=== PATIENT | male | born 1940 | race African-American/Black ===

== ENCOUNTER 2018-02-24 15:13 | Inpatient (IN) | payer OTHER ==
[2018-02-25 16:51] LABS: Urine Appearance CLEAR; Urine Blood NEGATIVE (NEG); Urine Color DK YELLOW; Urine Glucose NEGATIVE (NEG); Urine Protein TRACE (NEG); Urine Specific Gravity >=1.030 (1.005-1.030)
[2018-02-25 17:02] LABS: Urine Bilirubin NEGATIVE (NEG)
[2018-02-25 17:20] LABS: Urine Bacteria <20 /HPF (NONE SEEN); Urine Culture Reflex Order NOT NEEDED; Urine Mucus HEAVY /HPF (NONE SEEN); Urine RBC <5 /HPF (NONE SEEN)
[2018-02-25] MEDS: CARVEDILOL 25 MG TAB PO SCH (17:26)
[2018-02-25] MEDS ORDERED: CARVEDILOL 12.5 MG TAB PO SCH (18:00)
[2018-02-25] MEDS: APIXABAN 2.5 MG TABLET PO SCH (20:26)
[2018-02-25] MEDS: ATORVASTATIN 80 MG TAB PO SCH (20:26)
[2018-02-25] MEDS: HYDRALAZINE HCL 25 MG TABLET PO SCH (20:27)
[2018-02-25] MEDS ORDERED: DOCUSATE NA/SENNA CONC 1 TAB PO SCH (21:00)
[2018-02-26] MEDS: CARVEDILOL 25 MG TAB PO SCH ×2 (05:09→17:44)
[2018-02-26 06:30] LABS: Absolute Lymphocytes (CBC) 1.1 K/uL (0.7-4.9); Absolute Monocytes 0.5 K/uL (0.1-1.3); Absolute Neutrophil 2.4 K/uL (1.8-8.0); Basophils % 0.8 % (0-1.3); Eosinophils % 4.5 % (0-4.4); Hematocrit 41.9 % (39.6-49.0); Lymphocytes % 26.5 % (15.3-44.8); MCH 29.9 pg (27.0-35.0); MCV 87.9 fL (80-100); MPV 8.2 fL (7.6-11.3); Monocytes % 11.4 % (3.3-12.3); RBC Red Blood Cell Count 4.77 M/uL (4.33-5.43)
[2018-02-26 06:43] LABS: Magnesium 2.2 mg/dL (1.8-2.4); Prealbumin 21.9 mg/dL (20-40)
[2018-02-26] MEDS: ASPIRIN 81 MG CHEWABLE TABLET PO SCH (09:25)
[2018-02-26] MEDS: LISINOPRIL 20 MG TAB PO SCH (09:25)
[2018-02-26] MEDS: HYDRALAZINE HCL 25 MG TABLET PO SCH ×3 (09:25→20:07)
[2018-02-26] MEDS: APIXABAN 2.5 MG TABLET PO SCH ×2 (09:26→20:07)
--- NOTE | 2018-02-26 10:57 | R.HP ---
FACILITY: [facility] ENCOUNTER DATE AND TIME: 02/26/2018 10:51 (CDT) MR#: [id number] NAME CARLINE MURRAY ADDRESS: [address] [place] [address] CITY: [place] STATE: [place] ZIP [id number] PHONE: DATE OF : 1940 AGE: 77 SSN# [id number] GENDER: Male DEXTERITY Right-handed MARITAL STATUS Single (Never ) RACE Black PRE-HOSPITAL LIVING SETTING 01 - Home (private home/apt. board/care, assisted living, fci, transitional living) PRE-HOSPITAL LIVING WITH Alone ENCOUNTER PHYSICIAN: Dr. Larry Vincent M.D. REFERRING DOCTOR: lexus Byrne DATE OF ADMISSION: 02/25/2018 14:49 (CDT) REFERRING FACILITY [facility] HOME TYPE AND DETAILS: Type of home: single family house # of levels in the residence: 1 # of steps within the residence: 0 # of steps to enter the residence: 0 ADMISSION DIAGNOSIS: Left Temporal lobe and Left Occipital Lobe, Right basal ganglia, right upper aries and deep left parie jonatan lobe white matter. ONSET DATE: 02/22/2018 PRIMARY DIAGNOSIS-RELATED SURGERIES: N/A SECONDARY/COMORBID DIAGNOSES (TIERED): - N/A CVA Hypertension HISTORY OF PRESENT ILLNESS (HPI): Pt. is a 77 yo Right-handed black male. On 02/22/2018 Pt. presented to [facility] with sudden onset of bilateral weakness. On 02/22/2018 he was admitted to [facility] with diagnosis Left Temporal lobe and Left Occipital Lobe, Righ t basal ganglia, right upper aries and deep left parietal lobe white matter.. His impairment category is Stroke 01 - Bilateral (01.3). Pre-morbidly, Pt. was independent/mod-I in Sphincter Control, Transfers Control, Communication, Socia l Cognition, Self-Care, and Locomotion; and he had good Sphincter Control. Currently, he has deficits of Safety Awareness, Transfers Control, Balance, Self-Care, Locomotion, an d Endurance. Pt. is now referred to [facility] for acute in-patient rehabilitation in order to maximize patient's functional independence in activities of daily living, strength, ROM, and mobi lity. Patient has realistic goal of being discharged at assistance level 6-Yadi to reside at Home with Fam rosa/Relatives. MEDICATION ALLERGIES: No Known Drug Allergies (NKDA) ENVIRONMENTAL ALLERGIES: None Known - Substance Allergies None Known - Other Allergies None Known PAST MEDICAL HISTORY: CVA Hypertension FAMILY HISTORY: Family history is not contributory. SOCIAL HISTORY: - Home Living Alone REVIEW OF SYSTEMS: - Gen No Chills Fatigue No Fever - Eyes No Double Vision No itchiness - ENMT No Difficulty Swallowing - CVS No Chest Discomfort No Chest Pain No Fatigue No Weight Gain - Resp No Cough No Shortness of Breath - GI Continent No Abdominal Pain No Constipation No Diarrhea - Continent No Kidney Pain No Painful Urination No Urinary Urgency - MSK No Joint Pain No Muscle Cramps Stiffness - Skin No Itching No Rash No Suspicious Lesions - Neuro Coordination Difficulty Difficulty with Concentration No Memory Loss No Seizures Weakness - Psych No Anxiety No Depression No HIV Exposure No Persistent Infections No Seasonal Allergies - Endo No Cold/Heat Intolerance No Excessive Hunger No Excessive Thirst No Excessive Urination PHYSICAL EXAM - Gen Alert and awake Lying in bed No apparent distress Oriented to: person, time, and place - Skin No skin breakdown. Normacephalic - Eyes No abnormalities - ENMT No abnormalities - Neck No abnormalities - CVS RRR - Chest Clear - Abd Soft - GI Non distended Deferred - No abnormalities - Ext No significant edema - MSK 4+/5 weakness in left upper and lower extremity - Neuro 4/5 strength left upper and lower extremities. - Psych No abnormalities VITAL SIGNS Temperature: 96.4 F SBP/DBP: 132/77 Pulse: 67 Resp: 18 PRECAUTIONS: - Weight Bearing Precaution WBAT both LE FUNCTIONAL STATUS: - Self-Care A. Eating Ind sup B. Grooming Ind sup C. Bathing Ind sup D. Dressing - Upper Ind sup E. Dressing - Lower Ind sup F. Toileting Ind sup - Sphincter Control G: Bladder control Ind Ind H: Bowel control Ind Ind - Transfers Control I. Bed/Chair/Wheelchair Ind Moisés J. Toilet Ind Moisés K. Tub/Shower Ind ADNO - Locomotion L. Walk/Wheelchair (C) Ind Moisés L. Walk/Wheelchair (W) Ind Moisés M. Stairs Ind ADNO - Communication N. Comprehension (B) Ind Ind O. Expression (B) Ind Ind - Social Cognition P. Social Interaction Ind Ind Q. Problem Solving Ind Ind R. Memory Ind Ind - Endurance Fair - Balance Fair - Safety Awareness Fair CURRENT [facility]. DEFICITS: Safety Awareness, Transfers Control, Balance, Self-Care, Locomotion, and Endurance ASSESSMENT: Pt. is a 77 yo Right-handed black male.On 02/22/2018 Pt. presented to [facility] with sudden onset of bilat eral weakness.On 02/22/2018 he was admitted to [facility] with diagnosis Left Temporal lobe and Left Occipi jonatan Lobe, Right basal ganglia, right upper aries and deep left parietal lobe white matter..His [facility] category is Stroke 01 - Bilateral (01.3).Pre-morbidly, Pt. was independent/mod-I in Sphincter Co ntrol, Transfers Control, Communication, Social Cognition, Self-Care, and Locomotion; and he had good Sphincter Control.Currently, he has deficits of Safety Awareness, Transfers Control, Balance, Self-C are, Locomotion, and Endurance.Pt. is now referred to [facility] for acute in- patient rehabilitation in order to maximize patient's functional independence in activities of daily living, strength, ROM, and mobility.- Rehab Goal Patient has realistic goal of being discharged at assistance level 6-Yadi to reside at Home with Fam rosa/Relatives. REHAB PLAN: - Physical Therapy Edema - to improve, our physical therapists will perform initial evaluation of pt's status upon admi ssion and devise an individualized program for Elevation Training, and Lymphedema Therapy DISCHARGE PLAN: - Estimated Length of Stay (days) 17. - Consensus on plan Discharge plan has been discussed with primary caregiver. Patient/Family is in agreement with the preston n. Primary caregiver is in agreement with the plan. - Patient/Family Goals Return home with assistance. - Planned Living Setting Upon Discharge Home, to live with Family/Relatives. SIGNATURE PANEL: (CDT)
--- NOTE | 2018-02-26 10:59 | PAPE ---
PATIENT: [facility] MR# [id number] REFERRING DOCTOR lexus Byrne EVALUATION DATE AND TIME 02/26/2018 10:56 (CDT) NAME CARLINE MURRAY DATE OF 1940 AGE 77 PHONE N# [id number] GENDER male EVALUATING PHYSICIAN Dr. Larry Vincent M.D. ADMISSION DIAGNOSIS: Left Temporal lobe and Left Occipital Lobe, Right basal ganglia, right upper aries and deep left parie jonatan lobe white matter. ONSET DATE 02/22/2018 SECONDARY/COMORBID DIAGNOSES TIERED: - N/A CVA Hypertension POST-ADMISSION FUNCTIONAL/MEDICAL STATUS: - Bladder Same accident frequency: Ind - No accidents in the past 7 days - Bowel Same accident frequency: Ind - No accidents in the past 7 days - Walking Same score based on distance walked: 1(<=50ft) - Wheelchair Same score based on distance traveled: 0(N/A) STATUS CHANGE EVALUATION: No change in Functional or Medical Status is identified compared with Pre-Admission screening. PATIENT NEEDS CLOSE MEDICAL SUPERVISION BY A REHABILITATION PHYSICIAN FOR: Bowel and Bladder Management Coordination of Treatment Team Medical and Co-Morbidity Management DVT Management Pain Management PATIENT REQUIRES 24X7 REHAB NURSING FOR MEDICAL AND FUNCTIONAL MGT. OF THE FOLLOWING DEFICITS: ADL's Ambulation Bowel and Bladder Management Communication Disease Management Medication Management Patient/Family Education Providing Safe Environment Transfers Pain Management PATIENT REQUIRES INTENSIVE, COORDINATED INTERDISCIPLINARY APPROACH TO REHAB: Arranging Home Equipment/Services Discharge Planning Family Intervention/Training Groover Runner/Case Management LIST OF IDENTIFIED AND POTENTIAL PROBLEMS: Alteration in leisure activities Bladder, Incontinence Blood Pressure, Hypertension/hypotension Issues Bowel, Incontinence Infection, Actual or Potential Mobility Impaired Pain, Alteration in Comfort Self Care Deficit Skin Integrity, Actual or Potential Urinary Tract Infection (UTI), Actual or Potential RISK FOR COMPLICATIONS - Hypertension CVA. Hypotension. LA. TIA. INTERVENTIONS - Hypertension PATIENT COULD BE AT RISK FOR COMPLICATIONS FROM ADVERSE MEDICAL CONDITIONS DUE TO HIS/HER COMORBIDITI ES AND THE RIGORS OF THE INTENSIVE REHABILLITATION PROGRAM. METHODS OR INTERVENTIONS TO AVOID COMPLIC ATIONS INCLUDE: - Deep Vein Thrombosis (DVT) Prophylaxis therapy for prevention . Sequential Compression Device (SCD). TE D Hose. - Bleeding Stroke patients assessed for lethargy or change in status. - Infection Clinical staff to assess and manage the signs and symptoms of infection including fever, redness, war mth, etc. - Urinary Tract Infection - Aspiration Clinical staff will assess and manage coughing, drooling, congestion. - Falls Patient will be evaluated for Fall Precautions and will be placed on Fall Precautions as indicated pe r protocol. - Skin Breakdown Nursing will assess skin daily using assessment tool and will place on Skin Breakdown Precautions as indicated per protocol. - Pain Clinical staff may employ non-medication methods such as massage, distraction, decrease stimulus, etc . as needed. Clinical staff will assess patient's pain level every shift per protocol to assess and e nsure pain management effectiveness. Medications will be given and the pain level re-assessed. PRELIMINARY PLAN OF CARE: - Physical Therapy Patient needs Physical Therapy for a daily minimum of 1.5 hours at least 5 out of 7 days, to improve: Mobility, Strengthening, Transfers, Stretching, ROM, Endurance, Ability to manage stairs, Gait, and Balance. - Speech Therapy Patient needs Speech Therapy for a daily minimum of 0.5 hours at least 5 out of 7 days, to improve: S wallowing, Cognition, Language Skills, and Compensatory Strategies. - Rehabilitation Nursing Patient requires 24x7 Rehabilitation Nursing for: Pain Issues, Identifying and preventing risk factor s, Monitoring and reporting current medical conditions, Assisting with ambulation and transfer, Samm ting with all ADL-s, Teaching patients about disease process and medications, Family teaching, Provid ing safe environment, Bowel and Bladder Issues, Skin Integrity, and Medication Management. Patient needs Groover Runner and/or Case Management for: Discharge Planning, Arranging Home Equipmen t or Services, and Family Interventions. - Dietary and Nutrition Services Patient needs Dietary and Nutrition Services for: Adequate Nutrition, Nutritional Supplements, and Nu tritional Education. - Occupational Therapy Patient needs Occupational Therapy for a daily minimum of 1.5 hours at least 5 out of 7 days, to impr ove Activities of Daily Living, including: Eating, Grooming, Bathing, Dressing, Toileting, Toilet Tra nsfers, Community Reintegration, Higher functional activities, Adaptive Equipment, Splinting, Househo ld Tasks, and Other activities as determined. POTENTIAL FUNCTIONAL GOALS FOR PATIENT TO ACHIEVE BY DISCHARGE: - Safety Precaution Patient will remain free from falls or injury at time of discharge. - Bed Mobility Patient will perform bed mobility at 4-Moisés level of assistance. - Transfers Patient will complete transfers from bed to chair at 4-Moisés level of assistance. - Mobility Patient will ambulate 150 ft with 4-Moisés level of assistance with RW. PATIENT REHAB POTENTIAL Expected level of measurable improvement will be of a practical value to patient's functional capacit y or adaptations to impairments Has a viable Discharge Plan Medically appropriate; condition is sufficiently stable to participate in intensive rehab program Patient is able and expected to receive 3 hours of individualized therapy daily on at least 5 of ever y 7 days Patient's prognosis for significant practical improvement within a reasonable period of time appears Good DISCHARGE PLAN: - Estimated Length of Stay (days) 17. - Consensus on plan Discharge plan has been discussed with primary caregiver. Patient/Family is in agreement with the preston n. Primary caregiver is in agreement with the plan. - Patient/Family Goals Return home with assistance. - Planned Living Setting Upon Discharge Home, to live with Family/Relatives. CONCLUSION ON REHABILITATION NECESSITY: I have evaluated patient's pre-admission functional status and, comparing it to the patient's post-ad mission functional status now, I conclude that the pre-admission assessment was accurate. Patient's c ondition on admission supports the medical necessity of admission to [facility]. It is safe to proceed with patient's therapy program. SIGNATURE PANEL: (CDT)
[2018-02-26] MEDS: AMLODIPINE 5 MG TAB PO SCH (12:12)
[2018-02-26] MEDS: ATORVASTATIN 80 MG TAB PO SCH (20:07)
--- NOTE | 2018-02-27 01:24 | FAST ---
SHIFT START DATE/TIME: 02/26/2018 19:00 (CDT) SHIFT END DATE/TIME: 02/27/2018 07:00 (CDT) NAME CARLINE MURRAY DATE OF : 1940 DATE OF ADMISSION: 02/25/2018 14:49 (CDT) PHONE: AGE: 77 N# [id number] GENDER: Male ENCOUNTER PHYSICIAN: Dr. Larry Vincent M.D. 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 EATING: Activity did not occur on this shift EATING - SCORE: 0-UNK GROOMING: Activity did not occur on this shift GROOMING - SCORE: 0-UNK BATHING: Activity did not occur on this shift BATHING - SCORE: 0-UNK DRESSING - UPPER BODY: Patient is not dressing in public clothing ARTICLES SCORE Total number of steps: 0 DRESSING - UPPER BODY - SCORE: 0-UNK DRESSING - LOWER BODY: Patient is not dressing in public clothing ARTICLES SCORE Total number of steps: 0 DRESSING - LOWER BODY - SCORE: 0-UNK TOILETING: TOILETING - STEP 1: Does the patient require assistance with toileting? Yes. TOILETING - STEP 2: Does the patient require the assistance of a helper? Yes. TOILETING - STEP 3: How much assistance does the patient require from the helper? Only supervision TOILETING - SCORE: 5-SUP BLADDER MANAGEMENT: BLADDER MANAGEMENT - STEP 1: Does the patient control the bladder completely and intentionally without equipment or devices or med ications, and is always continent? No. BLADDER MANAGEMENT - STEP 2: Does the patient require the assistance of a helper? Yes. BLADDER MANAGEMENT - STEP 3: How much assistance does the patient require from the helper? Only set-up of equipment - such as plac ing it within reach of the patient or emptying a device - to maintain either satisfactory voiding pat tern or managing an external device, such as an absorbent pad, ileal device, or catheter BLADDER MANAGEMENT - SCORE: 5-SUP BOWEL MANAGEMENT: Activity did not occur on this shift BOWEL MANAGEMENT - SCORE: 7-IND TRANSFERS: BED, CHAIR, WHEELCHAIR: Activity did not occur on this shift TRANSFERS: BED, CHAIR, WHEELCHAIR - SCORE: 0-UNK TRANSFERS: TOILET: Activity did not occur on this shift TRANSFERS: TOILET - SCORE: 0-UNK TRANSFERS: SHOWER: Activity did not occur on this shift TRANSFERS: SHOWER - SCORE: 0-UNK TRANSFERS: TUB: Activity did not occur on this shift TRANSFERS: TUB - SCORE: 0-UNK LOCOMOTION: WALK: Activity did not occur on this shift LOCOMOTION: WALK - SCORE: 0-UNK LOCOMOTION: WHEELCHAIR: Activity did not occur on this shift LOCOMOTION: WHEELCHAIR - SCORE: 0-UNK COMPREHENSION: COMPREHENSION: TYPE: Both COMPREHENSION - STEP 1: Does the patient require help to understand complex and abstract ideas (such as current events, finan mylene, discharge planning, medical issues, relationships, etc)? Yes. COMPREHENSION - STEP 2: Does the patient require help to understand questions or statements about basic needs or ideas (such as hunger, thirst, sleep, safety, daily schedule, room location, or discomfort) half or more of the t summer? No. COMPREHENSION - STEP 3: How often does the patient need help to understand directions and conversation about basic needs? 25% - 49% of the time COMPREHENSION - SCORE: 3-MOD EXPRESSION EXPRESSION: TYPE: Both EXPRESSION - STEP 1: Does the patient require help expressing complex and abstract ideas (such as current events, finances , discharge planning, medical issues, relationships, etc)? Yes. EXPRESSION - STEP 2: Does the patient require help to express basic necessities or ideas (such as hunger, thirst, sleep, s afety, daily schedule, room location, or discomfort) half or more of the time? No. EXPRESSION - STEP 3: How often does the patient need help to express directions and conversation about basic needs? 25-49% of the time EXPRESSION - SCORE: 3-MOD SOCIAL INTERACTION: SOCIAL INTERACTION - STEP 1: Does the patient require a helper to interact with others in social and therapeutic situations? Yes. SOCIAL INTERACTION - STEP 2: Does the patient interact appropriately half or more of the time? Yes. SOCIAL INTERACTION - STEP 3: How often does the patient need help to interact appropriately? 25-49% of the time SOCIAL INTERACTION - SCORE: 3-MOD PROBLEM SOLVING: PROBLEM SOLVING - STEP 1: Does the patient need help to solve complex problems such as managing a checking account or confronti ng interpersonal problems? Yes. PROBLEM SOLVING - STEP 2: Does the patient solve basic routine problems half or more of the time? Yes. PROBLEM SOLVING - STEP 3: How often does the patient need help to solve basic routine problems? 25%-49% of the time PROBLEM SOLVING - SCORE: 3-MOD MEMORY: MEMORY - STEP 1: Does the patient need help to remember frequently encountered people, daily routines, and executing r equests? Yes. MEMORY - STEP 2: How often does the patient need help to remember frequently encountered people, daily routines, and e xecuting requests? 25% - 49% of the time MEMORY - SCORE: 3-MOD SIGNATURE PANEL: The following modified sections: Eating - Score, Grooming - Score, Dressing - Upper Body - Score, Carlo ssing - Lower Body - Score, Toileting - Score, Bladder Management - Score, Bowel Management - Score, Transfers: Bed, Chair, Wheelchair - Score, Transfers: Toilet - Score, Transfers: Shower - Score, Grewal sfers: Tub - Score, Locomotion: Walk - Score, Locomotion: Wheelchair - Score, Comprehension - Score, Expression - Score, Social Interaction - Score, Problem Solving - Score, Memory - Score were [electro nically] signed by Beulah Black CNA on WedFeb 27 2018 01:23:57 GMT-0500 (Central Daylight Time)
[2018-02-27] MEDS: CARVEDILOL 25 MG TAB PO SCH ×2 (05:13→17:16)
[2018-02-27] MEDS: LISINOPRIL 20 MG TAB PO SCH (07:20)
[2018-02-27] MEDS: ASPIRIN 81 MG CHEWABLE TABLET PO SCH (07:20)
[2018-02-27] MEDS: AMLODIPINE 5 MG TAB PO SCH (07:21)
[2018-02-27] MEDS: APIXABAN 2.5 MG TABLET PO SCH ×2 (07:21→20:26)
[2018-02-27] MEDS: HYDRALAZINE HCL 25 MG TABLET PO SCH ×3 (10:15→20:26)
[2018-02-27] MEDS: ATORVASTATIN 80 MG TAB PO SCH (20:26)
--- NOTE | 2018-02-28 02:22 | FAST ---
SHIFT START DATE/TIME: 02/27/2018 19:00 (CDT) SHIFT END DATE/TIME: 02/28/2018 07:00 (CDT) NAME CARLINE MURRAY DATE OF : 1940 DATE OF ADMISSION: 02/25/2018 14:49 (CDT) PHONE: AGE: 77 N# [id number] GENDER: Male ENCOUNTER PHYSICIAN: Dr. Larry Vincent M.D. 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 EATING: Activity did not occur on this shift EATING - SCORE: 0-UNK GROOMING: Activity did not occur on this shift GROOMING - SCORE: 0-UNK BATHING: Activity did not occur on this shift BATHING - SCORE: 0-UNK DRESSING - UPPER BODY: Patient is not dressing in public clothing ARTICLES SCORE Total number of steps: 0 DRESSING - UPPER BODY - SCORE: 0-UNK DRESSING - LOWER BODY: Patient is not dressing in public clothing ARTICLES SCORE Total number of steps: 0 DRESSING - LOWER BODY - SCORE: 0-UNK TOILETING: TOILETING - STEP 1: Does the patient require assistance with toileting? Yes. TOILETING - STEP 2: Does the patient require the assistance of a helper? Yes. TOILETING - STEP 3: How much assistance does the patient require from the helper? Only supervision TOILETING - SCORE: 5-SUP BLADDER MANAGEMENT: BLADDER MANAGEMENT - STEP 1: Does the patient control the bladder completely and intentionally without equipment or devices or med ications, and is always continent? No. BLADDER MANAGEMENT - STEP 2: Does the patient require the assistance of a helper? Yes. BLADDER MANAGEMENT - STEP 3: How much assistance does the patient require from the helper? Only set-up of equipment - such as plac ing it within reach of the patient or emptying a device - to maintain either satisfactory voiding pat tern or managing an external device, such as an absorbent pad, ileal device, or catheter BLADDER MANAGEMENT - SCORE: 5-SUP BOWEL MANAGEMENT: Activity did not occur on this shift BOWEL MANAGEMENT - SCORE: 7-IND TRANSFERS: BED, CHAIR, WHEELCHAIR: Activity did not occur on this shift TRANSFERS: BED, CHAIR, WHEELCHAIR - SCORE: 0-UNK TRANSFERS: TOILET: Activity did not occur on this shift TRANSFERS: TOILET - SCORE: 0-UNK TRANSFERS: SHOWER: Activity did not occur on this shift TRANSFERS: SHOWER - SCORE: 0-UNK TRANSFERS: TUB: Activity did not occur on this shift TRANSFERS: TUB - SCORE: 0-UNK LOCOMOTION: WALK: Activity did not occur on this shift LOCOMOTION: WALK - SCORE: 0-UNK LOCOMOTION: WHEELCHAIR: Activity did not occur on this shift LOCOMOTION: WHEELCHAIR - SCORE: 0-UNK COMPREHENSION: COMPREHENSION: TYPE: Both COMPREHENSION - STEP 1: Does the patient require help to understand complex and abstract ideas (such as current events, finan mylene, discharge planning, medical issues, relationships, etc)? Yes. COMPREHENSION - STEP 2: Does the patient require help to understand questions or statements about basic needs or ideas (such as hunger, thirst, sleep, safety, daily schedule, room location, or discomfort) half or more of the t summer? No. COMPREHENSION - STEP 3: How often does the patient need help to understand directions and conversation about basic needs? 10% - 24% of the time COMPREHENSION - SCORE: 4-MIN EXPRESSION EXPRESSION: TYPE: Both EXPRESSION - STEP 1: Does the patient require help expressing complex and abstract ideas (such as current events, finances , discharge planning, medical issues, relationships, etc)? Yes. EXPRESSION - STEP 2: Does the patient require help to express basic necessities or ideas (such as hunger, thirst, sleep, s afety, daily schedule, room location, or discomfort) half or more of the time? No. EXPRESSION - STEP 3: How often does the patient need help to express directions and conversation about basic needs? 25-49% of the time EXPRESSION - SCORE: 3-MOD SOCIAL INTERACTION: SOCIAL INTERACTION - STEP 1: Does the patient require a helper to interact with others in social and therapeutic situations? Yes. SOCIAL INTERACTION - STEP 2: Does the patient interact appropriately half or more of the time? Yes. SOCIAL INTERACTION - STEP 3: How often does the patient need help to interact appropriately? 25-49% of the time SOCIAL INTERACTION - SCORE: 3-MOD PROBLEM SOLVING: PROBLEM SOLVING - STEP 1: Does the patient need help to solve complex problems such as managing a checking account or confronti ng interpersonal problems? Yes. PROBLEM SOLVING - STEP 2: Does the patient solve basic routine problems half or more of the time? Yes. PROBLEM SOLVING - STEP 3: How often does the patient need help to solve basic routine problems? 25%-49% of the time PROBLEM SOLVING - SCORE: 3-MOD MEMORY: MEMORY - STEP 1: Does the patient need help to remember frequently encountered people, daily routines, and executing r equests? No. MEMORY - STEP 2: Does the patient have slight difficulty recognizing frequently encountered people, daily routines, or executing requests without the need for repetition or using self-initiated or environmental cues to remember? Yes. MEMORY - SCORE: 6-CARINA SIGNATURE PANEL: The following modified sections: Eating - Score, Grooming - Score, Dressing - Upper Body - Score, Carlo ssing - Lower Body - Score, Toileting - Score, Bladder Management - Score, Bowel Management - Score, Transfers: Bed, Chair, Wheelchair - Score, Transfers: Toilet - Score, Transfers: Shower - Score, Grewal sfers: Tub - Score, Locomotion: Walk - Score, Locomotion: Wheelchair - Score, Comprehension - Score, Expression - Score, Social Interaction - Score, Problem Solving - Score, Memory - Score were [electro nically] signed by Beulah Black CNA on WedFeb 28 2018 02:21:09 GMT-0500 (Central Daylight Time)
[2018-02-28] MEDS: CARVEDILOL 25 MG TAB PO SCH ×2 (05:05→17:15)
[2018-02-28] MEDS: APIXABAN 2.5 MG TABLET PO SCH ×2 (08:32→19:43)
[2018-02-28] MEDS: ASPIRIN 81 MG CHEWABLE TABLET PO SCH (08:32)
[2018-02-28] MEDS: AMLODIPINE 5 MG TAB PO SCH (08:32)
[2018-02-28] MEDS: LISINOPRIL 20 MG TAB PO SCH (08:32)
[2018-02-28] MEDS: HYDRALAZINE HCL 25 MG TABLET PO SCH ×3 (08:32→20:19)
--- NOTE | 2018-02-28 08:40 | P.CNS ---
Date of Consult: 02/28/18 Reason for Consult: onychomycosis Requesting Physician: Larry Vincent Chief Complaint: Painful toenails Allergies No Known Allergies Allergy (Verified 02/25/18 15:13) Home Medications: Amlodipine [Norvasc*] 1 tab PO DAILY 02/25/18 Aspirin Chewable [Aspirin Chewable*] 1 tab PO DAILY 02/25/18 Atorvastatin Calcium [Lipitor] 1 tab PO BEDTIME 02/25/18 Carvedilol [Coreg] 37.5 mg PO BID 02/25/18 Hydralazine [Apresoline*] 1 tab PO Q8H 02/25/18 Lisinopril [Zestril] 1 tab PO DAILY 02/25/18 - Past Medical/Surgical History Diabetic: No -: htn -: cva - Social History Alcohol use: No CD- Drugs: No Caffeine use: No Place of Residence: Home Review of Systems 10-point ROS is otherwise unremarkable Physical Examination Temp Pulse Resp BP Pulse Ox 97.8 F 60 16 151/81 H 99 02/27/18 20:00 02/28/18 08:32 02/27/18 20:00 02/28/18 08:32 02/27/18 20:00 General: Alert, In no apparent distress, Oriented x3 Cardiovascular: No edema, Abnormal pulses (0/4 dp pulses bilateral, 1/4 posterior tibial tendon bilateral) Capillary refill: <2 Seconds Musculoskeletal: No clubbing, No swelling, No contractures, No erythema, No tenderness, No warmth Integumentary: Other (thickened hypertrophic nails with subungual debris x 10. Skin noted to be xerotic) Neurological: Abnormal sensation - Problems (1) Generalized atherosclerosis Current Visit: Yes Status: Acute (2) Tinea unguium Current Visit: Yes Status: Acute Conclusions/Impression: Debridement of nails x ten at bedside Physician Review: Patient Assessed, Agree with Above Assessment and Plan Critical Care: No
--- NOTE | 2018-02-28 11:05 | FAST ---
SHIFT START DATE/TIME: 02/28/2018 07:00 (CDT) SHIFT END DATE/TIME: 02/28/2018 19:00 (CDT) NAME CARLINE MURRAY DATE OF : 1940 DATE OF ADMISSION: 02/25/2018 14:49 (CDT) PHONE: AGE: 77 N# [id number] GENDER: Male ENCOUNTER PHYSICIAN: Dr. Larry Vincent M.D. 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 EATING: EATING - STEP 1: Does the patient require assistance when eating? Yes. EATING - STEP 2: Does the patient require the assistance of a helper? Yes. EATING - STEP 3: Does the patient perform half or more of the eating tasks? Yes. EATING - STEP 4: Does the patient need only supervision, cuing, coaxing OR help to apply an orthosis OR help to cut fo od, open containers, pour liquids, or butter bread? Yes. EATING - SCORE: 5-SUP GROOMING: Comb/brush hair Oral care Wash, rinse, and dry face Wash, rinse, and dry hands GROOMING - STEP 1: Does the patient require assistance when grooming? Yes. GROOMING - STEP 2: Does the patient require the assistance of a helper? Yes. GROOMING - STEP 3: How much assistance does the patient require from the helper? Cuing, coaxing, instructions, or encour agement for completion of grooming GROOMING - SCORE: 5-SUP BATHING: Activity did not occur on this shift BATHING - SCORE: 0-UNK DRESSING - UPPER BODY: Activity did not occur on this shift ARTICLES SCORE Total number of steps: 0 DRESSING - UPPER BODY - SCORE: 0-UNK DRESSING - LOWER BODY: Activity did not occur on this shift ARTICLES SCORE Total number of steps: 0 DRESSING - LOWER BODY - SCORE: 0-UNK TOILETING: TOILETING - STEP 1: Does the patient require assistance with toileting? Yes. TOILETING - STEP 2: Does the patient require the assistance of a helper? Yes. TOILETING - STEP 3: How much assistance does the patient require from the helper? Hands-on assistance from the helper TOILETING - STEP 4: Of the 3 tasks: 1) Adjusting clothing prior to use, 2) Cleansing of perineal area, 3) Adjusting clot richie after use; How many tasks does the patient perform WITHOUT assistance of the helper? Two tasks TOILETING - SCORE: 3-MOD BLADDER MANAGEMENT: BLADDER MANAGEMENT - STEP 1: Does the patient control the bladder completely and intentionally without equipment or devices or med ications, and is always continent? No. BLADDER MANAGEMENT - STEP 2: Does the patient require the assistance of a helper? No, patient requires and independently uses an a ssistive device, such as a urinal, bedpan, bedside commode, catheter, absorbent pad, or collecting de vice BLADDER MANAGEMENT - SCORE: 6-CARINA BOWEL MANAGEMENT: BOWEL MANAGEMENT - STEP 1: Does the patient control bowels completely and intentionally without equipment devices or medications AND is always continent? No. BOWEL MANAGEMENT - STEP 2: Does the patient require the assistance of a helper? No, patient requires and manages independently a n assistive device such as a bedpan, bedside commode, absorbent pad, incontinent device, or collectin g device BOWEL MANAGEMENT - SCORE: 6-CARINA TRANSFERS: BED, CHAIR, WHEELCHAIR: TRANSFERS: BED, CHAIR, WHEELCHAIR - STEP 1: Does the patient require assistance with bed, chair, or wheelchair transfers? Yes. TRANSFERS: BED, CHAIR, WHEELCHAIR - STEP 2: Does the patient require the assistance of a helper? Yes. TRANSFERS: BED, CHAIR, WHEELCHAIR - STEP 3: How much assistance does the patient require from the helper? Lifting of the patient TRANSFERS: BED, CHAIR, WHEELCHAIR - STEP 4: Does the helper lift the patient ONLY up? ONLY down? Up AND Down? ONLY up. TRANSFERS: BED, CHAIR, WHEELCHAIR - SCORE: 3-MOD TRANSFERS: TOILET: TRANSFERS: TOILET - STEP 1: Does the patient require assistance with toilet transfers? Yes. TRANSFERS: TOILET - STEP 2: Does the patient require the assistance of a helper? Yes. TRANSFERS: TOILET - STEP 3: How much assistance does the patient require from the helper? Patient performs half or more of the tr ansferring tasks TRANSFERS: TOILET - STEP 4: Does the patient need only incidental help such as contact guard or steadying during toilet transfer? Yes. TRANSFERS: TOILET - SCORE: 4-MIN TRANSFERS: SHOWER: Activity did not occur on this shift TRANSFERS: SHOWER - SCORE: 0-UNK TRANSFERS: TUB: Activity did not occur on this shift TRANSFERS: TUB - SCORE: 0-UNK LOCOMOTION: WALK: Activity did not occur on this shift LOCOMOTION: WALK - SCORE: 0-UNK LOCOMOTION: WHEELCHAIR: Activity did not occur on this shift LOCOMOTION: WHEELCHAIR - SCORE: 0-UNK COMPREHENSION: COMPREHENSION: TYPE: Both COMPREHENSION - STEP 1: Does the patient require help to understand complex and abstract ideas (such as current events, finan mylene, discharge planning, medical issues, relationships, etc)? Yes. COMPREHENSION - STEP 2: Does the patient require help to understand questions or statements about basic needs or ideas (such as hunger, thirst, sleep, safety, daily schedule, room location, or discomfort) half or more of the t summer? No. COMPREHENSION - STEP 3: How often does the patient need help to understand directions and conversation about basic needs? 10% - 24% of the time COMPREHENSION - SCORE: 4-MIN EXPRESSION EXPRESSION: TYPE: Both EXPRESSION - STEP 1: Does the patient require help expressing complex and abstract ideas (such as current events, finances , discharge planning, medical issues, relationships, etc)? Yes. EXPRESSION - STEP 2: Does the patient require help to express basic necessities or ideas (such as hunger, thirst, sleep, s afety, daily schedule, room location, or discomfort) half or more of the time? No. EXPRESSION - STEP 3: How often does the patient need help to express directions and conversation about basic needs? 10-24% of the time EXPRESSION - SCORE: 4-MIN SOCIAL INTERACTION: SOCIAL INTERACTION - STEP 1: Does the patient require a helper to interact with others in social and therapeutic situations? Yes. SOCIAL INTERACTION - STEP 2: Does the patient interact appropriately half or more of the time? Yes. SOCIAL INTERACTION - STEP 3: How often does the patient need help to interact appropriately? Less than 10% of the time SOCIAL INTERACTION - SCORE: 5-SUP PROBLEM SOLVING: PROBLEM SOLVING - STEP 1: Does the patient need help to solve complex problems such as managing a checking account or confronti ng interpersonal problems? Yes. PROBLEM SOLVING - STEP 2: Does the patient solve basic routine problems half or more of the time? Yes. PROBLEM SOLVING - STEP 3: How often does the patient need help to solve basic routine problems? 10%-24% of the time PROBLEM SOLVING - SCORE: 4-MIN MEMORY: MEMORY - STEP 1: Does the patient need help to remember frequently encountered people, daily routines, and executing r equests? Yes. MEMORY - STEP 2: How often does the patient need help to remember frequently encountered people, daily routines, and e xecuting requests? 10% - 24% of the time MEMORY - SCORE: 4-MIN SIGNATURE PANEL: The following modified sections: Eating - Score, Grooming - Score, Bathing - Score, Dressing - Upper Body - Score, Dressing - Lower Body - Score, Toileting - Score, Bladder Management - Score, Bowel Man agement - Score, Transfers: Bed, Chair, Wheelchair - Score, Transfers: Toilet - Score, Transfers: Esperanza wer - Score, Transfers: Tub - Score, Locomotion: Walk - Score, Locomotion: Wheelchair - Score, Compre hension - Score, Expression - Score, Social Interaction - Score, Problem Solving - Score, Memory - Sc ore were [electronically] signed by Kiet Sims on WedFeb 28 2018 11:04:36 T-0500 (Central Daylight Time)
[2018-02-28 15:52] LABS: Absolute Lymphocytes (CBC) 1.4 K/uL (0.7-4.9); Absolute Monocytes 0.6 K/uL (0.1-1.3); Absolute Neutrophil 3.2 K/uL (1.8-8.0); Basophils % 0.8 % (0-1.3); Eosinophils % 2.7 % (0-4.4); Hematocrit 42.7 % (39.6-49.0); Lymphocytes % 26.3 % (15.3-44.8); MCH 29.9 pg (27.0-35.0); MCV 87.7 fL (80-100); MPV 8.5 fL (7.6-11.3); Monocytes % 11.4 % (3.3-12.3); RBC Red Blood Cell Count 4.86 M/uL (4.33-5.43)
[2018-02-28 16:18] LABS: Potassium 4.4 mmol/L (3.5-5.1)
--- NOTE | 2018-02-28 18:53 | R.PN ---
ENCOUNTER DATE AND TIME: 02/28/2018 18:29 (CDT) NAME CARLINE MURRAY DATE OF : 1940 DATE OF ADMISSION: 02/25/2018 14:49 (CDT) Left Temporal lobe and Left Occipital Lobe, Right basal ganglia, right upper aries and deep left parie jonatan lobe white matter.SUBJECTIVE: Pt denied any depression. Pt denied any Shortness of Breath. Mr. Murray left the hospital without permission and evidently drank alcohol as after returnig his blo od alcohol level was elevated to 5 mg/dl (Normal < 3). Self propelled wheelchair 250' with standby assistance. Ambulated 190' with contact guard assistance using a rolling walker. VITAL SIGNS Temperature: 97.2 F SBP/DBP: 151/81 Pulse: 76 Resp: 16 MEDICATION ALLERGIES: No Known Drug Allergies (NKDA) ENVIRONMENTAL ALLERGIES: None Known - Substance Allergies None Known - Other Allergies None Known NURSING: - Shower allowing shower - Bladder care per protocol - Skin care per protocol PRECAUTIONS: - Weight Bearing Precaution WBAT both LE ACTIVITIES OOB only with supervision THERAPIES: - Occupational Therapy Evaluate and Treat. Visual Perceptual Training. Cognitive Retraining. - Speech Therapy Cognitive Training. Memory Strategies. Expressive Language Skills. Speech Intelligibility Training. R eceptive Language Skills. - Physical Therapy Evaluate and Treat. PHYSICAL EXAM - Gen Alert and awake Lying in bed No apparent distress Oriented to: person, time, and place - Skin No skin breakdown. Normacephalic - Eyes No abnormalities - ENMT No abnormalities - Neck No abnormalities - CVS RRR - Chest Clear - Abd Soft - GI Non distended Deferred - No abnormalities - Ext No significant edema - MSK 4+/5 weakness in left upper and lower extremity - Neuro 4/5 strength left upper and lower extremities. - Psych No abnormalities ASSESSMENT: Pt. is a 77 yo Right-handed black male.On 02/22/2018 Pt. presented to [facility] with sudden onset of bilat eral weakness.On 02/22/2018 he was admitted to [facility] with diagnosis Left Temporal lobe and Left Occipi jonatan Lobe, Right basal ganglia, right upper aries and deep left parietal lobe white matter..His [facility] ent category is Stroke 01 - Bilateral (01.3).Pre-morbidly, Pt. was independent/mod-I in Sphincter Co ntrol, Transfers Control, Communication, Social Cognition, Self-Care, and Locomotion; and he had good Sphincter Control.Currently, he has deficits of Safety Awareness, Transfers Control, Balance, Self-C are, Locomotion, and Endurance.Pt. is now referred to [facility] for acute in- patient rehabilitation in order to maximize patient's functional independence in activities of daily living, strength, ROM, and mobility.- Rehab Goal Patient has realistic goal of being discharged at assistance level 6-Yadi to reside at Home with Fam rosa/Relatives. MDM/PLAN: - Physical Therapy Edema - to improve, our physical therapists will perform initial evaluation of pt's status upon admis santhosh and devise an individualized program for Elevation Training, and Lymphedema Therapy FUNCTIONAL STATUS: UPDATED AT WEEKLY TEAM CONFERENCE - Bladder Same accident frequency: 7-Ind - No accidents in the past 7 days - Bowel Same accident frequency: 7-Ind - No accidents in the past 7 days - Walking Same score based on distance walked: 1(<=50ft) - Wheelchair Same score based on distance traveled: 0(N/A) FUNCTIONAL STATUS: - Self-Care A. Eating sup B. Grooming sup C. Bathing sup D. Dressing - Upper sup E. Dressing - Lower sup F. Toileting sup - Sphincter Control G: Bladder control Ind H: Bowel control Ind - Transfers Control I. Bed/Chair/Wheelchair Moisés J. Toilet Moisés K. Tub/Shower ADNO - Locomotion L. Walk/Wheelchair (C) Moisés L. Walk/Wheelchair (W) Moisés M. Stairs ADNO - Communication N. Comprehension (B) Ind O. Expression (B) Ind - Social Cognition P. Social Interaction Ind Q. Problem Solving Ind R. Memory Ind - Endurance Fair - Balance Fair - Safety Awareness Fair CURRENT FUNC. DEFICITS: Safety Awareness, Transfers Control, Balance, Self-Care, Locomotion, and Endurance SIGNATURE PANEL: (CDT)
[2018-02-28 18:59] LABS: Barbiturates NEGATIVE (NEGATIVE); Benzodiazepines NEGATIVE (NEGATIVE); Cocaine NEGATIVE (NEGATIVE); METHAMPHETAM NEGATIVE (NEGATIVE); Methadone NEGATIVE (NEGATIVE); Opiates NEGATIVE (NEGATIVE); Phencyclidine NEGATIVE (NEGATIVE); THC Cannibis NEGATIVE (NEGATIVE)
[2018-02-28] MEDS: ATORVASTATIN 80 MG TAB PO SCH (20:19)
--- NOTE | 2018-03-01 02:13 | FAST ---
SHIFT START DATE/TIME: 02/28/2018 19:00 (CDT) SHIFT END DATE/TIME: 03/01/2018 07:00 (CDT) NAME CARLINE MURRAY DATE OF : 1940 DATE OF ADMISSION: 02/25/2018 14:49 (CDT) PHONE: AGE: 77 N# [id number] GENDER: Male ENCOUNTER PHYSICIAN: Dr. Larry Vincent M.D. 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 EATING: Activity did not occur on this shift EATING - SCORE: 0-UNK GROOMING: Activity did not occur on this shift GROOMING - SCORE: 0-UNK BATHING: Activity did not occur on this shift BATHING - SCORE: 0-UNK DRESSING - UPPER BODY: Patient is not dressing in public clothing ARTICLES SCORE Total number of steps: 0 DRESSING - UPPER BODY - SCORE: 0-UNK DRESSING - LOWER BODY: Patient is not dressing in public clothing ARTICLES SCORE Total number of steps: 0 DRESSING - LOWER BODY - SCORE: 0-UNK TOILETING: TOILETING - STEP 1: Does the patient require assistance with toileting? Yes. TOILETING - STEP 2: Does the patient require the assistance of a helper? Yes. TOILETING - STEP 3: How much assistance does the patient require from the helper? Only supervision TOILETING - SCORE: 5-SUP BLADDER MANAGEMENT: BLADDER MANAGEMENT - STEP 1: Does the patient control the bladder completely and intentionally without equipment or devices or med ications, and is always continent? No. BLADDER MANAGEMENT - STEP 2: Does the patient require the assistance of a helper? Yes. BLADDER MANAGEMENT - STEP 3: How much assistance does the patient require from the helper? Only set-up of equipment - such as plac ing it within reach of the patient or emptying a device - to maintain either satisfactory voiding pat tern or managing an external device, such as an absorbent pad, ileal device, or catheter BLADDER MANAGEMENT - SCORE: 5-SUP BOWEL MANAGEMENT: Activity did not occur on this shift BOWEL MANAGEMENT - SCORE: 7-IND TRANSFERS: BED, CHAIR, WHEELCHAIR: Activity did not occur on this shift TRANSFERS: BED, CHAIR, WHEELCHAIR - SCORE: 0-UNK TRANSFERS: TOILET: Activity did not occur on this shift TRANSFERS: TOILET - SCORE: 0-UNK TRANSFERS: SHOWER: Activity did not occur on this shift TRANSFERS: SHOWER - SCORE: 0-UNK TRANSFERS: TUB: Activity did not occur on this shift TRANSFERS: TUB - SCORE: 0-UNK LOCOMOTION: WALK: Activity did not occur on this shift LOCOMOTION: WALK - SCORE: 0-UNK LOCOMOTION: WHEELCHAIR: Activity did not occur on this shift LOCOMOTION: WHEELCHAIR - SCORE: 0-UNK COMPREHENSION: COMPREHENSION: TYPE: Both COMPREHENSION - STEP 1: Does the patient require help to understand complex and abstract ideas (such as current events, finan mylene, discharge planning, medical issues, relationships, etc)? Yes. COMPREHENSION - STEP 2: Does the patient require help to understand questions or statements about basic needs or ideas (such as hunger, thirst, sleep, safety, daily schedule, room location, or discomfort) half or more of the t summer? No. COMPREHENSION - STEP 3: How often does the patient need help to understand directions and conversation about basic needs? 10% - 24% of the time COMPREHENSION - SCORE: 4-MIN EXPRESSION EXPRESSION: TYPE: Both EXPRESSION - STEP 1: Does the patient require help expressing complex and abstract ideas (such as current events, finances , discharge planning, medical issues, relationships, etc)? Yes. EXPRESSION - STEP 2: Does the patient require help to express basic necessities or ideas (such as hunger, thirst, sleep, s afety, daily schedule, room location, or discomfort) half or more of the time? No. EXPRESSION - STEP 3: How often does the patient need help to express directions and conversation about basic needs? 25-49% of the time EXPRESSION - SCORE: 3-MOD SOCIAL INTERACTION: SOCIAL INTERACTION - STEP 1: Does the patient require a helper to interact with others in social and therapeutic situations? Yes. SOCIAL INTERACTION - STEP 2: Does the patient interact appropriately half or more of the time? Yes. SOCIAL INTERACTION - STEP 3: How often does the patient need help to interact appropriately? 10-24% of the time SOCIAL INTERACTION - SCORE: 4-MIN PROBLEM SOLVING: PROBLEM SOLVING - STEP 1: Does the patient need help to solve complex problems such as managing a checking account or confronti ng interpersonal problems? Yes. PROBLEM SOLVING - STEP 2: Does the patient solve basic routine problems half or more of the time? Yes. PROBLEM SOLVING - STEP 3: How often does the patient need help to solve basic routine problems? 10%-24% of the time PROBLEM SOLVING - SCORE: 4-MIN MEMORY: MEMORY - STEP 1: Does the patient need help to remember frequently encountered people, daily routines, and executing r equests? Yes. MEMORY - STEP 2: How often does the patient need help to remember frequently encountered people, daily routines, and e xecuting requests? Less than 10% of the time MEMORY - SCORE: 5-SUP
[2018-03-01] MEDS: CARVEDILOL 25 MG TAB PO SCH ×2 (05:27→17:23)
[2018-03-01] MEDS: LISINOPRIL 20 MG TAB PO SCH (08:37)
[2018-03-01] MEDS: AMLODIPINE 5 MG TAB PO SCH (08:37)
[2018-03-01] MEDS: ASPIRIN 81 MG CHEWABLE TABLET PO SCH (08:37)
[2018-03-01] MEDS: APIXABAN 2.5 MG TABLET PO SCH ×2 (08:38→20:11)
[2018-03-01] MEDS: HYDRALAZINE HCL 25 MG TABLET PO SCH ×3 (08:38→20:11)
--- NOTE | 2018-03-01 09:52 | RAD REPORT ---
EXAM DESCRIPTION: RAD - Barium Swallow Modified - 03/01/2018 9:43 am CLINICAL HISTORY: Difficulty swallowing COMPARISON: No comparisons TECHNIQUE: The patient was given liquid, semi-solid and solid forms of barium. Lateral view fluorosc opic imaging was performed in conjunction with speech pathology service. FINDINGS: LARYNGEAL PENETRATION: NOT CLEARED THIN VIA TSP AND CUP SIP, PENETRATION WAS DEEP TO THE LEVEL OF THE VOCAL CORDS WITH THIN VIA CUP SIP PHARYNGEAL RESIDUE: PYRIFORM WITH THIN ORAL PREPARATION AND ORAL TRANSIT TIME WERE INCREASED DELAY IN SWALLOW ONSET NOTED PUREED BOLUS PASSED INTO THE LOWER ESOPHAGUS WITHOUT INCIDENT Total fluoroscopy time: 4 minutes and 11 seconds.
--- NOTE | 2018-03-01 10:29 | FAST ---
SHIFT START DATE/TIME: 03/01/2018 07:00 (CDT) SHIFT END DATE/TIME: 03/01/2018 19:00 (CDT) NAME CARLINE MURRAY DATE OF : 1940 DATE OF ADMISSION: 02/25/2018 14:49 (CDT) PHONE: AGE: 77 N# [id number] GENDER: Male ENCOUNTER PHYSICIAN: Dr. Larry Vincent M.D. 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 EATING: EATING - STEP 1: Does the patient require assistance when eating? Yes. EATING - STEP 2: Does the patient require the assistance of a helper? Yes. EATING - STEP 3: Does the patient perform half or more of the eating tasks? Yes. EATING - STEP 4: Does the patient need only supervision, cuing, coaxing OR help to apply an orthosis OR help to cut fo od, open containers, pour liquids, or butter bread? Yes. EATING - SCORE: 5-SUP GROOMING: Activity did not occur on this shift GROOMING - SCORE: 0-UNK BATHING: Activity did not occur on this shift BATHING - SCORE: 0-UNK DRESSING - UPPER BODY: Activity did not occur on this shift ARTICLES SCORE Total number of steps: 0 DRESSING - UPPER BODY - SCORE: 0-UNK DRESSING - LOWER BODY: Activity did not occur on this shift ARTICLES SCORE Total number of steps: 0 DRESSING - LOWER BODY - SCORE: 0-UNK TOILETING: TOILETING - STEP 1: Does the patient require assistance with toileting? Yes. TOILETING - STEP 2: Does the patient require the assistance of a helper? Yes. TOILETING - STEP 3: How much assistance does the patient require from the helper? Hands-on assistance from the helper TOILETING - STEP 4: Of the 3 tasks: 1) Adjusting clothing prior to use, 2) Cleansing of perineal area, 3) Adjusting clot richie after use; How many tasks does the patient perform WITHOUT assistance of the helper? Two tasks TOILETING - SCORE: 3-MOD BLADDER MANAGEMENT: BLADDER MANAGEMENT - STEP 1: Does the patient control the bladder completely and intentionally without equipment or devices or med ications, and is always continent? No. BLADDER MANAGEMENT - STEP 2: Does the patient require the assistance of a helper? No, patient requires and independently uses an a ssistive device, such as a urinal, bedpan, bedside commode, catheter, absorbent pad, or collecting de vice BLADDER MANAGEMENT - SCORE: 6-CARINA BOWEL MANAGEMENT: BOWEL MANAGEMENT - STEP 1: Does the patient control bowels completely and intentionally without equipment devices or medications AND is always continent? No. BOWEL MANAGEMENT - STEP 2: Does the patient require the assistance of a helper? No, patient requires and manages independently a n assistive device such as a bedpan, bedside commode, absorbent pad, incontinent device, or collectin g device BOWEL MANAGEMENT - SCORE: 6-CARINA TRANSFERS: BED, CHAIR, WHEELCHAIR: TRANSFERS: BED, CHAIR, WHEELCHAIR - STEP 1: Does the patient require assistance with bed, chair, or wheelchair transfers? Yes. TRANSFERS: BED, CHAIR, WHEELCHAIR - STEP 2: Does the patient require the assistance of a helper? Yes. TRANSFERS: BED, CHAIR, WHEELCHAIR - STEP 3: How much assistance does the patient require from the helper? Lifting of the patient TRANSFERS: BED, CHAIR, WHEELCHAIR - STEP 4: Does the helper lift the patient ONLY up? ONLY down? Up AND Down? ONLY up. TRANSFERS: BED, CHAIR, WHEELCHAIR - SCORE: 3-MOD TRANSFERS: TOILET: Activity did not occur on this shift TRANSFERS: TOILET - SCORE: 0-UNK TRANSFERS: SHOWER: Activity did not occur on this shift TRANSFERS: SHOWER - SCORE: 0-UNK TRANSFERS: TUB: Activity did not occur on this shift TRANSFERS: TUB - SCORE: 0-UNK LOCOMOTION: WALK: Activity did not occur on this shift LOCOMOTION: WALK - SCORE: 0-UNK LOCOMOTION: WHEELCHAIR: Activity did not occur on this shift LOCOMOTION: WHEELCHAIR - SCORE: 0-UNK COMPREHENSION: COMPREHENSION: TYPE: Both COMPREHENSION - STEP 1: Does the patient require help to understand complex and abstract ideas (such as current events, finan mylene, discharge planning, medical issues, relationships, etc)? Yes. COMPREHENSION - STEP 2: Does the patient require help to understand questions or statements about basic needs or ideas (such as hunger, thirst, sleep, safety, daily schedule, room location, or discomfort) half or more of the t summer? No. COMPREHENSION - STEP 3: How often does the patient need help to understand directions and conversation about basic needs? 10% - 24% of the time COMPREHENSION - SCORE: 4-MIN EXPRESSION EXPRESSION: TYPE: Both EXPRESSION - STEP 1: Does the patient require help expressing complex and abstract ideas (such as current events, finances , discharge planning, medical issues, relationships, etc)? Yes. EXPRESSION - STEP 2: Does the patient require help to express basic necessities or ideas (such as hunger, thirst, sleep, s afety, daily schedule, room location, or discomfort) half or more of the time? No. EXPRESSION - STEP 3: How often does the patient need help to express directions and conversation about basic needs? 25-49% of the time EXPRESSION - SCORE: 3-MOD SOCIAL INTERACTION: SOCIAL INTERACTION - STEP 1: Does the patient require a helper to interact with others in social and therapeutic situations? Yes. SOCIAL INTERACTION - STEP 2: Does the patient interact appropriately half or more of the time? Yes. SOCIAL INTERACTION - STEP 3: How often does the patient need help to interact appropriately? 10-24% of the time SOCIAL INTERACTION - SCORE: 4-MIN PROBLEM SOLVING: PROBLEM SOLVING - STEP 1: Does the patient need help to solve complex problems such as managing a checking account or confronti ng interpersonal problems? Yes. PROBLEM SOLVING - STEP 2: Does the patient solve basic routine problems half or more of the time? Yes. PROBLEM SOLVING - STEP 3: How often does the patient need help to solve basic routine problems? Less than 10% of the time PROBLEM SOLVING - SCORE: 5-SUP MEMORY: MEMORY - STEP 1: Does the patient need help to remember frequently encountered people, daily routines, and executing r equests? Yes. MEMORY - STEP 2: How often does the patient need help to remember frequently encountered people, daily routines, and e xecuting requests? 10% - 24% of the time MEMORY - SCORE: 4-MIN SIGNATURE PANEL: The following modified sections: Eating - Score, Grooming - Score, Bathing - Score, Dressing - Upper Body - Score, Dressing - Lower Body - Score, Toileting - Score, Bladder Management - Score, Bowel Man agement - Score, Transfers: Bed, Chair, Wheelchair - Score, Transfers: Toilet - Score, Transfers: Esperanza wer - Score, Transfers: Tub - Score, Locomotion: Walk - Score, Locomotion: Wheelchair - Score, Compre hension - Score, Expression - Score, Social Interaction - Score, Problem Solving - Score, Memory - Sc ore were [electronically] signed by Kiet Sims on WedMar 01 2018 10:27:37 T-0500 (Central Daylight Time)
--- NOTE | 2018-03-01 13:54 | FAST ---
ENCOUNTER DATE AND TIME: 03/01/2018 08:00 (CDT) NAME CARLINE MURRAY DATE OF : 1940 DATE OF ADMISSION: 02/25/2018 14:49 (CDT) PHONE: AGE: 77 SSN# [id number] GENDER: Male ENCOUNTER PHYSICIAN: Dr. Larry Vincent M.D. 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 EATING: Activity did not occur on this shift EATING - SCORE: 0-UNK GROOMING: Activity did not occur on this shift GROOMING - SCORE: 0-UNK BATHING: Activity did not occur on this shift BATHING - SCORE: 0-UNK DRESSING - UPPER BODY: Activity did not occur on this shift Patient is not dressing in public clothing ARTICLES SCORE Total number of steps: 0 DRESSING - UPPER BODY - SCORE: 0-UNK DRESSING - LOWER BODY: Activity did not occur on this shift Patient is not dressing in public clothing ARTICLES SCORE Total number of steps: 0 DRESSING - LOWER BODY - SCORE: 0-UNK TOILETING: Activity did not occur on this shift TOILETING - SCORE: 0-UNK BLADDER MANAGEMENT: Activity did not occur on this shift BLADDER MANAGEMENT - SCORE: 7-IND BOWEL MANAGEMENT: Activity did not occur on this shift BOWEL MANAGEMENT - SCORE: 7-IND TRANSFERS: BED, CHAIR, WHEELCHAIR: TRANSFERS: BED, CHAIR, WHEELCHAIR - STEP 1: Does the patient require assistance with bed, chair, or wheelchair transfers? Yes. TRANSFERS: BED, CHAIR, WHEELCHAIR - STEP 2: Does the patient require the assistance of a helper? Yes. TRANSFERS: BED, CHAIR, WHEELCHAIR - STEP 3: How much assistance does the patient require from the helper? Lifting of the patient TRANSFERS: BED, CHAIR, WHEELCHAIR - STEP 4: Does the helper lift the patient ONLY up? ONLY down? Up AND Down? ONLY up. TRANSFERS: BED, CHAIR, WHEELCHAIR - SCORE: 3-MOD TRANSFERS: TOILET: Activity did not occur on this shift TRANSFERS: TOILET - SCORE: 0-UNK TRANSFERS: SHOWER: Activity did not occur on this shift TRANSFERS: SHOWER - SCORE: 0-UNK TRANSFERS: TUB: Activity did not occur on this shift TRANSFERS: TUB - SCORE: 0-UNK LOCOMOTION: WALK: LOCOMOTION: WALK - STEP 1: Does the patient need help to walk 150 feet? Yes. LOCOMOTION: WALK - STEP 2: How much assistance does the patient require to walk a minimum of 150 feet? Patient walks less than 1 50 feet - but more than 50 feet - with the assistance of only one helper LOCOMOTION: WALK - SCORE: 2-MAX LOCOMOTION: WHEELCHAIR: Activity did not occur on this shift LOCOMOTION: WHEELCHAIR - SCORE: 0-UNK LOCOMOTION: STAIRS: Activity did not occur on this shift LOCOMOTION: STAIRS - SCORE: 0-UNK COMPREHENSION: COMPREHENSION - SCORE: 0-UNK EXPRESSION EXPRESSION - SCORE: 0-UNK SOCIAL INTERACTION: SOCIAL INTERACTION - SCORE: 0-UNK PROBLEM SOLVING: PROBLEM SOLVING - SCORE: 0-UNK MEMORY: MEMORY - SCORE: 0-UNK SIGNATURE PANEL: The following modified sections: Transfers: Bed, Chair, Wheelchair - Score, Transfers: Toilet - Score , Locomotion: Walk - Score, Locomotion: Wheelchair - Score, Locomotion: Stairs - Score were [electron ically] signed by Lance Coello PT on WedMar 01 2018 13:53:51 T-0500 (Central Daylight Time)
--- NOTE | 2018-03-01 17:36 | R.PN ---
ENCOUNTER DATE AND TIME: 03/01/2018 17:33 (CDT) NAME CARLINE MURRAY DATE OF : 1940 DATE OF ADMISSION: 02/25/2018 14:49 (CDT) Left Temporal lobe and Left Occipital Lobe, Right basal ganglia, right upper aries and deep left parie jonatan lobe white matter.CHIEF COMPLAINT: Bilateral hemispheric stroke SUBJECTIVE: Pt denied any depression. Pt denied any Shortness of Breath. Self propelled wheelchair 250' with standby assistance. Ambulated 200' with minimum assistance using a rolling walker. VITAL SIGNS Temperature: 97.2 F SBP/DBP: 169/104 Pulse: 87 Resp: 16 MEDICATION ALLERGIES: No Known Drug Allergies (NKDA) ENVIRONMENTAL ALLERGIES: None Known - Substance Allergies None Known - Other Allergies None Known NURSING: - Shower allowing shower - Bladder care per protocol - Skin care per protocol PRECAUTIONS: - Weight Bearing Precaution WBAT both LE ACTIVITIES OOB only with supervision THERAPIES: - Occupational Therapy Evaluate and Treat. Visual Perceptual Training. Cognitive Retraining. - Speech Therapy Cognitive Training. Memory Strategies. Expressive Language Skills. Speech Intelligibility Training. R eceptive Language Skills. - Physical Therapy Evaluate and Treat. PHYSICAL EXAM - Gen Alert and awake Lying in bed No apparent distress Oriented to: person, time, and place - Skin No skin breakdown. Normacephalic - Eyes No abnormalities - ENMT No abnormalities - Neck No abnormalities - CVS RRR - Chest Clear - Abd Soft - GI Non distended Deferred - No abnormalities - Ext No significant edema - MSK 4+/5 weakness in left upper and lower extremity - Neuro 4/5 strength left upper and lower extremities. - Psych No abnormalities ASSESSMENT: Pt. is a 77 yo Right-handed black male.On 02/22/2018 Pt. presented to [facility] with sudden onset of bilat eral weakness.On 02/22/2018 he was admitted to [facility] with diagnosis Left Temporal lobe and Left Occipi jonatan Lobe, Right basal ganglia, right upper aries and deep left parietal lobe white matter..His [facility] ent category is Stroke 01 - Bilateral (01.3).Pre-morbidly, Pt. was independent/mod-I in Sphincter Co ntrol, Transfers Control, Communication, Social Cognition, Self-Care, and Locomotion; and he had good Sphincter Control.Currently, he has deficits of Safety Awareness, Transfers Control, Balance, Self-C are, Locomotion, and Endurance.Pt. is now referred to [facility] for acute in- patient rehabilitation in order to maximize patient's functional independence in activities of daily living, strength, ROM, and mobility.- Rehab Goal Patient has realistic goal of being discharged at assistance level 6-Yadi to reside at Home with Fam rosa/Relatives. MDM/PLAN: - Physical Therapy Edema - to improve, our physical therapists will perform initial evaluation of pt's status upon admi ssion and devise an individualized program for Elevation Training, and Lymphedema Therapy FUNCTIONAL STATUS: UPDATED AT WEEKLY TEAM CONFERENCE - Bladder Same accident frequency: 7-Ind - No accidents in the past 7 days - Bowel Same accident frequency: 7-Ind - No accidents in the past 7 days - Walking Same score based on distance walked: 1(<=50ft) - Wheelchair Same score based on distance traveled: 0(N/A) FUNCTIONAL STATUS: - Self-Care A. Eating sup B. Grooming sup C. Bathing sup D. Dressing - Upper sup E. Dressing - Lower sup F. Toileting sup - Sphincter Control G: Bladder control Ind H: Bowel control Ind - Transfers Control I. Bed/Chair/Wheelchair Moisés J. Toilet Moisés K. Tub/Shower ADNO - Locomotion L. Walk/Wheelchair (C) Moisés L. Walk/Wheelchair (W) Moisés M. Stairs ADNO - Communication N. Comprehension (B) Ind O. Expression (B) Ind - Social Cognition P. Social Interaction Ind Q. Problem Solving Ind R. Memory Ind - Endurance Fair - Balance Fair - Safety Awareness Fair CURRENT FUNC. DEFICITS: Safety Awareness, Transfers Control, Balance, Self-Care, Locomotion, and Endurance SIGNATURE PANEL: (CDT)
[2018-03-01] MEDS: ATORVASTATIN 80 MG TAB PO SCH (20:11)
[2018-03-02] MEDS: CARVEDILOL 25 MG TAB PO SCH ×2 (05:28→17:11)
[2018-03-02] MEDS: LISINOPRIL 20 MG TAB PO SCH (07:56)
[2018-03-02] MEDS: AMLODIPINE 5 MG TAB PO SCH (07:57)
[2018-03-02] MEDS: APIXABAN 2.5 MG TABLET PO SCH ×2 (07:57→20:03)
[2018-03-02] MEDS: ASPIRIN 81 MG CHEWABLE TABLET PO SCH (07:57)
[2018-03-02] MEDS: HYDRALAZINE HCL 25 MG TABLET PO SCH ×3 (07:59→20:03)
--- NOTE | 2018-03-02 13:46 | FAST ---
ENCOUNTER DATE AND TIME: 03/02/2018 08:00 (CDT) NAME CARLINE MURRAY DATE OF : 1940 DATE OF ADMISSION: 02/25/2018 14:49 (CDT) PHONE: AGE: 77 SSN# [id number] GENDER: Male ENCOUNTER PHYSICIAN: Dr. Larry Vincent M.D. 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 EATING: Activity did not occur on this shift EATING - SCORE: 0-UNK GROOMING: Activity did not occur on this shift GROOMING - SCORE: 0-UNK BATHING: Activity did not occur on this shift BATHING - SCORE: 0-UNK DRESSING - UPPER BODY: Activity did not occur on this shift Patient is not dressing in public clothing ARTICLES SCORE Total number of steps: 0 DRESSING - UPPER BODY - SCORE: 0-UNK DRESSING - LOWER BODY: Activity did not occur on this shift Patient is not dressing in public clothing ARTICLES SCORE Total number of steps: 0 DRESSING - LOWER BODY - SCORE: 0-UNK TOILETING: Activity did not occur on this shift TOILETING - SCORE: 0-UNK BLADDER MANAGEMENT: Activity did not occur on this shift BLADDER MANAGEMENT - SCORE: 7-IND BOWEL MANAGEMENT: Activity did not occur on this shift BOWEL MANAGEMENT - SCORE: 7-IND TRANSFERS: BED, CHAIR, WHEELCHAIR: TRANSFERS: BED, CHAIR, WHEELCHAIR - STEP 1: Does the patient require assistance with bed, chair, or wheelchair transfers? Yes. TRANSFERS: BED, CHAIR, WHEELCHAIR - STEP 2: Does the patient require the assistance of a helper? Yes. TRANSFERS: BED, CHAIR, WHEELCHAIR - STEP 3: How much assistance does the patient require from the helper? Lifting of the patient TRANSFERS: BED, CHAIR, WHEELCHAIR - STEP 4: Does the helper lift the patient ONLY up? ONLY down? Up AND Down? ONLY up. TRANSFERS: BED, CHAIR, WHEELCHAIR - SCORE: 3-MOD TRANSFERS: TOILET: Activity did not occur on this shift TRANSFERS: TOILET - SCORE: 0-UNK TRANSFERS: SHOWER: Activity did not occur on this shift TRANSFERS: SHOWER - SCORE: 0-UNK TRANSFERS: TUB: Activity did not occur on this shift TRANSFERS: TUB - SCORE: 0-UNK LOCOMOTION: WALK: LOCOMOTION: WALK - STEP 1: Does the patient need help to walk 150 feet? Yes. LOCOMOTION: WALK - STEP 2: How much assistance does the patient require to walk a minimum of 150 feet? Patient walks less than 1 50 feet - but more than 50 feet - with the assistance of only one helper LOCOMOTION: WALK - SCORE: 2-MAX LOCOMOTION: WHEELCHAIR: Activity did not occur on this shift LOCOMOTION: WHEELCHAIR - SCORE: 0-UNK LOCOMOTION: STAIRS: Activity did not occur on this shift LOCOMOTION: STAIRS - SCORE: 0-UNK COMPREHENSION: COMPREHENSION - SCORE: 0-UNK EXPRESSION EXPRESSION - SCORE: 0-UNK SOCIAL INTERACTION: SOCIAL INTERACTION - SCORE: 0-UNK PROBLEM SOLVING: PROBLEM SOLVING - SCORE: 0-UNK MEMORY: MEMORY - SCORE: 0-UNK SIGNATURE PANEL: The following modified sections: Transfers: Bed, Chair, Wheelchair - Score, Transfers: Toilet - Score , Locomotion: Walk - Score, Locomotion: Wheelchair - Score, Locomotion: Stairs - Score were [electron ically] signed by Lance Coello, PT on WedMar 02 2018 13:44:52 T-0500 (Central Daylight Time)
--- NOTE | 2018-03-02 14:42 | FAST ---
SHIFT START DATE/TIME: 03/02/2018 07:00 (CDT) SHIFT END DATE/TIME: 03/02/2018 19:00 (CDT) NAME CARLINE MURRAY DATE OF : 1940 DATE OF ADMISSION: 02/25/2018 14:49 (CDT) PHONE: AGE: 77 N# [id number] GENDER: Male ENCOUNTER PHYSICIAN: Dr. Larry Vincent M.D. 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 EATING: EATING - STEP 1: Does the patient require assistance when eating? Yes. EATING - STEP 2: Does the patient require the assistance of a helper? Yes. EATING - STEP 3: Does the patient perform half or more of the eating tasks? Yes. EATING - STEP 4: Does the patient need only supervision, cuing, coaxing OR help to apply an orthosis OR help to cut fo od, open containers, pour liquids, or butter bread? Yes. EATING - SCORE: 5-SUP GROOMING: Wash, rinse, and dry face Wash, rinse, and dry hands GROOMING - STEP 1: Does the patient require assistance when grooming? Yes. GROOMING - STEP 2: Does the patient require the assistance of a helper? No. The patient only requires an assistive devic e, OR takes more than reasonable time to groom, OR there is a concern for safety as the patient groom s GROOMING - SCORE: 6-CARINA BATHING: Activity did not occur on this shift BATHING - SCORE: 0-UNK DRESSING - UPPER BODY: Activity did not occur on this shift ARTICLES SCORE Total number of steps: 0 DRESSING - UPPER BODY - SCORE: 0-UNK DRESSING - LOWER BODY: Elastic waist pants (three steps) ARTICLES SCORE Total number of steps: 3 DRESSING - LOWER BODY - STEP 1: Does the patient require help when dressing below the waist? Yes. DRESSING - LOWER BODY - STEP 2: Does the patient require the assistance of a helper? Yes. DRESSING - LOWER BODY - STEP 3: Does the helper touch the patient while dressing? Yes. DRESSING - LOWER BODY - STEP 4: How many of the total steps does the patient complete on his/her own? 2 DRESSING - LOWER BODY - SCORE: 3-MOD TOILETING: TOILETING - STEP 1: Does the patient require assistance with toileting? Yes. TOILETING - STEP 2: Does the patient require the assistance of a helper? Yes. TOILETING - STEP 3: How much assistance does the patient require from the helper? Hands-on assistance from the helper TOILETING - STEP 4: Of the 3 tasks: 1) Adjusting clothing prior to use, 2) Cleansing of perineal area, 3) Adjusting clot richie after use; How many tasks does the patient perform WITHOUT assistance of the helper? Two tasks TOILETING - SCORE: 3-MOD BLADDER MANAGEMENT: BLADDER MANAGEMENT - STEP 1: Does the patient control the bladder completely and intentionally without equipment or devices or med ications, and is always continent? No. BLADDER MANAGEMENT - STEP 2: Does the patient require the assistance of a helper? No, patient requires and independently uses an a ssistive device, such as a urinal, bedpan, bedside commode, catheter, absorbent pad, or collecting de vice BLADDER MANAGEMENT - SCORE: 6-CARINA BLADDER MANAGEMENT - FREQUENCY OF ACCIDENTS: BLADDER MANAGEMENT(FA) - STEP 1: How many accidents has the patient had during the current shift? 0 BOWEL MANAGEMENT: BOWEL MANAGEMENT - STEP 1: Does the patient control bowels completely and intentionally without equipment devices or medications AND is always continent? No. BOWEL MANAGEMENT - STEP 2: Does the patient require the assistance of a helper? No, patient requires medication for control such as stool softeners, suppositories, laxatives, enemas, or OTC medications BOWEL MANAGEMENT - SCORE: 6-CARINA BOWEL MANAGEMENT - FREQUENCY OF ACCIDENTS: BOWEL MANAGEMENT(FA) - STEP 1: How many accidents has the patient had during the current shift? 0 TRANSFERS: BED, CHAIR, WHEELCHAIR: TRANSFERS: BED, CHAIR, WHEELCHAIR - STEP 1: Does the patient require assistance with bed, chair, or wheelchair transfers? Yes. TRANSFERS: BED, CHAIR, WHEELCHAIR - STEP 2: Does the patient require the assistance of a helper? Yes. TRANSFERS: BED, CHAIR, WHEELCHAIR - STEP 3: How much assistance does the patient require from the helper? Lifting of the patient TRANSFERS: BED, CHAIR, WHEELCHAIR - STEP 4: Does the helper lift the patient ONLY up? ONLY down? Up AND Down? ONLY up. TRANSFERS: BED, CHAIR, WHEELCHAIR - SCORE: 3-MOD TRANSFERS: TOILET: TRANSFERS: TOILET - STEP 1: Does the patient require assistance with toilet transfers? Yes. TRANSFERS: TOILET - STEP 2: Does the patient require the assistance of a helper? Yes. TRANSFERS: TOILET - STEP 3: How much assistance does the patient require from the helper? Patient performs half or more of the tr ansferring tasks TRANSFERS: TOILET - STEP 4: Does the patient need only incidental help such as contact guard or steadying during toilet transfer? No. Patient needs more than incidental help TRANSFERS: TOILET - SCORE: 3-MOD TRANSFERS: SHOWER: Activity did not occur on this shift TRANSFERS: SHOWER - SCORE: 0-UNK TRANSFERS: TUB: Activity did not occur on this shift TRANSFERS: TUB - SCORE: 0-UNK LOCOMOTION: WALK: Activity did not occur on this shift LOCOMOTION: WALK - SCORE: 0-UNK LOCOMOTION: WHEELCHAIR: Activity did not occur on this shift LOCOMOTION: WHEELCHAIR - SCORE: 0-UNK COMPREHENSION: COMPREHENSION: TYPE: Both COMPREHENSION - STEP 1: Does the patient require help to understand complex and abstract ideas (such as current events, finan mylene, discharge planning, medical issues, relationships, etc)? Yes. COMPREHENSION - STEP 2: Does the patient require help to understand questions or statements about basic needs or ideas (such as hunger, thirst, sleep, safety, daily schedule, room location, or discomfort) half or more of the t summer? No. COMPREHENSION - STEP 3: How often does the patient need help to understand directions and conversation about basic needs? 10% - 24% of the time COMPREHENSION - SCORE: 4-MIN EXPRESSION EXPRESSION: TYPE: Both EXPRESSION - STEP 1: Does the patient require help expressing complex and abstract ideas (such as current events, finances , discharge planning, medical issues, relationships, etc)? Yes. EXPRESSION - STEP 2: Does the patient require help to express basic necessities or ideas (such as hunger, thirst, sleep, s afety, daily schedule, room location, or discomfort) half or more of the time? No. EXPRESSION - STEP 3: How often does the patient need help to express directions and conversation about basic needs? 25-49% of the time EXPRESSION - SCORE: 3-MOD SOCIAL INTERACTION: SOCIAL INTERACTION - STEP 1: Does the patient require a helper to interact with others in social and therapeutic situations? Yes. SOCIAL INTERACTION - STEP 2: Does the patient interact appropriately half or more of the time? Yes. SOCIAL INTERACTION - STEP 3: How often does the patient need help to interact appropriately? 10-24% of the time SOCIAL INTERACTION - SCORE: 4-MIN PROBLEM SOLVING: PROBLEM SOLVING - STEP 1: Does the patient need help to solve complex problems such as managing a checking account or confronti ng interpersonal problems? Yes. PROBLEM SOLVING - STEP 2: Does the patient solve basic routine problems half or more of the time? Yes. PROBLEM SOLVING - STEP 3: How often does the patient need help to solve basic routine problems? Less than 10% of the time PROBLEM SOLVING - SCORE: 5-SUP MEMORY: MEMORY - STEP 1: Does the patient need help to remember frequently encountered people, daily routines, and executing r equests? Yes. MEMORY - STEP 2: How often does the patient need help to remember frequently encountered people, daily routines, and e xecuting requests? 10% - 24% of the time MEMORY - SCORE: 4-MIN SIGNATURE PANEL: The following modified sections: Eating - Score, Grooming - Score, Bathing - Score, Dressing - Upper Body - Score, Dressing - Lower Body - Score, Toileting - Score, Bladder Management - Score, Bowel Man agement - Score, Transfers: Bed, Chair, Wheelchair - Score, Transfers: Toilet - Score, Transfers: Esperanza wer - Score, Transfers: Tub - Score, Locomotion: Walk - Score, Locomotion: Wheelchair - Score, Compre hension - Score, Expression - Score, Social Interaction - Score, Problem Solving - Score, Memory - Sc ore were [electronically] signed by Zakia LuceroNJudit on WedMar 02 2018 14:42:00 GMT-0500 ([facility])
--- NOTE | 2018-03-02 14:55 | FAST ---
ENCOUNTER DATE AND TIME: 02/28/2018 08:00 (CDT) NAME CARLINE MURRAY DATE OF : 1940 DATE OF ADMISSION: 02/25/2018 14:49 (CDT) PHONE: AGE: 77 SSN# [id number] GENDER: Male ENCOUNTER PHYSICIAN: Dr. Larry Vincent M.D. 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 EATING: Activity did not occur on this shift EATING - SCORE: 0-UNK GROOMING: Activity did not occur on this shift GROOMING - SCORE: 0-UNK BATHING: Abdomen Buttocks Chest Left arm Left lower leg and foot Left upper leg Perineal area Right arm Right lower leg and foot Right upper leg BATHING - STEP 1: Does the patient require assistance when bathing? Yes. BATHING - STEP 2: Does the patient require the assistance of a helper? Yes. BATHING - STEP 3: How much assistance does the patient require from the helper? Only incidental help such as placement of a wash cloth in his/her hand a few times as s/he bathes OR help to bathe just one or two areas of the body BATHING - SCORE: 4-MIN DRESSING - UPPER BODY: T-shirt/pullover shirt (four steps) ARTICLES SCORE Total number of steps: 4 DRESSING - UPPER BODY - STEP 1: Does the patient require help when dressing above the waist? Yes. DRESSING - UPPER BODY - STEP 2: Does the patient require the assistance of a helper? Yes. DRESSING - UPPER BODY - STEP 3: Does the helper touch the patient while dressing? No. DRESSING - UPPER BODY - SCORE: 5-SUP DRESSING - LOWER BODY: Slip-on shoe - Left foot (one step) Slip-on shoe - Right foot (one step) Sock - Left foot (one step) Sock - Right foot (one step) Underwear (three steps) ARTICLES SCORE Total number of steps: 7 DRESSING - LOWER BODY - STEP 1: Does the patient require help when dressing below the waist? Yes. DRESSING - LOWER BODY - STEP 2: Does the patient require the assistance of a helper? Yes. DRESSING - LOWER BODY - STEP 3: Does the helper touch the patient while dressing? Yes. DRESSING - LOWER BODY - STEP 4: How many of the total steps does the patient complete on his/her own? 7 DRESSING - LOWER BODY - SCORE: 4-MIN TOILETING: Activity did not occur on this shift TOILETING - SCORE: 0-UNK BLADDER MANAGEMENT: Activity did not occur on this shift BLADDER MANAGEMENT - SCORE: 7-IND BOWEL MANAGEMENT: Activity did not occur on this shift BOWEL MANAGEMENT - SCORE: 7-IND TRANSFERS: BED, CHAIR, WHEELCHAIR: Activity did not occur on this shift TRANSFERS: BED, CHAIR, WHEELCHAIR - SCORE: 0-UNK TRANSFERS: TOILET: Activity did not occur on this shift TRANSFERS: TOILET - SCORE: 0-UNK TRANSFERS: SHOWER: TRANSFERS: SHOWER - STEP 1: Does the patient require assistance with shower transfers? Yes. TRANSFERS: SHOWER - STEP 2: Does the patient require the assistance of a helper? Yes. TRANSFERS: SHOWER - STEP 3: How much assistance does the patient require from the helper? More than incidental help TRANSFERS: SHOWER - STEP 4: How much more help does the patient require from the helper? Lifting the patient either up OR down fr om the wheelchair onto the shower chair TRANSFERS: SHOWER - SCORE: 3-MOD TRANSFERS: TUB: Activity did not occur on this shift TRANSFERS: TUB - SCORE: 0-UNK LOCOMOTION: WALK: Activity did not occur on this shift LOCOMOTION: WALK - SCORE: 0-UNK LOCOMOTION: WHEELCHAIR: Activity did not occur on this shift LOCOMOTION: WHEELCHAIR - SCORE: 0-UNK LOCOMOTION: STAIRS: Activity did not occur on this shift LOCOMOTION: STAIRS - SCORE: 0-UNK COMPREHENSION: COMPREHENSION: TYPE: Both COMPREHENSION - STEP 1: Does the patient require help to understand complex and abstract ideas (such as current events, finan mylene, discharge planning, medical issues, relationships, etc)? Yes. COMPREHENSION - STEP 2: Does the patient require help to understand questions or statements about basic needs or ideas (such as hunger, thirst, sleep, safety, daily schedule, room location, or discomfort) half or more of the t summer? No. COMPREHENSION - STEP 3: How often does the patient need help to understand directions and conversation about basic needs? 10% - 24% of the time COMPREHENSION - SCORE: 4-MIN EXPRESSION EXPRESSION: TYPE: Both EXPRESSION - STEP 1: Does the patient require help expressing complex and abstract ideas (such as current events, finances , discharge planning, medical issues, relationships, etc)? Yes. EXPRESSION - STEP 2: Does the patient require help to express basic necessities or ideas (such as hunger, thirst, sleep, s afety, daily schedule, room location, or discomfort) half or more of the time? No. EXPRESSION - STEP 3: How often does the patient need help to express directions and conversation about basic needs? 25-49% of the time EXPRESSION - SCORE: 3-MOD SOCIAL INTERACTION: SOCIAL INTERACTION - STEP 1: Does the patient require a helper to interact with others in social and therapeutic situations? Yes. SOCIAL INTERACTION - STEP 2: Does the patient interact appropriately half or more of the time? Yes. SOCIAL INTERACTION - STEP 3: How often does the patient need help to interact appropriately? Less than 10% of the time SOCIAL INTERACTION - SCORE: 5-SUP PROBLEM SOLVING: PROBLEM SOLVING - STEP 1: Does the patient need help to solve complex problems such as managing a checking account or confronti ng interpersonal problems? Yes. PROBLEM SOLVING - STEP 2: Does the patient solve basic routine problems half or more of the time? Yes. PROBLEM SOLVING - STEP 3: How often does the patient need help to solve basic routine problems? Less than 10% of the time PROBLEM SOLVING - SCORE: 5-SUP MEMORY: MEMORY - STEP 1: Does the patient need help to remember frequently encountered people, daily routines, and executing r equests? Yes. MEMORY - STEP 2: How often does the patient need help to remember frequently encountered people, daily routines, and e xecuting requests? Less than 10% of the time MEMORY - SCORE: 5-SUP SIGNATURE PANEL: The following modified sections: Eating - Score, Grooming - Score, Social Interaction - Score, Proble m Solving - Score, Memory - Score, Expression - Score, Comprehension - Score, Transfers: Bed, Chair, Wheelchair - Score, Transfers: Toilet - Score, Transfers: Tub - Score, Transfers: Shower - Score, Bat richie - Score, Dressing - Upper Body - Score, Dressing - Lower Body - Score, Toileting - Score were [e lectronically] signed by Jami Brambila OT on WedMar 02 2018 14:55:19 T-0500 ([place] Daylight T summer)
--- NOTE | 2018-03-02 15:12 | FAST ---
ENCOUNTER DATE AND TIME: 03/02/2018 08:00 (CDT) NAME CARLINE MURRAY DATE OF : 1940 DATE OF ADMISSION: 02/25/2018 14:49 (CDT) PHONE: AGE: 77 SSN# [id number] GENDER: Male ENCOUNTER PHYSICIAN: Dr. Larry Vincent M.D. 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 EATING: Activity did not occur on this shift EATING - SCORE: 0-UNK GROOMING: Wash, rinse, and dry face Wash, rinse, and dry hands GROOMING - STEP 1: Does the patient require assistance when grooming? No. GROOMING - SCORE: 7-IND BATHING: Abdomen Buttocks Chest Left arm Left lower leg and foot Left upper leg Perineal area Right arm Right lower leg and foot Right upper leg BATHING - STEP 1: Does the patient require assistance when bathing? Yes. BATHING - STEP 2: Does the patient require the assistance of a helper? Yes. BATHING - STEP 3: How much assistance does the patient require from the helper? Only incidental help such as placement of a wash cloth in his/her hand a few times as s/he bathes OR help to bathe just one or two areas of the body BATHING - SCORE: 4-MIN DRESSING - UPPER BODY: T-shirt/pullover shirt (four steps) ARTICLES SCORE Total number of steps: 4 DRESSING - UPPER BODY - STEP 1: Does the patient require help when dressing above the waist? Yes. DRESSING - UPPER BODY - STEP 2: Does the patient require the assistance of a helper? Yes. DRESSING - UPPER BODY - STEP 3: Does the helper touch the patient while dressing? No. DRESSING - UPPER BODY - SCORE: 5-SUP DRESSING - LOWER BODY: Elastic waist pants (three steps) Slip-on shoe - Left foot (one step) Slip-on shoe - Right foot (one step) Underwear (three steps) ARTICLES SCORE Total number of steps: 8 DRESSING - LOWER BODY - STEP 1: Does the patient require help when dressing below the waist? Yes. DRESSING - LOWER BODY - STEP 2: Does the patient require the assistance of a helper? Yes. DRESSING - LOWER BODY - STEP 3: Does the helper touch the patient while dressing? Yes. DRESSING - LOWER BODY - STEP 4: How many of the total steps does the patient complete on his/her own? 8 DRESSING - LOWER BODY - SCORE: 4-MIN TOILETING: Activity did not occur on this shift TOILETING - SCORE: 0-UNK BLADDER MANAGEMENT: Activity did not occur on this shift BLADDER MANAGEMENT - SCORE: 7-IND BOWEL MANAGEMENT: Activity did not occur on this shift BOWEL MANAGEMENT - SCORE: 7-IND TRANSFERS: BED, CHAIR, WHEELCHAIR: Activity did not occur on this shift TRANSFERS: BED, CHAIR, WHEELCHAIR - SCORE: 0-UNK TRANSFERS: TOILET: Activity did not occur on this shift TRANSFERS: TOILET - SCORE: 0-UNK TRANSFERS: SHOWER: TRANSFERS: SHOWER - STEP 1: Does the patient require assistance with shower transfers? Yes. TRANSFERS: SHOWER - STEP 2: Does the patient require the assistance of a helper? Yes. TRANSFERS: SHOWER - STEP 3: How much assistance does the patient require from the helper? Only incidental help such as contact gu arding or steadying during shower transfers, or help to lift one leg into the shower TRANSFERS: SHOWER - SCORE: 4-MIN TRANSFERS: TUB: Activity did not occur on this shift TRANSFERS: TUB - SCORE: 0-UNK LOCOMOTION: WALK: Activity did not occur on this shift LOCOMOTION: WALK - SCORE: 0-UNK LOCOMOTION: WHEELCHAIR: Activity did not occur on this shift LOCOMOTION: WHEELCHAIR - SCORE: 0-UNK LOCOMOTION: STAIRS: Activity did not occur on this shift LOCOMOTION: STAIRS - SCORE: 0-UNK COMPREHENSION: COMPREHENSION: TYPE: Both COMPREHENSION - STEP 1: Does the patient require help to understand complex and abstract ideas (such as current events, finan mylene, discharge planning, medical issues, relationships, etc)? No. COMPREHENSION - STEP 2: Does the patient need extra time, require an assistive device (such as glasses for visual comprehensi on or a hearing aid for auditory comprehension) or does s/he have mild difficulty understanding compl ex and abstract information? Yes. COMPREHENSION - SCORE: 6-CARINA EXPRESSION EXPRESSION: TYPE: Both EXPRESSION - STEP 1: Does the patient require help expressing complex and abstract ideas (such as current events, finances , discharge planning, medical issues, relationships, etc)? No. EXPRESSION - STEP 2: Does the patient need extra time, require an assistive device (such as augmentive communication syste m or a communication board), OR does s/he have mild difficulty expressing complex and abstract ideas (including mild dysarthria or mild word-find problems)? Yes. EXPRESSION - SCORE: 6-CARINA SOCIAL INTERACTION: SOCIAL INTERACTION - STEP 1: Does the patient require a helper to interact with others in social and therapeutic situations? No. SOCIAL INTERACTION - STEP 2: Does the patient need extra time in social situations, OR does s/he interact with staff, other patien ts, and family members ONLY in structured environments, OR does s/he require medication for social in teraction? Yes, patient needs extra time SOCIAL INTERACTION - SCORE: 6-CARINA PROBLEM SOLVING: PROBLEM SOLVING - STEP 1: Does the patient need help to solve complex problems such as managing a checking account or confronti ng interpersonal problems? Yes. PROBLEM SOLVING - STEP 2: Does the patient solve basic routine problems half or more of the time? Yes. PROBLEM SOLVING - STEP 3: How often does the patient need help to solve basic routine problems? Less than 10% of the time PROBLEM SOLVING - SCORE: 5-SUP MEMORY: MEMORY - STEP 1: Does the patient need help to remember frequently encountered people, daily routines, and executing r equests? Yes. MEMORY - STEP 2: How often does the patient need help to remember frequently encountered people, daily routines, and e xecuting requests? Less than 10% of the time MEMORY - SCORE: 5-SUP SIGNATURE PANEL: The following modified sections: Eating - Score, Grooming - Score, Bathing - Score, Dressing - Upper Body - Score, Dressing - Lower Body - Score, Toileting - Score, Transfers: Bed, Chair, Wheelchair - S core, Transfers: Toilet - Score, Transfers: Tub - Score, Transfers: Shower - Score, Comprehension - S core, Expression - Score, Social Interaction - Score, Problem Solving - Score, Memory - Score were [e lectronically] signed by Jami Brambila OT on WedMar 02 2018 15:11:21 T-0500 ([place] Daylight T summer)
--- NOTE | 2018-03-02 18:11 | R.PN ---
ENCOUNTER DATE AND TIME: 03/02/2018 18:08 (CDT) NAME CARLINE MURRAY DATE OF : 1940 DATE OF ADMISSION: 02/25/2018 14:49 (CDT) Left Temporal lobe and Left Occipital Lobe, Right basal ganglia, right upper aries and deep left parie jonatan lobe white matter.CHIEF COMPLAINT: Bilateral hemispheric stroke SUBJECTIVE: Pt denied any depression. Pt denied any Shortness of Breath. Self propelled wheelchair 250' with minimum assistance. Ambulated 270' with minimum assistance using a rolling walker. VITAL SIGNS Temperature: 97.2 F SBP/DBP: 144/72 Pulse: 82 Resp: 16 MEDICATION ALLERGIES: No Known Drug Allergies (NKDA) ENVIRONMENTAL ALLERGIES: None Known - Substance Allergies None Known - Other Allergies None Known NURSING: - Shower allowing shower - Bladder care per protocol - Skin care per protocol PRECAUTIONS: - Weight Bearing Precaution WBAT both LE ACTIVITIES OOB only with supervision THERAPIES: - Occupational Therapy Evaluate and Treat. Visual Perceptual Training. Cognitive Retraining. - Speech Therapy Cognitive Training. Memory Strategies. Expressive Language Skills. Speech Intelligibility Training. R eceptive Language Skills. - Physical Therapy Evaluate and Treat. PHYSICAL EXAM - Gen Alert and awake Lying in bed No apparent distress Oriented to: person, time, and place - Skin No skin breakdown. Normacephalic - Eyes No abnormalities - ENMT No abnormalities - Neck No abnormalities - CVS RRR - Chest Clear - Abd Soft - GI Non distended Deferred - No abnormalities - Ext No significant edema - MSK 4+/5 weakness in left upper and lower extremity - Neuro 4/5 strength left upper and lower extremities. - Psych No abnormalities ASSESSMENT: Pt. is a 77 yo Right-handed black male.On 02/22/[address] Pt[address] [facility] with sudden onset of bilat eral weakness.On 02/22/2018 he was admitted to [facility] with diagnosis Left Temporal lobe and Left Occipi jonatan Lobe, Right basal ganglia, right upper aries and deep left parietal lobe white matter..His [facility] ent category is Stroke 01 - Bilateral (01.3).Pre-morbidly, Pt. was independent/mod-I in Sphincter Co ntrol, Transfers Control, Communication, Social Cognition, Self-Care, and Locomotion; and he had good Sphincter Control.Currently, he has deficits of Safety Awareness, Transfers Control, Balance, Self-C are, Locomotion, and Endurance.Pt. is now referred to [facility] for acute in- patient rehabilitation in order to maximize patient's functional independence in activities of daily living, strength, ROM, and mobility.- Rehab Goal Patient has realistic goal of being discharged at assistance level 6-Yadi to reside at Home with Fam rosa/Relatives. MDM/PLAN: - Physical Therapy Edema - to improve, our physical therapists will perform initial evaluation of pt's status upon admi ssion and devise an individualized program for Elevation Training, and Lymphedema Therapy FUNCTIONAL STATUS: UPDATED AT WEEKLY TEAM CONFERENCE - Bladder Same accident frequency: 7-Ind - No accidents in the past 7 days - Bowel Same accident frequency: 7-Ind - No accidents in the past 7 days - Walking Same score based on distance walked: 1(<=50ft) - Wheelchair Same score based on distance traveled: 0(N/A) FUNCTIONAL STATUS: - Self-Care A. Eating sup B. Grooming sup C. Bathing sup D. Dressing - Upper sup E. Dressing - Lower sup F. Toileting sup - Sphincter Control G: Bladder control Ind H: Bowel control Ind - Transfers Control I. Bed/Chair/Wheelchair Moisés J. Toilet Moisés K. Tub/Shower ADNO - Locomotion L. Walk/Wheelchair (C) Moisés L. Walk/Wheelchair (W) Moisés M. Stairs ADNO - Communication N. Comprehension (B) Ind O. Expression (B) Ind - Social Cognition P. Social Interaction Ind Q. Problem Solving Ind R. Memory Ind - Endurance Fair - Balance Fair - Safety Awareness Fair CURRENT FUNC. DEFICITS: Safety Awareness, Transfers Control, Balance, Self-Care, Locomotion, and Endurance SIGNATURE PANEL: (CDT)
[2018-03-02] MEDS: ATORVASTATIN 80 MG TAB PO SCH (20:03)
--- NOTE | 2018-03-03 02:08 | FAST ---
SHIFT START DATE/TIME: 03/02/2018 19:00 (CDT) SHIFT END DATE/TIME: 03/03/2018 07:00 (CDT) NAME CARLINE MURRAY DATE OF : 1940 DATE OF ADMISSION: 02/25/2018 14:49 (CDT) PHONE: AGE: 77 N# [id number] GENDER: Male ENCOUNTER PHYSICIAN: Dr. Larry Vincent M.D. 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 EATING: Activity did not occur on this shift EATING - SCORE: 0-UNK GROOMING: Wash, rinse, and dry hands GROOMING - STEP 1: Does the patient require assistance when grooming? Yes. GROOMING - STEP 2: Does the patient require the assistance of a helper? Yes. GROOMING - STEP 3: How much assistance does the patient require from the helper? Cuing, coaxing, instructions, or encour agement for completion of grooming GROOMING - SCORE: 5-SUP BATHING: Activity did not occur on this shift BATHING - SCORE: 0-UNK DRESSING - UPPER BODY: Patient is not dressing in public clothing ARTICLES SCORE Total number of steps: 0 DRESSING - UPPER BODY - SCORE: 0-UNK DRESSING - LOWER BODY: Patient is not dressing in public clothing ARTICLES SCORE Total number of steps: 0 DRESSING - LOWER BODY - SCORE: 0-UNK TOILETING: TOILETING - STEP 1: Does the patient require assistance with toileting? Yes. TOILETING - STEP 2: Does the patient require the assistance of a helper? Yes. TOILETING - STEP 3: How much assistance does the patient require from the helper? Only supervision TOILETING - SCORE: 5-SUP BLADDER MANAGEMENT: BLADDER MANAGEMENT - STEP 1: Does the patient control the bladder completely and intentionally without equipment or devices or med ications, and is always continent? No. BLADDER MANAGEMENT - STEP 2: Does the patient require the assistance of a helper? Yes. BLADDER MANAGEMENT - STEP 3: How much assistance does the patient require from the helper? Only set-up of equipment - such as plac ing it within reach of the patient or emptying a device - to maintain either satisfactory voiding pat tern or managing an external device, such as an absorbent pad, ileal device, or catheter BLADDER MANAGEMENT - SCORE: 5-SUP BOWEL MANAGEMENT: BOWEL MANAGEMENT - STEP 1: Does the patient control bowels completely and intentionally without equipment devices or medications AND is always continent? No. BOWEL MANAGEMENT - STEP 2: Does the patient require the assistance of a helper? No, patient requires medication for control such as stool softeners, suppositories, laxatives, enemas, or OTC medications BOWEL MANAGEMENT - SCORE: 6-CARINA TRANSFERS: BED, CHAIR, WHEELCHAIR: TRANSFERS: BED, CHAIR, WHEELCHAIR - STEP 1: Does the patient require assistance with bed, chair, or wheelchair transfers? Yes. TRANSFERS: BED, CHAIR, WHEELCHAIR - STEP 2: Does the patient require the assistance of a helper? Yes. TRANSFERS: BED, CHAIR, WHEELCHAIR - STEP 3: How much assistance does the patient require from the helper? Steadying/guiding assistance TRANSFERS: BED, CHAIR, WHEELCHAIR - SCORE: 4-MIN TRANSFERS: TOILET: TRANSFERS: TOILET - STEP 1: Does the patient require assistance with toilet transfers? Yes. TRANSFERS: TOILET - STEP 2: Does the patient require the assistance of a helper? Yes. TRANSFERS: TOILET - STEP 3: How much assistance does the patient require from the helper? Patient performs half or more of the tr ansferring tasks TRANSFERS: TOILET - STEP 4: Does the patient need only incidental help such as contact guard or steadying during toilet transfer? Yes. TRANSFERS: TOILET - SCORE: 4-MIN TRANSFERS: SHOWER: Activity did not occur on this shift TRANSFERS: SHOWER - SCORE: 0-UNK TRANSFERS: TUB: Activity did not occur on this shift TRANSFERS: TUB - SCORE: 0-UNK LOCOMOTION: WALK: Activity did not occur on this shift LOCOMOTION: WALK - SCORE: 0-UNK LOCOMOTION: WHEELCHAIR: Activity did not occur on this shift LOCOMOTION: WHEELCHAIR - SCORE: 0-UNK COMPREHENSION: COMPREHENSION: TYPE: Both COMPREHENSION - STEP 1: Does the patient require help to understand complex and abstract ideas (such as current events, finan mylene, discharge planning, medical issues, relationships, etc)? Yes. COMPREHENSION - STEP 2: Does the patient require help to understand questions or statements about basic needs or ideas (such as hunger, thirst, sleep, safety, daily schedule, room location, or discomfort) half or more of the t summer? No. COMPREHENSION - STEP 3: How often does the patient need help to understand directions and conversation about basic needs? 10% - 24% of the time COMPREHENSION - SCORE: 4-MIN EXPRESSION EXPRESSION: TYPE: Both EXPRESSION - STEP 1: Does the patient require help expressing complex and abstract ideas (such as current events, finances , discharge planning, medical issues, relationships, etc)? Yes. EXPRESSION - STEP 2: Does the patient require help to express basic necessities or ideas (such as hunger, thirst, sleep, s afety, daily schedule, room location, or discomfort) half or more of the time? No. EXPRESSION - STEP 3: How often does the patient need help to express directions and conversation about basic needs? 25-49% of the time EXPRESSION - SCORE: 3-MOD SOCIAL INTERACTION: SOCIAL INTERACTION - STEP 1: Does the patient require a helper to interact with others in social and therapeutic situations? Yes. SOCIAL INTERACTION - STEP 2: Does the patient interact appropriately half or more of the time? Yes. SOCIAL INTERACTION - STEP 3: How often does the patient need help to interact appropriately? 25-49% of the time SOCIAL INTERACTION - SCORE: 3-MOD PROBLEM SOLVING: PROBLEM SOLVING - STEP 1: Does the patient need help to solve complex problems such as managing a checking account or confronti ng interpersonal problems? Yes. PROBLEM SOLVING - STEP 2: Does the patient solve basic routine problems half or more of the time? Yes. PROBLEM SOLVING - STEP 3: How often does the patient need help to solve basic routine problems? 25%-49% of the time PROBLEM SOLVING - SCORE: 3-MOD MEMORY: MEMORY - STEP 1: Does the patient need help to remember frequently encountered people, daily routines, and executing r equests? No. MEMORY - STEP 2: Does the patient have slight difficulty recognizing frequently encountered people, daily routines, or executing requests without the need for repetition or using self-initiated or environmental cues to remember? Yes. MEMORY - SCORE: 6-CARINA SIGNATURE PANEL: The following modified sections: Eating - Score, Grooming - Score, Dressing - Upper Body - Score, Carlo ssing - Lower Body - Score, Toileting - Score, Bladder Management - Score, Bowel Management - Score, Transfers: Bed, Chair, Wheelchair - Score, Transfers: Toilet - Score, Transfers: Shower - Score, Grewal sfers: Tub - Score, Locomotion: Walk - Score, Locomotion: Wheelchair - Score, Comprehension - Score, Expression - Score, Social Interaction - Score, Problem Solving - Score, Memory - Score were [electro nically] signed by Beulah Black CNA on WedMar 03 2018 02:08:05 GMT-0500 (Central Daylight Time)
[2018-03-03] MEDS: CARVEDILOL 25 MG TAB PO SCH ×2 (05:11→17:01)
[2018-03-03 06:07] LABS: Absolute Lymphocytes (CBC) 1.3 K/uL (0.7-4.9); Absolute Monocytes 0.5 K/uL (0.1-1.3); Absolute Neutrophil 2.9 K/uL (1.8-8.0); Basophils % 0.7 % (0-1.3); Eosinophils % 2.8 % (0-4.4); Hematocrit 38.4 % (39.6-49.0); Lymphocytes % 27.3 % (15.3-44.8); MCH 30.2 pg (27.0-35.0); MCV 87.6 fL (80-100); MPV 8.9 fL (7.6-11.3); Monocytes % 10.3 % (3.3-12.3); RBC Red Blood Cell Count 4.39 M/uL (4.33-5.43)
[2018-03-03 06:28] LABS: Albumin 2.9 g/dL (3.4-5.0); Potassium 4.2 mmol/L (3.5-5.1); Prealbumin 19.9 mg/dL (20-40)
[2018-03-03] MEDS: HYDRALAZINE HCL 25 MG TABLET PO SCH ×3 (07:38→20:45)
[2018-03-03] MEDS: AMLODIPINE 5 MG TAB PO SCH (07:39)
[2018-03-03] MEDS: LISINOPRIL 20 MG TAB PO SCH (07:39)
[2018-03-03] MEDS: ASPIRIN 81 MG CHEWABLE TABLET PO SCH (07:41)
[2018-03-03] MEDS: APIXABAN 2.5 MG TABLET PO SCH ×2 (07:41→20:45)
[2018-03-03] MEDS: ONDANSETRON 4 MG (ODT) TAB PO PRN (14:08)
--- NOTE | 2018-03-03 14:09 | FAST ---
ENCOUNTER DATE AND TIME: 03/03/2018 08:00 (CDT) NAME CARLINE MURRAY DATE OF : 1940 DATE OF ADMISSION: 02/25/2018 14:49 (CDT) PHONE: AGE: 77 SSN# [id number] GENDER: Male ENCOUNTER PHYSICIAN: Dr. Larry Vincent M.D. 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 EATING: Activity did not occur on this shift EATING - SCORE: 0-UNK GROOMING: Activity did not occur on this shift GROOMING - SCORE: 0-UNK BATHING: Activity did not occur on this shift BATHING - SCORE: 0-UNK DRESSING - UPPER BODY: Activity did not occur on this shift Patient is not dressing in public clothing ARTICLES SCORE Total number of steps: 0 DRESSING - UPPER BODY - SCORE: 0-UNK DRESSING - LOWER BODY: Activity did not occur on this shift Patient is not dressing in public clothing ARTICLES SCORE Total number of steps: 0 DRESSING - LOWER BODY - SCORE: 0-UNK TOILETING: Activity did not occur on this shift TOILETING - SCORE: 0-UNK BLADDER MANAGEMENT: Activity did not occur on this shift BLADDER MANAGEMENT - SCORE: 7-IND BOWEL MANAGEMENT: Activity did not occur on this shift BOWEL MANAGEMENT - SCORE: 7-IND TRANSFERS: BED, CHAIR, WHEELCHAIR: TRANSFERS: BED, CHAIR, WHEELCHAIR - STEP 1: Does the patient require assistance with bed, chair, or wheelchair transfers? Yes. TRANSFERS: BED, CHAIR, WHEELCHAIR - STEP 2: Does the patient require the assistance of a helper? Yes. TRANSFERS: BED, CHAIR, WHEELCHAIR - STEP 3: How much assistance does the patient require from the helper? Lifting of the patient TRANSFERS: BED, CHAIR, WHEELCHAIR - STEP 4: Does the helper lift the patient ONLY up? ONLY down? Up AND Down? ONLY up. TRANSFERS: BED, CHAIR, WHEELCHAIR - SCORE: 3-MOD TRANSFERS: TOILET: Activity did not occur on this shift TRANSFERS: TOILET - SCORE: 0-UNK TRANSFERS: SHOWER: Activity did not occur on this shift TRANSFERS: SHOWER - SCORE: 0-UNK TRANSFERS: TUB: Activity did not occur on this shift TRANSFERS: TUB - SCORE: 0-UNK LOCOMOTION: WALK: LOCOMOTION: WALK - STEP 1: Does the patient need help to walk 150 feet? Yes. LOCOMOTION: WALK - STEP 2: How much assistance does the patient require to walk a minimum of 150 feet? Patient walks less than 1 50 feet - but more than 50 feet - with the assistance of only one helper LOCOMOTION: WALK - SCORE: 2-MAX LOCOMOTION: WHEELCHAIR: LOCOMOTION: WHEELCHAIR - STEP 1: Does the patient need help to go 150 feet in a wheelchair? Yes. LOCOMOTION: WHEELCHAIR - STEP 2: How much assistance does the patient need from the helper? Only supervision, cuing, or coaxing LOCOMOTION: WHEELCHAIR - SCORE: 5-SUP LOCOMOTION: STAIRS: Activity did not occur on this shift LOCOMOTION: STAIRS - SCORE: 0-UNK COMPREHENSION: COMPREHENSION - SCORE: 0-UNK EXPRESSION EXPRESSION - SCORE: 0-UNK SOCIAL INTERACTION: SOCIAL INTERACTION - SCORE: 0-UNK PROBLEM SOLVING: PROBLEM SOLVING - SCORE: 0-UNK MEMORY: MEMORY - SCORE: 0-UNK SIGNATURE PANEL: The following modified sections: Transfers: Bed, Chair, Wheelchair - Score, Transfers: Toilet - Score , Locomotion: Walk - Score, Locomotion: Wheelchair - Score, Locomotion: Stairs - Score were [electron lazaro] signed by Lance Coello PT on WedMar 03 2018 14:09:02 T-0500 (Central Daylight Time)
--- NOTE | 2018-03-03 14:50 | FAST ---
SHIFT START DATE/TIME: 03/03/2018 07:00 (CDT) SHIFT END DATE/TIME: 03/03/2018 19:00 (CDT) NAME CARLINE MURRAY DATE OF : 1940 DATE OF ADMISSION: 02/25/2018 14:49 (CDT) PHONE: AGE: 77 N# [id number] GENDER: Male ENCOUNTER PHYSICIAN: Dr. Larry Vincent M.D. 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 EATING: EATING - STEP 1: Does the patient require assistance when eating? Yes. EATING - STEP 2: Does the patient require the assistance of a helper? Yes. EATING - STEP 3: Does the patient perform half or more of the eating tasks? Yes. EATING - STEP 4: Does the patient need only supervision, cuing, coaxing OR help to apply an orthosis OR help to cut fo od, open containers, pour liquids, or butter bread? Yes. EATING - SCORE: 5-SUP GROOMING: Comb/brush hair Wash, rinse, and dry face Wash, rinse, and dry hands GROOMING - STEP 1: Does the patient require assistance when grooming? Yes. GROOMING - STEP 2: Does the patient require the assistance of a helper? Yes. GROOMING - STEP 3: How much assistance does the patient require from the helper? Only prior equipment preparation/set up from the helper GROOMING - SCORE: 5-SUP BATHING: Activity did not occur on this shift BATHING - SCORE: 0-UNK DRESSING - UPPER BODY: Activity did not occur on this shift ARTICLES SCORE Total number of steps: 0 DRESSING - UPPER BODY - SCORE: 0-UNK DRESSING - LOWER BODY: Elastic waist pants (three steps) ARTICLES SCORE Total number of steps: 3 DRESSING - LOWER BODY - STEP 1: Does the patient require help when dressing below the waist? Yes. DRESSING - LOWER BODY - STEP 2: Does the patient require the assistance of a helper? Yes. DRESSING - LOWER BODY - STEP 3: Does the helper touch the patient while dressing? No. DRESSING - LOWER BODY - SCORE: 5-SUP TOILETING: TOILETING - STEP 1: Does the patient require assistance with toileting? Yes. TOILETING - STEP 2: Does the patient require the assistance of a helper? Yes. TOILETING - STEP 3: How much assistance does the patient require from the helper? Only supervision TOILETING - SCORE: 5-SUP BLADDER MANAGEMENT: BLADDER MANAGEMENT - STEP 1: Does the patient control the bladder completely and intentionally without equipment or devices or med ications, and is always continent? No. BLADDER MANAGEMENT - STEP 2: Does the patient require the assistance of a helper? No, patient requires and independently uses an a ssistive device, such as a urinal, bedpan, bedside commode, catheter, absorbent pad, or collecting de vice BLADDER MANAGEMENT - SCORE: 6-CARINA BLADDER MANAGEMENT - FREQUENCY OF ACCIDENTS: BLADDER MANAGEMENT(FA) - STEP 1: How many accidents has the patient had during the current shift? 0 BOWEL MANAGEMENT: Activity did not occur on this shift BOWEL MANAGEMENT - SCORE: 7-IND BOWEL MANAGEMENT - FREQUENCY OF ACCIDENTS: BOWEL MANAGEMENT(FA) - STEP 1: How many accidents has the patient had during the current shift? 0 TRANSFERS: BED, CHAIR, WHEELCHAIR: TRANSFERS: BED, CHAIR, WHEELCHAIR - STEP 1: Does the patient require assistance with bed, chair, or wheelchair transfers? Yes. TRANSFERS: BED, CHAIR, WHEELCHAIR - STEP 2: Does the patient require the assistance of a helper? Yes. TRANSFERS: BED, CHAIR, WHEELCHAIR - STEP 3: How much assistance does the patient require from the helper? Lifting of the patient TRANSFERS: BED, CHAIR, WHEELCHAIR - STEP 4: Does the helper lift the patient ONLY up? ONLY down? Up AND Down? ONLY up. TRANSFERS: BED, CHAIR, WHEELCHAIR - SCORE: 3-MOD TRANSFERS: TOILET: TRANSFERS: TOILET - STEP 1: Does the patient require assistance with toilet transfers? Yes. TRANSFERS: TOILET - STEP 2: Does the patient require the assistance of a helper? Yes. TRANSFERS: TOILET - STEP 3: How much assistance does the patient require from the helper? Patient performs half or more of the tr ansferring tasks TRANSFERS: TOILET - STEP 4: Does the patient need only incidental help such as contact guard or steadying during toilet transfer? No. Patient needs more than incidental help TRANSFERS: TOILET - SCORE: 3-MOD TRANSFERS: SHOWER: Activity did not occur on this shift TRANSFERS: SHOWER - SCORE: 0-UNK TRANSFERS: TUB: Activity did not occur on this shift TRANSFERS: TUB - SCORE: 0-UNK LOCOMOTION: WALK: Activity did not occur on this shift LOCOMOTION: WALK - SCORE: 0-UNK LOCOMOTION: WHEELCHAIR: LOCOMOTION: WHEELCHAIR - STEP 1: Does the patient need help to go 150 feet in a wheelchair? Yes. LOCOMOTION: WHEELCHAIR - STEP 2: How much assistance does the patient need from the helper? Only supervision, cuing, or coaxing LOCOMOTION: WHEELCHAIR - SCORE: 5-SUP COMPREHENSION: COMPREHENSION: TYPE: Both COMPREHENSION - STEP 1: Does the patient require help to understand complex and abstract ideas (such as current events, finan mylene, discharge planning, medical issues, relationships, etc)? Yes. COMPREHENSION - STEP 2: Does the patient require help to understand questions or statements about basic needs or ideas (such as hunger, thirst, sleep, safety, daily schedule, room location, or discomfort) half or more of the t summer? No. COMPREHENSION - STEP 3: How often does the patient need help to understand directions and conversation about basic needs? 10% - 24% of the time COMPREHENSION - SCORE: 4-MIN EXPRESSION EXPRESSION: TYPE: Both EXPRESSION - STEP 1: Does the patient require help expressing complex and abstract ideas (such as current events, finances , discharge planning, medical issues, relationships, etc)? Yes. EXPRESSION - STEP 2: Does the patient require help to express basic necessities or ideas (such as hunger, thirst, sleep, s afety, daily schedule, room location, or discomfort) half or more of the time? No. EXPRESSION - STEP 3: How often does the patient need help to express directions and conversation about basic needs? 25-49% of the time EXPRESSION - SCORE: 3-MOD SOCIAL INTERACTION: SOCIAL INTERACTION - STEP 1: Does the patient require a helper to interact with others in social and therapeutic situations? Yes. SOCIAL INTERACTION - STEP 2: Does the patient interact appropriately half or more of the time? Yes. SOCIAL INTERACTION - STEP 3: How often does the patient need help to interact appropriately? 10-24% of the time SOCIAL INTERACTION - SCORE: 4-MIN PROBLEM SOLVING: PROBLEM SOLVING - STEP 1: Does the patient need help to solve complex problems such as managing a checking account or confronti ng interpersonal problems? Yes. PROBLEM SOLVING - STEP 2: Does the patient solve basic routine problems half or more of the time? Yes. PROBLEM SOLVING - STEP 3: How often does the patient need help to solve basic routine problems? Less than 10% of the time PROBLEM SOLVING - SCORE: 5-SUP MEMORY: MEMORY - STEP 1: Does the patient need help to remember frequently encountered people, daily routines, and executing r equests? Yes. MEMORY - STEP 2: How often does the patient need help to remember frequently encountered people, daily routines, and e xecuting requests? 10% - 24% of the time MEMORY - SCORE: 4-MIN SIGNATURE PANEL: The following modified sections: Eating - Score, Grooming - Score, Bathing - Score, Dressing - Upper Body - Score, Dressing - Lower Body - Score, Toileting - Score, Bladder Management - Score, Bowel Man agement - Score, Transfers: Bed, Chair, Wheelchair - Score, Transfers: Toilet - Score, Transfers: Esperanza wer - Score, Transfers: Tub - Score, Locomotion: Walk - Score, Locomotion: Wheelchair - Score, Compre hension - Score, Expression - Score, Social Interaction - Score, Problem Solving - Score, Memory - Sc ore were [electronically] signed by Zakia LuceroN.Ildefonso on WedMar 03 2018 14:49:19 T-0500 (Centra l Daylight Time)
--- NOTE | 2018-03-03 17:57 | R.PN ---
ENCOUNTER DATE AND TIME: 03/03/2018 17:54 (CDT) NAME CARLINE MURRAY DATE OF : 1940 DATE OF ADMISSION: 02/25/2018 14:49 (CDT) Left Temporal lobe and Left Occipital Lobe, Right basal ganglia, right upper aries and deep left parie jonatan lobe white matter.CHIEF COMPLAINT: Bilateral hemispheric stroke SUBJECTIVE: Pt denied any depression. Pt denied any Shortness of Breath. Self propelled wheelchair 250' with minimum assistance. Ambulated 60' with contact guard assistance u sing a rolling walker. VITAL SIGNS Temperature: 97.2 F SBP/DBP: 157/74 Pulse: 74 Resp: 15 MEDICATION ALLERGIES: No Known Drug Allergies (NKDA) ENVIRONMENTAL ALLERGIES: None Known - Substance Allergies None Known - Other Allergies None Known NURSING: - Shower allowing shower - Bladder care per protocol - Skin care per protocol PRECAUTIONS: - Weight Bearing Precaution WBAT both LE ACTIVITIES OOB only with supervision THERAPIES: - Occupational Therapy Evaluate and Treat. Visual Perceptual Training. Cognitive Retraining. - Speech Therapy Cognitive Training. Memory Strategies. Expressive Language Skills. Speech Intelligibility Training. R eceptive Language Skills. - Physical Therapy Evaluate and Treat. PHYSICAL EXAM - Gen Alert and awake Lying in bed No apparent distress Oriented to: person, time, and place - Skin No skin breakdown. Normacephalic - Eyes No abnormalities - ENMT No abnormalities - Neck No abnormalities - CVS RRR - Chest Clear - Abd Soft - GI Non distended Deferred - No abnormalities - Ext No significant edema - MSK 4+/5 weakness in left upper and lower extremity - Neuro 4/5 strength left upper and lower extremities. - Psych No abnormalities ASSESSMENT: Pt. is a 77 yo Right-handed black male.On 02/22/2018 Pt. presented to [facility] with sudden onset of bilat eral weakness.On 02/22/2018 he was admitted to [facility] with diagnosis Left Temporal lobe and Left Occipi jonatan Lobe, Right basal ganglia, right upper aries and deep left parietal lobe white matter..[facility] 01 - Bilateral (01.3).Pre-morbidly, Pt. was independent/mod-I in Sphincter Co ntrol, Transfers Control, Communication, Social Cognition, Self-Care, and Locomotion; and he had good Sphincter Control.Currently, he has deficits of Safety Awareness, Transfers Control, Balance, Self-C are, Locomotion, and Endurance.Pt. is now referred to [facility] for acute in- patient rehabilitation in order to maximize patient's functional independence in activities of daily living, strength, ROM, and mobility.- Rehab Goal Patient has realistic goal of being discharged at assistance level 6-Yadi to reside at Home with Fam rosa/Relatives. MDM/PLAN: - Physical Therapy Edema - to improve, our physical therapists will perform initial evaluation of pt's status upon admi ssion and devise an individualized program for Elevation Training, and Lymphedema Therapy FUNCTIONAL STATUS: UPDATED AT WEEKLY TEAM CONFERENCE - Bladder Same accident frequency: 7-Ind - No accidents in the past 7 days - Bowel Same accident frequency: 7-Ind - No accidents in the past 7 days - Walking Same score based on distance walked: 1(<=50ft) - Wheelchair Same score based on distance traveled: 0(N/A) FUNCTIONAL STATUS: - Self-Care A. Eating sup B. Grooming sup C. Bathing sup D. Dressing - Upper sup E. Dressing - Lower sup F. Toileting sup - Sphincter Control G: Bladder control Ind H: Bowel control Ind - Transfers Control I. Bed/Chair/Wheelchair Moisés J. Toilet Moisés K. Tub/Shower ADNO - Locomotion L. Walk/Wheelchair (C) Moisés L. Walk/Wheelchair (W) Moisés M. Stairs ADNO - Communication N. Comprehension (B) Ind O. Expression (B) Ind - Social Cognition P. Social Interaction Ind Q. Problem Solving Ind R. Memory Ind - Endurance Fair - Balance Fair - Safety Awareness Fair CURRENT FUNC. DEFICITS: Safety Awareness, Transfers Control, Balance, Self-Care, Locomotion, and Endurance SIGNATURE PANEL: (CDT)
[2018-03-03] MEDS: ATORVASTATIN 80 MG TAB PO SCH (20:45)
--- NOTE | 2018-03-04 00:52 | FAST ---
SHIFT START DATE/TIME: 03/03/2018 19:00 (CDT) SHIFT END DATE/TIME: 03/04/2018 07:00 (CDT) NAME CARLINE MURRAY DATE OF : 1940 DATE OF ADMISSION: 02/25/2018 14:49 (CDT) PHONE: AGE: 77 SSN# [id number] GENDER: Male ENCOUNTER PHYSICIAN: Dr. Larry Vincent M.D. 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 EATING: Activity did not occur on this shift EATING - SCORE: 0-UNK GROOMING: Activity did not occur on this shift GROOMING - SCORE: 0-UNK BATHING: Activity did not occur on this shift BATHING - SCORE: 0-UNK DRESSING - UPPER BODY: Patient is not dressing in public clothing ARTICLES SCORE Total number of steps: 0 DRESSING - UPPER BODY - SCORE: 0-UNK DRESSING - LOWER BODY: Patient is not dressing in public clothing ARTICLES SCORE Total number of steps: 0 DRESSING - LOWER BODY - SCORE: 0-UNK TOILETING: TOILETING - STEP 1: Does the patient require assistance with toileting? Yes. TOILETING - STEP 2: Does the patient require the assistance of a helper? Yes. TOILETING - STEP 3: How much assistance does the patient require from the helper? Only supervision TOILETING - SCORE: 5-SUP BLADDER MANAGEMENT: BLADDER MANAGEMENT - STEP 1: Does the patient control the bladder completely and intentionally without equipment or devices or med ications, and is always continent? No. BLADDER MANAGEMENT - STEP 2: Does the patient require the assistance of a helper? Yes. BLADDER MANAGEMENT - STEP 3: How much assistance does the patient require from the helper? Only supervision, stand-by, cuing, or c oaxing BLADDER MANAGEMENT - SCORE: 5-SUP BOWEL MANAGEMENT: Activity did not occur on this shift BOWEL MANAGEMENT - SCORE: 7-IND TRANSFERS: BED, CHAIR, WHEELCHAIR: Activity did not occur on this shift TRANSFERS: BED, CHAIR, WHEELCHAIR - SCORE: 0-UNK TRANSFERS: TOILET: Activity did not occur on this shift TRANSFERS: TOILET - SCORE: 0-UNK TRANSFERS: SHOWER: Activity did not occur on this shift TRANSFERS: SHOWER - SCORE: 0-UNK TRANSFERS: TUB: Activity did not occur on this shift TRANSFERS: TUB - SCORE: 0-UNK LOCOMOTION: WALK: Activity did not occur on this shift LOCOMOTION: WALK - SCORE: 0-UNK LOCOMOTION: WHEELCHAIR: Activity did not occur on this shift LOCOMOTION: WHEELCHAIR - SCORE: 0-UNK COMPREHENSION: COMPREHENSION: TYPE: Both COMPREHENSION - STEP 1: Does the patient require help to understand complex and abstract ideas (such as current events, finan mylene, discharge planning, medical issues, relationships, etc)? No. COMPREHENSION - STEP 2: Does the patient need extra time, require an assistive device (such as glasses for visual comprehensi on or a hearing aid for auditory comprehension) or does s/he have mild difficulty understanding compl ex and abstract information? Yes. COMPREHENSION - SCORE: 6-CARINA EXPRESSION EXPRESSION: TYPE: Both EXPRESSION - STEP 1: Does the patient require help expressing complex and abstract ideas (such as current events, finances , discharge planning, medical issues, relationships, etc)? Yes. EXPRESSION - STEP 2: Does the patient require help to express basic necessities or ideas (such as hunger, thirst, sleep, s afety, daily schedule, room location, or discomfort) half or more of the time? No. EXPRESSION - STEP 3: How often does the patient need help to express directions and conversation about basic needs? 25-49% of the time EXPRESSION - SCORE: 3-MOD SOCIAL INTERACTION: SOCIAL INTERACTION - STEP 1: Does the patient require a helper to interact with others in social and therapeutic situations? Yes. SOCIAL INTERACTION - STEP 2: Does the patient interact appropriately half or more of the time? Yes. SOCIAL INTERACTION - STEP 3: How often does the patient need help to interact appropriately? 25-49% of the time SOCIAL INTERACTION - SCORE: 3-MOD PROBLEM SOLVING: PROBLEM SOLVING - STEP 1: Does the patient need help to solve complex problems such as managing a checking account or confronti ng interpersonal problems? Yes. PROBLEM SOLVING - STEP 2: Does the patient solve basic routine problems half or more of the time? Yes. PROBLEM SOLVING - STEP 3: How often does the patient need help to solve basic routine problems? 10%-24% of the time PROBLEM SOLVING - SCORE: 4-MIN MEMORY: MEMORY - STEP 1: Does the patient need help to remember frequently encountered people, daily routines, and executing r equests? No. MEMORY - STEP 2: Does the patient have slight difficulty recognizing frequently encountered people, daily routines, or executing requests without the need for repetition or using self-initiated or environmental cues to remember? Yes. MEMORY - SCORE: 6-CARINA SIGNATURE PANEL: The following modified sections: Eating - Score, Grooming - Score, Dressing - Upper Body - Score, Carlo ssing - Lower Body - Score, Toileting - Score, Bladder Management - Score, Bowel Management - Score, Transfers: Bed, Chair, Wheelchair - Score, Transfers: Toilet - Score, Transfers: Shower - Score, Grewal sfers: Tub - Score, Locomotion: Walk - Score, Locomotion: Wheelchair - Score, Comprehension - Score, Expression - Score, Social Interaction - Score, Problem Solving - Score, Memory - Score were [electro nically] signed by Beulah Black CNA on WedMar 04 2018 00:51:00 GMT-0500 (Central Daylight Time)
[2018-03-04] MEDS: CARVEDILOL 25 MG TAB PO SCH ×2 (05:16→17:30)
[2018-03-04] MEDS: AMLODIPINE 5 MG TAB PO SCH (09:04)
[2018-03-04] MEDS: LISINOPRIL 20 MG TAB PO SCH (09:04)
[2018-03-04] MEDS: ASPIRIN 81 MG CHEWABLE TABLET PO SCH (09:05)
[2018-03-04] MEDS: APIXABAN 2.5 MG TABLET PO SCH ×2 (09:05→19:52)
[2018-03-04] MEDS: HYDRALAZINE HCL 25 MG TABLET PO SCH ×3 (09:05→21:41)
--- NOTE | 2018-03-04 10:04 | P.RH.PN ---
Estimated Length of Stay: 15 Expected Discharge Date: 03/11/18 Discharge Disposition Plan: Home Family Support: Yes [facility] Goal: Mobility, Transfers, Self Care Vital Signs: Last Vital Signs Temp 97.2 F 03/04/18 07:40 Pulse 72 03/04/18 09:04 Resp 16 03/04/18 07:40 BP 133/67 03/04/18 09:04 Pulse Ox 98 03/04/18 07:40 Laboratory: Laboratory Last Values WBC 4.9 K/uL (4.3-10.9) 03/03/18 05:25 RBC 4.39 M/uL (4.33-5.43) 03/03/18 05:25 Hgb 13.2 g/dL (13.6-17.9) L 03/03/18 05:25 Hct 38.4 % (39.6-49.0) L 03/03/18 05:25 MCV 87.6 fL (80-100) 03/03/18 05:25 MCH 30.2 pg (27.0-35.0) 03/03/18 05:25 MCHC 34.4 g/dL (32.0-36.0) 03/03/18 05:25 RDW 13.5 % (12.1-15.2) 03/03/18 05:25 Plt Count 200 K/uL (152-406) 03/03/18 05:25 MPV 8.9 fL (7.6-11.3) 03/03/18 05:25 Neutrophils % 58.9 % (41.7-73.7) 03/03/18 05:25 Lymphocytes % 27.3 % (15.3-44.8) 03/03/18 05:25 Monocytes % 10.3 % (3.3-12.3) 03/03/18 05:25 Eosinophils % 2.8 % (0-4.4) 03/03/18 05:25 Basophils % 0.7 % (0-1.3) 03/03/18 05:25 Absolute Neutrophils 2.9 K/uL (1.8-8.0) 03/03/18 05:25 Absolute Lymphocytes 1.3 K/uL (0.7-4.9) 03/03/18 05:25 Absolute Monocytes 0.5 K/uL (0.1-1.3) 03/03/18 05:25 Absolute Eosinophils 0.1 K/uL (0-0.5) 03/03/18 05:25 Absolute Basophils 0.0 K/uL (0-0.5) 03/03/18 05:25 Sodium 139 mmol/L (136-145) 03/03/18 05:25 Potassium 4.2 mmol/L (3.5-5.1) 03/03/18 05:25 Chloride 106 mmol/L (98-107) 03/03/18 05:25 Carbon Dioxide 27 mmol/L (21-32) 03/03/18 05:25 BUN 16 mg/dL (7-18) 03/03/18 05:25 Creatinine 1.40 mg/dL (0.55-1.3) H 03/03/18 05:25 Estimated GFR 60 mL/min (=/>90) L 03/03/18 05:25 Glucose 114 mg/dL (74-106) H 03/03/18 05:25 Calcium 8.5 mg/dL (8.5-10.1) 03/03/18 05:25 Magnesium 2.2 mg/dL (1.8-2.4) 02/26/18 06:06 Albumin 2.9 g/dL (3.4-5.0) L 03/03/18 05:25 Prealbumin 19.9 mg/dL (20-40) L 03/03/18 05:25 Urine Color Dk yellow 02/25/18 16:25 Urine Appearance Clear 02/25/18 16:25 Urine pH 5.0 (5.0-7.0) 02/25/18 16:25 Ur Specific [place] >=1.030 (1.005-1.030) 02/25/18 16:25 Urine Ketones Negative (NEG) 02/25/18 16:25 Urine Blood Negative (NEG) 02/25/18 16:25 Urine Nitrite Negative (NEG) 02/25/18 16:25 Urine Bilirubin Negative (NEG) 02/25/18 16:25 Urine Urobilinogen 1.0 mg/dL (0.2-1.0) 02/25/18 16:25 Ur Leukocyte Esterase Negative (NEG) 02/25/18 16:25 Urine RBC <5 /HPF (NONE SEEN) 02/25/18 16:25 Urine WBC <5 /HPF (<5) 02/25/18 16:25 Ur Squamous Epith Cells <5 /HPF (NONE SEEN) 02/25/18 16:25 Urine Bacteria <20 /HPF (NONE SEEN) 02/25/18 16:25 Urine Mucus Heavy /HPF (NONE SEEN) 02/25/18 16:25 Urine Culture Reflexed Not needed 02/25/18 16:25 Urine Glucose Negative (NEG) 02/25/18 16:25 Urine Total Protein Trace (NEG) 02/25/18 16:25 Opiates Screen Negative (NEGATIVE) 02/28/18 16:55 Methadone Screen Negative (NEGATIVE) 02/28/18 16:55 Ur Barbiturates Screen Negative (NEGATIVE) 02/28/18 16:55 Ur Phencyclidine Scrn Negative (NEGATIVE) 02/28/18 16:55 Amphetamines Screen Negative (NEGATIVE) 02/28/18 16:55 Benzodiazepines Screen Negative (NEGATIVE) 02/28/18 16:55 Cocaine Screen Negative (NEGATIVE) 02/28/18 16:55 Ur THC Screen Negative (NEGATIVE) 02/28/18 16:55 Plasma/Serum Alcohol 5 mg/dL (<3) H 02/28/18 15:45 Weight: 177 lb 1.6 oz Wound Present: No Closed Surgical Incision Present: No Negative Pressure Wound Therapy Present: No Physician Update: His labs have been review. His Hgb is stable at 13.2. His pre- albumin is 19.9. He is doing fairly well with physical, occupational and speech therapy. Functional Improvement: pt demonstrates improvement with functional mobility. He continues to exhibits deficits in balance, strength, and tolerance to ambulation. Skilled PT services remain necessary. Functional Improvement Occupational Therapy: CONTINUE ABOVE, HE BENEFITS FROM FURTHER OT TO ADDRESS SAFETY AND INDEPENDENCE WITH ALL BADL AND ADDRESS LTG SET IN POC BEFORE A SAFE D/C HOME. 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 Patient placed on mechanical soft chopped diet with nectar thick liquids for safety. Moderate cognitive linguistic impairment present; patient recently requiring max cues for safety. (Supervision recommended) Summary: Patient's care plan and terminal superintendent goals have been reviewed and revised as necessary. Please see the Rehabilitation Signature page for all necessary signatures.
--- NOTE | 2018-03-04 12:54 | FAST ---
ENCOUNTER DATE AND TIME: 03/04/2018 08:00 (CDT) NAME CARLINE MURRAY DATE OF : 1940 DATE OF ADMISSION: 02/25/2018 14:49 (CDT) PHONE: AGE: 77 N# [id number] GENDER: Male ENCOUNTER PHYSICIAN: Dr. Larry Vincent M.D. 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 EATING: Activity did not occur on this shift EATING - SCORE: 0-UNK GROOMING: Patient shaved Wash, rinse, and dry face Wash, rinse, and dry hands GROOMING - STEP 1: Does the patient require assistance when grooming? Yes. GROOMING - STEP 2: Does the patient require the assistance of a helper? Yes. GROOMING - STEP 3: How much assistance does the patient require from the helper? Incidental touching assistance from the helper while grooming GROOMING - SCORE: 4-MIN BATHING: Abdomen Buttocks Chest Left arm Left upper leg Perineal area Right arm Right lower leg and foot Right upper leg BATHING - STEP 1: Does the patient require assistance when bathing? Yes. BATHING - STEP 2: Does the patient require the assistance of a helper? Yes. BATHING - STEP 3: How much assistance does the patient require from the helper? Only prior preparation such as putting bathing equipment within reach, turning on water, checking water temperature BATHING - SCORE: 5-SUP DRESSING - UPPER BODY: T-shirt/pullover shirt (four steps) ARTICLES SCORE Total number of steps: 4 DRESSING - UPPER BODY - STEP 1: Does the patient require help when dressing above the waist? Yes. DRESSING - UPPER BODY - STEP 2: Does the patient require the assistance of a helper? Yes. DRESSING - UPPER BODY - STEP 3: Does the helper touch the patient while dressing? No. DRESSING - UPPER BODY - SCORE: 5-SUP DRESSING - LOWER BODY: Sock - Left foot (one step) Sock - Right foot (one step) Tied or buckled shoe - Left foot (two steps) Tied or buckled shoe - Right foot (two steps) Underwear (three steps) Zippered pants (four steps) ARTICLES SCORE Total number of steps: 13 DRESSING - LOWER BODY - STEP 1: Does the patient require help when dressing below the waist? Yes. DRESSING - LOWER BODY - STEP 2: Does the patient require the assistance of a helper? Yes. DRESSING - LOWER BODY - STEP 3: Does the helper touch the patient while dressing? No. DRESSING - LOWER BODY - SCORE: 5-SUP TOILETING: Activity did not occur on this shift TOILETING - SCORE: 0-UNK BLADDER MANAGEMENT: Activity did not occur on this shift BLADDER MANAGEMENT - SCORE: 7-IND BOWEL MANAGEMENT: Activity did not occur on this shift BOWEL MANAGEMENT - SCORE: 7-IND TRANSFERS: BED, CHAIR, WHEELCHAIR: Activity did not occur on this shift TRANSFERS: BED, CHAIR, WHEELCHAIR - SCORE: 0-UNK TRANSFERS: TOILET: Activity did not occur on this shift TRANSFERS: TOILET - SCORE: 0-UNK TRANSFERS: SHOWER: TRANSFERS: SHOWER - STEP 1: Does the patient require assistance with shower transfers? Yes. TRANSFERS: SHOWER - STEP 2: Does the patient require the assistance of a helper? Yes. TRANSFERS: SHOWER - STEP 3: How much assistance does the patient require from the helper? Only supervision, cuing, coaxing, or he lp to set out transfer equipment or to lock brakes and/or lift foot rests TRANSFERS: SHOWER - SCORE: 5-SUP TRANSFERS: TUB: Activity did not occur on this shift TRANSFERS: TUB - SCORE: 0-UNK LOCOMOTION: WALK: Activity did not occur on this shift LOCOMOTION: WALK - SCORE: 0-UNK LOCOMOTION: WHEELCHAIR: Activity did not occur on this shift LOCOMOTION: WHEELCHAIR - SCORE: 0-UNK LOCOMOTION: STAIRS: Activity did not occur on this shift LOCOMOTION: STAIRS - SCORE: 0-UNK COMPREHENSION: COMPREHENSION: TYPE: Both COMPREHENSION - STEP 1: Does the patient require help to understand complex and abstract ideas (such as current events, finan mylene, discharge planning, medical issues, relationships, etc)? Yes. COMPREHENSION - STEP 2: Does the patient require help to understand questions or statements about basic needs or ideas (such as hunger, thirst, sleep, safety, daily schedule, room location, or discomfort) half or more of the t summer? No. COMPREHENSION - STEP 3: How often does the patient need help to understand directions and conversation about basic needs? Les s than 10% of the time COMPREHENSION - SCORE: 5-SUP EXPRESSION EXPRESSION: TYPE: Both EXPRESSION - STEP 1: Does the patient require help expressing complex and abstract ideas (such as current events, finances , discharge planning, medical issues, relationships, etc)? Yes. EXPRESSION - STEP 2: Does the patient require help to express basic necessities or ideas (such as hunger, thirst, sleep, s afety, daily schedule, room location, or discomfort) half or more of the time? No. EXPRESSION - STEP 3: How often does the patient need help to express directions and conversation about basic needs? 10-24% of the time EXPRESSION - SCORE: 4-MIN SOCIAL INTERACTION: SOCIAL INTERACTION - STEP 1: Does the patient require a helper to interact with others in social and therapeutic situations? No. SOCIAL INTERACTION - STEP 2: Does the patient need extra time in social situations, OR does s/he interact with staff, other patien ts, and family members ONLY in structured environments, OR does s/he require medication for social in teraction? Yes, patient needs extra time SOCIAL INTERACTION - SCORE: 6-CARINA PROBLEM SOLVING: PROBLEM SOLVING - STEP 1: Does the patient need help to solve complex problems such as managing a checking account or confronti ng interpersonal problems? Yes. PROBLEM SOLVING - STEP 2: Does the patient solve basic routine problems half or more of the time? Yes. PROBLEM SOLVING - STEP 3: How often does the patient need help to solve basic routine problems? Less than 10% of the time PROBLEM SOLVING - SCORE: 5-SUP MEMORY: MEMORY - STEP 1: Does the patient need help to remember frequently encountered people, daily routines, and executing r equests? Yes. MEMORY - STEP 2: How often does the patient need help to remember frequently encountered people, daily routines, and e xecuting requests? Less than 10% of the time MEMORY - SCORE: 5-SUP SIGNATURE PANEL: The following modified sections: Eating - Score, Grooming - Score, Bathing - Score, Dressing - Upper Body - Score, Dressing - Lower Body - Score, Toileting - Score, Transfers: Bed, Chair, Wheelchair - S core, Transfers: Toilet - Score, Transfers: Shower - Score, Transfers: Tub - Score, Comprehension - S core, Expression - Score, Social Interaction - Score, Problem Solving - Score, Memory - Score were [e lectronically] signed by Mary Hodges OT on WedMar 04 2018 12:52:40 T-0500 (Central Da ylight Time)
--- NOTE | 2018-03-04 16:58 | FAST ---
ENCOUNTER DATE AND TIME: 03/04/2018 08:00 (CDT) NAME CARLINE MURRAY DATE OF : 1940 DATE OF ADMISSION: 02/25/2018 14:49 (CDT) PHONE: AGE: 77 SSN# [id number] GENDER: Male ENCOUNTER PHYSICIAN: Dr. Larry Vincent M.D. 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 EATING: Activity did not occur on this shift EATING - SCORE: 0-UNK GROOMING: Activity did not occur on this shift GROOMING - SCORE: 0-UNK BATHING: Activity did not occur on this shift BATHING - SCORE: 0-UNK DRESSING - UPPER BODY: Activity did not occur on this shift Patient is not dressing in public clothing ARTICLES SCORE Total number of steps: 0 DRESSING - UPPER BODY - SCORE: 0-UNK DRESSING - LOWER BODY: Activity did not occur on this shift Patient is not dressing in public clothing ARTICLES SCORE Total number of steps: 0 DRESSING - LOWER BODY - SCORE: 0-UNK TOILETING: Activity did not occur on this shift TOILETING - SCORE: 0-UNK BLADDER MANAGEMENT: Activity did not occur on this shift BLADDER MANAGEMENT - SCORE: 7-IND BOWEL MANAGEMENT: Activity did not occur on this shift BOWEL MANAGEMENT - SCORE: 7-IND TRANSFERS: BED, CHAIR, WHEELCHAIR: TRANSFERS: BED, CHAIR, WHEELCHAIR - STEP 1: Does the patient require assistance with bed, chair, or wheelchair transfers? Yes. TRANSFERS: BED, CHAIR, WHEELCHAIR - STEP 2: Does the patient require the assistance of a helper? Yes. TRANSFERS: BED, CHAIR, WHEELCHAIR - STEP 3: How much assistance does the patient require from the helper? Lifting of the patient TRANSFERS: BED, CHAIR, WHEELCHAIR - STEP 4: Does the helper lift the patient ONLY up? ONLY down? Up AND Down? ONLY up. TRANSFERS: BED, CHAIR, WHEELCHAIR - SCORE: 3-MOD TRANSFERS: TOILET: Activity did not occur on this shift TRANSFERS: TOILET - SCORE: 0-UNK TRANSFERS: SHOWER: Activity did not occur on this shift TRANSFERS: SHOWER - SCORE: 0-UNK TRANSFERS: TUB: Activity did not occur on this shift TRANSFERS: TUB - SCORE: 0-UNK LOCOMOTION: WALK: LOCOMOTION: WALK - STEP 1: Does the patient need help to walk 150 feet? Yes. LOCOMOTION: WALK - STEP 2: How much assistance does the patient require to walk a minimum of 150 feet? Only incidental help such as contact guarding or steadying LOCOMOTION: WALK - SCORE: 4-MIN LOCOMOTION: WHEELCHAIR: LOCOMOTION: WHEELCHAIR - STEP 1: Does the patient need help to go 150 feet in a wheelchair? Yes. LOCOMOTION: WHEELCHAIR - STEP 2: How much assistance does the patient need from the helper? Only supervision, cuing, or coaxing LOCOMOTION: WHEELCHAIR - SCORE: 5-SUP LOCOMOTION: STAIRS: Activity did not occur on this shift LOCOMOTION: STAIRS - SCORE: 0-UNK COMPREHENSION: COMPREHENSION - SCORE: 0-UNK EXPRESSION EXPRESSION - SCORE: 0-UNK SOCIAL INTERACTION: SOCIAL INTERACTION - SCORE: 0-UNK PROBLEM SOLVING: PROBLEM SOLVING - SCORE: 0-UNK MEMORY: MEMORY - SCORE: 0-UNK SIGNATURE PANEL: The following modified sections: Transfers: Bed, Chair, Wheelchair - Score, Transfers: Toilet - Score , Locomotion: Walk - Score, Locomotion: Wheelchair - Score, Locomotion: Stairs - Score were [electron ically] signed by Mary Ríos PTA on WedMar 04 2018 16:58:11 T-0500 (Central Daylight Time)
[2018-03-04] MEDS: ATORVASTATIN 80 MG TAB PO SCH (21:41)
--- NOTE | 2018-03-05 02:27 | FAST ---
SHIFT START DATE/TIME: 03/04/2018 19:00 (CDT) SHIFT END DATE/TIME: 03/05/2018 07:00 (CDT) NAME CARLINE MURRAY DATE OF : 1940 DATE OF ADMISSION: 02/25/2018 14:49 (CDT) PHONE: AGE: 77 N# [id number] GENDER: Male ENCOUNTER PHYSICIAN: Dr. Larry Vincent M.D. 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 EATING: Activity did not occur on this shift EATING - SCORE: 0-UNK GROOMING: Activity did not occur on this shift GROOMING - SCORE: 0-UNK BATHING: Activity did not occur on this shift BATHING - SCORE: 0-UNK DRESSING - UPPER BODY: Patient is not dressing in public clothing ARTICLES SCORE Total number of steps: 0 DRESSING - UPPER BODY - SCORE: 0-UNK DRESSING - LOWER BODY: Patient is not dressing in public clothing ARTICLES SCORE Total number of steps: 0 DRESSING - LOWER BODY - SCORE: 0-UNK TOILETING: TOILETING - STEP 1: Does the patient require assistance with toileting? Yes. TOILETING - STEP 2: Does the patient require the assistance of a helper? Yes. TOILETING - STEP 3: How much assistance does the patient require from the helper? Only supervision TOILETING - SCORE: 5-SUP BLADDER MANAGEMENT: BLADDER MANAGEMENT - STEP 1: Does the patient control the bladder completely and intentionally without equipment or devices or med ications, and is always continent? No. BLADDER MANAGEMENT - STEP 2: Does the patient require the assistance of a helper? Yes. BLADDER MANAGEMENT - STEP 3: How much assistance does the patient require from the helper? Only set-up of equipment - such as plac ing it within reach of the patient or emptying a device - to maintain either satisfactory voiding pat tern or managing an external device, such as an absorbent pad, ileal device, or catheter BLADDER MANAGEMENT - SCORE: 5-SUP BOWEL MANAGEMENT: Activity did not occur on this shift BOWEL MANAGEMENT - SCORE: 7-IND TRANSFERS: BED, CHAIR, WHEELCHAIR: Activity did not occur on this shift TRANSFERS: BED, CHAIR, WHEELCHAIR - SCORE: 0-UNK TRANSFERS: TOILET: Activity did not occur on this shift TRANSFERS: TOILET - SCORE: 0-UNK TRANSFERS: SHOWER: Activity did not occur on this shift TRANSFERS: SHOWER - SCORE: 0-UNK TRANSFERS: TUB: Activity did not occur on this shift TRANSFERS: TUB - SCORE: 0-UNK LOCOMOTION: WALK: Activity did not occur on this shift LOCOMOTION: WALK - SCORE: 0-UNK LOCOMOTION: WHEELCHAIR: Activity did not occur on this shift LOCOMOTION: WHEELCHAIR - SCORE: 0-UNK COMPREHENSION: COMPREHENSION: TYPE: Both COMPREHENSION - STEP 1: Does the patient require help to understand complex and abstract ideas (such as current events, finan mylene, discharge planning, medical issues, relationships, etc)? No. COMPREHENSION - STEP 2: Does the patient need extra time, require an assistive device (such as glasses for visual comprehensi on or a hearing aid for auditory comprehension) or does s/he have mild difficulty understanding compl ex and abstract information? Yes. COMPREHENSION - SCORE: 6-CARINA EXPRESSION EXPRESSION: TYPE: Both EXPRESSION - STEP 1: Does the patient require help expressing complex and abstract ideas (such as current events, finances , discharge planning, medical issues, relationships, etc)? Yes. EXPRESSION - STEP 2: Does the patient require help to express basic necessities or ideas (such as hunger, thirst, sleep, s afety, daily schedule, room location, or discomfort) half or more of the time? No. EXPRESSION - STEP 3: How often does the patient need help to express directions and conversation about basic needs? 10-24% of the time EXPRESSION - SCORE: 4-MIN SOCIAL INTERACTION: SOCIAL INTERACTION - STEP 1: Does the patient require a helper to interact with others in social and therapeutic situations? Yes. SOCIAL INTERACTION - STEP 2: Does the patient interact appropriately half or more of the time? Yes. SOCIAL INTERACTION - STEP 3: How often does the patient need help to interact appropriately? 10-24% of the time SOCIAL INTERACTION - SCORE: 4-MIN PROBLEM SOLVING: PROBLEM SOLVING - STEP 1: Does the patient need help to solve complex problems such as managing a checking account or confronti ng interpersonal problems? Yes. PROBLEM SOLVING - STEP 2: Does the patient solve basic routine problems half or more of the time? Yes. PROBLEM SOLVING - STEP 3: How often does the patient need help to solve basic routine problems? 10%-24% of the time PROBLEM SOLVING - SCORE: 4-MIN MEMORY: MEMORY - STEP 1: Does the patient need help to remember frequently encountered people, daily routines, and executing r equests? No. MEMORY - STEP 2: Does the patient have slight difficulty recognizing frequently encountered people, daily routines, or executing requests without the need for repetition or using self-initiated or environmental cues to remember? Yes. MEMORY - SCORE: 6-CARINA
[2018-03-05] MEDS: CARVEDILOL 25 MG TAB PO SCH ×2 (05:05→16:52)
[2018-03-05 05:40] VITALS: BMI 24.7
[2018-03-05 07:47] LABS: Urine Appearance CLEAR; Urine Bilirubin NEGATIVE (NEG); Urine Blood NEGATIVE (NEG); Urine Color YELLOW; Urine Glucose NEGATIVE (NEG); Urine Protein NEGATIVE (NEG); Urine Specific Gravity 1.025 (1.005-1.030); Urine Urobilinogen 0.2 mg/dL (0.2-1.0); Urine pH 5.5 (5.0-7.0)
[2018-03-05 07:48] LABS: Urine Microscopic Reflex NO UMIC
[2018-03-05] MEDS: LISINOPRIL 20 MG TAB PO SCH (09:33)
[2018-03-05] MEDS: AMLODIPINE 5 MG TAB PO SCH (09:33)
[2018-03-05] MEDS: APIXABAN 2.5 MG TABLET PO SCH ×2 (09:33→20:20)
[2018-03-05] MEDS: ASPIRIN 81 MG CHEWABLE TABLET PO SCH (09:34)
[2018-03-05] MEDS: HYDRALAZINE HCL 25 MG TABLET PO SCH ×3 (10:01→20:20)
--- NOTE | 2018-03-05 10:03 | FAST ---
SHIFT START DATE/TIME: 03/05/2018 07:00 (CDT) SHIFT END DATE/TIME: 03/05/2018 19:00 (CDT) NAME CARLINE MURRAY DATE OF : 1940 DATE OF ADMISSION: 02/25/2018 14:49 (CDT) PHONE: AGE: 77 N# [id number] GENDER: Male ENCOUNTER PHYSICIAN: Dr. Larry Vincent M.D. 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 EATING: EATING - STEP 1: Does the patient require assistance when eating? Yes. EATING - STEP 2: Does the patient require the assistance of a helper? Yes. EATING - STEP 3: Does the patient perform half or more of the eating tasks? Yes. EATING - STEP 4: Does the patient need only supervision, cuing, coaxing OR help to apply an orthosis OR help to cut fo od, open containers, pour liquids, or butter bread? Yes. EATING - SCORE: 5-SUP GROOMING: Activity did not occur on this shift GROOMING - SCORE: 0-UNK BATHING: Activity did not occur on this shift BATHING - SCORE: 0-UNK DRESSING - UPPER BODY: Activity did not occur on this shift ARTICLES SCORE Total number of steps: 0 DRESSING - UPPER BODY - SCORE: 0-UNK DRESSING - LOWER BODY: ARTICLES SCORE Total number of steps: 3 DRESSING - LOWER BODY - STEP 1: Does the patient require help when dressing below the waist? Yes. DRESSING - LOWER BODY - STEP 2: Does the patient require the assistance of a helper? Yes. DRESSING - LOWER BODY - STEP 3: Does the helper touch the patient while dressing? Yes. DRESSING - LOWER BODY - STEP 4: How many of the total steps does the patient complete on his/her own? 2 DRESSING - LOWER BODY - SCORE: 3-MOD TOILETING: TOILETING - STEP 1: Does the patient require assistance with toileting? Yes. TOILETING - STEP 2: Does the patient require the assistance of a helper? Yes. TOILETING - STEP 3: How much assistance does the patient require from the helper? Hands-on assistance from the helper TOILETING - STEP 4: Of the 3 tasks: 1) Adjusting clothing prior to use, 2) Cleansing of perineal area, 3) Adjusting clot richie after use; How many tasks does the patient perform WITHOUT assistance of the helper? Two tasks TOILETING - SCORE: 3-MOD BLADDER MANAGEMENT: BLADDER MANAGEMENT - STEP 1: Does the patient control the bladder completely and intentionally without equipment or devices or med ications, and is always continent? No. BLADDER MANAGEMENT - STEP 2: Does the patient require the assistance of a helper? No, patient requires and independently uses an a ssistive device, such as a urinal, bedpan, bedside commode, catheter, absorbent pad, or collecting de vice BLADDER MANAGEMENT - SCORE: 6-CARINA BOWEL MANAGEMENT: BOWEL MANAGEMENT - STEP 1: Does the patient control bowels completely and intentionally without equipment devices or medications AND is always continent? No. BOWEL MANAGEMENT - STEP 2: Does the patient require the assistance of a helper? No, patient requires and manages independently a n assistive device such as a bedpan, bedside commode, absorbent pad, incontinent device, or collectin g device BOWEL MANAGEMENT - SCORE: 6-CARINA TRANSFERS: BED, CHAIR, WHEELCHAIR: TRANSFERS: BED, CHAIR, WHEELCHAIR - STEP 1: Does the patient require assistance with bed, chair, or wheelchair transfers? Yes. TRANSFERS: BED, CHAIR, WHEELCHAIR - STEP 2: Does the patient require the assistance of a helper? Yes. TRANSFERS: BED, CHAIR, WHEELCHAIR - STEP 3: How much assistance does the patient require from the helper? Lifting of the patient TRANSFERS: BED, CHAIR, WHEELCHAIR - STEP 4: Does the helper lift the patient ONLY up? ONLY down? Up AND Down? ONLY up. TRANSFERS: BED, CHAIR, WHEELCHAIR - SCORE: 3-MOD TRANSFERS: TOILET: TRANSFERS: TOILET - STEP 1: Does the patient require assistance with toilet transfers? Yes. TRANSFERS: TOILET - STEP 2: Does the patient require the assistance of a helper? Yes. TRANSFERS: TOILET - STEP 3: How much assistance does the patient require from the helper? Patient performs half or more of the tr ansferring tasks TRANSFERS: TOILET - STEP 4: Does the patient need only incidental help such as contact guard or steadying during toilet transfer? Yes. TRANSFERS: TOILET - SCORE: 4-MIN TRANSFERS: SHOWER: Activity did not occur on this shift TRANSFERS: SHOWER - SCORE: 0-UNK TRANSFERS: TUB: Activity did not occur on this shift TRANSFERS: TUB - SCORE: 0-UNK LOCOMOTION: WALK: Activity did not occur on this shift LOCOMOTION: WALK - SCORE: 0-UNK LOCOMOTION: WHEELCHAIR: Activity did not occur on this shift LOCOMOTION: WHEELCHAIR - SCORE: 0-UNK COMPREHENSION: COMPREHENSION: TYPE: Both COMPREHENSION - STEP 1: Does the patient require help to understand complex and abstract ideas (such as current events, finan mylene, discharge planning, medical issues, relationships, etc)? Yes. COMPREHENSION - STEP 2: Does the patient require help to understand questions or statements about basic needs or ideas (such as hunger, thirst, sleep, safety, daily schedule, room location, or discomfort) half or more of the t summer? No. COMPREHENSION - STEP 3: How often does the patient need help to understand directions and conversation about basic needs? Les s than 10% of the time COMPREHENSION - SCORE: 5-SUP EXPRESSION EXPRESSION: TYPE: Both EXPRESSION - STEP 1: Does the patient require help expressing complex and abstract ideas (such as current events, finances , discharge planning, medical issues, relationships, etc)? Yes. EXPRESSION - STEP 2: Does the patient require help to express basic necessities or ideas (such as hunger, thirst, sleep, s afety, daily schedule, room location, or discomfort) half or more of the time? No. EXPRESSION - STEP 3: How often does the patient need help to express directions and conversation about basic needs? Less t tejeda 10% of the time EXPRESSION - SCORE: 5-SUP SOCIAL INTERACTION: SOCIAL INTERACTION - STEP 1: Does the patient require a helper to interact with others in social and therapeutic situations? No. SOCIAL INTERACTION - STEP 2: Does the patient need extra time in social situations, OR does s/he interact with staff, other patien ts, and family members ONLY in structured environments, OR does s/he require medication for social in teraction? Yes, patient needs extra time SOCIAL INTERACTION - SCORE: 6-CARINA PROBLEM SOLVING: PROBLEM SOLVING - STEP 1: Does the patient need help to solve complex problems such as managing a checking account or confronti ng interpersonal problems? Yes. PROBLEM SOLVING - STEP 2: Does the patient solve basic routine problems half or more of the time? Yes. PROBLEM SOLVING - STEP 3: How often does the patient need help to solve basic routine problems? Less than 10% of the time PROBLEM SOLVING - SCORE: 5-SUP MEMORY: MEMORY - STEP 1: Does the patient need help to remember frequently encountered people, daily routines, and executing r equests? Yes. MEMORY - STEP 2: How often does the patient need help to remember frequently encountered people, daily routines, and e xecuting requests? Less than 10% of the time MEMORY - SCORE: 5-SUP SIGNATURE PANEL: The following modified sections: Eating - Score, Grooming - Score, Bathing - Score, Dressing - Upper Body - Score, Dressing - Lower Body - Score, Toileting - Score, Bladder Management - Score, Bowel Man agement - Score, Transfers: Bed, Chair, Wheelchair - Score, Transfers: Toilet - Score, Transfers: Esperanza wer - Score, Transfers: Tub - Score, Locomotion: Walk - Score, Locomotion: Wheelchair - Score, Compre hension - Score, Expression - Score, Social Interaction - Score, Problem Solving - Score, Memory - Sc ore were [electronically] signed by Kiet Sims on Sat Mar 05 2018 10:02:07 T-0500 (Central Daylight Time)
[2018-03-05] MEDS: ATORVASTATIN 80 MG TAB PO SCH (20:20)
--- NOTE | 2018-03-06 02:21 | FAST ---
SHIFT START DATE/TIME: 03/05/2018 19:00 (CDT) SHIFT END DATE/TIME: 03/06/2018 07:00 (CDT) NAME CARLINE MURRAY DATE OF : 1940 DATE OF ADMISSION: 02/25/2018 14:49 (CDT) PHONE: AGE: 77 N# [id number] GENDER: Male ENCOUNTER PHYSICIAN: Dr. Larry Vincent M.D. 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 EATING: Activity did not occur on this shift EATING - SCORE: 0-UNK GROOMING: Activity did not occur on this shift GROOMING - SCORE: 0-UNK BATHING: Activity did not occur on this shift BATHING - SCORE: 0-UNK DRESSING - UPPER BODY: Patient is not dressing in public clothing ARTICLES SCORE Total number of steps: 0 DRESSING - UPPER BODY - SCORE: 0-UNK DRESSING - LOWER BODY: Patient is not dressing in public clothing ARTICLES SCORE Total number of steps: 0 DRESSING - LOWER BODY - SCORE: 0-UNK TOILETING: TOILETING - STEP 1: Does the patient require assistance with toileting? Yes. TOILETING - STEP 2: Does the patient require the assistance of a helper? Yes. TOILETING - STEP 3: How much assistance does the patient require from the helper? Only supervision TOILETING - SCORE: 5-SUP BLADDER MANAGEMENT: BLADDER MANAGEMENT - STEP 1: Does the patient control the bladder completely and intentionally without equipment or devices or med ications, and is always continent? No. BLADDER MANAGEMENT - STEP 2: Does the patient require the assistance of a helper? Yes. BLADDER MANAGEMENT - STEP 3: How much assistance does the patient require from the helper? Only set-up of equipment - such as plac ing it within reach of the patient or emptying a device - to maintain either satisfactory voiding pat tern or managing an external device, such as an absorbent pad, ileal device, or catheter BLADDER MANAGEMENT - SCORE: 5-SUP BOWEL MANAGEMENT: Activity did not occur on this shift BOWEL MANAGEMENT - SCORE: 7-IND TRANSFERS: BED, CHAIR, WHEELCHAIR: Activity did not occur on this shift TRANSFERS: BED, CHAIR, WHEELCHAIR - SCORE: 0-UNK TRANSFERS: TOILET: Activity did not occur on this shift TRANSFERS: TOILET - SCORE: 0-UNK TRANSFERS: SHOWER: Activity did not occur on this shift TRANSFERS: SHOWER - SCORE: 0-UNK TRANSFERS: TUB: Activity did not occur on this shift TRANSFERS: TUB - SCORE: 0-UNK LOCOMOTION: WALK: Activity did not occur on this shift LOCOMOTION: WALK - SCORE: 0-UNK LOCOMOTION: WHEELCHAIR: Activity did not occur on this shift LOCOMOTION: WHEELCHAIR - SCORE: 0-UNK COMPREHENSION: COMPREHENSION: TYPE: Both COMPREHENSION - STEP 1: Does the patient require help to understand complex and abstract ideas (such as current events, finan mylene, discharge planning, medical issues, relationships, etc)? No. COMPREHENSION - STEP 2: Does the patient need extra time, require an assistive device (such as glasses for visual comprehensi on or a hearing aid for auditory comprehension) or does s/he have mild difficulty understanding compl ex and abstract information? Yes. COMPREHENSION - SCORE: 6-CARINA EXPRESSION EXPRESSION: TYPE: Both EXPRESSION - STEP 1: Does the patient require help expressing complex and abstract ideas (such as current events, finances , discharge planning, medical issues, relationships, etc)? Yes. EXPRESSION - STEP 2: Does the patient require help to express basic necessities or ideas (such as hunger, thirst, sleep, s afety, daily schedule, room location, or discomfort) half or more of the time? No. EXPRESSION - STEP 3: How often does the patient need help to express directions and conversation about basic needs? 25-49% of the time EXPRESSION - SCORE: 3-MOD SOCIAL INTERACTION: SOCIAL INTERACTION - STEP 1: Does the patient require a helper to interact with others in social and therapeutic situations? Yes. SOCIAL INTERACTION - STEP 2: Does the patient interact appropriately half or more of the time? Yes. SOCIAL INTERACTION - STEP 3: How often does the patient need help to interact appropriately? 25-49% of the time SOCIAL INTERACTION - SCORE: 3-MOD PROBLEM SOLVING: PROBLEM SOLVING - STEP 1: Does the patient need help to solve complex problems such as managing a checking account or confronti ng interpersonal problems? Yes. PROBLEM SOLVING - STEP 2: Does the patient solve basic routine problems half or more of the time? Yes. PROBLEM SOLVING - STEP 3: How often does the patient need help to solve basic routine problems? 10%-24% of the time PROBLEM SOLVING - SCORE: 4-MIN MEMORY: MEMORY - STEP 1: Does the patient need help to remember frequently encountered people, daily routines, and executing r equests? No. MEMORY - STEP 2: Does the patient have slight difficulty recognizing frequently encountered people, daily routines, or executing requests without the need for repetition or using self-initiated or environmental cues to remember? Yes. MEMORY - SCORE: 6-CARINA
[2018-03-06] MEDS: CARVEDILOL 25 MG TAB PO SCH ×2 (05:05→17:23)
[2018-03-06] MEDS: AMLODIPINE 5 MG TAB PO SCH (07:40)
[2018-03-06] MEDS: LISINOPRIL 20 MG TAB PO SCH (07:41)
[2018-03-06] MEDS: APIXABAN 2.5 MG TABLET PO SCH ×2 (08:16→20:37)
[2018-03-06] MEDS: HYDRALAZINE HCL 25 MG TABLET PO SCH ×3 (08:16→20:37)
[2018-03-06] MEDS: ASPIRIN 81 MG CHEWABLE TABLET PO SCH (08:16)
[2018-03-06] MEDS: ATORVASTATIN 80 MG TAB PO SCH (20:37)
[2018-03-06] MEDS: DOCUSATE NA/SENNA CONC 1 TAB PO PRN (20:37)
--- NOTE | 2018-03-07 01:51 | FAST ---
SHIFT START DATE/TIME: 03/06/2018 19:00 (CDT) SHIFT END DATE/TIME: 03/07/2018 07:00 (CDT) NAME CARLINE MURRAY DATE OF : 1940 DATE OF ADMISSION: 02/25/2018 14:49 (CDT) PHONE: AGE: 77 N# [id number] GENDER: Male ENCOUNTER PHYSICIAN: Dr. Larry Vincent M.D. 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 EATING: Activity did not occur on this shift EATING - SCORE: 0-UNK GROOMING: Wash, rinse, and dry hands GROOMING - STEP 1: Does the patient require assistance when grooming? Yes. GROOMING - STEP 2: Does the patient require the assistance of a helper? Yes. GROOMING - STEP 3: How much assistance does the patient require from the helper? Cuing, coaxing, instructions, or encour agement for completion of grooming GROOMING - SCORE: 5-SUP BATHING: Activity did not occur on this shift BATHING - SCORE: 0-UNK DRESSING - UPPER BODY: Patient is not dressing in public clothing ARTICLES SCORE Total number of steps: 0 DRESSING - UPPER BODY - SCORE: 0-UNK DRESSING - LOWER BODY: Patient is not dressing in public clothing ARTICLES SCORE Total number of steps: 0 DRESSING - LOWER BODY - SCORE: 0-UNK TOILETING: TOILETING - STEP 1: Does the patient require assistance with toileting? Yes. TOILETING - STEP 2: Does the patient require the assistance of a helper? Yes. TOILETING - STEP 3: How much assistance does the patient require from the helper? Only supervision TOILETING - SCORE: 5-SUP BLADDER MANAGEMENT: [place] removes incontinent device (Depends, pull ups, etc.); cleans the patient after accident / inco ntinent episode; and, applies new incontinent device. BLADDER MANAGEMENT - SCORE: 1-DEP BLADDER MANAGEMENT - FREQUENCY OF ACCIDENTS: BLADDER MANAGEMENT(FA) - STEP 1: How many accidents has the patient had during the current shift? 1 BOWEL MANAGEMENT: BOWEL MANAGEMENT - STEP 1: Does the patient control bowels completely and intentionally without equipment devices or medications AND is always continent? No. BOWEL MANAGEMENT - STEP 2: Does the patient require the assistance of a helper? No, patient requires medication for control such as stool softeners, suppositories, laxatives, enemas, or OTC medications BOWEL MANAGEMENT - SCORE: 6-CARINA TRANSFERS: BED, CHAIR, WHEELCHAIR: TRANSFERS: BED, CHAIR, WHEELCHAIR - STEP 1: Does the patient require assistance with bed, chair, or wheelchair transfers? Yes. TRANSFERS: BED, CHAIR, WHEELCHAIR - STEP 2: Does the patient require the assistance of a helper? Yes. TRANSFERS: BED, CHAIR, WHEELCHAIR - STEP 3: How much assistance does the patient require from the helper? Steadying/guiding assistance TRANSFERS: BED, CHAIR, WHEELCHAIR - SCORE: 4-MIN TRANSFERS: TOILET: TRANSFERS: TOILET - STEP 1: Does the patient require assistance with toilet transfers? Yes. TRANSFERS: TOILET - STEP 2: Does the patient require the assistance of a helper? Yes. TRANSFERS: TOILET - STEP 3: How much assistance does the patient require from the helper? Patient performs half or more of the tr ansferring tasks TRANSFERS: TOILET - STEP 4: Does the patient need only incidental help such as contact guard or steadying during toilet transfer? Yes. TRANSFERS: TOILET - SCORE: 4-MIN TRANSFERS: SHOWER: Activity did not occur on this shift TRANSFERS: SHOWER - SCORE: 0-UNK TRANSFERS: TUB: Activity did not occur on this shift TRANSFERS: TUB - SCORE: 0-UNK LOCOMOTION: WALK: Activity did not occur on this shift LOCOMOTION: WALK - SCORE: 0-UNK LOCOMOTION: WHEELCHAIR: Activity did not occur on this shift LOCOMOTION: WHEELCHAIR - SCORE: 0-UNK COMPREHENSION: COMPREHENSION: TYPE: Both COMPREHENSION - STEP 1: Does the patient require help to understand complex and abstract ideas (such as current events, finan mylene, discharge planning, medical issues, relationships, etc)? Yes. COMPREHENSION - STEP 2: Does the patient require help to understand questions or statements about basic needs or ideas (such as hunger, thirst, sleep, safety, daily schedule, room location, or discomfort) half or more of the t summer? No. COMPREHENSION - STEP 3: How often does the patient need help to understand directions and conversation about basic needs? 25% - 49% of the time COMPREHENSION - SCORE: 3-MOD EXPRESSION EXPRESSION: TYPE: Both EXPRESSION - STEP 1: Does the patient require help expressing complex and abstract ideas (such as current events, finances , discharge planning, medical issues, relationships, etc)? Yes. EXPRESSION - STEP 2: Does the patient require help to express basic necessities or ideas (such as hunger, thirst, sleep, s afety, daily schedule, room location, or discomfort) half or more of the time? No. EXPRESSION - STEP 3: How often does the patient need help to express directions and conversation about basic needs? 25-49% of the time EXPRESSION - SCORE: 3-MOD SOCIAL INTERACTION: SOCIAL INTERACTION - STEP 1: Does the patient require a helper to interact with others in social and therapeutic situations? Yes. SOCIAL INTERACTION - STEP 2: Does the patient interact appropriately half or more of the time? Yes. SOCIAL INTERACTION - STEP 3: How often does the patient need help to interact appropriately? 25-49% of the time SOCIAL INTERACTION - SCORE: 3-MOD PROBLEM SOLVING: PROBLEM SOLVING - STEP 1: Does the patient need help to solve complex problems such as managing a checking account or confronti ng interpersonal problems? Yes. PROBLEM SOLVING - STEP 2: Does the patient solve basic routine problems half or more of the time? Yes. PROBLEM SOLVING - STEP 3: How often does the patient need help to solve basic routine problems? 10%-24% of the time PROBLEM SOLVING - SCORE: 4-MIN MEMORY: MEMORY - STEP 1: Does the patient need help to remember frequently encountered people, daily routines, and executing r equests? No. MEMORY - STEP 2: Does the patient have slight difficulty recognizing frequently encountered people, daily routines, or executing requests without the need for repetition or using self-initiated or environmental cues to remember? Yes. MEMORY - SCORE: 6-CARINA SIGNATURE PANEL: The following modified sections: Eating - Score, Grooming - Score, Dressing - Upper Body - Score, Carlo ssing - Lower Body - Score, Toileting - Score, Bladder Management - Score, Bowel Management - Score, Transfers: Bed, Chair, Wheelchair - Score, Transfers: Toilet - Score, Transfers: Shower - Score, Grewal sfers: Tub - Score, Locomotion: Walk - Score, Locomotion: Wheelchair - Score, Comprehension - Score, Expression - Score, Social Interaction - Score, Problem Solving - Score, Memory - Score were [electro nically] signed by Beulah Black CNA on WedMar 07 2018 01:50:24 GMT-0500 (Central Daylight Time)
[2018-03-07] MEDS: CARVEDILOL 25 MG TAB PO SCH ×2 (05:28→17:22)
[2018-03-07] MEDS: AMLODIPINE 5 MG TAB PO SCH (08:11)
[2018-03-07] MEDS: ASPIRIN 81 MG CHEWABLE TABLET PO SCH (08:11)
[2018-03-07] MEDS: APIXABAN 2.5 MG TABLET PO SCH ×2 (08:11→20:30)
[2018-03-07] MEDS: LISINOPRIL 20 MG TAB PO SCH (08:12)
[2018-03-07] MEDS: HYDRALAZINE HCL 25 MG TABLET PO SCH ×3 (11:10→20:30)
--- NOTE | 2018-03-07 14:29 | FAST ---
SHIFT START DATE/TIME: 03/06/2018 07:00 (CDT) SHIFT END DATE/TIME: 03/06/2018 19:00 (CDT) NAME CARLINE MURRAY DATE OF : 1940 DATE OF ADMISSION: 02/25/2018 14:49 (CDT) PHONE: AGE: 77 N# [id number] GENDER: Male ENCOUNTER PHYSICIAN: Dr. Larry Vincent M.D. 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 EATING: EATING - STEP 1: Does the patient require assistance when eating? Yes. EATING - STEP 2: Does the patient require the assistance of a helper? Yes. EATING - STEP 3: Does the patient perform half or more of the eating tasks? Yes. EATING - STEP 4: Does the patient need only supervision, cuing, coaxing OR help to apply an orthosis OR help to cut fo od, open containers, pour liquids, or butter bread? Yes. EATING - SCORE: 5-SUP GROOMING: Activity did not occur on this shift GROOMING - SCORE: 0-UNK BATHING: Activity did not occur on this shift BATHING - SCORE: 0-UNK DRESSING - UPPER BODY: Activity did not occur on this shift ARTICLES SCORE Total number of steps: 0 DRESSING - UPPER BODY - SCORE: 0-UNK DRESSING - LOWER BODY: Activity did not occur on this shift ARTICLES SCORE Total number of steps: 0 DRESSING - LOWER BODY - SCORE: 0-UNK TOILETING: TOILETING - STEP 1: Does the patient require assistance with toileting? Yes. TOILETING - STEP 2: Does the patient require the assistance of a helper? Yes. TOILETING - STEP 3: How much assistance does the patient require from the helper? Hands-on assistance from the helper TOILETING - STEP 4: Of the 3 tasks: 1) Adjusting clothing prior to use, 2) Cleansing of perineal area, 3) Adjusting clot richie after use; How many tasks does the patient perform WITHOUT assistance of the helper? Three tasks with steadying assistance from the helper TOILETING - SCORE: 4-MIN BLADDER MANAGEMENT: BLADDER MANAGEMENT - STEP 1: Does the patient control the bladder completely and intentionally without equipment or devices or med ications, and is always continent? No. BLADDER MANAGEMENT - STEP 2: Does the patient require the assistance of a helper? Yes. BLADDER MANAGEMENT - STEP 3: How much assistance does the patient require from the helper? Only set-up of equipment - such as plac ing it within reach of the patient or emptying a device - to maintain either satisfactory voiding pat tern or managing an external device, such as an absorbent pad, ileal device, or catheter BLADDER MANAGEMENT - SCORE: 5-SUP BLADDER MANAGEMENT - FREQUENCY OF ACCIDENTS: BLADDER MANAGEMENT(FA) - STEP 1: How many accidents has the patient had during the current shift? 1 BOWEL MANAGEMENT: Activity did not occur on this shift BOWEL MANAGEMENT - SCORE: 7-IND BOWEL MANAGEMENT - FREQUENCY OF ACCIDENTS: BOWEL MANAGEMENT(FA) - STEP 1: How many accidents has the patient had during the current shift? 0 TRANSFERS: BED, CHAIR, WHEELCHAIR: TRANSFERS: BED, CHAIR, WHEELCHAIR - STEP 1: Does the patient require assistance with bed, chair, or wheelchair transfers? Yes. TRANSFERS: BED, CHAIR, WHEELCHAIR - STEP 2: Does the patient require the assistance of a helper? Yes. TRANSFERS: BED, CHAIR, WHEELCHAIR - STEP 3: How much assistance does the patient require from the helper? Lifting of the patient TRANSFERS: BED, CHAIR, WHEELCHAIR - STEP 4: Does the helper lift the patient ONLY up? ONLY down? Up AND Down? ONLY up. TRANSFERS: BED, CHAIR, WHEELCHAIR - SCORE: 3-MOD TRANSFERS: TOILET: TRANSFERS: TOILET - STEP 1: Does the patient require assistance with toilet transfers? Yes. TRANSFERS: TOILET - STEP 2: Does the patient require the assistance of a helper? Yes. TRANSFERS: TOILET - STEP 3: How much assistance does the patient require from the helper? Patient performs half or more of the tr ansferring tasks TRANSFERS: TOILET - STEP 4: Does the patient need only incidental help such as contact guard or steadying during toilet transfer? No. Patient needs more than incidental help TRANSFERS: TOILET - SCORE: 3-MOD TRANSFERS: SHOWER: Activity did not occur on this shift TRANSFERS: SHOWER - SCORE: 0-UNK TRANSFERS: TUB: Activity did not occur on this shift TRANSFERS: TUB - SCORE: 0-UNK LOCOMOTION: WALK: Activity did not occur on this shift LOCOMOTION: WALK - SCORE: 0-UNK LOCOMOTION: WHEELCHAIR: LOCOMOTION: WHEELCHAIR - STEP 1: Does the patient need help to go 150 feet in a wheelchair? Yes. LOCOMOTION: WHEELCHAIR - STEP 2: How much assistance does the patient need from the helper? Only supervision, cuing, or coaxing LOCOMOTION: WHEELCHAIR - SCORE: 5-SUP COMPREHENSION: COMPREHENSION: TYPE: Both COMPREHENSION - STEP 1: Does the patient require help to understand complex and abstract ideas (such as current events, finan mylene, discharge planning, medical issues, relationships, etc)? Yes. COMPREHENSION - STEP 2: Does the patient require help to understand questions or statements about basic needs or ideas (such as hunger, thirst, sleep, safety, daily schedule, room location, or discomfort) half or more of the t summer? No. COMPREHENSION - STEP 3: How often does the patient need help to understand directions and conversation about basic needs? 10% - 24% of the time COMPREHENSION - SCORE: 4-MIN EXPRESSION EXPRESSION: TYPE: Both EXPRESSION - STEP 1: Does the patient require help expressing complex and abstract ideas (such as current events, finances , discharge planning, medical issues, relationships, etc)? Yes. EXPRESSION - STEP 2: Does the patient require help to express basic necessities or ideas (such as hunger, thirst, sleep, s afety, daily schedule, room location, or discomfort) half or more of the time? No. EXPRESSION - STEP 3: How often does the patient need help to express directions and conversation about basic needs? 25-49% of the time EXPRESSION - SCORE: 3-MOD SOCIAL INTERACTION: SOCIAL INTERACTION - STEP 1: Does the patient require a helper to interact with others in social and therapeutic situations? Yes. SOCIAL INTERACTION - STEP 2: Does the patient interact appropriately half or more of the time? Yes. SOCIAL INTERACTION - STEP 3: How often does the patient need help to interact appropriately? 10-24% of the time SOCIAL INTERACTION - SCORE: 4-MIN PROBLEM SOLVING: PROBLEM SOLVING - STEP 1: Does the patient need help to solve complex problems such as managing a checking account or confronti ng interpersonal problems? Yes. PROBLEM SOLVING - STEP 2: Does the patient solve basic routine problems half or more of the time? Yes. PROBLEM SOLVING - STEP 3: How often does the patient need help to solve basic routine problems? Less than 10% of the time PROBLEM SOLVING - SCORE: 5-SUP MEMORY: MEMORY - STEP 1: Does the patient need help to remember frequently encountered people, daily routines, and executing r equests? Yes. MEMORY - STEP 2: How often does the patient need help to remember frequently encountered people, daily routines, and e xecuting requests? 10% - 24% of the time MEMORY - SCORE: 4-MIN SIGNATURE PANEL: The following modified sections: Eating - Score, Grooming - Score, Bathing - Score, Dressing - Upper Body - Score, Dressing - Lower Body - Score, Bladder Management - Score, Bowel Management - Score, Tr ansfers: Bed, Chair, Wheelchair - Score, Transfers: Toilet - Score, Transfers: Shower - Score, Transf ers: Tub - Score, Locomotion: Walk - Score, Locomotion: Wheelchair - Score, Comprehension - Score, Ex pression - Score, Social Interaction - Score, Problem Solving - Score, Memory - Score, Toileting - Sc ore were [electronically] signed by Zakia LuceroNJudit on WedMar 07 2018 14:28:57 T-0500 (Centra l Daylight Time)
--- NOTE | 2018-03-07 14:40 | FAST ---
ENCOUNTER DATE AND TIME: 03/07/2018 08:00 (CDT) NAME CARLINE MURRAY DATE OF : 1940 DATE OF ADMISSION: 02/25/2018 14:49 (CDT) PHONE: AGE: 77 SSN# [id number] GENDER: Male ENCOUNTER PHYSICIAN: Dr. Larry Vincent M.D. 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 EATING: Activity did not occur on this shift EATING - SCORE: 0-UNK GROOMING: Wash, rinse, and dry face Wash, rinse, and dry hands GROOMING - STEP 1: Does the patient require assistance when grooming? Yes. GROOMING - STEP 2: Does the patient require the assistance of a helper? Yes. GROOMING - STEP 3: How much assistance does the patient require from the helper? Only prior equipment preparation/set up from the helper GROOMING - SCORE: 5-SUP BATHING: Abdomen Buttocks Chest Left arm Left lower leg and foot Left upper leg Perineal area Right arm Right lower leg and foot Right upper leg BATHING - STEP 1: Does the patient require assistance when bathing? Yes. BATHING - STEP 2: Does the patient require the assistance of a helper? Yes. BATHING - STEP 3: How much assistance does the patient require from the helper? Only incidental help such as placement of a wash cloth in his/her hand a few times as s/he bathes OR help to bathe just one or two areas of the body BATHING - SCORE: 4-MIN DRESSING - UPPER BODY: T-shirt/pullover shirt (four steps) ARTICLES SCORE Total number of steps: 4 DRESSING - UPPER BODY - STEP 1: Does the patient require help when dressing above the waist? Yes. DRESSING - UPPER BODY - STEP 2: Does the patient require the assistance of a helper? Yes. DRESSING - UPPER BODY - STEP 3: Does the helper touch the patient while dressing? No. DRESSING - UPPER BODY - SCORE: 5-SUP DRESSING - LOWER BODY: Elastic waist pants (three steps) Slip-on shoe - Left foot (one step) Slip-on shoe - Right foot (one step) Sock - Left foot (one step) Sock - Right foot (one step) Underwear (three steps) ARTICLES SCORE Total number of steps: 10 DRESSING - LOWER BODY - STEP 1: Does the patient require help when dressing below the waist? Yes. DRESSING - LOWER BODY - STEP 2: Does the patient require the assistance of a helper? Yes. DRESSING - LOWER BODY - STEP 3: Does the helper touch the patient while dressing? Yes. DRESSING - LOWER BODY - STEP 4: How many of the total steps does the patient complete on his/her own? 10 DRESSING - LOWER BODY - SCORE: 4-MIN TOILETING: Activity did not occur on this shift TOILETING - SCORE: 0-UNK BLADDER MANAGEMENT: Activity did not occur on this shift BLADDER MANAGEMENT - SCORE: 7-IND BOWEL MANAGEMENT: Activity did not occur on this shift BOWEL MANAGEMENT - SCORE: 7-IND TRANSFERS: BED, CHAIR, WHEELCHAIR: Activity did not occur on this shift TRANSFERS: BED, CHAIR, WHEELCHAIR - SCORE: 0-UNK TRANSFERS: TOILET: Activity did not occur on this shift TRANSFERS: TOILET - SCORE: 0-UNK TRANSFERS: SHOWER: Activity did not occur on this shift TRANSFERS: SHOWER - SCORE: 0-UNK TRANSFERS: TUB: TRANSFERS: TUB - STEP 1: Does the patient require assistance with tub transfers? Yes. TRANSFERS: TUB - STEP 2: Does the patient require the assistance of a helper? Yes. TRANSFERS: TUB - STEP 3: How much assistance does the patient require from the helper? Incidental help such as contact guardin g or steadying, OR help to lift one leg into the tub TRANSFERS: TUB - SCORE: 4-MIN LOCOMOTION: WALK: Activity did not occur on this shift LOCOMOTION: WALK - SCORE: 0-UNK LOCOMOTION: WHEELCHAIR: Activity did not occur on this shift LOCOMOTION: WHEELCHAIR - SCORE: 0-UNK LOCOMOTION: STAIRS: Activity did not occur on this shift LOCOMOTION: STAIRS - SCORE: 0-UNK COMPREHENSION: COMPREHENSION - SCORE: 0-UNK EXPRESSION EXPRESSION - SCORE: 0-UNK SOCIAL INTERACTION: SOCIAL INTERACTION - SCORE: 0-UNK PROBLEM SOLVING: PROBLEM SOLVING - SCORE: 0-UNK MEMORY: MEMORY - SCORE: 0-UNK SIGNATURE PANEL: The following modified sections: Eating - Score, Grooming - Score, Bathing - Score, Dressing - Upper Body - Score, Dressing - Lower Body - Score, Toileting - Score, Transfers: Bed, Chair, Wheelchair - S core, Transfers: Toilet - Score, Transfers: Shower - Score, Transfers: Tub - Score, Comprehension - S core, Expression - Score, Social Interaction - Score, Problem Solving - Score, Memory - Score were [e lectronically] signed by COLE Romero on WedMar 07 2018 14:39:57 [facility]-0500 ([facility] Time)
--- NOTE | 2018-03-07 14:43 | FAST ---
SHIFT START DATE/TIME: 03/07/2018 07:00 (CDT) SHIFT END DATE/TIME: 03/07/2018 19:00 (CDT) NAME CARLINE MURRAY DATE OF : 1940 DATE OF ADMISSION: 02/25/2018 14:49 (CDT) PHONE: AGE: 77 SSN# [id number] GENDER: Male ENCOUNTER PHYSICIAN: Dr. Larry Vincent M.D. 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 EATING: EATING - STEP 1: Does the patient require assistance when eating? Yes. EATING - STEP 2: Does the patient require the assistance of a helper? No, patient only requires an assistive device, O R s/he takes more than reasonable time to eat, OR there is a safety concern, OR s/he requires modifie d food consistency EATING - SCORE: 6-CARINA GROOMING: Comb/brush hair Wash, rinse, and dry face Wash, rinse, and dry hands GROOMING - STEP 1: Does the patient require assistance when grooming? Yes. GROOMING - STEP 2: Does the patient require the assistance of a helper? No. The patient only requires an assistive devic e, OR takes more than reasonable time to groom, OR there is a concern for safety as the patient groom s GROOMING - SCORE: 6-CARINA BATHING: Activity did not occur on this shift BATHING - SCORE: 0-UNK DRESSING - UPPER BODY: T-shirt/pullover shirt (four steps) ARTICLES SCORE Total number of steps: 4 DRESSING - UPPER BODY - STEP 1: Does the patient require help when dressing above the waist? Yes. DRESSING - UPPER BODY - STEP 2: Does the patient require the assistance of a helper? No. Patient only requires an assistive device, s uch as a button hook, velcro, or rib builder. OR s/he takes more than reasonable time as s/he dresses the upper body. OR there is a concern for safety when s/he dresses the upper body DRESSING - UPPER BODY - SCORE: 6-CARINA DRESSING - LOWER BODY: Elastic waist pants (three steps) ARTICLES SCORE Total number of steps: 3 DRESSING - LOWER BODY - STEP 1: Does the patient require help when dressing below the waist? Yes. DRESSING - LOWER BODY - STEP 2: Does the patient require the assistance of a helper? No. Patient requires an assistive device such as a rib builder. OR s/he takes more than reasonable time as s/he dresses the lower body, OR there is a con cern for safety when s/he dresses the lower body DRESSING - LOWER BODY - SCORE: 6-CARINA TOILETING: TOILETING - STEP 1: Does the patient require assistance with toileting? Yes. TOILETING - STEP 2: Does the patient require the assistance of a helper? Yes. TOILETING - STEP 3: How much assistance does the patient require from the helper? Hands-on assistance from the helper TOILETING - STEP 4: Of the 3 tasks: 1) Adjusting clothing prior to use, 2) Cleansing of perineal area, 3) Adjusting clot richie after use; How many tasks does the patient perform WITHOUT assistance of the helper? Three tasks with steadying assistance from the helper TOILETING - SCORE: 4-MIN BLADDER MANAGEMENT: BLADDER MANAGEMENT - STEP 1: Does the patient control the bladder completely and intentionally without equipment or devices or med ications, and is always continent? No. BLADDER MANAGEMENT - STEP 2: Does the patient require the assistance of a helper? Yes. BLADDER MANAGEMENT - STEP 3: How much assistance does the patient require from the helper? Only set-up of equipment - such as plac ing it within reach of the patient or emptying a device - to maintain either satisfactory voiding pat tern or managing an external device, such as an absorbent pad, ileal device, or catheter BLADDER MANAGEMENT - SCORE: 5-SUP BLADDER MANAGEMENT - FREQUENCY OF ACCIDENTS: BLADDER MANAGEMENT(FA) - STEP 1: How many accidents has the patient had during the current shift? 0 BOWEL MANAGEMENT: Activity did not occur on this shift BOWEL MANAGEMENT - SCORE: 7-IND BOWEL MANAGEMENT - FREQUENCY OF ACCIDENTS: BOWEL MANAGEMENT(FA) - STEP 1: How many accidents has the patient had during the current shift? 0 TRANSFERS: BED, CHAIR, WHEELCHAIR: TRANSFERS: BED, CHAIR, WHEELCHAIR - STEP 1: Does the patient require assistance with bed, chair, or wheelchair transfers? Yes. TRANSFERS: BED, CHAIR, WHEELCHAIR - STEP 2: Does the patient require the assistance of a helper? Yes. TRANSFERS: BED, CHAIR, WHEELCHAIR - STEP 3: How much assistance does the patient require from the helper? Lifting of the patient TRANSFERS: BED, CHAIR, WHEELCHAIR - STEP 4: Does the helper lift the patient ONLY up? ONLY down? Up AND Down? ONLY up. TRANSFERS: BED, CHAIR, WHEELCHAIR - SCORE: 3-MOD TRANSFERS: TOILET: TRANSFERS: TOILET - STEP 1: Does the patient require assistance with toilet transfers? Yes. TRANSFERS: TOILET - STEP 2: Does the patient require the assistance of a helper? No. Patient only requires an assistive device rosen ch as a grab bar or special seat, OR s/he takes more than reasonable time to perform toilet transfers , OR there is a safety concern when s/he performs toilet transfers. TRANSFERS: TOILET - SCORE: 6-CARINA TRANSFERS: SHOWER: Activity did not occur on this shift TRANSFERS: SHOWER - SCORE: 0-UNK TRANSFERS: TUB: Activity did not occur on this shift TRANSFERS: TUB - SCORE: 0-UNK LOCOMOTION: WALK: Activity did not occur on this shift LOCOMOTION: WALK - SCORE: 0-UNK LOCOMOTION: WHEELCHAIR: LOCOMOTION: WHEELCHAIR - STEP 1: Does the patient need help to go 150 feet in a wheelchair? Yes. LOCOMOTION: WHEELCHAIR - STEP 2: How much assistance does the patient need from the helper? Only supervision, cuing, or coaxing LOCOMOTION: WHEELCHAIR - SCORE: 5-SUP COMPREHENSION: COMPREHENSION: TYPE: Both COMPREHENSION - STEP 1: Does the patient require help to understand complex and abstract ideas (such as current events, finan mylene, discharge planning, medical issues, relationships, etc)? Yes. COMPREHENSION - STEP 2: Does the patient require help to understand questions or statements about basic needs or ideas (such as hunger, thirst, sleep, safety, daily schedule, room location, or discomfort) half or more of the t summer? No. COMPREHENSION - STEP 3: How often does the patient need help to understand directions and conversation about basic needs? Les s than 10% of the time COMPREHENSION - SCORE: 5-SUP EXPRESSION EXPRESSION: TYPE: Both EXPRESSION - STEP 1: Does the patient require help expressing complex and abstract ideas (such as current events, finances , discharge planning, medical issues, relationships, etc)? Yes. EXPRESSION - STEP 2: Does the patient require help to express basic necessities or ideas (such as hunger, thirst, sleep, s afety, daily schedule, room location, or discomfort) half or more of the time? No. EXPRESSION - STEP 3: How often does the patient need help to express directions and conversation about basic needs? 10-24% of the time EXPRESSION - SCORE: 4-MIN SOCIAL INTERACTION: SOCIAL INTERACTION - STEP 1: Does the patient require a helper to interact with others in social and therapeutic situations? Yes. SOCIAL INTERACTION - STEP 2: Does the patient interact appropriately half or more of the time? Yes. SOCIAL INTERACTION - STEP 3: How often does the patient need help to interact appropriately? 10-24% of the time SOCIAL INTERACTION - SCORE: 4-MIN PROBLEM SOLVING: PROBLEM SOLVING - STEP 1: Does the patient need help to solve complex problems such as managing a checking account or confronti ng interpersonal problems? Yes. PROBLEM SOLVING - STEP 2: Does the patient solve basic routine problems half or more of the time? Yes. PROBLEM SOLVING - STEP 3: How often does the patient need help to solve basic routine problems? Less than 10% of the time PROBLEM SOLVING - SCORE: 5-SUP MEMORY: MEMORY - STEP 1: Does the patient need help to remember frequently encountered people, daily routines, and executing r equests? Yes. MEMORY - STEP 2: How often does the patient need help to remember frequently encountered people, daily routines, and e xecuting requests? 10% - 24% of the time MEMORY - SCORE: 4-MIN SIGNATURE PANEL: The following modified sections: Eating - Score, Grooming - Score, Bathing - Score, Dressing - Upper Body - Score, Dressing - Lower Body - Score, Toileting - Score, Bladder Management - Score, Bowel Man agement - Score, Transfers: Bed, Chair, Wheelchair - Score, Transfers: Toilet - Score, Transfers: Esperanza wer - Score, Transfers: Tub - Score, Locomotion: Walk - Score, Locomotion: Wheelchair - Score, Compre hension - Score, Expression - Score, Social Interaction - Score, Problem Solving - Score, Memory - Sc ore were [electronically] signed by Virginie Johnston C.N.A. on WedMar 07 2018 14:42:29 T-0500 (Centra l Daylight Time)
--- NOTE | 2018-03-07 15:05 | FAST ---
ENCOUNTER DATE AND TIME: 03/07/2018 08:00 (CDT) NAME CARLINE MURRAY DATE OF : 1940 DATE OF ADMISSION: 02/25/2018 14:49 (CDT) PHONE: AGE: 77 SSN# [id number] GENDER: Male ENCOUNTER PHYSICIAN: Dr. Larry Vincent M.D. 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 EATING: Activity did not occur on this shift EATING - SCORE: 0-UNK GROOMING: Activity did not occur on this shift GROOMING - SCORE: 0-UNK BATHING: Activity did not occur on this shift BATHING - SCORE: 0-UNK DRESSING - UPPER BODY: Activity did not occur on this shift Patient is not dressing in public clothing ARTICLES SCORE Total number of steps: 0 DRESSING - UPPER BODY - SCORE: 0-UNK DRESSING - LOWER BODY: Activity did not occur on this shift Patient is not dressing in public clothing ARTICLES SCORE Total number of steps: 0 DRESSING - LOWER BODY - SCORE: 0-UNK TOILETING: Activity did not occur on this shift TOILETING - SCORE: 0-UNK BLADDER MANAGEMENT: Activity did not occur on this shift BLADDER MANAGEMENT - SCORE: 7-IND BOWEL MANAGEMENT: Activity did not occur on this shift BOWEL MANAGEMENT - SCORE: 7-IND TRANSFERS: BED, CHAIR, WHEELCHAIR: TRANSFERS: BED, CHAIR, WHEELCHAIR - STEP 1: Does the patient require assistance with bed, chair, or wheelchair transfers? Yes. TRANSFERS: BED, CHAIR, WHEELCHAIR - STEP 2: Does the patient require the assistance of a helper? Yes. TRANSFERS: BED, CHAIR, WHEELCHAIR - STEP 3: How much assistance does the patient require from the helper? Steadying/guiding assistance TRANSFERS: BED, CHAIR, WHEELCHAIR - SCORE: 4-MIN TRANSFERS: TOILET: Activity did not occur on this shift TRANSFERS: TOILET - SCORE: 0-UNK TRANSFERS: SHOWER: Activity did not occur on this shift TRANSFERS: SHOWER - SCORE: 0-UNK TRANSFERS: TUB: Activity did not occur on this shift TRANSFERS: TUB - SCORE: 0-UNK LOCOMOTION: WALK: LOCOMOTION: WALK - STEP 1: Does the patient need help to walk 150 feet? Yes. LOCOMOTION: WALK - STEP 2: How much assistance does the patient require to walk a minimum of 150 feet? Only incidental help such as contact guarding or steadying LOCOMOTION: WALK - SCORE: 4-MIN LOCOMOTION: WHEELCHAIR: LOCOMOTION: WHEELCHAIR - STEP 1: Does the patient need help to go 150 feet in a wheelchair? Yes. LOCOMOTION: WHEELCHAIR - STEP 2: How much assistance does the patient need from the helper? Only incidental help such as around corner s or over thresholds LOCOMOTION: WHEELCHAIR - SCORE: 4-MIN LOCOMOTION: STAIRS: Activity did not occur on this shift LOCOMOTION: STAIRS - SCORE: 0-UNK COMPREHENSION: COMPREHENSION - SCORE: 0-UNK EXPRESSION EXPRESSION - SCORE: 0-UNK SOCIAL INTERACTION: SOCIAL INTERACTION - SCORE: 0-UNK PROBLEM SOLVING: PROBLEM SOLVING - SCORE: 0-UNK MEMORY: MEMORY - SCORE: 0-UNK SIGNATURE PANEL: The following modified sections: Transfers: Bed, Chair, Wheelchair - Score, Transfers: Toilet - Score , Locomotion: Walk - Score, Locomotion: Wheelchair - Score, Locomotion: Stairs - Score were [viola willis] signed by Surinder Horan PTA on WedMar 07 2018 15:05:40 GMT-0500 (Central Daylight Time)
--- NOTE | 2018-03-07 17:23 | R.PN ---
ENCOUNTER DATE AND TIME: 03/07/2018 17:19 (CDT) NAME CARLINE MURRAY DATE OF : 1940 DATE OF ADMISSION: 02/25/2018 14:49 (CDT) Left Temporal lobe and Left Occipital Lobe, Right basal ganglia, right upper aries and deep left parie jonatan lobe white matter.CHIEF COMPLAINT: Bilateral hemispheric stroke SUBJECTIVE: Pt denied any depression. Pt denied any Shortness of Breath. Self propelled wheelchair 150' with contact guard assistance. Ambulated 350' with minimum assistance using a rolling walker. VITAL SIGNS Temperature: 97.2 F SBP/DBP: 134/81 Pulse: 79 Resp: 16 MEDICATION ALLERGIES: No Known Drug Allergies (NKDA) ENVIRONMENTAL ALLERGIES: None Known - Substance Allergies None Known - Other Allergies None Known NURSING: - Shower allowing shower - Bladder care per protocol - Skin care per protocol PRECAUTIONS: - Weight Bearing Precaution WBAT both LE ACTIVITIES OOB only with supervision THERAPIES: - Occupational Therapy Evaluate and Treat. Visual Perceptual Training. Cognitive Retraining. - Speech Therapy Cognitive Training. Memory Strategies. Expressive Language Skills. Speech Intelligibility Training. R eceptive Language Skills. - Physical Therapy Evaluate and Treat. PHYSICAL EXAM - Gen Alert and awake Lying in bed No apparent distress Oriented to: person, time, and place - Skin No skin breakdown. Normacephalic - Eyes No abnormalities - ENMT No abnormalities - Neck No abnormalities - CVS RRR - Chest Clear - Abd Soft - GI Non distended Deferred - No abnormalities - Ext No significant edema - MSK 4+/5 weakness in left upper and lower extremity - Neuro 4/5 strength left upper and lower extremities. - Psych No abnormalities ASSESSMENT: Pt. is a 77 yo Right-handed black male.On 02/22/2018 Pt. presented to [facility] with sudden onset of bilat eral weakness.On 02/22/2018 he was admitted to [facility] with diagnosis Left Temporal lobe and Left Occipi jonatan Lobe, Right basal ganglia, right upper aries and deep left parietal lobe white matter..His [facility] ent category is Stroke 01 - Bilateral (01.3).Pre-morbidly, Pt. was independent/mod-I in Sphincter Co ntrol, Transfers Control, Communication, Social Cognition, Self-Care, and Locomotion; and he had good Sphincter Control.Currently, he has deficits of Safety Awareness, Transfers Control, Balance, Self-C are, Locomotion, and Endurance.Pt. is now referred to [facility] for acute in- patient rehabilitation in order to maximize patient's functional independence in activities of daily living, strength, ROM, and mobility.- Rehab Goal Patient has realistic goal of being discharged at assistance level 6-Yadi to reside at Home with Fam rosa/Relatives. MDM/PLAN: - Physical Therapy Edema - to improve, our physical therapists will perform initial evaluation of pt's status upon admi ssion and devise an individualized program for Elevation Training, and Lymphedema Therapy FUNCTIONAL STATUS: UPDATED AT WEEKLY TEAM CONFERENCE - Bladder Same accident frequency: 7-Ind - No accidents in the past 7 days - Bowel Same accident frequency: 7-Ind - No accidents in the past 7 days - Walking Same score based on distance walked: 1(<=50ft) - Wheelchair Same score based on distance traveled: 0(N/A) FUNCTIONAL STATUS: - Self-Care A. Eating sup B. Grooming sup C. Bathing sup D. Dressing - Upper sup E. Dressing - Lower sup F. Toileting sup - Sphincter Control G: Bladder control Ind H: Bowel control Ind - Transfers Control I. Bed/Chair/Wheelchair Moisés J. Toilet Moisés K. Tub/Shower ADNO - Locomotion L. Walk/Wheelchair (C) Moisés L. Walk/Wheelchair (W) Moisés M. Stairs ADNO - Communication N. Comprehension (B) Ind O. Expression (B) Ind - Social Cognition P. Social Interaction Ind Q. Problem Solving Ind R. Memory Ind - Endurance Fair - Balance Fair - Safety Awareness Fair CURRENT FUNC. DEFICITS: Safety Awareness, Transfers Control, Balance, Self-Care, Locomotion, and Endurance SIGNATURE PANEL: (CDT)
[2018-03-07] MEDS: ATORVASTATIN 80 MG TAB PO SCH (20:30)
--- NOTE | 2018-03-08 01:11 | FAST ---
SHIFT START DATE/TIME: 03/07/2018 19:00 (CDT) SHIFT END DATE/TIME: 03/08/2018 07:00 (CDT) NAME CARLINE MURRAY DATE OF : 1940 DATE OF ADMISSION: 02/25/2018 14:49 (CDT) PHONE: AGE: 77 N# [id number] GENDER: Male ENCOUNTER PHYSICIAN: Dr. Larry Vincent M.D. 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 EATING: Activity did not occur on this shift EATING - SCORE: 0-UNK GROOMING: Activity did not occur on this shift GROOMING - SCORE: 0-UNK BATHING: Activity did not occur on this shift BATHING - SCORE: 0-UNK DRESSING - UPPER BODY: Patient is not dressing in public clothing ARTICLES SCORE Total number of steps: 0 DRESSING - UPPER BODY - SCORE: 0-UNK DRESSING - LOWER BODY: Patient is not dressing in public clothing ARTICLES SCORE Total number of steps: 0 DRESSING - LOWER BODY - SCORE: 0-UNK TOILETING: TOILETING - STEP 1: Does the patient require assistance with toileting? Yes. TOILETING - STEP 2: Does the patient require the assistance of a helper? Yes. TOILETING - STEP 3: How much assistance does the patient require from the helper? Only supervision TOILETING - SCORE: 5-SUP BLADDER MANAGEMENT: BLADDER MANAGEMENT - STEP 1: Does the patient control the bladder completely and intentionally without equipment or devices or med ications, and is always continent? No. BLADDER MANAGEMENT - STEP 2: Does the patient require the assistance of a helper? Yes. BLADDER MANAGEMENT - STEP 3: How much assistance does the patient require from the helper? Only set-up of equipment - such as plac ing it within reach of the patient or emptying a device - to maintain either satisfactory voiding pat tern or managing an external device, such as an absorbent pad, ileal device, or catheter BLADDER MANAGEMENT - SCORE: 5-SUP BOWEL MANAGEMENT: Activity did not occur on this shift BOWEL MANAGEMENT - SCORE: 7-IND TRANSFERS: BED, CHAIR, WHEELCHAIR: Activity did not occur on this shift TRANSFERS: BED, CHAIR, WHEELCHAIR - SCORE: 0-UNK TRANSFERS: TOILET: Activity did not occur on this shift TRANSFERS: TOILET - SCORE: 0-UNK TRANSFERS: SHOWER: Activity did not occur on this shift TRANSFERS: SHOWER - SCORE: 0-UNK TRANSFERS: TUB: Activity did not occur on this shift TRANSFERS: TUB - SCORE: 0-UNK LOCOMOTION: WALK: Activity did not occur on this shift LOCOMOTION: WALK - SCORE: 0-UNK LOCOMOTION: WHEELCHAIR: Activity did not occur on this shift LOCOMOTION: WHEELCHAIR - SCORE: 0-UNK COMPREHENSION: COMPREHENSION: TYPE: Both COMPREHENSION - STEP 1: Does the patient require help to understand complex and abstract ideas (such as current events, finan mylene, discharge planning, medical issues, relationships, etc)? Yes. COMPREHENSION - STEP 2: Does the patient require help to understand questions or statements about basic needs or ideas (such as hunger, thirst, sleep, safety, daily schedule, room location, or discomfort) half or more of the t summer? No. COMPREHENSION - STEP 3: How often does the patient need help to understand directions and conversation about basic needs? 10% - 24% of the time COMPREHENSION - SCORE: 4-MIN EXPRESSION EXPRESSION: TYPE: Both EXPRESSION - STEP 1: Does the patient require help expressing complex and abstract ideas (such as current events, finances , discharge planning, medical issues, relationships, etc)? Yes. EXPRESSION - STEP 2: Does the patient require help to express basic necessities or ideas (such as hunger, thirst, sleep, s afety, daily schedule, room location, or discomfort) half or more of the time? No. EXPRESSION - STEP 3: How often does the patient need help to express directions and conversation about basic needs? 25-49% of the time EXPRESSION - SCORE: 3-MOD SOCIAL INTERACTION: SOCIAL INTERACTION - STEP 1: Does the patient require a helper to interact with others in social and therapeutic situations? Yes. SOCIAL INTERACTION - STEP 2: Does the patient interact appropriately half or more of the time? Yes. SOCIAL INTERACTION - STEP 3: How often does the patient need help to interact appropriately? 25-49% of the time SOCIAL INTERACTION - SCORE: 3-MOD PROBLEM SOLVING: PROBLEM SOLVING - STEP 1: Does the patient need help to solve complex problems such as managing a checking account or confronti ng interpersonal problems? Yes. PROBLEM SOLVING - STEP 2: Does the patient solve basic routine problems half or more of the time? Yes. PROBLEM SOLVING - STEP 3: How often does the patient need help to solve basic routine problems? 25%-49% of the time PROBLEM SOLVING - SCORE: 3-MOD MEMORY: MEMORY - STEP 1: Does the patient need help to remember frequently encountered people, daily routines, and executing r equests? Yes. MEMORY - STEP 2: How often does the patient need help to remember frequently encountered people, daily routines, and e xecuting requests? 10% - 24% of the time MEMORY - SCORE: 4-MIN SIGNATURE PANEL: The following modified sections: Eating - Score, Grooming - Score, Dressing - Upper Body - Score, Carlo ssing - Lower Body - Score, Toileting - Score, Bladder Management - Score, Bowel Management - Score, Transfers: Bed, Chair, Wheelchair - Score, Transfers: Toilet - Score, Transfers: Shower - Score, Grewal sfers: Tub - Score, Locomotion: Walk - Score, Locomotion: Wheelchair - Score, Comprehension - Score, Expression - Score, Social Interaction - Score, Problem Solving - Score, Memory - Score were [electro nically] signed by Beulah Black CNA on WedMar 08 2018 01:10:36 T-0500 (Central Daylight Time)
[2018-03-08] MEDS: CARVEDILOL 25 MG TAB PO SCH ×2 (05:10→16:56)
[2018-03-08] MEDS: APIXABAN 2.5 MG TABLET PO SCH ×2 (08:15→20:17)
[2018-03-08] MEDS: LISINOPRIL 20 MG TAB PO SCH (08:15)
[2018-03-08] MEDS: AMLODIPINE 5 MG TAB PO SCH (08:15)
[2018-03-08] MEDS: ASPIRIN 81 MG CHEWABLE TABLET PO SCH (08:16)
[2018-03-08] MEDS: HYDRALAZINE HCL 25 MG TABLET PO SCH ×3 (10:10→20:16)
--- NOTE | 2018-03-08 13:50 | FAST ---
ENCOUNTER DATE AND TIME: 03/08/2018 08:00 (CDT) NAME CARLINE MURRAY DATE OF : 1940 DATE OF ADMISSION: 02/25/2018 14:49 (CDT) PHONE: AGE: 77 SSN# [id number] GENDER: Male ENCOUNTER PHYSICIAN: Dr. Larry Vincent M.D. 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 EATING: Activity did not occur on this shift EATING - SCORE: 0-UNK GROOMING: Activity did not occur on this shift GROOMING - SCORE: 0-UNK BATHING: Activity did not occur on this shift BATHING - SCORE: 0-UNK DRESSING - UPPER BODY: Activity did not occur on this shift Patient is not dressing in public clothing ARTICLES SCORE Total number of steps: 0 DRESSING - UPPER BODY - SCORE: 0-UNK DRESSING - LOWER BODY: Activity did not occur on this shift Patient is not dressing in public clothing ARTICLES SCORE Total number of steps: 0 DRESSING - LOWER BODY - SCORE: 0-UNK TOILETING: Activity did not occur on this shift TOILETING - SCORE: 0-UNK BLADDER MANAGEMENT: Activity did not occur on this shift BLADDER MANAGEMENT - SCORE: 7-IND BOWEL MANAGEMENT: Activity did not occur on this shift BOWEL MANAGEMENT - SCORE: 7-IND TRANSFERS: BED, CHAIR, WHEELCHAIR: TRANSFERS: BED, CHAIR, WHEELCHAIR - STEP 1: Does the patient require assistance with bed, chair, or wheelchair transfers? Yes. TRANSFERS: BED, CHAIR, WHEELCHAIR - STEP 2: Does the patient require the assistance of a helper? Yes. TRANSFERS: BED, CHAIR, WHEELCHAIR - STEP 3: How much assistance does the patient require from the helper? Steadying/guiding assistance TRANSFERS: BED, CHAIR, WHEELCHAIR - SCORE: 4-MIN TRANSFERS: TOILET: Activity did not occur on this shift TRANSFERS: TOILET - SCORE: 0-UNK TRANSFERS: SHOWER: Activity did not occur on this shift TRANSFERS: SHOWER - SCORE: 0-UNK TRANSFERS: TUB: Activity did not occur on this shift TRANSFERS: TUB - SCORE: 0-UNK LOCOMOTION: WALK: LOCOMOTION: WALK - STEP 1: Does the patient need help to walk 150 feet? Yes. LOCOMOTION: WALK - STEP 2: How much assistance does the patient require to walk a minimum of 150 feet? Patient walks less than 1 50 feet - but more than 50 feet - with the assistance of only one helper LOCOMOTION: WALK - SCORE: 2-MAX LOCOMOTION: WHEELCHAIR: LOCOMOTION: WHEELCHAIR - STEP 1: Does the patient need help to go 150 feet in a wheelchair? Yes. LOCOMOTION: WHEELCHAIR - STEP 2: How much assistance does the patient need from the helper? Only incidental help such as around corner s or over thresholds LOCOMOTION: WHEELCHAIR - SCORE: 4-MIN LOCOMOTION: STAIRS: Activity did not occur on this shift LOCOMOTION: STAIRS - SCORE: 0-UNK COMPREHENSION: COMPREHENSION - SCORE: 0-UNK EXPRESSION EXPRESSION - SCORE: 0-UNK SOCIAL INTERACTION: SOCIAL INTERACTION - SCORE: 0-UNK PROBLEM SOLVING: PROBLEM SOLVING - SCORE: 0-UNK MEMORY: MEMORY - SCORE: 0-UNK SIGNATURE PANEL: The following modified sections: Transfers: Bed, Chair, Wheelchair - Score, Transfers: Toilet - Score , Locomotion: Walk - Score, Locomotion: Wheelchair - Score, Locomotion: Stairs - Score were [electron icajoby] signed by Surinder Horan PTA on WedMar 08 2018 13:49:43 [id number] (Central Daylight Time)
--- NOTE | 2018-03-08 14:14 | FAST ---
SHIFT START DATE/TIME: 03/08/2018 07:00 (CDT) SHIFT END DATE/TIME: 03/08/2018 19:00 (CDT) NAME CARLINE MURRAY DATE OF : 1940 DATE OF ADMISSION: 02/25/2018 14:49 (CDT) PHONE: AGE: 77 N# [id number] GENDER: Male ENCOUNTER PHYSICIAN: Dr. Larry Vincent M.D. 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 EATING: EATING - STEP 1: Does the patient require assistance when eating? Yes. EATING - STEP 2: Does the patient require the assistance of a helper? Yes. EATING - STEP 3: Does the patient perform half or more of the eating tasks? Yes. EATING - STEP 4: Does the patient need only supervision, cuing, coaxing OR help to apply an orthosis OR help to cut fo od, open containers, pour liquids, or butter bread? Yes. EATING - SCORE: 5-SUP GROOMING: Wash, rinse, and dry face Wash, rinse, and dry hands GROOMING - STEP 1: Does the patient require assistance when grooming? Yes. GROOMING - STEP 2: Does the patient require the assistance of a helper? Yes. GROOMING - STEP 3: How much assistance does the patient require from the helper? Only prior equipment preparation/set up from the helper GROOMING - SCORE: 5-SUP BATHING: Activity did not occur on this shift BATHING - SCORE: 0-UNK DRESSING - UPPER BODY: Activity did not occur on this shift ARTICLES SCORE Total number of steps: 0 DRESSING - UPPER BODY - SCORE: 0-UNK DRESSING - LOWER BODY: Elastic waist pants (three steps) Slip-on shoe - Left foot (one step) Slip-on shoe - Right foot (one step) ARTICLES SCORE Total number of steps: 5 DRESSING - LOWER BODY - STEP 1: Does the patient require help when dressing below the waist? Yes. DRESSING - LOWER BODY - STEP 2: Does the patient require the assistance of a helper? Yes. DRESSING - LOWER BODY - STEP 3: Does the helper touch the patient while dressing? Yes. DRESSING - LOWER BODY - STEP 4: How many of the total steps does the patient complete on his/her own? 3 DRESSING - LOWER BODY - SCORE: 3-MOD TOILETING: TOILETING - STEP 1: Does the patient require assistance with toileting? Yes. TOILETING - STEP 2: Does the patient require the assistance of a helper? Yes. TOILETING - STEP 3: How much assistance does the patient require from the helper? Hands-on assistance from the helper TOILETING - STEP 4: Of the 3 tasks: 1) Adjusting clothing prior to use, 2) Cleansing of perineal area, 3) Adjusting clot richie after use; How many tasks does the patient perform WITHOUT assistance of the helper? Three tasks with steadying assistance from the helper TOILETING - SCORE: 4-MIN BLADDER MANAGEMENT: BLADDER MANAGEMENT - STEP 1: Does the patient control the bladder completely and intentionally without equipment or devices or med ications, and is always continent? No. BLADDER MANAGEMENT - STEP 2: Does the patient require the assistance of a helper? Yes. BLADDER MANAGEMENT - STEP 3: How much assistance does the patient require from the helper? Only supervision, stand-by, cuing, or c oaxing BLADDER MANAGEMENT - SCORE: 5-SUP BLADDER MANAGEMENT - FREQUENCY OF ACCIDENTS: BLADDER MANAGEMENT(FA) - STEP 1: How many accidents has the patient had during the current shift? 0 BOWEL MANAGEMENT: Activity did not occur on this shift BOWEL MANAGEMENT - SCORE: 7-IND BOWEL MANAGEMENT - FREQUENCY OF ACCIDENTS: BOWEL MANAGEMENT(FA) - STEP 1: How many accidents has the patient had during the current shift? 0 TRANSFERS: BED, CHAIR, WHEELCHAIR: TRANSFERS: BED, CHAIR, WHEELCHAIR - STEP 1: Does the patient require assistance with bed, chair, or wheelchair transfers? Yes. TRANSFERS: BED, CHAIR, WHEELCHAIR - STEP 2: Does the patient require the assistance of a helper? Yes. TRANSFERS: BED, CHAIR, WHEELCHAIR - STEP 3: How much assistance does the patient require from the helper? Steadying/guiding assistance TRANSFERS: BED, CHAIR, WHEELCHAIR - SCORE: 4-MIN TRANSFERS: TOILET: TRANSFERS: TOILET - STEP 1: Does the patient require assistance with toilet transfers? Yes. TRANSFERS: TOILET - STEP 2: Does the patient require the assistance of a helper? Yes. TRANSFERS: TOILET - STEP 3: How much assistance does the patient require from the helper? Patient performs half or more of the tr ansferring tasks TRANSFERS: TOILET - STEP 4: Does the patient need only incidental help such as contact guard or steadying during toilet transfer? Yes. TRANSFERS: TOILET - SCORE: 4-MIN TRANSFERS: SHOWER: Activity did not occur on this shift TRANSFERS: SHOWER - SCORE: 0-UNK TRANSFERS: TUB: Activity did not occur on this shift TRANSFERS: TUB - SCORE: 0-UNK LOCOMOTION: WALK: Activity did not occur on this shift LOCOMOTION: WALK - SCORE: 0-UNK LOCOMOTION: WHEELCHAIR: LOCOMOTION: WHEELCHAIR - STEP 1: Does the patient need help to go 150 feet in a wheelchair? Yes. LOCOMOTION: WHEELCHAIR - STEP 2: How much assistance does the patient need from the helper? Only supervision, cuing, or coaxing LOCOMOTION: WHEELCHAIR - SCORE: 5-SUP COMPREHENSION: COMPREHENSION: TYPE: Both COMPREHENSION - STEP 1: Does the patient require help to understand complex and abstract ideas (such as current events, finan mylene, discharge planning, medical issues, relationships, etc)? Yes. COMPREHENSION - STEP 2: Does the patient require help to understand questions or statements about basic needs or ideas (such as hunger, thirst, sleep, safety, daily schedule, room location, or discomfort) half or more of the t summer? No. COMPREHENSION - STEP 3: How often does the patient need help to understand directions and conversation about basic needs? Les s than 10% of the time COMPREHENSION - SCORE: 5-SUP EXPRESSION EXPRESSION: TYPE: Both EXPRESSION - STEP 1: Does the patient require help expressing complex and abstract ideas (such as current events, finances , discharge planning, medical issues, relationships, etc)? Yes. EXPRESSION - STEP 2: Does the patient require help to express basic necessities or ideas (such as hunger, thirst, sleep, s afety, daily schedule, room location, or discomfort) half or more of the time? No. EXPRESSION - STEP 3: How often does the patient need help to express directions and conversation about basic needs? 10-24% of the time EXPRESSION - SCORE: 4-MIN SOCIAL INTERACTION: SOCIAL INTERACTION - STEP 1: Does the patient require a helper to interact with others in social and therapeutic situations? Yes. SOCIAL INTERACTION - STEP 2: Does the patient interact appropriately half or more of the time? Yes. SOCIAL INTERACTION - STEP 3: How often does the patient need help to interact appropriately? 10-24% of the time SOCIAL INTERACTION - SCORE: 4-MIN PROBLEM SOLVING: PROBLEM SOLVING - STEP 1: Does the patient need help to solve complex problems such as managing a checking account or confronti ng interpersonal problems? Yes. PROBLEM SOLVING - STEP 2: Does the patient solve basic routine problems half or more of the time? Yes. PROBLEM SOLVING - STEP 3: How often does the patient need help to solve basic routine problems? 10%-24% of the time PROBLEM SOLVING - SCORE: 4-MIN MEMORY: MEMORY - STEP 1: Does the patient need help to remember frequently encountered people, daily routines, and executing r equests? Yes. MEMORY - STEP 2: How often does the patient need help to remember frequently encountered people, daily routines, and e xecuting requests? 10% - 24% of the time MEMORY - SCORE: 4-MIN SIGNATURE PANEL: The following modified sections: Eating - Score, Grooming - Score, Bathing - Score, Dressing - Upper Body - Score, Dressing - Lower Body - Score, Toileting - Score, Bladder Management - Score, Bowel Man agement - Score, Transfers: Bed, Chair, Wheelchair - Score, Transfers: Toilet - Score, Transfers: Esperanza wer - Score, Transfers: Tub - Score, Locomotion: Walk - Score, Locomotion: Wheelchair - Score, Compre hension - Score, Expression - Score, Social Interaction - Score, Problem Solving - Score, Memory - Sc ore were [electronically] signed by Virginie Johnston C.N.A. on WedMar 08 2018 14:13:25 T-0500 (Centra l Daylight Time)
--- NOTE | 2018-03-08 17:33 | R.PN ---
ENCOUNTER DATE AND TIME: 03/08/2018 17:29 (CDT) NAME CARLINE MURRAY DATE OF : 1940 DATE OF ADMISSION: 02/25/2018 14:49 (CDT) Left Temporal lobe and Left Occipital Lobe, Right basal ganglia, right upper aries and deep left parie jonatan lobe white matter.CHIEF COMPLAINT: Bilateral hemispheric stroke SUBJECTIVE: Pt denied any depression. Pt denied any Shortness of Breath. Self propelled wheelchair 150' with contact guard assistance. Ambulated 245' with minimum assistance using a rolling walker. VITAL SIGNS Temperature: 97.2 F SBP/DBP: 140/88 Pulse: 75 Resp: 16 MEDICATION ALLERGIES: No Known Drug Allergies (NKDA) ENVIRONMENTAL ALLERGIES: None Known - Substance Allergies None Known - Other Allergies None Known NURSING: - Shower allowing shower - Bladder care per protocol - Skin care per protocol PRECAUTIONS: - Weight Bearing Precaution WBAT both LE ACTIVITIES OOB only with supervision THERAPIES: - Occupational Therapy Evaluate and Treat. Visual Perceptual Training. Cognitive Retraining. - Speech Therapy Cognitive Training. Memory Strategies. Expressive Language Skills. Speech Intelligibility Training. R eceptive Language Skills. - Physical Therapy Evaluate and Treat. PHYSICAL EXAM - Gen Alert and awake Lying in bed No apparent distress Oriented to: person, time, and place - Skin No skin breakdown. Normacephalic - Eyes No abnormalities - ENMT No abnormalities - Neck No abnormalities - CVS RRR - Chest Clear - Abd Soft - GI Non distended Deferred - No abnormalities - Ext No significant edema - MSK 4+/5 weakness in left upper and lower extremity - Neuro 4/5 strength left upper and lower extremities. - Psych No abnormalities ASSESSMENT: Pt. is a 77 yo Right-handed black male.On 02/22/2018 Pt. presented to [facility] with sudden onset of bilat eral weakness.On 02/22/2018 he was admitted to [facility] with diagnosis Left Temporal lobe and Left Occipi jonatan Lobe, Right basal ganglia, right upper aries and deep left parietal lobe white matter..His [facility] ent category is Stroke 01 - Bilateral (01.3).Pre-morbidly, Pt. was independent/mod-I in Sphincter Co ntrol, Transfers Control, Communication, Social Cognition, Self-Care, and Locomotion; and he had good Sphincter Control.Currently, he has deficits of Safety Awareness, Transfers Control, Balance, Self-C are, Locomotion, and Endurance.Pt. is now referred to [facility] for acute in- patient rehabilitation in order to maximize patient's functional independence in activities of daily living, strength, ROM, and mobility.- Rehab Goal Patient has realistic goal of being discharged at assistance level 6-Yadi to reside at Home with Fam rosa/Relatives. MDM/PLAN: - Physical Therapy Edema - to improve, our physical therapists will perform initial evaluation of pt's status upon admi ssion and devise an individualized program for Elevation Training, and Lymphedema Therapy FUNCTIONAL STATUS: UPDATED AT WEEKLY TEAM CONFERENCE - Bladder Same accident frequency: 7-Ind - No accidents in the past 7 days - Bowel Same accident frequency: 7-Ind - No accidents in the past 7 days - Walking Same score based on distance walked: 1(<=50ft) - Wheelchair Same score based on distance traveled: 0(N/A) FUNCTIONAL STATUS: - Self-Care A. Eating sup B. Grooming sup C. Bathing sup D. Dressing - Upper sup E. Dressing - Lower sup F. Toileting sup - Sphincter Control G: Bladder control Ind H: Bowel control Ind - Transfers Control I. Bed/Chair/Wheelchair Moisés J. Toilet Moisés K. Tub/Shower ADNO - Locomotion L. Walk/Wheelchair (C) Moisés L. Walk/Wheelchair (W) Moisés M. Stairs ADNO - Communication N. Comprehension (B) Ind O. Expression (B) Ind - Social Cognition P. Social Interaction Ind Q. Problem Solving Ind R. Memory Ind - Endurance Fair - Balance Fair - Safety Awareness Fair CURRENT FUNC. DEFICITS: Safety Awareness, Transfers Control, Balance, Self-Care, Locomotion, and Endurance SIGNATURE PANEL: (CDT)
[2018-03-08] MEDS: TAMSULOSIN 0.4 MG SR CAP PO SCH (20:16)
[2018-03-08] MEDS: ATORVASTATIN 80 MG TAB PO SCH (20:16)
--- NOTE | 2018-03-09 02:39 | FAST ---
SHIFT START DATE/TIME: 03/08/2018 19:00 (CDT) SHIFT END DATE/TIME: 03/09/2018 07:00 (CDT) NAME CARLINE MURRAY DATE OF : 1940 DATE OF ADMISSION: 02/25/2018 14:49 (CDT) PHONE: AGE: 77 SSN# [id number] GENDER: Male ENCOUNTER PHYSICIAN: Dr. Larry Vincent M.D. 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 EATING: Activity did not occur on this shift EATING - SCORE: 0-UNK GROOMING: Activity did not occur on this shift GROOMING - SCORE: 0-UNK BATHING: Activity did not occur on this shift BATHING - SCORE: 0-UNK DRESSING - UPPER BODY: Patient is not dressing in public clothing ARTICLES SCORE Total number of steps: 0 DRESSING - UPPER BODY - SCORE: 0-UNK DRESSING - LOWER BODY: Patient is not dressing in public clothing ARTICLES SCORE Total number of steps: 0 DRESSING - LOWER BODY - SCORE: 0-UNK TOILETING: TOILETING - STEP 1: Does the patient require assistance with toileting? Yes. TOILETING - STEP 2: Does the patient require the assistance of a helper? Yes. TOILETING - STEP 3: How much assistance does the patient require from the helper? Only supervision TOILETING - SCORE: 5-SUP BLADDER MANAGEMENT: BLADDER MANAGEMENT - STEP 1: Does the patient control the bladder completely and intentionally without equipment or devices or med ications, and is always continent? No. BLADDER MANAGEMENT - STEP 2: Does the patient require the assistance of a helper? Yes. BLADDER MANAGEMENT - STEP 3: How much assistance does the patient require from the helper? Only supervision, stand-by, cuing, or c oaxing BLADDER MANAGEMENT - SCORE: 5-SUP BOWEL MANAGEMENT: Activity did not occur on this shift BOWEL MANAGEMENT - SCORE: 7-IND TRANSFERS: BED, CHAIR, WHEELCHAIR: Activity did not occur on this shift TRANSFERS: BED, CHAIR, WHEELCHAIR - SCORE: 0-UNK TRANSFERS: TOILET: Activity did not occur on this shift TRANSFERS: TOILET - SCORE: 0-UNK TRANSFERS: SHOWER: Activity did not occur on this shift TRANSFERS: SHOWER - SCORE: 0-UNK TRANSFERS: TUB: Activity did not occur on this shift TRANSFERS: TUB - SCORE: 0-UNK LOCOMOTION: WALK: Activity did not occur on this shift LOCOMOTION: WALK - SCORE: 0-UNK LOCOMOTION: WHEELCHAIR: Activity did not occur on this shift LOCOMOTION: WHEELCHAIR - SCORE: 0-UNK COMPREHENSION: COMPREHENSION: TYPE: Both COMPREHENSION - STEP 1: Does the patient require help to understand complex and abstract ideas (such as current events, finan mylene, discharge planning, medical issues, relationships, etc)? Yes. COMPREHENSION - STEP 2: Does the patient require help to understand questions or statements about basic needs or ideas (such as hunger, thirst, sleep, safety, daily schedule, room location, or discomfort) half or more of the t summer? No. COMPREHENSION - STEP 3: How often does the patient need help to understand directions and conversation about basic needs? 10% - 24% of the time COMPREHENSION - SCORE: 4-MIN EXPRESSION EXPRESSION: TYPE: Both EXPRESSION - STEP 1: Does the patient require help expressing complex and abstract ideas (such as current events, finances , discharge planning, medical issues, relationships, etc)? Yes. EXPRESSION - STEP 2: Does the patient require help to express basic necessities or ideas (such as hunger, thirst, sleep, s afety, daily schedule, room location, or discomfort) half or more of the time? No. EXPRESSION - STEP 3: How often does the patient need help to express directions and conversation about basic needs? 10-24% of the time EXPRESSION - SCORE: 4-MIN SOCIAL INTERACTION: SOCIAL INTERACTION - STEP 1: Does the patient require a helper to interact with others in social and therapeutic situations? Yes. SOCIAL INTERACTION - STEP 2: Does the patient interact appropriately half or more of the time? Yes. SOCIAL INTERACTION - STEP 3: How often does the patient need help to interact appropriately? 25-49% of the time SOCIAL INTERACTION - SCORE: 3-MOD PROBLEM SOLVING: PROBLEM SOLVING - STEP 1: Does the patient need help to solve complex problems such as managing a checking account or confronti ng interpersonal problems? Yes. PROBLEM SOLVING - STEP 2: Does the patient solve basic routine problems half or more of the time? Yes. PROBLEM SOLVING - STEP 3: How often does the patient need help to solve basic routine problems? 25%-49% of the time PROBLEM SOLVING - SCORE: 3-MOD MEMORY: MEMORY - STEP 1: Does the patient need help to remember frequently encountered people, daily routines, and executing r equests? No. MEMORY - STEP 2: Does the patient have slight difficulty recognizing frequently encountered people, daily routines, or executing requests without the need for repetition or using self-initiated or environmental cues to remember? Yes. MEMORY - SCORE: 6-CARINA SIGNATURE PANEL: The following modified sections: Eating - Score, Grooming - Score, Dressing - Upper Body - Score, Carlo ssing - Lower Body - Score, Toileting - Score, Bladder Management - Score, Bowel Management - Score, Transfers: Bed, Chair, Wheelchair - Score, Transfers: Toilet - Score, Transfers: Shower - Score, Grewal sfers: Tub - Score, Locomotion: Walk - Score, Locomotion: Wheelchair - Score, Comprehension - Score, Expression - Score, Social Interaction - Score, Problem Solving - Score, Memory - Score were [electro nically] signed by Beulah Black CNA on WedMar 09 2018 02:38:01 T-0500 (Central Daylight Time)
[2018-03-09] MEDS: CARVEDILOL 25 MG TAB PO SCH ×2 (05:04→17:02)
[2018-03-09] MEDS: APIXABAN 2.5 MG TABLET PO SCH ×2 (08:13→20:25)
[2018-03-09] MEDS: LISINOPRIL 20 MG TAB PO SCH (08:13)
[2018-03-09] MEDS: ASPIRIN 81 MG CHEWABLE TABLET PO SCH (08:13)
[2018-03-09] MEDS: AMLODIPINE 5 MG TAB PO SCH (08:14)
[2018-03-09] MEDS: HYDRALAZINE HCL 25 MG TABLET PO SCH ×3 (08:14→20:25)
--- NOTE | 2018-03-09 09:42 | RAD REPORT ---
EXAM DESCRIPTION: RAD - Barium Swallow Modified - 03/09/2018 9:26 am CLINICAL HISTORY: Dysphagia FINDINGS: LARYNGEAL PENETRATION, NOT CLEARED WITH TSP AND CUP SIP OF THIN PHARYNGEAL RESIDUE: VALLECULAR AND PYRIFORM NO ASPIRATION VIEWED DURING STUDY BARIUM PILL REQUIRED ADDITIONAL LIQUID WASH TO PASS INTO LOWER ESOPHAGUS Fluoroscopy time 4.1 minute. Twenty-three fluoroscopic spot series obtained
--- NOTE | 2018-03-09 15:20 | FAST ---
ENCOUNTER DATE AND TIME: 03/09/2018 08:00 (CDT) NAME CARLINE MURRAY DATE OF : 1940 DATE OF ADMISSION: 02/25/2018 14:49 (CDT) PHONE: AGE: 77 SSN# [id number] GENDER: Male ENCOUNTER PHYSICIAN: Dr. Larry Vincent M.D. 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 EATING: Activity did not occur on this shift EATING - SCORE: 0-UNK GROOMING: Wash, rinse, and dry face Wash, rinse, and dry hands GROOMING - STEP 1: Does the patient require assistance when grooming? No. GROOMING - SCORE: 7-IND BATHING: Abdomen Buttocks Chest Left arm Left lower leg and foot Left upper leg Perineal area Right arm Right lower leg and foot Right upper leg BATHING - STEP 1: Does the patient require assistance when bathing? Yes. BATHING - STEP 2: Does the patient require the assistance of a helper? Yes. BATHING - STEP 3: How much assistance does the patient require from the helper? Only incidental help such as placement of a wash cloth in his/her hand a few times as s/he bathes OR help to bathe just one or two areas of the body BATHING - SCORE: 4-MIN DRESSING - UPPER BODY: Sweater (four steps) T-shirt/pullover shirt (four steps) ARTICLES SCORE Total number of steps: 8 DRESSING - UPPER BODY - STEP 1: Does the patient require help when dressing above the waist? Yes. DRESSING - UPPER BODY - STEP 2: Does the patient require the assistance of a helper? No. Patient only requires an assistive device, s uch as a button hook, velcro, or employment legal assistant. OR s/he takes more than reasonable time as s/he dresses the upper body. OR there is a concern for safety when s/he dresses the upper body DRESSING - UPPER BODY - SCORE: 6-CARINA DRESSING - LOWER BODY: Elastic waist pants (three steps) Slip-on shoe - Left foot (one step) Slip-on shoe - Right foot (one step) Sock - Left foot (one step) Sock - Right foot (one step) Underwear (three steps) ARTICLES SCORE Total number of steps: 10 DRESSING - LOWER BODY - STEP 1: Does the patient require help when dressing below the waist? Yes. DRESSING - LOWER BODY - STEP 2: Does the patient require the assistance of a helper? Yes. DRESSING - LOWER BODY - STEP 3: Does the helper touch the patient while dressing? Yes. DRESSING - LOWER BODY - STEP 4: How many of the total steps does the patient complete on his/her own? 10 DRESSING - LOWER BODY - SCORE: 4-MIN TOILETING: Activity did not occur on this shift TOILETING - SCORE: 0-UNK BLADDER MANAGEMENT: Activity did not occur on this shift BLADDER MANAGEMENT - SCORE: 7-IND BOWEL MANAGEMENT: Activity did not occur on this shift BOWEL MANAGEMENT - SCORE: 7-IND TRANSFERS: BED, CHAIR, WHEELCHAIR: Activity did not occur on this shift TRANSFERS: BED, CHAIR, WHEELCHAIR - SCORE: 0-UNK TRANSFERS: TOILET: Activity did not occur on this shift TRANSFERS: TOILET - SCORE: 0-UNK TRANSFERS: SHOWER: Activity did not occur on this shift TRANSFERS: SHOWER - SCORE: 0-UNK TRANSFERS: TUB: TRANSFERS: TUB - STEP 1: Does the patient require assistance with tub transfers? Yes. TRANSFERS: TUB - STEP 2: Does the patient require the assistance of a helper? Yes. TRANSFERS: TUB - STEP 3: How much assistance does the patient require from the helper? Incidental help such as contact guardin g or steadying, OR help to lift one leg into the tub TRANSFERS: TUB - SCORE: 4-MIN LOCOMOTION: WALK: Activity did not occur on this shift LOCOMOTION: WALK - SCORE: 0-UNK LOCOMOTION: WHEELCHAIR: Activity did not occur on this shift LOCOMOTION: WHEELCHAIR - SCORE: 0-UNK LOCOMOTION: STAIRS: Activity did not occur on this shift LOCOMOTION: STAIRS - SCORE: 0-UNK COMPREHENSION: COMPREHENSION: TYPE: Both COMPREHENSION - STEP 1: Does the patient require help to understand complex and abstract ideas (such as current events, finan mylene, discharge planning, medical issues, relationships, etc)? No. COMPREHENSION - STEP 2: Does the patient need extra time, require an assistive device (such as glasses for visual comprehensi on or a hearing aid for auditory comprehension) or does s/he have mild difficulty understanding compl ex and abstract information? Yes. COMPREHENSION - SCORE: 6-CARINA EXPRESSION EXPRESSION: TYPE: Both EXPRESSION - STEP 1: Does the patient require help expressing complex and abstract ideas (such as current events, finances , discharge planning, medical issues, relationships, etc)? Yes. EXPRESSION - STEP 2: Does the patient require help to express basic necessities or ideas (such as hunger, thirst, sleep, s afety, daily schedule, room location, or discomfort) half or more of the time? No. EXPRESSION - STEP 3: How often does the patient need help to express directions and conversation about basic needs? Less t tejeda 10% of the time EXPRESSION - SCORE: 5-SUP SOCIAL INTERACTION: SOCIAL INTERACTION - STEP 1: Does the patient require a helper to interact with others in social and therapeutic situations? No. SOCIAL INTERACTION - STEP 2: Does the patient need extra time in social situations, OR does s/he interact with staff, other patien ts, and family members ONLY in structured environments, OR does s/he require medication for social in teraction? Yes, patient needs extra time SOCIAL INTERACTION - SCORE: 6-CARINA PROBLEM SOLVING: PROBLEM SOLVING - STEP 1: Does the patient need help to solve complex problems such as managing a checking account or confronti ng interpersonal problems? Yes. PROBLEM SOLVING - STEP 2: Does the patient solve basic routine problems half or more of the time? Yes. PROBLEM SOLVING - STEP 3: How often does the patient need help to solve basic routine problems? Less than 10% of the time PROBLEM SOLVING - SCORE: 5-SUP MEMORY: MEMORY - STEP 1: Does the patient need help to remember frequently encountered people, daily routines, and executing r equests? Yes. MEMORY - STEP 2: How often does the patient need help to remember frequently encountered people, daily routines, and e xecuting requests? Less than 10% of the time MEMORY - SCORE: 5-SUP SIGNATURE PANEL: The following modified sections: Eating - Score, Grooming - Score, Bathing - Score, Dressing - Upper Body - Score, Dressing - Lower Body - Score, Toileting - Score, Transfers: Bed, Chair, Wheelchair - S core, Transfers: Toilet - Score, Transfers: Shower - Score, Transfers: Tub - Score, Comprehension - S core, Expression - Score, Social Interaction - Score, Problem Solving - Score, Memory - Score were [e lectronically] signed by Jami Brambila OT on WedMar 09 2018 15:19:09 T-0500 ([facility] Daylight T summer)
--- NOTE | 2018-03-09 15:36 | FAST ---
SHIFT START DATE/TIME: 03/09/2018 07:00 (CDT) SHIFT END DATE/TIME: 03/09/2018 19:00 (CDT) NAME CARLINE MURRAY DATE OF : 1940 DATE OF ADMISSION: 02/25/2018 14:49 (CDT) PHONE: AGE: 77 N# [id number] GENDER: Male ENCOUNTER PHYSICIAN: Dr. Larry Vincent M.D. 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 EATING: EATING - STEP 1: Does the patient require assistance when eating? Yes. EATING - STEP 2: Does the patient require the assistance of a helper? Yes. EATING - STEP 3: Does the patient perform half or more of the eating tasks? Yes. EATING - STEP 4: Does the patient need only supervision, cuing, coaxing OR help to apply an orthosis OR help to cut fo od, open containers, pour liquids, or butter bread? Yes. EATING - SCORE: 5-SUP GROOMING: Activity did not occur on this shift GROOMING - SCORE: 0-UNK BATHING: Activity did not occur on this shift BATHING - SCORE: 0-UNK DRESSING - UPPER BODY: Activity did not occur on this shift ARTICLES SCORE Total number of steps: 0 DRESSING - UPPER BODY - SCORE: 0-UNK DRESSING - LOWER BODY: Activity did not occur on this shift ARTICLES SCORE Total number of steps: 0 DRESSING - LOWER BODY - SCORE: 0-UNK TOILETING: TOILETING - STEP 1: Does the patient require assistance with toileting? Yes. TOILETING - STEP 2: Does the patient require the assistance of a helper? Yes. TOILETING - STEP 3: How much assistance does the patient require from the helper? Hands-on assistance from the helper TOILETING - STEP 4: Of the 3 tasks: 1) Adjusting clothing prior to use, 2) Cleansing of perineal area, 3) Adjusting clot richie after use; How many tasks does the patient perform WITHOUT assistance of the helper? Two tasks TOILETING - SCORE: 3-MOD BLADDER MANAGEMENT: BLADDER MANAGEMENT - STEP 1: Does the patient control the bladder completely and intentionally without equipment or devices or med ications, and is always continent? No. BLADDER MANAGEMENT - STEP 2: Does the patient require the assistance of a helper? No, patient requires and independently uses an a ssistive device, such as a urinal, bedpan, bedside commode, catheter, absorbent pad, or collecting de vice BLADDER MANAGEMENT - SCORE: 6-CARINA BOWEL MANAGEMENT: BOWEL MANAGEMENT - STEP 1: Does the patient control bowels completely and intentionally without equipment devices or medications AND is always continent? No. BOWEL MANAGEMENT - STEP 2: Does the patient require the assistance of a helper? No, patient requires and manages independently a n assistive device such as a bedpan, bedside commode, absorbent pad, incontinent device, or collectin g device BOWEL MANAGEMENT - SCORE: 6-CARINA TRANSFERS: BED, CHAIR, WHEELCHAIR: TRANSFERS: BED, CHAIR, WHEELCHAIR - STEP 1: Does the patient require assistance with bed, chair, or wheelchair transfers? Yes. TRANSFERS: BED, CHAIR, WHEELCHAIR - STEP 2: Does the patient require the assistance of a helper? Yes. TRANSFERS: BED, CHAIR, WHEELCHAIR - STEP 3: How much assistance does the patient require from the helper? Steadying/guiding assistance TRANSFERS: BED, CHAIR, WHEELCHAIR - SCORE: 4-MIN TRANSFERS: TOILET: TRANSFERS: TOILET - STEP 1: Does the patient require assistance with toilet transfers? Yes. TRANSFERS: TOILET - STEP 2: Does the patient require the assistance of a helper? Yes. TRANSFERS: TOILET - STEP 3: How much assistance does the patient require from the helper? Patient performs half or more of the tr ansferring tasks TRANSFERS: TOILET - STEP 4: Does the patient need only incidental help such as contact guard or steadying during toilet transfer? Yes. TRANSFERS: TOILET - SCORE: 4-MIN TRANSFERS: SHOWER: Activity did not occur on this shift TRANSFERS: SHOWER - SCORE: 0-UNK TRANSFERS: TUB: Activity did not occur on this shift TRANSFERS: TUB - SCORE: 0-UNK LOCOMOTION: WALK: Activity did not occur on this shift LOCOMOTION: WALK - SCORE: 0-UNK LOCOMOTION: WHEELCHAIR: Activity did not occur on this shift LOCOMOTION: WHEELCHAIR - SCORE: 0-UNK COMPREHENSION: COMPREHENSION: TYPE: Both COMPREHENSION - STEP 1: Does the patient require help to understand complex and abstract ideas (such as current events, finan mylene, discharge planning, medical issues, relationships, etc)? No. COMPREHENSION - STEP 2: Does the patient need extra time, require an assistive device (such as glasses for visual comprehensi on or a hearing aid for auditory comprehension) or does s/he have mild difficulty understanding compl ex and abstract information? Yes. COMPREHENSION - SCORE: 6-CARINA EXPRESSION EXPRESSION: TYPE: Both EXPRESSION - STEP 1: Does the patient require help expressing complex and abstract ideas (such as current events, finances , discharge planning, medical issues, relationships, etc)? Yes. EXPRESSION - STEP 2: Does the patient require help to express basic necessities or ideas (such as hunger, thirst, sleep, s afety, daily schedule, room location, or discomfort) half or more of the time? No. EXPRESSION - STEP 3: How often does the patient need help to express directions and conversation about basic needs? Less t tejeda 10% of the time EXPRESSION - SCORE: 5-SUP SOCIAL INTERACTION: SOCIAL INTERACTION - STEP 1: Does the patient require a helper to interact with others in social and therapeutic situations? Yes. SOCIAL INTERACTION - STEP 2: Does the patient interact appropriately half or more of the time? Yes. SOCIAL INTERACTION - STEP 3: How often does the patient need help to interact appropriately? Less than 10% of the time SOCIAL INTERACTION - SCORE: 5-SUP PROBLEM SOLVING: PROBLEM SOLVING - STEP 1: Does the patient need help to solve complex problems such as managing a checking account or confronti ng interpersonal problems? Yes. PROBLEM SOLVING - STEP 2: Does the patient solve basic routine problems half or more of the time? Yes. PROBLEM SOLVING - STEP 3: How often does the patient need help to solve basic routine problems? Less than 10% of the time PROBLEM SOLVING - SCORE: 5-SUP MEMORY: MEMORY - STEP 1: Does the patient need help to remember frequently encountered people, daily routines, and executing r equests? Yes. MEMORY - STEP 2: How often does the patient need help to remember frequently encountered people, daily routines, and e xecuting requests? Less than 10% of the time MEMORY - SCORE: 5-SUP SIGNATURE PANEL: The following modified sections: Eating - Score, Grooming - Score, Bathing - Score, Dressing - Upper Body - Score, Dressing - Lower Body - Score, Toileting - Score, Bladder Management - Score, Bowel Man agement - Score, Transfers: Bed, Chair, Wheelchair - Score, Transfers: Toilet - Score, Transfers: Esperanza wer - Score, Transfers: Tub - Score, Locomotion: Walk - Score, Locomotion: Wheelchair - Score, Compre hension - Score, Expression - Score, Social Interaction - Score, Problem Solving - Score, Memory - Sc ore were [electronically] signed by Kiet Sims on WedMar 09 2018 15:35:38 GMT-0500 (Central Daylight Time)
--- NOTE | 2018-03-09 16:06 | FAST ---
ENCOUNTER DATE AND TIME: 03/09/2018 08:00 (CDT) NAME CARLINE MURRAY DATE OF : 1940 DATE OF ADMISSION: 02/25/2018 14:49 (CDT) PHONE: AGE: 77 SSN# [id number] GENDER: Male ENCOUNTER PHYSICIAN: Dr. Larry Vincent M.D. 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 EATING: Activity did not occur on this shift EATING - SCORE: 0-UNK GROOMING: Activity did not occur on this shift GROOMING - SCORE: 0-UNK BATHING: Activity did not occur on this shift BATHING - SCORE: 0-UNK DRESSING - UPPER BODY: Activity did not occur on this shift Patient is not dressing in public clothing ARTICLES SCORE Total number of steps: 0 DRESSING - UPPER BODY - SCORE: 0-UNK DRESSING - LOWER BODY: Activity did not occur on this shift Patient is not dressing in public clothing ARTICLES SCORE Total number of steps: 0 DRESSING - LOWER BODY - SCORE: 0-UNK TOILETING: Activity did not occur on this shift TOILETING - SCORE: 0-UNK BLADDER MANAGEMENT: Activity did not occur on this shift BLADDER MANAGEMENT - SCORE: 7-IND BOWEL MANAGEMENT: Activity did not occur on this shift BOWEL MANAGEMENT - SCORE: 7-IND TRANSFERS: BED, CHAIR, WHEELCHAIR: TRANSFERS: BED, CHAIR, WHEELCHAIR - STEP 1: Does the patient require assistance with bed, chair, or wheelchair transfers? Yes. TRANSFERS: BED, CHAIR, WHEELCHAIR - STEP 2: Does the patient require the assistance of a helper? Yes. TRANSFERS: BED, CHAIR, WHEELCHAIR - STEP 3: How much assistance does the patient require from the helper? Lifting of the patient TRANSFERS: BED, CHAIR, WHEELCHAIR - STEP 4: Does the helper lift the patient ONLY up? ONLY down? Up AND Down? ONLY up. TRANSFERS: BED, CHAIR, WHEELCHAIR - SCORE: 3-MOD TRANSFERS: TOILET: Activity did not occur on this shift TRANSFERS: TOILET - SCORE: 0-UNK TRANSFERS: SHOWER: Activity did not occur on this shift TRANSFERS: SHOWER - SCORE: 0-UNK TRANSFERS: TUB: Activity did not occur on this shift TRANSFERS: TUB - SCORE: 0-UNK LOCOMOTION: WALK: LOCOMOTION: WALK - STEP 1: Does the patient need help to walk 150 feet? Yes. LOCOMOTION: WALK - STEP 2: How much assistance does the patient require to walk a minimum of 150 feet? Patient walks less than 1 50 feet - but more than 50 feet - with the assistance of only one helper LOCOMOTION: WALK - SCORE: 2-MAX LOCOMOTION: WHEELCHAIR: LOCOMOTION: WHEELCHAIR - STEP 1: Does the patient need help to go 150 feet in a wheelchair? Yes. LOCOMOTION: WHEELCHAIR - STEP 2: How much assistance does the patient need from the helper? Only supervision, cuing, or coaxing LOCOMOTION: WHEELCHAIR - SCORE: 5-SUP LOCOMOTION: STAIRS: Activity did not occur on this shift LOCOMOTION: STAIRS - SCORE: 0-UNK COMPREHENSION: COMPREHENSION - SCORE: 0-UNK EXPRESSION EXPRESSION - SCORE: 0-UNK SOCIAL INTERACTION: SOCIAL INTERACTION - SCORE: 0-UNK PROBLEM SOLVING: PROBLEM SOLVING - SCORE: 0-UNK MEMORY: MEMORY - SCORE: 0-UNK SIGNATURE PANEL: The following modified sections: Transfers: Bed, Chair, Wheelchair - Score, Transfers: Toilet - Score , Locomotion: Walk - Score, Locomotion: Wheelchair - Score, Locomotion: Stairs - Score were [electron lazaro] signed by Lance Coello PT on WedMar 09 2018 16:05:52 T-0500 (Central Daylight Time)
--- NOTE | 2018-03-09 17:25 | R.PN ---
ENCOUNTER DATE AND TIME: 03/09/2018 17:22 (CDT) NAME CARLINE MURRAY DATE OF : 1940 DATE OF ADMISSION: 02/25/2018 14:49 (CDT) Left Temporal lobe and Left Occipital Lobe, Right basal ganglia, right upper aries and deep left parie jonatan lobe white matter.CHIEF COMPLAINT: Bilateral hemispheric stroke SUBJECTIVE: Pt denied any depression. Pt denied any Shortness of Breath. Ambulated 435' with contact guard assistance using a rolling walker. VITAL SIGNS Temperature: 97.6 F SBP/DBP: 145/80 Pulse: 76 Resp: 16 MEDICATION ALLERGIES: No Known Drug Allergies (NKDA) ENVIRONMENTAL ALLERGIES: None Known - Substance Allergies None Known - Other Allergies None Known NURSING: - Shower allowing shower - Bladder care per protocol - Skin care per protocol PRECAUTIONS: - Weight Bearing Precaution WBAT both LE ACTIVITIES OOB only with supervision THERAPIES: - Occupational Therapy Evaluate and Treat. Visual Perceptual Training. Cognitive Retraining. - Speech Therapy Cognitive Training. Memory Strategies. Expressive Language Skills. Speech Intelligibility Training. R eceptive Language Skills. - Physical Therapy Evaluate and Treat. PHYSICAL EXAM - Gen Alert and awake Lying in bed No apparent distress Oriented to: person, time, and place - Skin No skin breakdown. Normacephalic - Eyes No abnormalities - ENMT No abnormalities - Neck No abnormalities - CVS RRR - Chest Clear - Abd Soft - GI Non distended Deferred - No abnormalities - Ext No significant edema - MSK 4+/5 weakness in left upper and lower extremity - Neuro 4/5 strength left upper and lower extremities. - Psych No abnormalities ASSESSMENT: Pt. is a 77 yo Right-handed black male.On 02/22/2018 Pt. presented to [facility] with sudden onset of bilat eral weakness.On 02/22/2018 he was admitted to [facility] with diagnosis Left Temporal lobe and Left Occipi jonatan Lobe, Right basal ganglia, right upper aries and deep left parietal lobe white matter..His symmes hospital ent category is Stroke 01 - Bilateral (01.3).Pre-morbidly, Pt. was independent/mod-I in Sphincter Co ntrol, Transfers Control, Communication, Social Cognition, Self-Care, and Locomotion; and he had good Sphincter Control.Currently, he has deficits of Safety Awareness, Transfers Control, Balance, Self-C are, Locomotion, and Endurance.Pt. is now referred to [facility] for acute in- patient rehabilitation in order to maximize patient's functional independence in activities of daily living, strength, ROM, and mobility.- Rehab Goal Patient has realistic goal of being discharged at assistance level 6-Yadi to reside at Home with Fam rosa/Relatives. MDM/PLAN: - Physical Therapy Edema - to improve, our physical therapists will perform initial evaluation of pt's status upon admi ssion and devise an individualized program for Elevation Training, and Lymphedema Therapy FUNCTIONAL STATUS: UPDATED AT WEEKLY TEAM CONFERENCE - Bladder Same accident frequency: 7-Ind - No accidents in the past 7 days - Bowel Same accident frequency: 7-Ind - No accidents in the past 7 days - Walking Same score based on distance walked: 1(<=50ft) - Wheelchair Same score based on distance traveled: 0(N/A) FUNCTIONAL STATUS: - Self-Care A. Eating sup B. Grooming sup C. Bathing sup D. Dressing - Upper sup E. Dressing - Lower sup F. Toileting sup - Sphincter Control G: Bladder control Ind H: Bowel control Ind - Transfers Control I. Bed/Chair/Wheelchair Moisés J. Toilet Moisés K. Tub/Shower ADNO - Locomotion L. Walk/Wheelchair (C) Moisés L. Walk/Wheelchair (W) Moisés M. Stairs ADNO - Communication N. Comprehension (B) Ind O. Expression (B) Ind - Social Cognition P. Social Interaction Ind Q. Problem Solving Ind R. Memory Ind - Endurance Fair - Balance Fair - Safety Awareness Fair CURRENT FUNC. DEFICITS: Safety Awareness, Transfers Control, Balance, Self-Care, Locomotion, and Endurance SIGNATURE PANEL: (CDT)
[2018-03-09] MEDS: DOCUSATE NA/SENNA CONC 1 TAB PO PRN (20:25)
[2018-03-09] MEDS: TAMSULOSIN 0.4 MG SR CAP PO SCH (20:25)
[2018-03-09] MEDS: ATORVASTATIN 80 MG TAB PO SCH (20:25)
--- NOTE | 2018-03-10 02:30 | FAST ---
SHIFT START DATE/TIME: 03/09/2018 19:00 (CDT) SHIFT END DATE/TIME: 03/10/2018 07:00 (CDT) NAME CARLINE MURRAY DATE OF : 1940 DATE OF ADMISSION: 02/25/2018 14:49 (CDT) PHONE: AGE: 77 N# [id number] GENDER: Male ENCOUNTER PHYSICIAN: Dr. Larry Vincent M.D. 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 EATING: Activity did not occur on this shift EATING - SCORE: 0-UNK GROOMING: Activity did not occur on this shift GROOMING - SCORE: 0-UNK BATHING: Activity did not occur on this shift BATHING - SCORE: 0-UNK DRESSING - UPPER BODY: Patient is not dressing in public clothing ARTICLES SCORE Total number of steps: 0 DRESSING - UPPER BODY - SCORE: 0-UNK DRESSING - LOWER BODY: Patient is not dressing in public clothing ARTICLES SCORE Total number of steps: 0 DRESSING - LOWER BODY - SCORE: 0-UNK TOILETING: TOILETING - STEP 1: Does the patient require assistance with toileting? Yes. TOILETING - STEP 2: Does the patient require the assistance of a helper? Yes. TOILETING - STEP 3: How much assistance does the patient require from the helper? Only supervision TOILETING - SCORE: 5-SUP BLADDER MANAGEMENT: BLADDER MANAGEMENT - STEP 1: Does the patient control the bladder completely and intentionally without equipment or devices or med ications, and is always continent? No. BLADDER MANAGEMENT - STEP 2: Does the patient require the assistance of a helper? Yes. BLADDER MANAGEMENT - STEP 3: How much assistance does the patient require from the helper? Only set-up of equipment - such as plac ing it within reach of the patient or emptying a device - to maintain either satisfactory voiding pat tern or managing an external device, such as an absorbent pad, ileal device, or catheter BLADDER MANAGEMENT - SCORE: 5-SUP BOWEL MANAGEMENT: Activity did not occur on this shift BOWEL MANAGEMENT - SCORE: 7-IND TRANSFERS: BED, CHAIR, WHEELCHAIR: Activity did not occur on this shift TRANSFERS: BED, CHAIR, WHEELCHAIR - SCORE: 0-UNK TRANSFERS: TOILET: Activity did not occur on this shift TRANSFERS: TOILET - SCORE: 0-UNK TRANSFERS: SHOWER: Activity did not occur on this shift TRANSFERS: SHOWER - SCORE: 0-UNK TRANSFERS: TUB: Activity did not occur on this shift TRANSFERS: TUB - SCORE: 0-UNK LOCOMOTION: WALK: Activity did not occur on this shift LOCOMOTION: WALK - SCORE: 0-UNK LOCOMOTION: WHEELCHAIR: Activity did not occur on this shift LOCOMOTION: WHEELCHAIR - SCORE: 0-UNK COMPREHENSION: COMPREHENSION: TYPE: Both COMPREHENSION - STEP 1: Does the patient require help to understand complex and abstract ideas (such as current events, finan mylene, discharge planning, medical issues, relationships, etc)? Yes. COMPREHENSION - STEP 2: Does the patient require help to understand questions or statements about basic needs or ideas (such as hunger, thirst, sleep, safety, daily schedule, room location, or discomfort) half or more of the t summer? No. COMPREHENSION - STEP 3: How often does the patient need help to understand directions and conversation about basic needs? 10% - 24% of the time COMPREHENSION - SCORE: 4-MIN EXPRESSION EXPRESSION: TYPE: Both EXPRESSION - STEP 1: Does the patient require help expressing complex and abstract ideas (such as current events, finances , discharge planning, medical issues, relationships, etc)? Yes. EXPRESSION - STEP 2: Does the patient require help to express basic necessities or ideas (such as hunger, thirst, sleep, s afety, daily schedule, room location, or discomfort) half or more of the time? No. EXPRESSION - STEP 3: How often does the patient need help to express directions and conversation about basic needs? 10-24% of the time EXPRESSION - SCORE: 4-MIN SOCIAL INTERACTION: SOCIAL INTERACTION - STEP 1: Does the patient require a helper to interact with others in social and therapeutic situations? Yes. SOCIAL INTERACTION - STEP 2: Does the patient interact appropriately half or more of the time? Yes. SOCIAL INTERACTION - STEP 3: How often does the patient need help to interact appropriately? 25-49% of the time SOCIAL INTERACTION - SCORE: 3-MOD PROBLEM SOLVING: PROBLEM SOLVING - STEP 1: Does the patient need help to solve complex problems such as managing a checking account or confronti ng interpersonal problems? Yes. PROBLEM SOLVING - STEP 2: Does the patient solve basic routine problems half or more of the time? Yes. PROBLEM SOLVING - STEP 3: How often does the patient need help to solve basic routine problems? 25%-49% of the time PROBLEM SOLVING - SCORE: 3-MOD MEMORY: MEMORY - STEP 1: Does the patient need help to remember frequently encountered people, daily routines, and executing r equests? Yes. MEMORY - STEP 2: How often does the patient need help to remember frequently encountered people, daily routines, and e xecuting requests? Less than 10% of the time MEMORY - SCORE: 5-SUP
[2018-03-10] MEDS: CARVEDILOL 25 MG TAB PO SCH ×2 (05:06→17:00)
[2018-03-10 06:03] LABS: Absolute Lymphocytes (CBC) 1.5 K/uL (0.7-4.9); Absolute Monocytes 0.6 K/uL (0.1-1.3); Absolute Neutrophil 3.4 K/uL (1.8-8.0); Basophils % 0.8 % (0-1.3); Eosinophils % 3.1 % (0-4.4); Hematocrit 40.1 % (39.6-49.0); Lymphocytes % 26.3 % (15.3-44.8); MCV 88.4 fL (80-100); MPV 8.7 fL (7.6-11.3); Monocytes % 10.4 % (3.3-12.3); RBC Red Blood Cell Count 4.54 M/uL (4.33-5.43)
[2018-03-10 06:35] LABS: Albumin 2.8 g/dL (3.4-5.0); Potassium 4.5 mmol/L (3.5-5.1); Prealbumin 20.9 mg/dL (20-40)
[2018-03-10] MEDS: APIXABAN 2.5 MG TABLET PO SCH ×2 (08:09→20:25)
[2018-03-10] MEDS: LISINOPRIL 20 MG TAB PO SCH (08:10)
[2018-03-10] MEDS: ASPIRIN 81 MG CHEWABLE TABLET PO SCH (08:10)
[2018-03-10] MEDS: AMLODIPINE 5 MG TAB PO SCH (08:10)
[2018-03-10] MEDS: HYDRALAZINE HCL 25 MG TABLET PO SCH ×3 (08:10→20:25)
[2018-03-10] MEDS: ONDANSETRON 4 MG (ODT) TAB PO PRN (12:28)
--- NOTE | 2018-03-10 12:46 | FAST ---
SHIFT START DATE/TIME: 03/10/2018 07:00 (CDT) SHIFT END DATE/TIME: 03/10/2018 19:00 (CDT) NAME CARLINE MURRAY DATE OF : 1940 DATE OF ADMISSION: 02/25/2018 14:49 (CDT) PHONE: AGE: 77 N# [id number] GENDER: Male ENCOUNTER PHYSICIAN: Dr. Larry Vincent M.D. 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 EATING: EATING - STEP 1: Does the patient require assistance when eating? Yes. EATING - STEP 2: Does the patient require the assistance of a helper? Yes. EATING - STEP 3: Does the patient perform half or more of the eating tasks? Yes. EATING - STEP 4: Does the patient need only supervision, cuing, coaxing OR help to apply an orthosis OR help to cut fo od, open containers, pour liquids, or butter bread? Yes. EATING - SCORE: 5-SUP GROOMING: Activity did not occur on this shift GROOMING - SCORE: 0-UNK BATHING: Activity did not occur on this shift BATHING - SCORE: 0-UNK DRESSING - UPPER BODY: Activity did not occur on this shift ARTICLES SCORE Total number of steps: 0 DRESSING - UPPER BODY - SCORE: 0-UNK DRESSING - LOWER BODY: Activity did not occur on this shift ARTICLES SCORE Total number of steps: 0 DRESSING - LOWER BODY - SCORE: 0-UNK TOILETING: TOILETING - STEP 1: Does the patient require assistance with toileting? Yes. TOILETING - STEP 2: Does the patient require the assistance of a helper? Yes. TOILETING - STEP 3: How much assistance does the patient require from the helper? Hands-on assistance from the helper TOILETING - STEP 4: Of the 3 tasks: 1) Adjusting clothing prior to use, 2) Cleansing of perineal area, 3) Adjusting clot richie after use; How many tasks does the patient perform WITHOUT assistance of the helper? Two tasks TOILETING - SCORE: 3-MOD BLADDER MANAGEMENT: BLADDER MANAGEMENT - STEP 1: Does the patient control the bladder completely and intentionally without equipment or devices or med ications, and is always continent? No. BLADDER MANAGEMENT - STEP 2: Does the patient require the assistance of a helper? No, patient requires and independently uses an a ssistive device, such as a urinal, bedpan, bedside commode, catheter, absorbent pad, or collecting de vice BLADDER MANAGEMENT - SCORE: 6-CARINA BOWEL MANAGEMENT: BOWEL MANAGEMENT - STEP 1: Does the patient control bowels completely and intentionally without equipment devices or medications AND is always continent? No. BOWEL MANAGEMENT - STEP 2: Does the patient require the assistance of a helper? No, patient requires and manages independently a n assistive device such as a bedpan, bedside commode, absorbent pad, incontinent device, or collectin g device BOWEL MANAGEMENT - SCORE: 6-CARINA TRANSFERS: BED, CHAIR, WHEELCHAIR: TRANSFERS: BED, CHAIR, WHEELCHAIR - STEP 1: Does the patient require assistance with bed, chair, or wheelchair transfers? Yes. TRANSFERS: BED, CHAIR, WHEELCHAIR - STEP 2: Does the patient require the assistance of a helper? Yes. TRANSFERS: BED, CHAIR, WHEELCHAIR - STEP 3: How much assistance does the patient require from the helper? Steadying/guiding assistance TRANSFERS: BED, CHAIR, WHEELCHAIR - SCORE: 4-MIN TRANSFERS: TOILET: TRANSFERS: TOILET - STEP 1: Does the patient require assistance with toilet transfers? Yes. TRANSFERS: TOILET - STEP 2: Does the patient require the assistance of a helper? Yes. TRANSFERS: TOILET - STEP 3: How much assistance does the patient require from the helper? Patient performs half or more of the tr ansferring tasks TRANSFERS: TOILET - STEP 4: Does the patient need only incidental help such as contact guard or steadying during toilet transfer? Yes. TRANSFERS: TOILET - SCORE: 4-MIN TRANSFERS: SHOWER: Activity did not occur on this shift TRANSFERS: SHOWER - SCORE: 0-UNK TRANSFERS: TUB: Activity did not occur on this shift TRANSFERS: TUB - SCORE: 0-UNK LOCOMOTION: WALK: Activity did not occur on this shift LOCOMOTION: WALK - SCORE: 0-UNK LOCOMOTION: WHEELCHAIR: Activity did not occur on this shift LOCOMOTION: WHEELCHAIR - SCORE: 0-UNK COMPREHENSION: COMPREHENSION: TYPE: Both COMPREHENSION - STEP 1: Does the patient require help to understand complex and abstract ideas (such as current events, finan mylene, discharge planning, medical issues, relationships, etc)? Yes. COMPREHENSION - STEP 2: Does the patient require help to understand questions or statements about basic needs or ideas (such as hunger, thirst, sleep, safety, daily schedule, room location, or discomfort) half or more of the t summer? No. COMPREHENSION - STEP 3: How often does the patient need help to understand directions and conversation about basic needs? 10% - 24% of the time COMPREHENSION - SCORE: 4-MIN EXPRESSION EXPRESSION: TYPE: Both EXPRESSION - STEP 1: Does the patient require help expressing complex and abstract ideas (such as current events, finances , discharge planning, medical issues, relationships, etc)? Yes. EXPRESSION - STEP 2: Does the patient require help to express basic necessities or ideas (such as hunger, thirst, sleep, s afety, daily schedule, room location, or discomfort) half or more of the time? No. EXPRESSION - STEP 3: How often does the patient need help to express directions and conversation about basic needs? Less t tejeda 10% of the time EXPRESSION - SCORE: 5-SUP SOCIAL INTERACTION: SOCIAL INTERACTION - STEP 1: Does the patient require a helper to interact with others in social and therapeutic situations? Yes. SOCIAL INTERACTION - STEP 2: Does the patient interact appropriately half or more of the time? Yes. SOCIAL INTERACTION - STEP 3: How often does the patient need help to interact appropriately? Less than 10% of the time SOCIAL INTERACTION - SCORE: 5-SUP PROBLEM SOLVING: PROBLEM SOLVING - STEP 1: Does the patient need help to solve complex problems such as managing a checking account or confronti ng interpersonal problems? Yes. PROBLEM SOLVING - STEP 2: Does the patient solve basic routine problems half or more of the time? Yes. PROBLEM SOLVING - STEP 3: How often does the patient need help to solve basic routine problems? 10%-24% of the time PROBLEM SOLVING - SCORE: 4-MIN MEMORY: MEMORY - STEP 1: Does the patient need help to remember frequently encountered people, daily routines, and executing r equests? Yes. MEMORY - STEP 2: How often does the patient need help to remember frequently encountered people, daily routines, and e xecuting requests? Less than 10% of the time MEMORY - SCORE: 5-SUP SIGNATURE PANEL: The following modified sections: Eating - Score, Grooming - Score, Bathing - Score, Dressing - Upper Body - Score, Dressing - Lower Body - Score, Toileting - Score, Bladder Management - Score, Bowel Man agement - Score, Transfers: Bed, Chair, Wheelchair - Score, Transfers: Toilet - Score, Transfers: Esperanza wer - Score, Transfers: Tub - Score, Locomotion: Walk - Score, Locomotion: Wheelchair - Score, Compre hension - Score, Expression - Score, Social Interaction - Score, Problem Solving - Score, Memory - Sc ore were [electronically] signed by Kiet Sims on WedMar 10 2018 12:45:39 GMT-0500 (Central Daylight Time)
--- NOTE | 2018-03-10 14:17 | FAST ---
ENCOUNTER DATE AND TIME: 03/10/2018 08:00 (CDT) NAME CARLINE MURRAY DATE OF : 1940 DATE OF ADMISSION: 02/25/2018 14:49 (CDT) PHONE: AGE: 77 N# [id number] GENDER: Male ENCOUNTER PHYSICIAN: Dr. Larry Vincent M.D. 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 EATING: Activity did not occur on this shift EATING - SCORE: 0-UNK GROOMING: Activity did not occur on this shift GROOMING - SCORE: 0-UNK BATHING: Activity did not occur on this shift BATHING - SCORE: 0-UNK DRESSING - UPPER BODY: Activity did not occur on this shift ARTICLES SCORE Total number of steps: 0 DRESSING - UPPER BODY - SCORE: 0-UNK DRESSING - LOWER BODY: Activity did not occur on this shift ARTICLES SCORE Total number of steps: 0 DRESSING - LOWER BODY - SCORE: 0-UNK TOILETING: TOILETING - STEP 1: Does the patient require assistance with toileting? Yes. TOILETING - STEP 2: Does the patient require the assistance of a helper? Yes. TOILETING - STEP 3: How much assistance does the patient require from the helper? Hands-on assistance from the helper TOILETING - STEP 4: Of the 3 tasks: 1) Adjusting clothing prior to use, 2) Cleansing of perineal area, 3) Adjusting clot richie after use; How many tasks does the patient perform WITHOUT assistance of the helper? Two tasks TOILETING - SCORE: 3-MOD BLADDER MANAGEMENT: Activity did not occur on this shift BLADDER MANAGEMENT - SCORE: 7-IND BOWEL MANAGEMENT: Activity did not occur on this shift BOWEL MANAGEMENT - SCORE: 7-IND TRANSFERS: BED, CHAIR, WHEELCHAIR: Activity did not occur on this shift TRANSFERS: BED, CHAIR, WHEELCHAIR - SCORE: 0-UNK TRANSFERS: TOILET: TRANSFERS: TOILET - STEP 1: Does the patient require assistance with toilet transfers? Yes. TRANSFERS: TOILET - STEP 2: Does the patient require the assistance of a helper? Yes. TRANSFERS: TOILET - STEP 3: How much assistance does the patient require from the helper? Patient performs half or more of the tr ansferring tasks TRANSFERS: TOILET - STEP 4: Does the patient need only incidental help such as contact guard or steadying during toilet transfer? Yes. TRANSFERS: TOILET - SCORE: 4-MIN TRANSFERS: SHOWER: Activity did not occur on this shift TRANSFERS: SHOWER - SCORE: 0-UNK TRANSFERS: TUB: Activity did not occur on this shift TRANSFERS: TUB - SCORE: 0-UNK LOCOMOTION: WALK: Activity did not occur on this shift LOCOMOTION: WALK - SCORE: 0-UNK LOCOMOTION: WHEELCHAIR: Activity did not occur on this shift LOCOMOTION: WHEELCHAIR - SCORE: 0-UNK LOCOMOTION: STAIRS: Activity did not occur on this shift LOCOMOTION: STAIRS - SCORE: 0-UNK COMPREHENSION: COMPREHENSION - SCORE: 0-UNK EXPRESSION EXPRESSION - SCORE: 0-UNK SOCIAL INTERACTION: SOCIAL INTERACTION - SCORE: 0-UNK PROBLEM SOLVING: PROBLEM SOLVING - SCORE: 0-UNK MEMORY: MEMORY - SCORE: 0-UNK SIGNATURE PANEL: The following modified sections: Eating - Score, Grooming - Score, Bathing - Score, Dressing - Upper Body - Score, Dressing - Lower Body - Score, Toileting - Score, Transfers: Bed, Chair, Wheelchair - S core, Transfers: Toilet - Score, Transfers: Shower - Score, Transfers: Tub - Score, Comprehension - S core, Expression - Score, Social Interaction - Score, Problem Solving - Score, Memory - Score were [e lectronically] signed by COLE Romero on WedMar 10 2018 14:16:55 T-0500 ([facility])
--- NOTE | 2018-03-10 16:45 | R.PN ---
ENCOUNTER DATE AND TIME: 03/10/2018 16:42 (CDT) NAME CARLINE MURRAY DATE OF : 1940 DATE OF ADMISSION: 02/25/2018 14:49 (CDT) Left Temporal lobe and Left Occipital Lobe, Right basal ganglia, right upper aries and deep left parie jonatan lobe white matter.CHIEF COMPLAINT: Bilateral hemispheric stroke SUBJECTIVE: Pt denied any depression. Pt denied any Shortness of Breath. Ambulated 435' with contact guard assistance using a rolling walker. VITAL SIGNS Temperature: 97.6 F SBP/DBP: 128/78 Pulse: 75 Resp: 16 MEDICATION ALLERGIES: No Known Drug Allergies (NKDA) ENVIRONMENTAL ALLERGIES: None Known - Substance Allergies None Known - Other Allergies None Known NURSING: - Shower allowing shower - Bladder care per protocol - Skin care per protocol PRECAUTIONS: - Weight Bearing Precaution WBAT both LE ACTIVITIES OOB only with supervision THERAPIES: - Occupational Therapy Evaluate and Treat. Visual Perceptual Training. Cognitive Retraining. - Speech Therapy Cognitive Training. Memory Strategies. Expressive Language Skills. Speech Intelligibility Training. R eceptive Language Skills. - Physical Therapy Evaluate and Treat. PHYSICAL EXAM - Gen Alert and awake Lying in bed No apparent distress Oriented to: person, time, and place - Skin No skin breakdown. Normacephalic - Eyes No abnormalities - ENMT No abnormalities - Neck No abnormalities - CVS RRR - Chest Clear - Abd Soft - GI Non distended Deferred - No abnormalities - Ext No significant edema - MSK 4+/5 weakness in left upper and lower extremity - Neuro 4/5 strength left upper and lower extremities. - Psych No abnormalities ASSESSMENT: Pt. is a 77 yo Right-handed black male.On 02/22/2018 Pt. presented to [facility] with sudden onset of bilat eral weakness.On 02/22/2018 he was admitted to [facility] with diagnosis Left Temporal lobe and Left Occipi jonatan Lobe, Right basal ganglia, right upper aries and deep left parietal lobe white matter..His [facility] ent category is Stroke 01 - Bilateral (01.3).Pre-morbidly, Pt. was independent/mod-I in Sphincter Co ntrol, Transfers Control, Communication, Social Cognition, Self-Care, and Locomotion; and he had good Sphincter Control.Currently, he has deficits of Safety Awareness, Transfers Control, Balance, Self-C are, Locomotion, and Endurance.Pt. is now referred to [facility] for acute in- patient rehabilitation in order to maximize patient's functional independence in activities of daily living, strength, ROM, and mobility.- Rehab Goal Patient has realistic goal of being discharged at assistance level 6-Yadi to reside at Home with Fam rosa/Relatives. MDM/PLAN: - Physical Therapy Edema - to improve, our physical therapists will perform initial evaluation of pt's status upon admi ssion and devise an individualized program for Elevation Training, and Lymphedema Therapy FUNCTIONAL STATUS: UPDATED AT WEEKLY TEAM CONFERENCE - Bladder Same accident frequency: 7-Ind - No accidents in the past 7 days - Bowel Same accident frequency: 7-Ind - No accidents in the past 7 days - Walking Same score based on distance walked: 1(<=50ft) - Wheelchair Same score based on distance traveled: 0(N/A) FUNCTIONAL STATUS: - Self-Care A. Eating sup B. Grooming sup C. Bathing sup D. Dressing - Upper sup E. Dressing - Lower sup F. Toileting sup - Sphincter Control G: Bladder control Ind H: Bowel control Ind - Transfers Control I. Bed/Chair/Wheelchair Moisés J. Toilet Moisés K. Tub/Shower ADNO - Locomotion L. Walk/Wheelchair (C) Moisés L. Walk/Wheelchair (W) Moisés M. Stairs ADNO - Communication N. Comprehension (B) Ind O. Expression (B) Ind - Social Cognition P. Social Interaction Ind Q. Problem Solving Ind R. Memory Ind - Endurance Fair - Balance Fair - Safety Awareness Fair CURRENT FUNC. DEFICITS: Safety Awareness, Transfers Control, Balance, Self-Care, Locomotion, and Endurance SIGNATURE PANEL: (CDT)
[2018-03-10] MEDS: TAMSULOSIN 0.4 MG SR CAP PO SCH (20:25)
[2018-03-10] MEDS: ATORVASTATIN 80 MG TAB PO SCH (20:25)
--- NOTE | 2018-03-11 02:23 | FAST ---
SHIFT START DATE/TIME: 03/10/2018 19:00 (CDT) SHIFT END DATE/TIME: 03/11/2018 07:00 (CDT) NAME CARLINE MURRAY DATE OF : 1940 DATE OF ADMISSION: 02/25/2018 14:49 (CDT) PHONE: AGE: 77 SSN# [id number] GENDER: Male ENCOUNTER PHYSICIAN: Dr. Larry Vincent M.D. 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 EATING: Activity did not occur on this shift EATING - SCORE: 0-UNK GROOMING: Activity did not occur on this shift GROOMING - SCORE: 0-UNK BATHING: Activity did not occur on this shift BATHING - SCORE: 0-UNK DRESSING - UPPER BODY: Activity did not occur on this shift ARTICLES SCORE Total number of steps: 0 DRESSING - UPPER BODY - SCORE: 0-UNK DRESSING - LOWER BODY: Activity did not occur on this shift ARTICLES SCORE Total number of steps: 0 DRESSING - LOWER BODY - SCORE: 0-UNK TOILETING: Activity did not occur on this shift TOILETING - SCORE: 0-UNK BLADDER MANAGEMENT: BLADDER MANAGEMENT - STEP 1: Does the patient control the bladder completely and intentionally without equipment or devices or med ications, and is always continent? No. BLADDER MANAGEMENT - STEP 2: Does the patient require the assistance of a helper? No, patient only requires extra time BLADDER MANAGEMENT - SCORE: 6-CARINA BOWEL MANAGEMENT: Activity did not occur on this shift BOWEL MANAGEMENT - SCORE: 7-IND TRANSFERS: BED, CHAIR, WHEELCHAIR: TRANSFERS: BED, CHAIR, WHEELCHAIR - STEP 1: Does the patient require assistance with bed, chair, or wheelchair transfers? Yes. TRANSFERS: BED, CHAIR, WHEELCHAIR - STEP 2: Does the patient require the assistance of a helper? Yes. TRANSFERS: BED, CHAIR, WHEELCHAIR - STEP 3: How much assistance does the patient require from the helper? Only supervision TRANSFERS: BED, CHAIR, WHEELCHAIR - SCORE: 5-SUP TRANSFERS: TOILET: Activity did not occur on this shift TRANSFERS: TOILET - SCORE: 0-UNK TRANSFERS: SHOWER: Activity did not occur on this shift TRANSFERS: SHOWER - SCORE: 0-UNK TRANSFERS: TUB: Activity did not occur on this shift TRANSFERS: TUB - SCORE: 0-UNK LOCOMOTION: WALK: Activity did not occur on this shift LOCOMOTION: WALK - SCORE: 0-UNK LOCOMOTION: WHEELCHAIR: Activity did not occur on this shift LOCOMOTION: WHEELCHAIR - SCORE: 0-UNK COMPREHENSION: COMPREHENSION: TYPE: Both COMPREHENSION - STEP 1: Does the patient require help to understand complex and abstract ideas (such as current events, finan mylene, discharge planning, medical issues, relationships, etc)? No. COMPREHENSION - STEP 2: Does the patient need extra time, require an assistive device (such as glasses for visual comprehensi on or a hearing aid for auditory comprehension) or does s/he have mild difficulty understanding compl ex and abstract information? Yes. COMPREHENSION - SCORE: 6-CARINA EXPRESSION EXPRESSION: TYPE: Both EXPRESSION - STEP 1: Does the patient require help expressing complex and abstract ideas (such as current events, finances , discharge planning, medical issues, relationships, etc)? No. EXPRESSION - STEP 2: Does the patient need extra time, require an assistive device (such as augmentive communication syste m or a communication board), OR does s/he have mild difficulty expressing complex and abstract ideas (including mild dysarthria or mild word-find problems)? Yes. EXPRESSION - SCORE: 6-CARINA SOCIAL INTERACTION: SOCIAL INTERACTION - STEP 1: Does the patient require a helper to interact with others in social and therapeutic situations? No. SOCIAL INTERACTION - STEP 2: Does the patient need extra time in social situations, OR does s/he interact with staff, other patien ts, and family members ONLY in structured environments, OR does s/he require medication for social in teraction? Yes, patient needs extra time SOCIAL INTERACTION - SCORE: 6-CARINA PROBLEM SOLVING: PROBLEM SOLVING - STEP 1: Does the patient need help to solve complex problems such as managing a checking account or confronti ng interpersonal problems? No. PROBLEM SOLVING - STEP 2: Does the patient require extra time to make decisions or solve problems, OR does s/he have slight dif ficulty reading, initiating, or self-correcting in unfamiliar situations? Yes, patient needs extra ti me. PROBLEM SOLVING - SCORE: 6-CARINA MEMORY: MEMORY - STEP 1: Does the patient need help to remember frequently encountered people, daily routines, and executing r equests? No. MEMORY - STEP 2: Does the patient have slight difficulty recognizing frequently encountered people, daily routines, or executing requests without the need for repetition or using self-initiated or environmental cues to remember? Yes. MEMORY - SCORE: 6-CARINA SIGNATURE PANEL: The following modified sections: Eating - Score, Grooming - Score, Bathing - Score, Dressing - Upper Body - Score, Dressing - Lower Body - Score, Toileting - Score, Bladder Management - Score, Bowel Man agement - Score, Transfers: Bed, Chair, Wheelchair - Score, Transfers: Toilet - Score, Transfers: Esperanza wer - Score, Transfers: Tub - Score, Locomotion: Walk - Score, Locomotion: Wheelchair - Score, Compre hension - Score, Expression - Score, Social Interaction - Score, Problem Solving - Score, Memory - Sc ore were [electronically] signed by Citlaly Arriola on WedMar 11 2018 02:22:43 GMT-0500 ([facility] Time)
[2018-03-11] MEDS: CARVEDILOL 25 MG TAB PO SCH (05:07)
[2018-03-11 06:46] VITALS: TEMP 96.8
[2018-03-11] MEDS: AMLODIPINE 5 MG TAB PO SCH (08:29)
[2018-03-11] MEDS: HYDRALAZINE HCL 25 MG TABLET PO SCH ×2 (08:29→13:23)
[2018-03-11] MEDS: ASPIRIN 81 MG CHEWABLE TABLET PO SCH (08:30)
[2018-03-11] MEDS: LISINOPRIL 20 MG TAB PO SCH (08:30)
[2018-03-11] MEDS: APIXABAN 2.5 MG TABLET PO SCH (08:30)
--- NOTE | 2018-03-11 09:48 | P.RH.PN ---
Estimated Length of Stay: 15 Expected Discharge Date: 03/11/18 Discharge Disposition Plan: Home Family Support: Yes Assisted Goal: Mobility, Transfers, Self Care Vital Signs: Last Vital Signs Temp 96.8 F 03/11/18 06:40 Pulse 71 03/11/18 08:30 Resp 18 03/11/18 06:40 BP 132/73 03/11/18 08:30 Pulse Ox 95 03/11/18 06:40 Laboratory: Laboratory Last Values WBC 5.8 K/uL (4.3-10.9) D 03/10/18 05:37 RBC 4.54 M/uL (4.33-5.43) 03/10/18 05:37 Hgb 13.2 g/dL (13.6-17.9) L 03/10/18 05:37 Hct 40.1 % (39.6-49.0) 03/10/18 05:37 MCV 88.4 fL (80-100) 03/10/18 05:37 MCH 29.0 pg (27.0-35.0) 03/10/18 05:37 MCHC 32.8 g/dL (32.0-36.0) 03/10/18 05:37 RDW 13.8 % (12.1-15.2) 03/10/18 05:37 Plt Count 215 K/uL (152-406) 03/10/18 05:37 MPV 8.7 fL (7.6-11.3) 03/10/18 05:37 Neutrophils % 59.4 % (41.7-73.7) 03/10/18 05:37 Lymphocytes % 26.3 % (15.3-44.8) 03/10/18 05:37 Monocytes % 10.4 % (3.3-12.3) 03/10/18 05:37 Eosinophils % 3.1 % (0-4.4) 03/10/18 05:37 Basophils % 0.8 % (0-1.3) 03/10/18 05:37 Absolute Neutrophils 3.4 K/uL (1.8-8.0) 03/10/18 05:37 Absolute Lymphocytes 1.5 K/uL (0.7-4.9) 03/10/18 05:37 Absolute Monocytes 0.6 K/uL (0.1-1.3) 03/10/18 05:37 Absolute Eosinophils 0.2 K/uL (0-0.5) 03/10/18 05:37 Absolute Basophils 0.0 K/uL (0-0.5) 03/10/18 05:37 Sodium 139 mmol/L (136-145) 03/10/18 05:37 Potassium 4.5 mmol/L (3.5-5.1) 03/10/18 05:37 Chloride 106 mmol/L (98-107) 03/10/18 05:37 Carbon Dioxide 28 mmol/L (21-32) 03/10/18 05:37 BUN 15 mg/dL (7-18) 03/10/18 05:37 Creatinine 1.30 mg/dL (0.55-1.3) 03/10/18 05:37 Estimated GFR 65 mL/min (=/>90) L 03/10/18 05:37 Glucose 108 mg/dL (74-106) H 03/10/18 05:37 Calcium 8.6 mg/dL (8.5-10.1) 03/10/18 05:37 Magnesium 2.2 mg/dL (1.8-2.4) 02/26/18 06:06 Albumin 2.8 g/dL (3.4-5.0) L 03/10/18 05:37 Prealbumin 20.9 mg/dL (20-40) 03/10/18 05:37 Urine Color Yellow 03/05/18 05:15 Urine Appearance Clear 03/05/18 05:15 Urine pH 5.5 (5.0-7.0) 03/05/18 05:15 Ur Specific [place] 1.025 (1.005-1.030) 03/05/18 05:15 Urine Ketones Negative (NEG) 03/05/18 05:15 Urine Blood Negative (NEG) 03/05/18 05:15 Urine Nitrite Negative (NEG) 03/05/18 05:15 Urine Bilirubin Negative (NEG) 03/05/18 05:15 Urine Urobilinogen 0.2 mg/dL (0.2-1.0) 03/05/18 05:15 Ur Leukocyte Esterase Negative (NEG) 03/05/18 05:15 Urine RBC <5 /HPF (NONE SEEN) 02/25/18 16:25 Urine WBC <5 /HPF (<5) 02/25/18 16:25 Ur Squamous Epith Cells <5 /HPF (NONE SEEN) 02/25/18 16:25 Urine Bacteria <20 /HPF (NONE SEEN) 02/25/18 16:25 Urine Mucus Heavy /HPF (NONE SEEN) 02/25/18 16:25 Urine Culture Reflexed Not needed 02/25/18 16:25 Urine Glucose Negative (NEG) 03/05/18 05:15 Urine Total Protein Negative (NEG) 03/05/18 05:15 Opiates Screen Negative (NEGATIVE) 02/28/18 16:55 Methadone Screen Negative (NEGATIVE) 02/28/18 16:55 Ur Barbiturates Screen Negative (NEGATIVE) 02/28/18 16:55 Ur Phencyclidine Scrn Negative (NEGATIVE) 02/28/18 16:55 Amphetamines Screen Negative (NEGATIVE) 02/28/18 16:55 Benzodiazepines Screen Negative (NEGATIVE) 02/28/18 16:55 Cocaine Screen Negative (NEGATIVE) 02/28/18 16:55 Ur THC Screen Negative (NEGATIVE) 02/28/18 16:55 Plasma/Serum Alcohol 5 mg/dL (<3) H 02/28/18 15:45 Weight: 182 lb Wound Present: No Closed Surgical Incision Present: No Negative Pressure Wound Therapy Present: No Physician Update: His blood work has been reviewed. His H&H is stable. His prealbumin is ok at 20.9. He has made fair overall progress with speech, occupational and physical therapy. However, he is impulsive and does not follow instructions at times. Medication Issues: DVT Prophylaxis - Eliquis 2.5mg BID PO Functional Improvement: pt demonstrates improvement with functional mobility. He continues to exhibits deficits in balance, strength, and tolerance to ambulation. Skilled PT services remain necessary. Functional Improvement Occupational Therapy: pt can benifit with further therapy to address pt's static and dynamic standing balance for adl tasks and for functional and safe transfers. Cont to increase pt's UB strength. cont to increase pt's safety awareness and cont to educate pt on energy conservation techniques for adl and for functional transfers. 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 Patient placed on mechanical soft chopped diet with nectar thick liquids for safety. Moderate cognitive linguistic impairment present; patient recently requiring max cues for safety. (Supervision recommended) Summary: Patient's care plan and long-term goals have been reviewed and revised as necessary. Please see the Rehabilitation Signature page for all necessary signatures.
[2018-03-11 13:25] VITALS: BP 124/69
--- NOTE | 2018-03-11 14:41 | FAST ---
SHIFT START DATE/TIME: 03/11/2018 07:00 (CDT) SHIFT END DATE/TIME: 03/11/2018 19:00 (CDT) NAME CARLINE MURRAY DATE OF : 1940 DATE OF ADMISSION: 02/25/2018 14:49 (CDT) PHONE: AGE: 77 SSN# [id number] GENDER: Male ENCOUNTER PHYSICIAN: Dr. Larry Vincent M.D. 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 EATING: EATING - STEP 1: Does the patient require assistance when eating? Yes. EATING - STEP 2: Does the patient require the assistance of a helper? Yes. EATING - STEP 3: Does the patient perform half or more of the eating tasks? Yes. EATING - STEP 4: Does the patient need only supervision, cuing, coaxing OR help to apply an orthosis OR help to cut fo od, open containers, pour liquids, or butter bread? Yes. EATING - SCORE: 5-SUP GROOMING: Activity did not occur on this shift GROOMING - SCORE: 0-UNK BATHING: Activity did not occur on this shift BATHING - SCORE: 0-UNK DRESSING - UPPER BODY: Activity did not occur on this shift ARTICLES SCORE Total number of steps: 0 DRESSING - UPPER BODY - SCORE: 0-UNK DRESSING - LOWER BODY: Zippered pants (four steps) ARTICLES SCORE Total number of steps: 4 DRESSING - LOWER BODY - STEP 1: Does the patient require help when dressing below the waist? Yes. DRESSING - LOWER BODY - STEP 2: Does the patient require the assistance of a helper? Yes. DRESSING - LOWER BODY - STEP 3: Does the helper touch the patient while dressing? Yes. DRESSING - LOWER BODY - STEP 4: How many of the total steps does the patient complete on his/her own? 3 DRESSING - LOWER BODY - SCORE: 4-MIN TOILETING: TOILETING - STEP 1: Does the patient require assistance with toileting? No. TOILETING - SCORE: 7-IND BLADDER MANAGEMENT: BLADDER MANAGEMENT - STEP 1: Does the patient control the bladder completely and intentionally without equipment or devices or med ications, and is always continent? No. BLADDER MANAGEMENT - STEP 2: Does the patient require the assistance of a helper? No, patient requires and independently uses an a ssistive device, such as a urinal, bedpan, bedside commode, catheter, absorbent pad, or collecting de vice BLADDER MANAGEMENT - SCORE: 6-CARINA BLADDER MANAGEMENT - FREQUENCY OF ACCIDENTS: BLADDER MANAGEMENT(FA) - STEP 1: How many accidents has the patient had during the current shift? 1 BOWEL MANAGEMENT: BOWEL MANAGEMENT - STEP 1: Does the patient control bowels completely and intentionally without equipment devices or medications AND is always continent? Yes. BOWEL MANAGEMENT - SCORE: 7-IND BOWEL MANAGEMENT - FREQUENCY OF ACCIDENTS: BOWEL MANAGEMENT(FA) - STEP 1: How many accidents has the patient had during the current shift? 0 TRANSFERS: BED, CHAIR, WHEELCHAIR: TRANSFERS: BED, CHAIR, WHEELCHAIR - STEP 1: Does the patient require assistance with bed, chair, or wheelchair transfers? Yes. TRANSFERS: BED, CHAIR, WHEELCHAIR - STEP 2: Does the patient require the assistance of a helper? Yes. TRANSFERS: BED, CHAIR, WHEELCHAIR - STEP 3: How much assistance does the patient require from the helper? Lifting of the legs TRANSFERS: BED, CHAIR, WHEELCHAIR - STEP 4: How many legs does the patient require the helper to lift? one leg TRANSFERS: BED, CHAIR, WHEELCHAIR - SCORE: 4-MIN TRANSFERS: TOILET: TRANSFERS: TOILET - STEP 1: Does the patient require assistance with toilet transfers? Yes. TRANSFERS: TOILET - STEP 2: Does the patient require the assistance of a helper? Yes. TRANSFERS: TOILET - STEP 3: How much assistance does the patient require from the helper? Patient performs half or more of the tr ansferring tasks TRANSFERS: TOILET - STEP 4: Does the patient need only incidental help such as contact guard or steadying during toilet transfer? Yes. TRANSFERS: TOILET - SCORE: 4-MIN TRANSFERS: SHOWER: Activity did not occur on this shift TRANSFERS: SHOWER - SCORE: 0-UNK TRANSFERS: TUB: Activity did not occur on this shift TRANSFERS: TUB - SCORE: 0-UNK LOCOMOTION: WALK: Activity did not occur on this shift LOCOMOTION: WALK - SCORE: 0-UNK LOCOMOTION: WHEELCHAIR: Activity did not occur on this shift LOCOMOTION: WHEELCHAIR - SCORE: 0-UNK COMPREHENSION: COMPREHENSION - SCORE: 0-UNK EXPRESSION EXPRESSION - SCORE: 0-UNK SOCIAL INTERACTION: SOCIAL INTERACTION - SCORE: 0-UNK PROBLEM SOLVING: PROBLEM SOLVING - SCORE: 0-UNK MEMORY: MEMORY - SCORE: 0-UNK SIGNATURE PANEL: The following modified sections: Eating - Score, Grooming - Score, Bathing - Score, Dressing - Upper Body - Score, Dressing - Lower Body - Score, Toileting - Score, Bladder Management - Score, Bowel Man agement - Score, Transfers: Bed, Chair, Wheelchair - Score, Transfers: Toilet - Score, Transfers: Esperanza wer - Score, Transfers: Tub - Score, Locomotion: Walk - Score, Locomotion: Wheelchair - Score, Compre hension - Score, Expression - Score, Social Interaction - Score, Problem Solving - Score, Memory - Sc ore were [electronically] signed by Becky Quevedo CNA on WedMar 11 2018 14:40:50 GMT-0500 ([facility])
--- NOTE | 2018-03-11 15:14 | FAST ---
ENCOUNTER DATE AND TIME: 03/11/2018 08:00 (CDT) NAME CARLINE MURRAY DATE OF : 1940 DATE OF ADMISSION: 02/25/2018 14:49 (CDT) PHONE: AGE: 77 SSN# [id number] GENDER: Male ENCOUNTER PHYSICIAN: Dr. Larry Vincent M.D. 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 EATING: Activity did not occur on this shift EATING - SCORE: 0-UNK GROOMING: Wash, rinse, and dry face Wash, rinse, and dry hands GROOMING - STEP 1: Does the patient require assistance when grooming? No. GROOMING - SCORE: 7-IND BATHING: Abdomen Buttocks Chest Left arm Left lower leg and foot Left upper leg Perineal area Right arm Right lower leg and foot Right upper leg BATHING - STEP 1: Does the patient require assistance when bathing? Yes. BATHING - STEP 2: Does the patient require the assistance of a helper? Yes. BATHING - STEP 3: How much assistance does the patient require from the helper? Only incidental help such as placement of a wash cloth in his/her hand a few times as s/he bathes OR help to bathe just one or two areas of the body BATHING - SCORE: 4-MIN DRESSING - UPPER BODY: T-shirt/pullover shirt (four steps) ARTICLES SCORE Total number of steps: 4 DRESSING - UPPER BODY - STEP 1: Does the patient require help when dressing above the waist? No. DRESSING - UPPER BODY - SCORE: 7-IND DRESSING - LOWER BODY: Sock - Left foot (one step) Sock - Right foot (one step) Underwear (three steps) Zippered pants (four steps) ARTICLES SCORE Total number of steps: 9 DRESSING - LOWER BODY - STEP 1: Does the patient require help when dressing below the waist? Yes. DRESSING - LOWER BODY - STEP 2: Does the patient require the assistance of a helper? Yes. DRESSING - LOWER BODY - STEP 3: Does the helper touch the patient while dressing? Yes. DRESSING - LOWER BODY - STEP 4: How many of the total steps does the patient complete on his/her own? 9 DRESSING - LOWER BODY - SCORE: 4-MIN TOILETING: Activity did not occur on this shift TOILETING - SCORE: 0-UNK BLADDER MANAGEMENT: Activity did not occur on this shift BLADDER MANAGEMENT - SCORE: 7-IND BOWEL MANAGEMENT: Activity did not occur on this shift BOWEL MANAGEMENT - SCORE: 7-IND TRANSFERS: BED, CHAIR, WHEELCHAIR: Activity did not occur on this shift TRANSFERS: BED, CHAIR, WHEELCHAIR - SCORE: 0-UNK TRANSFERS: TOILET: Activity did not occur on this shift TRANSFERS: TOILET - SCORE: 0-UNK TRANSFERS: SHOWER: Activity did not occur on this shift TRANSFERS: SHOWER - SCORE: 0-UNK TRANSFERS: TUB: TRANSFERS: TUB - STEP 1: Does the patient require assistance with tub transfers? Yes. TRANSFERS: TUB - STEP 2: Does the patient require the assistance of a helper? Yes. TRANSFERS: TUB - STEP 3: How much assistance does the patient require from the helper? Incidental help such as contact guardin g or steadying, OR help to lift one leg into the tub TRANSFERS: TUB - SCORE: 4-MIN LOCOMOTION: WALK: Activity did not occur on this shift LOCOMOTION: WALK - SCORE: 0-UNK LOCOMOTION: WHEELCHAIR: Activity did not occur on this shift LOCOMOTION: WHEELCHAIR - SCORE: 0-UNK LOCOMOTION: STAIRS: Activity did not occur on this shift LOCOMOTION: STAIRS - SCORE: 0-UNK COMPREHENSION: COMPREHENSION - SCORE: 0-UNK EXPRESSION EXPRESSION - SCORE: 0-UNK SOCIAL INTERACTION: SOCIAL INTERACTION - SCORE: 0-UNK PROBLEM SOLVING: PROBLEM SOLVING - SCORE: 0-UNK MEMORY: MEMORY - SCORE: 0-UNK SIGNATURE PANEL: The following modified sections: Eating - Score, Grooming - Score, Bathing - Score, Dressing - Upper Body - Score, Dressing - Lower Body - Score, Toileting - Score, Transfers: Bed, Chair, Wheelchair - S core, Transfers: Toilet - Score, Transfers: Shower - Score, Transfers: Tub - Score, Comprehension - S core, Expression - Score, Social Interaction - Score, Problem Solving - Score, Memory - Score were [e lectronically] signed by COLE Romero on WedMar 11 2018 15:13:50 T-0500 ([facility] Time)
--- NOTE | 2018-03-11 15:55 | FAST ---
ENCOUNTER DATE AND TIME: 03/10/2018 08:00 (CDT) NAME CARLINE MURRAY DATE OF : 1940 DATE OF ADMISSION: 02/25/2018 14:49 (CDT) PHONE: AGE: 77 SSN# [id number] GENDER: Male ENCOUNTER PHYSICIAN: Dr. Larry Vincent M.D. 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 EATING: Activity did not occur on this shift EATING - SCORE: 0-UNK GROOMING: Activity did not occur on this shift GROOMING - SCORE: 0-UNK BATHING: Activity did not occur on this shift BATHING - SCORE: 0-UNK DRESSING - UPPER BODY: Activity did not occur on this shift Patient is not dressing in public clothing ARTICLES SCORE Total number of steps: 0 DRESSING - UPPER BODY - SCORE: 0-UNK DRESSING - LOWER BODY: Activity did not occur on this shift Patient is not dressing in public clothing ARTICLES SCORE Total number of steps: 0 DRESSING - LOWER BODY - SCORE: 0-UNK TOILETING: Activity did not occur on this shift TOILETING - SCORE: 0-UNK BLADDER MANAGEMENT: Activity did not occur on this shift BLADDER MANAGEMENT - SCORE: 7-IND BOWEL MANAGEMENT: Activity did not occur on this shift BOWEL MANAGEMENT - SCORE: 7-IND TRANSFERS: BED, CHAIR, WHEELCHAIR: TRANSFERS: BED, CHAIR, WHEELCHAIR - STEP 1: Does the patient require assistance with bed, chair, or wheelchair transfers? Yes. TRANSFERS: BED, CHAIR, WHEELCHAIR - STEP 2: Does the patient require the assistance of a helper? Yes. TRANSFERS: BED, CHAIR, WHEELCHAIR - STEP 3: How much assistance does the patient require from the helper? Lifting of the legs TRANSFERS: BED, CHAIR, WHEELCHAIR - STEP 4: How many legs does the patient require the helper to lift? both legs TRANSFERS: BED, CHAIR, WHEELCHAIR - SCORE: 3-MOD TRANSFERS: TOILET: Activity did not occur on this shift TRANSFERS: TOILET - SCORE: 0-UNK TRANSFERS: SHOWER: Activity did not occur on this shift TRANSFERS: SHOWER - SCORE: 0-UNK TRANSFERS: TUB: Activity did not occur on this shift TRANSFERS: TUB - SCORE: 0-UNK LOCOMOTION: WALK: LOCOMOTION: WALK - STEP 1: Does the patient need help to walk 150 feet? Yes. LOCOMOTION: WALK - STEP 2: How much assistance does the patient require to walk a minimum of 150 feet? More than incidental help LOCOMOTION: WALK - SCORE: 3-MOD LOCOMOTION: WHEELCHAIR: LOCOMOTION: WHEELCHAIR - STEP 1: Does the patient need help to go 150 feet in a wheelchair? Yes. LOCOMOTION: WHEELCHAIR - STEP 2: How much assistance does the patient need from the helper? Only incidental help such as around corner s or over thresholds LOCOMOTION: WHEELCHAIR - SCORE: 4-MIN LOCOMOTION: STAIRS: Activity did not occur on this shift LOCOMOTION: STAIRS - SCORE: 0-UNK COMPREHENSION: COMPREHENSION - SCORE: 0-UNK EXPRESSION EXPRESSION - SCORE: 0-UNK SOCIAL INTERACTION: SOCIAL INTERACTION - SCORE: 0-UNK PROBLEM SOLVING: PROBLEM SOLVING - SCORE: 0-UNK MEMORY: MEMORY - SCORE: 0-UNK SIGNATURE PANEL: The following modified sections: Transfers: Bed, Chair, Wheelchair - Score, Transfers: Toilet - Score , Locomotion: Walk - Score, Locomotion: Wheelchair - Score, Locomotion: Stairs - Score were [electron [email or web address]] signed by Surinder Horan PTA on WedMar 11 2018 15:54:51 GMT-0500 (Central Daylight Time)
--- NOTE | 2018-03-11 15:56 | FAST ---
ENCOUNTER DATE AND TIME: 03/11/2018 08:00 (CDT) NAME CARLINE MURRAY DATE OF : 1940 DATE OF ADMISSION: 02/25/2018 14:49 (CDT) PHONE: AGE: 77 SSN# [id number] GENDER: Male ENCOUNTER PHYSICIAN: Dr. Larry Vincent M.D. 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 EATING: Activity did not occur on this shift EATING - SCORE: 0-UNK GROOMING: Activity did not occur on this shift GROOMING - SCORE: 0-UNK BATHING: Activity did not occur on this shift BATHING - SCORE: 0-UNK DRESSING - UPPER BODY: Activity did not occur on this shift Patient is not dressing in public clothing ARTICLES SCORE Total number of steps: 0 DRESSING - UPPER BODY - SCORE: 0-UNK DRESSING - LOWER BODY: Activity did not occur on this shift Patient is not dressing in public clothing ARTICLES SCORE Total number of steps: 0 DRESSING - LOWER BODY - SCORE: 0-UNK TOILETING: Activity did not occur on this shift TOILETING - SCORE: 0-UNK BLADDER MANAGEMENT: Activity did not occur on this shift BLADDER MANAGEMENT - SCORE: 7-IND BOWEL MANAGEMENT: Activity did not occur on this shift BOWEL MANAGEMENT - SCORE: 7-IND TRANSFERS: BED, CHAIR, WHEELCHAIR: TRANSFERS: BED, CHAIR, WHEELCHAIR - STEP 1: Does the patient require assistance with bed, chair, or wheelchair transfers? Yes. TRANSFERS: BED, CHAIR, WHEELCHAIR - STEP 2: Does the patient require the assistance of a helper? Yes. TRANSFERS: BED, CHAIR, WHEELCHAIR - STEP 3: How much assistance does the patient require from the helper? Steadying/guiding assistance TRANSFERS: BED, CHAIR, WHEELCHAIR - SCORE: 4-MIN TRANSFERS: TOILET: Activity did not occur on this shift TRANSFERS: TOILET - SCORE: 0-UNK TRANSFERS: SHOWER: Activity did not occur on this shift TRANSFERS: SHOWER - SCORE: 0-UNK TRANSFERS: TUB: Activity did not occur on this shift TRANSFERS: TUB - SCORE: 0-UNK LOCOMOTION: WALK: LOCOMOTION: WALK - STEP 1: Does the patient need help to walk 150 feet? Yes. LOCOMOTION: WALK - STEP 2: How much assistance does the patient require to walk a minimum of 150 feet? Only incidental help such as contact guarding or steadying LOCOMOTION: WALK - SCORE: 4-MIN LOCOMOTION: WHEELCHAIR: LOCOMOTION: WHEELCHAIR - STEP 1: Does the patient need help to go 150 feet in a wheelchair? Yes. LOCOMOTION: WHEELCHAIR - STEP 2: How much assistance does the patient need from the helper? Only incidental help such as around corner s or over thresholds LOCOMOTION: WHEELCHAIR - SCORE: 4-MIN LOCOMOTION: STAIRS: Activity did not occur on this shift LOCOMOTION: STAIRS - SCORE: 0-UNK COMPREHENSION: COMPREHENSION - SCORE: 0-UNK EXPRESSION EXPRESSION - SCORE: 0-UNK SOCIAL INTERACTION: SOCIAL INTERACTION - SCORE: 0-UNK PROBLEM SOLVING: PROBLEM SOLVING - SCORE: 0-UNK MEMORY: MEMORY - SCORE: 0-UNK SIGNATURE PANEL: The following modified sections: Transfers: Bed, Chair, Wheelchair - Score, Transfers: Toilet - Score , Locomotion: Walk - Score, Locomotion: Wheelchair - Score, Locomotion: Stairs - Score were [viola willis] signed by Surinder Horan PTA on WedMar 11 2018 15:55:46 GMT-0500 (Central Daylight Time)
== END 2018-03-11 13:40 | disposition home or self-care (01) | DRG 57 ==
LOC: 5TH 02-25 14:49
PROVIDERS: ADMIT Psychiatry & Neurology Neurology with Special Qualifications in Child Neurology; ATTEND Psychiatry & Neurology Neurology with Special Qualifications in Child Neurology
DX: I69.398 Other sequelae of cerebral infarction (principal); R53.1 Weakness; I10 Essential (primary) hypertension; B35.1 Tinea unguium; I70.90 Unspecified atherosclerosis
CPT/HCPCS: 36415; 74230; 80048; 80307; 80320; 81001; 81003; 82040; 83735; 84134; 85025; 87086; 87088; 97542

== ENCOUNTER 2018-07-10 17:30 | Observation (INO) | payer OTHER ==
[2018-07-10 19:16] LABS: Absolute Lymphocytes (CBC) 0.6 K/uL (0.7-4.9); Absolute Monocytes 0.5 K/uL (0.1-1.3); Absolute Neutrophil 12.8 K/uL (1.8-8.0); Basophils % 0.3 % (0-1.3); Eosinophils % 0.5 % (0-4.4); Hematocrit 40.5 % (39.6-49.0); Lymphocytes % 4.5 % (15.3-44.8); MPV 8.5 fL (7.6-11.3); Monocytes % 3.8 % (3.3-12.3); RBC Red Blood Cell Count 4.68 M/uL (4.33-5.43)
[2018-07-10] MEDS ORDERED: VANCOMYCIN 1 GM/VIAL ONE (19:17)
[2018-07-10] MEDS ORDERED: ACETAMINOPHEN 325 MG TABLET ONE (19:17)
[2018-07-10] MEDS ORDERED: NA CHLORIDE 0.9% 500 ML ONE (19:18)
[2018-07-10] MEDS ORDERED: NA CHLORIDE 0.9% 250 ML ONE ×2 (19:18→23:39)
[2018-07-10] MEDS ORDERED: CEFEPIME 1 GM/100 ML BAG IV ONE (19:18)
[2018-07-10] MEDS ORDERED: NA CHLORIDE 0.9% 1,000 ML ONE (19:18)
[2018-07-10 19:24] LABS: Protime INR 0.98
--- NOTE | 2018-07-10 19:30 | EDPHYS ---
Physician Documentation [facility] Name: Jefferson Villarreal Age: 77 yrs Sex: Male : 1940 Arrival Date: 07/10/2018 Time: 17:38 Bed 6 Private MD: ED Physician Daniel Alcaraz HPI: 07/10 18:30 This 77 yrs old Black Male presents to ER via EMS with complaints of cough, fever and gennaro congestion. 18:30 The patient has shortness of breath at rest. Onset: The symptoms/episode began/occurred gennaro 2 day(s) ago. The patient's shortness of breath has no apparent modifying factors. The patient or guardian reports cough, described as mild, described as moderate, difficulty breathing, flu symptoms, arthralgias, low-grade fever, myalgias, hoarse voice. Onset: The symptoms/episode began/occurred today. Modifying factors: The symptoms are alleviated by nothing. the symptoms are aggravated by nothing. Associated signs and symptoms: Pertinent positives: non-productive cough, dizziness, fever. The patient or guardian reports airway noise. Historical: - Allergies: 17:52 No Known Allergies; ch - Home Meds: 17:52 aspirin 81 mg Oral chew 1 tab once daily [Active]; atorvastatin 10 mg oral tab 1 tab ch once daily [Active]; carvedilol oral oral [Active]; Hydralazine Oral [Active]; Lisinopril Oral [Active]; vitamins [Active]; Prazosin Oral [Active]; senna oral oral [Active]; Trazodone Oral [Active]; - PMHx: 17:52 CVA; Hypertension; ch - Immunization history:: Adult Immunizations up to date. - Social history:: Smoking status: Patient/guardian denies using tobacco. - Ebola Screening: : Patient negative for fever greater than or equal to 101.5 degrees Fahrenheit, and additional compatible Ebola Virus Disease symptoms Patient denies exposure to infectious person Patient denies travel to an Ebola-affected area in the 21 days before illness onset No symptoms or risks identified at this time. - Family history:: not pertinent. ROS: 18:30 Constitutional: Negative for fever, chills, and weight loss, Eyes: Negative for injury, gennaro pain, redness, and discharge, ENT: Negative for injury, pain, and discharge, Neck: Negative for injury, pain, and swelling, Abdomen/GI: Negative for abdominal pain, nausea, vomiting, diarrhea, and constipation, Back: Negative for injury and pain, : Negative for injury, bleeding, discharge, and swelling, MS/Extremity: Negative for injury and deformity, Skin: Negative for injury, rash, and discoloration, Psych: Negative for depression, anxiety, suicide ideation, homicidal ideation, and hallucinations, Allergy/Immunology: Negative for hives, rash, and allergies, Endocrine: Negative for neck swelling, polydipsia, polyuria, polyphagia, and marked weight changes, Hematologic/Lymphatic: Negative for swollen nodes, abnormal bleeding, and unusual bruising. 18:30 Cardiovascular: Positive for palpitations. 18:30 Respiratory: Positive for cough, shortness of breath, wheezing, expiratory. 18:30 Neuro: Positive for weakness. Exam: 18:30 Constitutional: This is a well developed, well nourished patient who is awake, alert, gennaro and in no acute distress. Head/Face: Normocephalic, atraumatic. Eyes: Pupils equal round and reactive to light, extra-ocular motions intact. Lids and lashes normal. Conjunctiva and sclera are non-icteric and not injected. Cornea within normal limits. Periorbital areas with no swelling, redness, or edema. ENT: Nares patent. No nasal discharge, no septal abnormalities noted. Tympanic membranes are normal and external auditory canals are clear. Oropharynx with no redness, swelling, or masses, exudates, or evidence of obstruction, uvula midline. Mucous membranes moist. Neck: Trachea midline, no thyromegaly or masses palpated, and no cervical lymphadenopathy. Supple, full range of motion without nuchal rigidity, or vertebral point tenderness. No Meningismus. Chest/axilla: Normal chest wall appearance and motion. Nontender with no deformity. No lesions are appreciated. Abdomen/GI: Soft, non-tender, with normal bowel sounds. No distension or tympany. No guarding or rebound. No evidence of tenderness throughout. Back: No spinal tenderness. No costovertebral tenderness. Full range of motion. Skin: Warm, dry with normal turgor. Normal color with no rashes, no lesions, and no evidence of cellulitis. MS/ Extremity: Pulses equal, no cyanosis. Neurovascular intact. Full, normal range of motion. Neuro: Awake and alert, GCS 15, oriented to person, place, time, and situation. Cranial nerves II-XII grossly intact. Motor strength 5/5 in all extremities. Sensory grossly intact. Cerebellar exam normal. Normal gait. Psych: Awake, alert, with orientation to person, place and time. Behavior, mood, and affect are within normal limits. 18:30 Cardiovascular: Rate: tachycardic, Rhythm: regular, Pulses: Pulses are 4+ in bilateral radial, brachial, femoral, popliteal, posterior tibial and and dorsalis pedis arteries.. Heart sounds: normal, Edema: is not appreciated, JVD: is not appreciated. Vital Signs: 17:52 BP 156 / 94; Pulse 116; Resp 22; Temp 99.4; Pulse Ox 94% on R/A; Pain 4/10; ch 19:30 BP 150 / 86; Pulse 100; Resp 19; Pulse Ox 96% on R/A; ea 20:19 BP 152 / 114; Pulse 107; Resp 19; Pulse Ox 92% on R/A; mw2 21:08 BP 144 / 89; Pulse 102; Resp 18; Temp 98.7(O); Pulse Ox 97% ; ea 17:52 Lam (FACES) ch MDM: 18:29 Patient medically screened. [facility] 18:32 Data reviewed: vital signs, nurses notes, lab test result(s), EKG, radiologic studies, gennaro plain films. 07/10 18:29 Order name: Basic Metabolic Panel [facility] 07/10 18:29 Order name: CBC with Diff [facility] 07/10 18:29 Order name: LFT's [facility] 07/10 18:29 Order name: Magnesium [facility] 07/10 18:29 Order name: NT PRO-BNP; Complete Time: 20:31 [facility] 07/10 18:29 Order name: PT-INR; Complete Time: 19:45 [facility] 07/10 18:29 Order name: Troponin (emerg Dept Use Only); Complete Time: 20:31 [facility] 07/10 18:29 Order name: Lipase; Complete Time: 20:31 [facility] 07/10 18:29 Order name: Blood Culture Adult (2) [facility] 07/10 18:29 Order name: Procalcitonin; Complete Time: 20:31 [facility] 07/10 18:29 Order name: Lactate; Complete Time: 19:45 [facility] 07/10 18:29 Order name: Urine Culture [facility] 07/10 18:29 Order name: Flu; Complete Time: 20:31 [facility] 07/10 18:29 Order name: Basic Metabolic Panel; Complete Time: 20:31 [facility] 07/10 18:29 Order name: XRAY Chest (1 view); Complete Time: 19:45 [facility] 07/10 18:29 Order name: EKG; Complete Time: 18:30 [facility] 07/10 18:29 Order name: Cardiac monitoring; Complete Time: 20:40 [facility] 07/10 18:29 Order name: EKG - Nurse/Tech; Complete Time: 20:14 [facility] 07/10 18:29 Order name: IV Saline Lock; Complete Time: 19:01 [facility] 07/10 18:29 Order name: CBC with Automated Diff; Complete Time: 19:26 [facility] 07/10 18:29 Order name: Liver (Hepatic) Function; Complete Time: 20:31 [facility] 07/10 18:29 Order name: Magnesium; Complete Time: 20:31 [facility] 07/10 19:16 Order name: Urine Dipstick--Ancillary (enter results) [facility] 07/10 18:29 Order name: Labs collected and sent; Complete Time: 19:01 [facility] 07/10 18:29 Order name: O2 Per Protocol; Complete Time: 20:41 [facility] 07/10 18:29 Order name: O2 Sat Monitoring; Complete Time: 20:41 [facility] 07/10 18:29 Order name: Urine Dipstick-Ancillary (obtain specimen); Complete Time: 19:18 [facility] Administered Medications: 19:13 Drug: NS 0.9% 500 ml Route: IV; Rate: bolus; Site: right hand; ea 20:00 Follow up: IV Status: Completed infusion; IV Intake: 500ml ea 19:14 Drug: NS 0.9% 1000 ml Route: IV; Rate: 125 ml/hr; Site: left hand; ea 20:39 Follow up: IV Status: Infusion continued upon admission ea 19:14 Drug: Cefepime 2 grams Route: IVPB; Rate: 200 ml/hr; Infused Over: 30 mins; Site: left ea hand; 19:36 Follow up: Response: No adverse reaction; IV Status: Completed infusion; IV Intake: ea 100ml 20:00 Drug: Tylenol 650 mg Route: PO; ea 21:30 Follow up: Response: No adverse reaction ea 20:10 Drug: vancoMYCIN 1 grams Route: IVPB; Infused Over: 2 hrs; Site: left hand; ea 21:35 Follow up: IV Status: Infusion continued upon admission; IV Intake: 200ml ea 20:36 Drug: Xopenex 2.5 mg Route: Inhalation; ea 20:45 Drug: AtroVENT Aerosol 0.5 mg Route: Inhalation; ea Disposition: 07/10/18 19:29 Hospitalization ordered by Sukhwinder Erickson for Inpatient Admission. Preliminary diagnosis are Pneumonia due to other specified bacteria - bilateral, Elevated white blood cell count, Weakness, Hypoxemia. - Bed requested for Telemetry/MedSurg (Inpatient). - Status is Inpatient Admission. ea - Condition is Fair. - Problem is new. - Symptoms have improved. UTI on Admission? No Signatures: Dispatcher [employer] EDMS Margarita Schaefer, RN RN Vicenta Booth RN RN kl Anderson, Corey, MD MD cha Therrien, Shelly, TRIM OPERATOR-C TRIM OPERATOR-Csnw Funmi Catherine RN RN ea Corrections: (The following items were deleted from the chart) 21:04 19:29 Hospitalization Ordered by Sukhwinder Erickson MD for Inpatient Admission. Preliminary kl diagnosis is Pneumonia due to other specified bacteria - bilateral; Elevated white blood cell count; Weakness; Hypoxemia. Bed requested for Telemetry/MedSurg (Inpatient). Status is Inpatient Admission. Condition is Fair. Problem is new. Symptoms have improved. UTI on Admission? No. gennaro 21:37 21:04 07/10/2018 19:29 Hospitalization Ordered by Sukhwinder Erickson MD for Inpatient ea Admission. Preliminary diagnosis is Pneumonia due to other specified bacteria - bilateral; Elevated white blood cell count; Weakness; Hypoxemia. Bed requested for Telemetry/MedSurg (Inpatient). Status is Inpatient Admission. Condition is Fair. Problem is new. Symptoms have improved. UTI on Admission? No. kl
--- NOTE | 2018-07-10 19:30 | ER ---
Nurse's Notes [facility] Name: Jefferson Villarreal Age: 77 yrs Sex: Male : 1940 Arrival Date: 07/10/2018 Time: 17:38 Bed 6 Private MD: Diagnosis: Pneumonia due to other specified bacteria-bilateral;Elevated white blood cell count;Weakness;Hypoxemia Presentation: 07/10 17:45 Presenting complaint: EMS states: pt lives at home with sister, after catholic got shivers and chills, felt cold and having tremors. denies other complaints right now. pt has hx of several strokes, has hx of r sided weakness, uses a voice tab, can ambulate with walker and gait belt. pt states he feels so cold. Transition of care: patient was not received from another setting of care. Onset of symptoms was July 10, 2018 at 11:30. Risk Assessment: Do you want to hurt yourself or someone else? Unable to obtain. Initial Sepsis Screen: Does the patient meet any 2 criteria? No. Patient's initial sepsis screen is negative. Does the patient have a suspected source of infection? No. Patient's initial sepsis screen is negative. Care prior to arrival: None. 17:45 Method Of Arrival: EMS: [facility] 17:45 Acuity: ELROY 3 Triage Assessment: 17:52 General: Appears in no apparent distress. uncomfortable, slender, Behavior is ch cooperative, appropriate for age. Pain: Unable to use pain scale. Patient is a pre-verbal child. Neuro: No deficits noted. Level of Consciousness is awake, alert, obeys commands, Reordering Clerk are equal bilaterally Moves all extremities. Weakness in right hand(s) arm(s) leg(s) foot/feet Speech with expressive aphasia noted. Respiratory: Airway is patent Respiratory effort is even, unlabored. Historical: - Allergies: 17:52 No Known Allergies; - Home Meds: 17:52 aspirin 81 mg Oral chew 1 tab once daily [Active]; atorvastatin 10 mg oral tab 1 tab ch once daily [Active]; carvedilol oral oral [Active]; Hydralazine Oral [Active]; Lisinopril Oral [Active]; vitamins [Active]; Prazosin Oral [Active]; senna oral oral [Active]; Trazodone Oral [Active]; - PMHx: 17:52 CVA; Hypertension; ch - Immunization history:: Adult Immunizations up to date. - Social history:: Smoking status: Patient/guardian denies using tobacco. - Ebola Screening: : Patient negative for fever greater than or equal to 101.5 degrees Fahrenheit, and additional compatible Ebola Virus Disease symptoms Patient denies exposure to infectious person Patient denies travel to an Ebola-affected area in the 21 days before illness onset No symptoms or risks identified at this time. - Family history:: not pertinent. Screenin:15 Abuse screen: Denies threats or abuse. Denies injuries from another. Nutritional aj1 screening: On nectar thickened liquids and pureed foods. Tuberculosis screening: No symptoms or risk factors identified. 19:20 Fall Risk IV access (20 points). ea Assessment: 18:15 General: Appears in no apparent distress. uncomfortable, Behavior is calm, cooperative, aj1 appropriate for age. Pain: Denies pain. Neuro: Level of Consciousness is awake, alert, Facial droop on right, from previous CVA. Right sided weakness from previous CVA, aphasia from previous CVA. Patient communicates with a writing board at home, is ambulatory with a walker. Reports dizziness. Cardiovascular: Patient's skin is warm and dry. Respiratory: Reports cough that is non-productive, Airway is patent Respiratory effort is even, unlabored, Respiratory pattern is regular, symmetrical. GI: Abdomen is non-distended, Reports nausea, vomiting. : No signs and/or symptoms were reported regarding the genitourinary system. EENT: No signs and/or symptoms were reported regarding the EENT system. Derm: Skin is normal. Musculoskeletal: Range of motion: WNL for patient. 18:20 Reassessment: Patient assisted to bedside commode. aj1 18:30 Reassessment: Patient assisted back to bed, tolerated well. aj1 19:00 General: Appears in no apparent distress. Behavior is calm, cooperative, appropriate ea for age. Pain: Denies pain. Neuro: Level of Consciousness is awake, alert, obeys commands, Facial droop on right, Pt aphasic. Sister reports he usually communicated with tablet at home. . Cardiovascular: Patient's skin is warm and dry. Respiratory: Airway is patent Respiratory effort is even, unlabored, Respiratory pattern is regular, symmetrical. GI: Abdomen is non-distended. : No signs and/or symptoms were reported regarding the genitourinary system. EENT: No signs and/or symptoms were reported regarding the EENT system. Derm: Skin is pink, warm \T\ dry. Musculoskeletal: Circulation, motion, and sensation intact. Right sided weakness noted, from previous CVA. 20:41 Reassessment: Patient and/or family updated on plan of care and expected duration. Pain ea level reassessed. Pt alert and oriented to self, pt is aphasic. Respirations even and unlabored. Dr. Rivera at bedside updating family and pt on plan of care. 21:30 Reassessment: Patient and/or family updated on plan of care and expected duration. Pain ea level reassessed. Pt alert and oriented x 3. Respirations even and unlabored. Chest expansions even and symmetrical. No s/s of pain or discomfort noted at this time. Pt admitted to fourth floor, taken via wheelchair per tech, pt tolerating well. Accompanied by sister. Vital Signs: 17:52 BP 156 / 94; Pulse 116; Resp 22; Temp 99.4; Pulse Ox 94% on R/A; Pain 4/10; ch 19:30 BP 150 / 86; Pulse 100; Resp 19; Pulse Ox 96% on R/A; ea 20:19 BP 152 / 114; Pulse 107; Resp 19; Pulse Ox 92% on R/A; mw2 21:08 BP 144 / 89; Pulse 102; Resp 18; Temp 98.7(O); Pulse Ox 97% ; ea 17:52 Lam ([facility]) ED Course: 17:38 Patient arrived in ED. ds1 17:45 Margarita Schaefer, ANNELIESE is Primary Nurse. ch 17:49 Triage completed. ch 17:52 Arm band placed on left wrist. Patient placed in an exam room, on a stretcher, on publication distributor, on pulse oximetry. 18:15 Patient has correct armband on for positive identification. Placed in gown. Bed in low aj1 position. Call light in reach. Patient's family at bedside. 18:15 No provider procedures requiring assistance completed. aj1 18:24 Daniel Alcaraz MD is Attending Physician. gennaro 18:55 Missed attempt(s): 20 gauge in right antecubital area. Bleeding controlled, band aid dh3 applied, catheter tip intact. 19:00 Initial lab(s) drawn, by me, sent to lab. First set of blood cultures drawn by me. 3 Inserted saline lock: 20 gauge in left wrist, using aseptic technique. Blood collected. 19:15 Second set of blood cultures drawn by me. 3 19:17 XRAY Chest (1 view) In Process Unspecified. EDMS 19:17 Urine collected: clean catch specimen, clear. Flu and/or RSV swab sent to lab. 3 19:27 Sukhwinder Erickson MD is Hospitalizing Provider. gennaro 20:12 Funmi Catherine RN is Primary Nurse. ea 21:31 Patient admitted, IV remains in place. ea Administered Medications: 19:13 Drug: NS 0.9% 500 ml Route: IV; Rate: bolus; Site: right hand; ea 20:00 Follow up: IV Status: Completed infusion; IV Intake: 500ml ea 19:14 Drug: NS 0.9% 1000 ml Route: IV; Rate: 125 ml/hr; Site: left hand; ea 20:39 Follow up: IV Status: Infusion continued upon admission ea 19:14 Drug: Cefepime 2 grams Route: IVPB; Rate: 200 ml/hr; Infused Over: 30 mins; Site: left ea hand; 19:36 Follow up: Response: No adverse reaction; IV Status: Completed infusion; IV Intake: ea 100ml 20:00 Drug: Tylenol 650 mg Route: PO; ea 21:30 Follow up: Response: No adverse reaction ea 20:10 Drug: vancoMYCIN 1 grams Route: IVPB; Infused Over: 2 hrs; Site: left hand; ea 21:35 Follow up: IV Status: Infusion continued upon admission; IV Intake: 200ml ea 20:36 Drug: Xopenex 2.5 mg Route: Inhalation; ea 20:45 Drug: AtroVENT Aerosol 0.5 mg Route: Inhalation; ea Intake: 19:36 IV: 100ml; Total: 100ml. ea 20:00 IV: 500ml; Total: 600ml. ea 21:35 IV: 200ml; Total: 800ml. ea Outcome: 19:29 Decision to Hospitalize by Provider. gennaro 20:15 Instructed on the need for admit, Demonstrated understanding of instructions. ea 21:30 Admitted to Med/surg accompanied by tech, via stretcher, room 410, with chart, Report ea called to Receiving nurse on fourth floor 21:30 Condition: stable 21:37 Patient left the ED. letha Signatures: Dispatcher [employer] EDMargarita Garza, RN Toya Hernadez ch RN RN Daniel Mcmillan MD MD cha [place], Demi ds1 Cony Sargent 3 Funmi Catherine RN RN ea [place], MyKena 2
--- NOTE | 2018-07-10 19:32 | RAD REPORT ---
EXAM DESCRIPTION: Nicki Single View07/10/2018 7:17 pm CLINICAL HISTORY: Cough COMPARISON: none FINDINGS: Bibasilar lung opacities The heart is normal size IMPRESSION: Bibasilar lung opacities consistent with pneumonia. This should be followed until it is clear to help exclude a post obstructive process/underlying mass
[2018-07-10 20:08] LABS: ALT/SGPT 31 U/L (12-78); AST/SGOT 33 U/L (15-37); Albumin 3.3 g/dL (3.4-5.0); Alkaline Phosphatase 88 U/L (45-117); BUN Blood Urea Nitrogen 14 mg/dL (7-18); Bicarbonate 28 mmol/L (21-32); Bilirubin Direct 0.1 mg/dL (0-0.2); Bilirubin Total 0.4 mg/dL (0.2-1.0); Glucose Level 147 mg/dL (74-106); Lipase 138 U/L (73-393); Magnesium 1.6 mg/dL (1.8-2.4); NT PRO-BNP 128 pg/mL (<450); Potassium 4.1 mmol/L (3.5-5.1); Protein, Total 8.6 g/dL (6.4-8.2); Sodium Level 141 mmol/L (136-145); Troponin (Emerg Dept Use Only) < 0.02 ng/mL (0.0-0.045)
[2018-07-10 20:39] LABS: Urine Blood NEGATIVE (NEG); Urine Glucose NEGATIVE (NEG); Urine Protein 1+ (NEG); Urine pH >8.5 (5.0-7.0)
[2018-07-10] MEDS ORDERED: LEVALBUTEROL 1.25 MG/3 ML NEB ONE (20:41)
[2018-07-10] MEDS ORDERED: IPRATROPIUM BROM 0.5MG/2.5ML ONE (20:41)
--- NOTE | 2018-07-10 20:48 | P.HP ---
Certification for Inpatient Patient admitted to: Inpatient With expected LOS: >2 Midnights Practitioner: I am a practitioner with admitting privileges, knowledge of patient current condition, hospital course, and medical plan of care. Services: Services provided to patient in accordance with Admission requirements found in Title 42 Section 412.3 of the Code of Federal Regulations Patient History Date of Service: 07/10/18 Reason for admission: COPD exacerbation History of Present Illness: Mr Villarreal is a 77 years old male with history of multiple CVA episode with ambulation deficit, requiring walker, dysphagia, aphasia, he also has history of PTSD, HTN, who was in the [employer] today, when he start with chills, SOB and increased cough. EMS was called and he was transferred to ED for further evaluation. Lab work remarkable for leukocytosis 14.1K, lactate and procalcitonin within normal limits. His creatinine was abnormal as well consistent with acute renal injury. CXR shows bilateral opacity consistent with pneumonia. Allergies No Known Allergies Allergy (Verified 02/25/18 15:13) Home medications list reviewed: Yes Home Medications: Amlodipine [Norvasc*] 1 tab PO DAILY 02/25/18 Aspirin Chewable [Aspirin Chewable*] 1 tab PO DAILY 02/25/18 Atorvastatin Calcium [Lipitor] 1 tab PO BEDTIME 02/25/18 Carvedilol [Coreg*] 37.5 mg PO BID 02/25/18 Hydralazine [Apresoline*] 1 tab PO Q8H 02/25/18 Lisinopril [Zestril] 1 tab PO DAILY 02/25/18 Docusate/Senna [Senokot-S*] 2 tab PO BEDTIME PRN #60 tab 03/11/18 Tamsulosin [Flomax*] 0.4 mg PO BEDTIME #30 cap 03/11/18 - Past Medical/Surgical History Diabetic: No -: htn -: cva -: COPD -: PTSD - Family History Family History: Reviewed- Non-Contributory - Social History Smoking Status: Former smoker Alcohol use: No CD- Drugs: No Caffeine use: No Place of Residence: Home Review of Systems 10-point ROS is otherwise unremarkable Physical Examination - Physical Exam General: Alert, Confused (agitated) HEENT: Atraumatic, PERRLA, Mucous membr. moist/pink, Sclerae nonicteric Neck: Supple, 2+ carotid pulse no bruit, No LAD, Without JVD or thyroid abnormality Respiratory: Diminished, Crackles/rales (bibasilar creackles) Cardiovascular: Regular rate/rhythm, Normal S1 S2 Gastrointestinal: Normal bowel sounds, No tenderness Musculoskeletal: No tenderness Integumentary: No rashes Neurological: Normal tone, Normal affect, Abnormal gait, Abnormal speech ( aphasia), Abnormal strength Lymphatics: No axilla or inguinal lymphadenopathy - Studies Laboratory Data (last 24 hrs) 07/10/18 19:00: PT 11.6, INR 0.98 07/10/18 19:00: WBC 14.1 H, Hgb 13.5 L, Hct 40.5, Plt Count 244 07/10/18 19:00: Sodium 141, Potassium 4.1, BUN 14, Creatinine 1.45 H, Glucose 147 H, Magnesium 1.6 L D, Total Bilirubin 0.4, AST 33, ALT 31, Alkaline Phosphatase 88, Lipase 138 Microbiology Data (last 24 hrs): 07/10/18 19:08 Nasopharnyx Influenza Type A Antigen Screen - Final 07/10/18 19:08 Nasopharnyx Influenza Type B Antigen Screen - Final Assessment and Plan - Problems (Diagnosis) (1) COPD exacerbation Current Visit: Yes Status: Acute (2) Pneumonia Current Visit: Yes Status: Acute Qualifiers: Pneumonia type: due to unspecified organism Laterality: bilateral Lung location: lower lobe of lung Qualified Code(s): J18.1 - Lobar pneumonia, unspecified organism (3) HTN (hypertension) Current Visit: Yes Status: Acute Qualifiers: Hypertension type: essential hypertension Qualified Code(s): I10 - Essential (primary) hypertension (4) History of CVA with residual deficit Current Visit: Yes Status: Acute - Plan The patient will be admitted to the hospital due to COPD exacerbation secondary to bilateral lower lobe pneumonia. Will start empiric IV antibiotics, IV steroids, breathing treatments. Blood cultures and in process. Influenza screen negative. - Advance Directives Does patient have a Living Will: No Does patient have a Durable POA for Healthcare: No - Code Status/Comfort Care Code Status Assessed: Yes Code Status: Full Code
[2018-07-10] MEDS ORDERED: ONDANSETRON 4 MG/2 ML VIAL IV PRN (21:43)
[2018-07-10] MEDS ORDERED: ALBUTEROL 2.5 MG/3 ML NEB SOL NEB PRN (21:43)
[2018-07-10] MEDS ORDERED: ACETAMINOPHEN 650MG/RECT SUPP RECT PRN (21:43)
[2018-07-10] MEDS: NA CHLORIDE 0.9% 1,000 ML IV SCH (21:43)
[2018-07-10] MEDS ORDERED: IPRATROPIUM BROM 0.5MG/2.5ML NEB PRN (21:43)
[2018-07-10] MEDS ORDERED: AZITHROMYCIN IV 500 MG in NA CHLORIDE 0.9% 250 ML IVPB SCH (22:00)
[2018-07-10 22:11] VITALS: BMI 24.7
[2018-07-10] MEDS ORDERED: AZITHROMYCIN 500 MG INJ IVPB ONE (23:26)
[2018-07-11] MEDS ORDERED: MAGNESIUM SULFATE 1 gm IVPB 1 GM/100 ML BAG IV ONE (00:02)
[2018-07-11] MEDS: NA CHLORIDE 0.9% 1,000 ML IV SCH (00:54)
[2018-07-11] MEDS ORDERED: METHYLPREDNISOLONE 40 MG INJ IV SCH (01:00)
[2018-07-11 04:04] VITALS: O2SAT 94
[2018-07-11 04:25] LABS: Absolute Lymphocytes (CBC) 0.8 K/uL (0.7-4.9); Absolute Monocytes 0.1 K/uL (0.1-1.3); Absolute Neutrophil 15.4 K/uL (1.8-8.0); Basophils % 0.3 % (0-1.3); Hematocrit 39.9 % (39.6-49.0); Lymphocytes % 4.7 % (15.3-44.8); MPV 8.6 fL (7.6-11.3); Monocytes % 0.7 % (3.3-12.3); RBC Red Blood Cell Count 4.58 M/uL (4.33-5.43)
[2018-07-11 04:34] LABS: Potassium 4.2 mmol/L (3.5-5.1)
[2018-07-11 05:20] LABS: Platelet Estimate ADEQ; Urine White Blood Cell Casts OK
[2018-07-11 05:21] LABS: Blood Morphology Comment NOT SEEN (NOT SEEN)
--- NOTE | 2018-07-11 08:49 | P.CNS ---
Date of Consult: 07/11/18 Chief Complaint: Possible pneumonia History of Present Illness: Patient is 77 years of age nonverbal from his prior strokes is right side is weak I suspect that he has had a left cerebral hemisphere stroke admitted with fever chills cough possible right lower lobe pneumonia he appears to be very comfortable denies any significant distress for shortness of breath Allergies No Known Allergies Allergy (Verified 02/25/18 15:13) Home Medications: Amlodipine [Norvasc*] 1 tab PO DAILY 02/25/18 Aspirin Chewable [Aspirin Chewable*] 1 tab PO DAILY 02/25/18 Atorvastatin Calcium [Lipitor] 1 tab PO BEDTIME 02/25/18 Carvedilol [Coreg*] 37.5 mg PO DAILY 02/25/18 Hydralazine [Apresoline*] 1 tab PO DAILY 02/25/18 Lisinopril [Zestril] 1 tab PO DAILY 02/25/18 Tamsulosin [Flomax*] 0.4 mg PO BEDTIME #30 cap 03/11/18 Docusate/Senna [Senokot-S*] 2 tab PO BEDTIME 07/10/18 - Past Medical/Surgical History Diabetic: No -: htn -: cva x7 -: COPD -: PTSD - Family History Mother Medical History: Diabetes Notes: schizoprenia Father Medical History: Heart disease - Social History Alcohol use: No CD- Drugs: No Caffeine use: Yes Place of Residence: Home Review of Systems is unable to be obtained Physical Examination Temp Pulse Resp BP Pulse Ox 97.4 F 81 20 150/95 H 95 07/11/18 04:00 07/11/18 04:00 07/11/18 04:00 07/11/18 05:23 07/11/18 04:00 General: Alert, Cooperative Respiratory: Clear to auscultation bilaterally Cardiovascular: No edema, Regular rate/rhythm, Normal S1 S2 Laboratory Data (last 24 hrs) 07/10/18 19:00: PT 11.6, INR 0.98 07/10/18 19:00: WBC 14.1 H, Hgb 13.5 L, Hct 40.5, Plt Count 244 07/10/18 19:00: Sodium 141, Potassium 4.1, BUN 14, Creatinine 1.45 H, Glucose 147 H, Magnesium 1.6 L D, Total Bilirubin 0.4, AST 33, ALT 31, Alkaline Phosphatase 88, Lipase 138 - Problems (1) Pneumonia Current Visit: Yes Status: Acute Plan: Patient is 77 years of age former history of stroke admitted with fever chills cough he has right lower lobe opacities with elevated white count most likely he has at some pneumonia patient's kidney function is improving blood pressure elevated oxygenation stable patient denies smoking he may have been had a history an Dc steroids can change to p.o. antibiotics consider Augmentin and then discharged home renal function is improving Dc IV fluids follow with me in 2-4 weeks Qualifiers: Pneumonia type: due to unspecified organism Laterality: bilateral Lung location: lower lobe of lung Qualified Code(s): J18.1 - Lobar pneumonia, unspecified organism
--- NOTE | 2018-07-11 08:49 | EKG ---
Test Date: 2018-07-10 Test Time: 19:21:25 [employer] Goods Tester Water: NICK MEASUREMENT RESULTS: Intervals: Rate: 111 [place]: 204 QRSD: 70 QT: 306 QTc: 416 [place]: P: 43 [place]: 204 QRS: -4 T: 105 INTERPRETIVE STATEMENTS: Sinus tachycardia ST & T wave abnormality, consider lateral ischemia Abnormal ECG No previous ECG available for comparison Electronically Signed On 07-11-18 08:48:35 PAGE DESIGNER by Omar Ortiz
[2018-07-11] MEDS ORDERED: ENOXAPARIN 40 MG/0.4 ML SQ SCH (09:00)
[2018-07-11] MEDS ORDERED: CEFTRIAXONE/SWI 1gm 1 GM/10 ML SYR IV SCH (09:00)
[2018-07-11] MEDS ORDERED: CEFTRIAXONE 1 GM/NS 50 ML 1 GM/50 ML BAG IV SCH (09:00)
[2018-07-11 13:16] VITALS: TEMP 97.8
--- NOTE | 2018-07-11 15:04 | RAD REPORT ---
EXAM DESCRIPTION: RAD - Barium Swallow Modified - 07/11/2018 2:53 pm CLINICAL HISTORY: prior history of swallowing issues COMPARISON: Barium Swallow Modified dated 03/09/2018 TECHNIQUE: The patient was given liquid, semi-solid and solid forms of barium. Lateral view fluorosc opic imaging was performed in conjunction with speech pathology service. FINDINGS: Laryneal penetration cleared with thin by tsp and honey by cup, not cleared with thin by c up sip nectar by cup mech soft. Aspiration: no cough with regular thin by cup. Pharyngeal residue: vallecular moderate with nectar, pyriform mild with thin cup sip moderated with n ectar. Other: delayed swallow , mild stasis. Total fluoroscopy time: 6 minutes and 29 seconds
[2018-07-11 16:20] VITALS: BP 160/90
--- NOTE | 2018-07-11 18:02 | P.SSS ---
Patient History Date of Service: 07/11/18 Reason for admission: Possible pneumonia History of Present Illness: Mr Villarreal is a 77 years old male with history of multiple CVA episode with ambulation deficit, requiring walker, dysphagia, aphasia, he also has history of PTSD, HTN, who was in the [employer] today, when he start with chills, SOB and increased cough. EMS was called and he was transferred to ED for further evaluation. Lab work remarkable for leukocytosis 14.1K, lactate and procalcitonin within normal limits. His creatinine was abnormal as well consistent with acute renal injury. CXR shows bilateral opacity consistent with pneumonia Allergies No Known Allergies Allergy (Verified 02/25/18 15:13) Home Medications: Amlodipine [Norvasc*] 1 tab PO DAILY 02/25/18 Aspirin Chewable [Aspirin Chewable*] 1 tab PO DAILY 02/25/18 Atorvastatin Calcium [Lipitor] 1 tab PO BEDTIME 02/25/18 Carvedilol [Coreg*] 37.5 mg PO DAILY 02/25/18 Hydralazine [Apresoline*] 1 tab PO DAILY 02/25/18 Lisinopril [Zestril] 1 tab PO DAILY 02/25/18 Tamsulosin [Flomax*] 0.4 mg PO BEDTIME #30 cap 03/11/18 Docusate/Senna [Senokot-S*] 2 tab PO BEDTIME 07/10/18 Amox/Clavulanate [Augmentin 875-125 Tab] 875 mg PO BID #28 tab 07/11/18 predniSONE [Deltasone] 5 mg PO BID #10 tab 07/11/18 - Past Medical/Surgical History Has patient received pneumonia vaccine in the past: No Diabetic: No -: htn -: cva x7 -: COPD -: PTSD - Family History Family History: Reviewed- Non-Contributory - Family History Mother -: Diabetes Notes: schizoprenia Father -: Heart disease - Social History Smoking Status: Former smoker Alcohol use: No CD- Drugs: No Caffeine use: Yes Place of Residence: Home Review of Systems 10-point ROS is otherwise unremarkable Physical Examination - Vital Signs Temperature: 97.8 F Blood Pressure: 160/90 Pulse: 85 Respirations: 20 Pulse Ox (%): 96 - Physical Exam General: Alert, In no apparent distress HEENT: Atraumatic, PERRLA, Mucous membr. moist/pink, EOMI, Sclerae nonicteric Neck: Supple, 2+ carotid pulse no bruit, No LAD, Without JVD or thyroid abnormality Respiratory: Clear to auscultation bilaterally, Normal air movement Cardiovascular: Regular rate/rhythm, Normal S1 S2 Gastrointestinal: Normal bowel sounds, No tenderness Integumentary: No rashes Neurological: Normal affect, Abnormal gait, Abnormal speech, Abnormal strength Lymphatics: No axilla or inguinal lymphadenopathy - Studies Laboratory Data (last 24 hrs) 07/10/18 19:00: PT 11.6, INR 0.98 07/10/18 19:00: WBC 14.1 H, Hgb 13.5 L, Hct 40.5, Plt Count 244 07/10/18 19:00: Sodium 141, Potassium 4.1, BUN 14, Creatinine 1.45 H, Glucose 147 H, Magnesium 1.6 L D, Total Bilirubin 0.4, AST 33, ALT 31, Alkaline Phosphatase 88, Lipase 138 Microbiology Data (last 24 hrs): 07/10/18 19:08 Nasopharnyx Influenza Type A Antigen Screen - Final 07/10/18 19:08 Nasopharnyx Influenza Type B Antigen Screen - Final - Diagnosis (Problem(s)) (1) COPD exacerbation Status: Acute (2) Pneumonia Status: Acute Qualifiers: Pneumonia type: due to unspecified organism Laterality: bilateral Lung location: lower lobe of lung Qualified Code(s): J18.1 - Lobar pneumonia, unspecified organism (3) HTN (hypertension) Status: Chronic Qualifiers: Hypertension type: essential hypertension Qualified Code(s): I10 - Essential (primary) hypertension (4) History of CVA with residual deficit Status: Chronic Treatment Summary: Overall during the hospital stay patient remained stable Patient was initially admitted to the hospital for COPD exacerbation most likely secondary to pneumonia. Pulmonology was consulted who recommended the patient be started on steroids, oxygen and oral antibiotics. Pt had marked improvement and thus discharged home under stable condition. Patient was given a prescription for Augmentin and low-dose steroids and was asked to follow up with pulmonology in about 2-4 weeks post discharge. - Disposition Disposition: ROUTINE DISCHARGE Condition: GOOD
[2018-07-11] MEDS ORDERED: TAMSULOSIN 0.4 MG SR CAP PO SCH (21:00)
[2018-07-11] MEDS ORDERED: AZITHROMYCIN IV 500 MG in NA CHLORIDE 0.9% 250 ML IVPB SCH (21:00)
[2018-07-11] MEDS ORDERED: DOCUSATE NA/SENNA CONC 1 TAB PO SCH (21:00)
[2018-07-11] MEDS ORDERED: ATORVASTATIN 80 MG TAB PO SCH (21:00)
[2018-07-12] MEDS ORDERED: CARVEDILOL 12.5 MG TAB PO SCH (09:00)
[2018-07-12] MEDS ORDERED: LISINOPRIL 20 MG TAB PO SCH (09:00)
[2018-07-12] MEDS ORDERED: HYDRALAZINE HCL 25 MG TABLET PO SCH (09:00)
[2018-07-12] MEDS ORDERED: ASPIRIN 81 MG CHEWABLE TABLET PO SCH (09:00)
[2018-07-12] MEDS ORDERED: AMLODIPINE 5 MG TAB PO SCH (09:00)
== END 2018-07-11 17:41 | disposition home or self-care (01) ==
LOC: ER 17:30 → INTOOBSV 20:39 → ERHOLD 20:39 → 4TH 21:23
PROVIDERS: ADMIT Internal Medicine; ATTEND Internal Medicine
DX: J44.0 Chronic obstructive pulmonary disease with (acute) lower respiratory infection (principal); J18.9 Pneumonia, unspecified organism; J44.1 Chronic obstructive pulmonary disease with (acute) exacerbation; I69.320 Aphasia following cerebral infarction; I69.391 Dysphagia following cerebral infarction; R13.10 Dysphagia, unspecified; F43.10 Post-traumatic stress disorder, unspecified; I10 Essential (primary) hypertension
CPT/HCPCS: 96365; 96367; 96361; 93005; 87040 ×2; 87088; 85025 ×2; 87086; 80048 ×2; 36415; 83735 ×2; 85610; 80076; 83605; 81003; 84484; 83690; 84145; 83880; 87804 ×2; 71045; 74230; 92610; 92611; 97163; 94760; 99285; J0456; J1650; J3475; J0696; J0692; J7030 ×2; J2920; G0378 ×2

== ENCOUNTER 2018-07-30 07:11 | Observation (INO) | payer OTHER ==
[2018-07-30] MEDS ORDERED: NA CHLORIDE 0.9% 1,000 ML ONE (07:52)
[2018-07-30 08:25] LABS: BUN Blood Urea Nitrogen 10 mg/dL (7-18); Bicarbonate 27 mmol/L (21-32); Creatine Phosphokinase 74 U/L (39-308); Glucose Level 165 mg/dL (74-106); Magnesium 1.9 mg/dL (1.8-2.4); Sodium Level 141 mmol/L (136-145); Troponin (Emerg Dept Use Only) < 0.02 ng/mL (0.0-0.045)
--- NOTE | 2018-07-30 08:43 | RAD REPORT ---
EXAM DESCRIPTION: CT - Head Brain Wo Cont - 07/30/2018 8:34 am CLINICAL HISTORY: AMS Drowsiness, headache COMPARISON: No comparisons TECHNIQUE: All CT scans are performed using dose optimization technique as appropriate and may inclu de automated exposure control or mA/KV adjustment according to patient size. FINDINGS: No intracranial hemorrhage, hydrocephalus or extra-axial fluid collection.Moderate general ized brain atrophy is present with moderate periventricular and deep white matter chronic microvascul ar ischemic changes.No areas of brain edema or evidence of midline shift. Small old infarct noted in the aries. The paranasal sinuses and mastoids are clear. The calvarium is intact. IMPRESSION: No acute intracranial abnormality.
[2018-07-30 09:27] LABS: Absolute Lymphocytes (CBC) 0.9 K/uL (0.7-4.9); Absolute Monocytes 0.4 K/uL (0.1-1.3); Absolute Neutrophil 5.9 K/uL (1.8-8.0); Basophils % 0.7 % (0-1.3); Eosinophils % 1.7 % (0-4.4); Hematocrit 39.3 % (39.6-49.0); Lymphocytes % 11.7 % (15.3-44.8); RBC Red Blood Cell Count 4.41 M/uL (4.33-5.43)
[2018-07-30 10:47] LABS: Urine Blood NEGATIVE (NEG); Urine Glucose NEGATIVE (NEG); Urine Protein TRACE (NEG)
--- NOTE | 2018-07-30 10:57 | ER ---
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 Transition of care: patient was not received from another setting of care. Onset of symptoms was July 30, 2018. Risk Assessment: Do you want to hurt yourself or someone else? Patient reports no desire to harm self or others. Initial Sepsis Screen: Does the patient meet any 2 criteria? Yes Does the patient have a suspected source of infection? Yes:. Care prior to arrival: None. 07:13 Method Of Arrival: EMS: [facility] 07:13 Acuity: ELROY 2 hj Triage Assessment: 07:19 General: Appears in no apparent distress. uncomfortable, Behavior is calm, cooperative, hj appropriate for age. Pain: Denies pain. Historical: - Allergies: 07:19 No Known Allergies; hj - Home Meds: 07:54 aspirin 81 mg Oral chew 1 tab once daily [Active]; Hydralazine Oral [Active]; pc1 carvedilol Oral [Active]; atorvastatin 10 mg Oral tab 1 tab once daily [Active]; lisinopril 40 mg Oral tab [Active]; amlodipine 5 mg tab [Active]; - PMHx: 07:19 CVA; Hypertension; hj - PSHx: 07:19 Unable to obtain; hj - Immunization history:: Adult Immunizations up to date. - Social history:: Smoking status: Patient/guardian denies using tobacco, Patient/guardian denies using alcohol. - Ebola Screening: : Patient negative for fever greater than or equal to 101.5 degrees Fahrenheit, and additional compatible Ebola Virus Disease symptoms Patient denies exposure to infectious person Patient denies travel to an Ebola-affected area in the 21 days before illness onset. - Family history:: not pertinent. - Hospitalizations: : No recent hospitalization is reported. Screenin:20 Abuse screen: Denies threats or abuse. Denies injuries from another. Nutritional hj screening: No deficits noted. Tuberculosis screening: No symptoms or risk factors identified. Fall Risk None identified. Assessment: 07:20 General: Appears in no apparent distress. uncomfortable, Behavior is calm, cooperative, hj appropriate for age. Pain: Denies pain. Neuro: Level of Consciousness is awake, alert, obeys commands, Oriented to person, place, situation. Cardiovascular: Capillary refill < 3 seconds Patient's skin is warm and dry. Respiratory: Airway is patent Respiratory effort is even, unlabored, Respiratory pattern is regular, symmetrical. Respiratory: Breath sounds with crackles. GI: No signs and/or symptoms were reported involving the gastrointestinal system. : No signs and/or symptoms were reported regarding the genitourinary system. EENT: No signs and/or symptoms were reported regarding the EENT system. Derm: No signs and/or symptoms reported regarding the dermatologic system. Musculoskeletal: No signs and/or symptoms reported regarding the musculoskeletal system. 08:07 Reassessment: Patient and/or family updated on plan of care and expected duration. Pain hj level reassessed. family in room;. 08:10 Reassessment: pt sent to CT;. hj 08:21 Reassessment: pt returned from CT. pc1 09:13 Reassessment: Patient and/or family updated on plan of care and expected duration. Pain pc1 level reassessed. Patient denies pain at this time. General: Appears in no apparent distress. comfortable, Behavior is calm, cooperative. 09:41 Reassessment: Patient and/or family updated on plan of care and expected duration. Pain hj level reassessed. resting comfortably;. 10:29 Reassessment: Patient and/or family updated on plan of care and expected duration. Pain hj level reassessed. able to urinate;. 12:14 Reassessment: Patient and/or family updated on plan of care and expected duration. Pain hj level reassessed. 12:36 Reassessment: Patient and/or family updated on plan of care and expected duration. Pain hj level reassessed. pt urine all over the floor and parts of bed sheets, bed sheets changed;. 13:06 Reassessment: pt's sister contact number- Maxwell Gayle- [phone];. hj 13:22 Reassessment: receiving RN will receive pt transfer from ICU, she will ED when shes hj ready for report; per front office secretary. 14:06 Reassessment: RN called pt's sister, Maxwell informing of pt room for admit- 203;. hj Vital Signs: 07:20 BP 152 / 100; Pulse 70; Resp 18; Temp 97.9(TE); Pulse Ox 93% on R/A; Weight 99.79 kg; hj Height 6 ft. 1 in. (185.42 cm); 08:08 BP 100 / 76; Pulse 68; Resp 18; Pulse Ox 99% on R/A; hj 08:54 BP 110 / 68; Pulse 73; Resp 18; Pulse Ox 100% on R/A; hj 09:12 BP 127 / 72; Pulse 76; Resp 18; Pulse Ox 100% on R/A; Pain 0/10; pc1 09:41 BP 112 / 84; Pulse 66; Resp 18; Pulse Ox 98% on R/A; hj 10:23 BP 121 / 96; Pulse 75; Resp 19; Pulse Ox 98% on R/A; pc1 11:00 BP 114 / 95; Pulse 70; Resp 18; Pulse Ox 100% on R/A; hj 12:38 BP 139 / 92; Pulse 83; Resp 18; Pulse Ox 100% on R/A; hj 07:20 Body Mass Index 29.03 (99.79 kg, 185.42 cm) hj ED Course: 07:13 Patient arrived in ED. hj 07:15 Galen Yip MD is Attending Physician. rn 07:17 Triage completed. hj 07:20 Arm band placed on right wrist. hj 07:20 Patient has correct armband on for positive identification. Placed in gown. Bed in low hj position. Call light in reach. Side rails up X 1. Adult w/ patient. 07:22 Brannon Drummond, ANNELIESE is Primary Nurse. hj 07:39 Inserted saline lock: 20 gauge in right forearm, using aseptic technique. pc1 07:48 X-ray completed. Portable x-ray completed in exam room. Patient tolerated procedure sg4 well. 07:49 XRAY Chest (1 view) In Process Unspecified. EDMS 07:50 Maintain EMS IV. Dressing intact. Good blood return noted. Site clean \T\ dry. Gauge \T\ hj site: 18g L AC. 07:59 Flu Sent. hj 07:59 Lactate Sent. hj 08:00 Procalcitonin Sent. hj 08:00 CPK Sent. hj 08:00 Basic Metabolic Panel Sent. hj 08:00 CBC with Diff Sent. hj 08:00 Troponin (emerg Dept Use Only) Sent. hj 08:00 Magnesium Sent. hj 08:00 Protime (+inr) Sent. hj 08:00 Ptt, Activated Sent. hj 08:04 Lactate Sent. hj 08:[address] via stretcher. mw3 08:17 CT completed. Patient tolerated procedure well. Patient moved back from CT. mw3 08:34 CT Head Brain wo Cont In Process Unspecified. EDMS 10:55 Valerie Gonzalez MD is Hospitalizing Provider. rn 14:04 No provider procedures requiring assistance completed. Patient admitted, IV remains in hj place. intact. Administered Medications: 08:04 Drug: NS 0.9% 1000 ml Route: IV; Rate: 1000 ml; Site: left antecubital; 09:30 Follow up: IV Status: Completed infusion; IV Intake: 1000ml Point of Care Testing: Blood Glucose: 07:19 Blood Glucose: 188 mg/dL; pc1 Ranges: Intake: 09:30 IV: 1000ml; Total: 1000ml. Outcome: 10:56 Decision to Hospitalize by Provider. rn 14:04 Attestation : i agree with assessment and notes of Abhijit Nina RN. 14:04 Admitted to Med/surg accompanied by tech, via stretcher, room 203, with chart, Report called to ANNELIESE Whelan 14:04 Condition: stable 14:04 Instructed on the need for admit, Demonstrated understanding of instructions. 14:31 Patient left the ED. Signatures: Dispatcher [employer] EDMS Galen Yip MD MD rn Joaquin, Henry, RN RN hj Willis, Michelle mw3 Agnieszka Leyva sg4 Abhijit Nina pc1 Corrections: (The following items were deleted from the chart) 07:44 07:20 BP 92 / 64; Pulse 49bpm; Resp 18bpm; Pulse Ox 93% RA; Temp 97.9F Temporal; 99.79 hj kg; Height 6 ft. 1 in.; BMI: 29.0; hj
--- NOTE | 2018-07-30 10:57 | EDPHYS ---
Physician Documentation [facility] Name: Jefferson Villarreal Age: 77 yrs Sex: Male : 1940 Arrival Date: 07/30/2018 Time: 07:13 Bed 2 Private MD: ED Physician Galen Yip HPI: 07/30 07:22 This 77 yrs old Black Male presents to ER via EMS with complaints of Unresponsive. rn 07:22 The patient presents with decreased responsiveness. Onset: The symptoms/episode rn began/occurred this morning. Possible causes: unknown. Current symptoms: In the emergency department the patient's symptoms have improved. The patient has experienced a previous episode. 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 Daughter reports recent cough. No fever. Patient now near baseline and denies pain. Given fluids by EMS for hypotension. . Historical: - Allergies: 07:19 No Known Allergies; - Home Meds: 07:54 aspirin 81 mg Oral chew 1 tab once daily [Active]; Hydralazine Oral [Active]; pc1 carvedilol Oral [Active]; atorvastatin 10 mg Oral tab 1 tab once daily [Active]; lisinopril 40 mg Oral tab [Active]; amlodipine 5 mg tab [Active]; - PMHx: 07:19 CVA; Hypertension; hj - PSHx: 07:19 Unable to obtain; hj - Immunization history:: Adult Immunizations up to date. - Social history:: Smoking status: Patient/guardian denies using tobacco, Patient/guardian denies using alcohol. - Ebola Screening: : Patient negative for fever greater than or equal to 101.5 degrees Fahrenheit, and additional compatible Ebola Virus Disease symptoms Patient denies exposure to infectious person Patient denies travel to an Ebola-affected area in the 21 days before illness onset. - Family history:: not pertinent. - Hospitalizations: : No recent hospitalization is reported. ROS: 07:22 Constitutional: Negative for fever, chills Eyes: Negative for injury, pain, redness, rn and discharge, ENT: Negative for injury, pain, and discharge, Neck: Negative for injury, pain, and swelling, Cardiovascular: Negative for chest pain, palpitations, and edema, Respiratory: Negative for shortness of breath, cough, wheezing, and pleuritic chest pain, Abdomen/GI: Negative for abdominal pain, nausea, vomiting, diarrhea, and constipation, MS/Extremity: Negative for injury and deformity, Skin: Negative for injury, rash, and discoloration, Neuro: Negative for headache, numbness, tingling, and seizure. Exam: 07:22 Constitutional: Thin male, no acute distress Head/Face: Normocephalic, atraumatic. rn Eyes: Periorbital areas with no swelling, redness, or edema. ENT: dry MM Cardiovascular: Bradycardic, regular Respiratory: Mild tachypnea, no wheezing, no retractions Abdomen/GI: soft, non-tender MS/ Extremity: Pulses equal, no cyanosis. Neurovascular intact. Full, normal range of motion. Equal circumference. Neuro: Awake and alert, GCS 15, oriented to person, place, time, and situation. + slurred speech (daughter states speech at baseline), moves all 4 extremities with 5/5 strength Vital Signs: 07:20 BP 152 / 100; Pulse 70; Resp 18; Temp 97.9(TE); Pulse Ox 93% on R/A; Weight 99.79 kg; hj Height 6 ft. 1 in. (185.42 cm); 08:08 BP 100 / 76; Pulse 68; Resp 18; Pulse Ox 99% on R/A; hj 08:54 BP 110 / 68; Pulse 73; Resp 18; Pulse Ox 100% on R/A; hj 09:12 BP 127 / 72; Pulse 76; Resp 18; Pulse Ox 100% on R/A; Pain 0/10; pc1 09:41 BP 112 / 84; Pulse 66; Resp 18; Pulse Ox 98% on R/A; hj 10:23 BP 121 / 96; Pulse 75; Resp 19; Pulse Ox 98% on R/A; pc1 11:00 BP 114 / 95; Pulse 70; Resp 18; Pulse Ox 100% on R/A; hj 12:38 BP 139 / 92; Pulse 83; Resp 18; Pulse Ox 100% on R/A; hj 07:20 Body Mass Index 29.03 (99.79 kg, 185.42 cm) MDM: 07:15 Patient medically screened. rn 10:54 Differential Diagnosis: CVA, electrolyte abnormality, alcohol intoxication, rn hypoglycemia, pneumonia, TIA, UTI, volume depletion. Data reviewed: vital signs, nurses notes, lab test result(s), EKG, radiologic studies, CT scan, plain films, and as a result, I will admit patient. Counseling: I had a detailed discussion with the patient and/or guardian regarding: the historical points, exam findings, and any diagnostic results supporting the discharge/admit diagnosis, lab results, radiology results, the need for further work-up and treatment in the hospital. Response to treatment: the patient's condition has returned to base line, and as a result, I will admit patient. Admission orders: after a detailed discussion of the patient's condition and case, the admit orders are written by me. ED course: Pt with possible TIA, vs syncope, vs dehydration given rapid response to IV fluids, will admit to Dr. Gonzalez for MRI and further evaluation/observation.. 07/30 07:16 Order name: CPK; Complete Time: 09:10 07/30 07:16 Order name: Basic Metabolic Panel; Complete Time: 09:10 07/30 07:16 Order name: CBC with Diff; Complete Time: 10:07 rn 07/30 07:16 Order name: Magnesium; Complete Time: 09:10 rn 07/30 07:16 Order name: Protime (+inr); Complete Time: 10:19 rn 07/30 07:16 Order name: Ptt, Activated; Complete Time: 10:19 rn 07/30 07:16 Order name: CT Head Brain wo Cont; Complete Time: 09:10 07/30 07:16 Order name: Troponin (emerg Dept Use Only); Complete Time: 09:10 rn 07/30 07:16 Order name: Procalcitonin; Complete Time: 09:10 rn 07/30 07:16 Order name: Lactate; Complete Time: 09:10 rn 07/30 07:16 Order name: Blood Culture Adult (2) rn 07/30 07:16 Order name: Flu; Complete Time: 09:10 rn 07/30 07:16 Order name: XRAY Chest (1 view) 07/30 10:26 Order name: Urine Dipstick--Ancillary (enter results); Complete Time: 10:47 07/30 07:16 Order name: EKG; Complete Time: 07:17 rn 07/30 07:16 Order name: Cardiac monitoring; Complete Time: 07:23 rn 07/30 07:16 Order name: EKG - Nurse/Tech; Complete Time: 07:23 rn 07/30 07:16 Order name: IV Saline Lock; Complete Time: 07:23 rn 07/30 07:16 Order name: Labs collected and sent; Complete Time: 08:00 rn 07/30 07:16 Order name: NPO; Complete Time: 07:23 rn 07/30 07:16 Order name: O2 Per Protocol; Complete Time: 07:31 rn 07/30 07:16 Order name: O2 Sat Monitoring; Complete Time: 07:24 rn 07/30 07:16 Order name: Urine Dipstick-Ancillary (obtain specimen); Complete Time: 10:25 rn 07/30 07:16 Order name: Glucose Level; Complete Time: 07:23 rn 07/30 08:27 Order name: Labs - recollect needed; Complete Time: 08:34 07/30 10:56 Order name: Stroke Protocol EDMS Administered Medications: 08:04 Drug: NS 0.9% 1000 ml Route: IV; Rate: 1000 ml; Site: left antecubital; 09:30 Follow up: IV Status: Completed infusion; IV Intake: 1000ml Point of Care Testing: Blood Glucose: 07:19 Blood Glucose: 188 mg/dL; pc1 Ranges: Critical Glucose Levels:Adult <50 mg/dl or >400 mg/dl <40 mg/dl or >180 mg/dl Disposition: 07/30/18 10:56 Hospitalization ordered by Valerie Gonzalez for Observation. Preliminary diagnosis are Altered mental status, unspecified, Hypotension, Dehydration. - Bed requested for Telemetry/MedSurg (observation). - Status is Observation. - Condition is Stable. - Problem is new. - Symptoms have improved. UTI on Admission? No Signatures: Dispatcher [employer] Ayla Ohara RN RN dw Nieto, Roman, MD MD rn Joaquin, Henry, RN RN hj Botello, Elizabeth eb Cantu, Patrick pc1 Corrections: (The following items were deleted from the chart) 13:16 10:56 Hospitalization Ordered by Valerie Gonzalez MD for Observation. Preliminary diagnosis dw is Altered mental status, unspecified; Hypotension; Dehydration. Bed requested for Telemetry/MedSurg (observation). Status is Observation. Condition is Stable. Problem is new. Symptoms have improved. UTI on Admission? No. rn 14:31 13:16 07/30/2018 10:56 Hospitalization Ordered by Valerie Gonzalez MD for Observation. hj Preliminary diagnosis is Altered mental status, unspecified; Hypotension; Dehydration. Bed requested for Telemetry/MedSurg (observation). Status is Observation. Condition is Stable. Problem is new. Symptoms have improved. UTI on Admission? No. dw
--- NOTE | 2018-07-30 11:05 | RAD REPORT ---
EXAM DESCRIPTION: RAD - Chest Single View - 07/30/2018 7:49 am CLINICAL HISTORY: COUGH Chest pain. COMPARISON: Chest Single View dated 07/10/2018 FINDINGS: Portable technique limits examination quality. Mild bilateral interstitial lung opacities are present, but appearing less prominent compared to the prior study. The heart is mildly prominent in size with a tortuous thoracic aorta. No displaced fract ures. IMPRESSION: No acute intrathoracic process suspected.
--- NOTE | 2018-07-30 16:02 | P.HP ---
Certification for Inpatient Patient admitted to: Observation With expected LOS: <2 Midnights Practitioner: I am a practitioner with admitting privileges, knowledge of patient current condition, hospital course, and medical plan of care. 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 Per sister at bedside and ER records, patient was sent a relative's house, and was last seen normal at 1:00 a.m.. When relatives came home, he was found to be hunched over, unresponsive. EMS was called. When EMS arrived, patient's systolic blood pressure was in the 70s and he was bradycardic. He was brought to the emergency room. In the ED, He was given IV fluids and his blood pressure and heart rate responded well. His labs were remarkable for a creatinine of 1.40, otherwise his labs were unremarkable. He remained hemodynamically stable after the IV fluids. Per the ER physician, patient had returned to baseline which was confirmed by the daughter at bedside. At the time of my exam, patient was alert and oriented x3, was aphasic , and was back to his baseline which was confirmed by his sister at bedside. He was admitted for observation. Allergies No Known Allergies Allergy (Verified 02/25/18 15:13) Home Medications: Amlodipine [Norvasc*] 1 tab PO DAILY 02/25/18 Aspirin Chewable [Aspirin Chewable*] 1 tab PO DAILY 02/25/18 Atorvastatin Calcium [Lipitor] 1 tab PO BEDTIME 02/25/18 Carvedilol [Coreg*] 37.5 mg PO DAILY 02/25/18 Hydralazine [Apresoline*] 1 tab PO DAILY 02/25/18 Lisinopril [Zestril] 1 tab PO DAILY 02/25/18 Tamsulosin [Flomax*] 0.4 mg PO BEDTIME #30 cap 03/11/18 Docusate/Senna [Senokot-S*] 2 tab PO BEDTIME 07/10/18 Amox/Clavulanate [Augmentin 875-125 Tab] 875 mg PO BID #28 tab 07/11/18 predniSONE [Deltasone] 5 mg PO BID #10 tab 07/11/18 - Past Medical/Surgical History Diabetic: No -: htn -: cva x7 -: COPD -: PTSD Psychosocial/ Personal History: Patient lives with sister at her house. - Family History Mother -: Diabetes Notes: schizoprenia Father -: Heart disease - Social History Alcohol use: No CD- Drugs: No Caffeine use: Yes Review of Systems 10-point ROS is otherwise unremarkable Physical Examination - Vital Signs Temperature: 97.9 F Blood Pressure: 139/92 Pulse: 83 Respirations: 18 - Physical Exam General: Alert, In no apparent distress, Oriented x3, Other (Agitated) HEENT: Atraumatic, PERRLA, Mucous membr. moist/pink, EOMI, Sclerae nonicteric Respiratory: Normal air movement, Rhonchi/gurgles Cardiovascular: No edema, Normal pulses, Regular rate/rhythm, Normal S1 S2 Capillary refill: <2 Seconds Gastrointestinal: Normal bowel sounds, No tenderness Musculoskeletal: No tenderness Integumentary: No rashes Neurological: Other (Gait not tested yet; residual right-sided weakness, at baseline), Abnormal speech (Aphasia) - Studies Laboratory Data (last 24 hrs) 07/30/18 09:10: PT 11.8, INR 1.00, APTT 28.0 07/30/18 09:10: WBC 7.4, Hgb 13.2 L, Hct 39.3 L, Plt Count 180 07/30/18 07:50: Sodium 141, Potassium 4.0, BUN 10, Creatinine 1.40 H, Glucose 165 H, Magnesium 1.9 Microbiology Data (last 24 hrs): 07/30/18 07:50 Nasopharnyx Influenza Type A Antigen Screen - Final 07/30/18 07:50 Nasopharnyx Influenza Type B Antigen Screen - Final Assessment and Plan - Problems (Diagnosis) (1) Altered mental status Current Visit: Yes Status: Acute Qualifiers: Altered mental status type: transient alteration of awareness Qualified Code(s): R40.4 - Transient alteration of awareness (2) Acute kidney injury Current Visit: Yes Status: Acute (3) PTSD (post-traumatic stress disorder) Current Visit: Yes Status: Chronic (4) HTN (hypertension) Current Visit: No Status: Chronic Qualifiers: Hypertension type: essential hypertension Qualified Code(s): I10 - Essential (primary) hypertension (5) History of CVA with residual deficit Current Visit: No Status: Chronic Comment: Ambulation defects requiring a walker, dysphasia and aphasia - Plan This is a 77-year-old male with: Altered mental status. Patient back to baseline, confirmed by [address] head negative Differential diagnoses include stroke, TIA, and syncopal episode. We will observe patient overnight with tele History of multiple CVA with residual deficits Per family, patient back to baseline. We will get physical therapy, occupational therapy and speech therapy. As speech therapy not available today, will do a bedside swallow evaluation with honey thickened. Per patient's sister, he eats a pureed diet at home. Unfortunately, no MRI on-call since since the weekend. If new neurological symptoms appear, will need to transfer patient as we do not have MRI or neurology iron handler this weekend. Acute kidney injury Start IV fluids, maintenance rate Will continue to monitor Hypertension We will restart home medications as tolerated PTSD DVT prophylaxis: Lovenox GI prophylaxis: None Diet: Pureed if patient passes bedside swallow study Disposition: Admit to floor with tele for observation. If continues to be stable, no new neurological deficits overnight, likely discharge home in the next 24-48 hr. - Advance Directives Does patient have a Living Will: No Does patient have a Durable POA for Healthcare: No Time Spent Managing Pts Care (In Minutes): 55
[2018-07-30] MEDS: NA CHLORIDE 0.9% 1,000 ML IV SCH (17:04)
[2018-07-30 18:15] VITALS: BMI 24.4
[2018-07-30 21:07] VITALS: O2SAT 91
[2018-07-31] MEDS: NA CHLORIDE 0.9% 1,000 ML IV SCH ×2 (01:12→03:46)
[2018-07-31 06:10] LABS: Urine Appearance CLEAR; Urine Bilirubin NEGATIVE (NEG); Urine Blood NEGATIVE (NEG); Urine Color YELLOW; Urine Glucose NEGATIVE (NEG); Urine Protein NEGATIVE (NEG); Urine Urobilinogen 0.2 mg/dL (0.2-1.0)
[2018-07-31 06:12] LABS: Urine Microscopic Reflex NO UMIC
[2018-07-31 06:37] LABS: Absolute Lymphocytes (CBC) 1.4 K/uL (0.7-4.9); Absolute Monocytes 0.5 K/uL (0.1-1.3); Absolute Neutrophil 2.9 K/uL (1.8-8.0); Basophils % 0.8 % (0-1.3); Eosinophils % 3.7 % (0-4.4); Hematocrit 39.8 % (39.6-49.0); Lymphocytes % 28.7 % (15.3-44.8); MPV 9.2 fL (7.6-11.3); RBC Red Blood Cell Count 4.52 M/uL (4.33-5.43)
[2018-07-31 06:59] LABS: ALT/SGPT 14 U/L (12-78); AST/SGOT 11 U/L (15-37); Albumin 2.8 g/dL (3.4-5.0); Alkaline Phosphatase 68 U/L (45-117); BUN Blood Urea Nitrogen 7 mg/dL (7-18); Bicarbonate 25 mmol/L (21-32); Bilirubin Total 0.6 mg/dL (0.2-1.0); Glucose Level 101 mg/dL (74-106); Protein, Total 7.1 g/dL (6.4-8.2); Sodium Level 141 mmol/L (136-145)
[2018-07-31] MEDS ORDERED: LISINOPRIL 20 MG TAB PO ONE (08:56)
[2018-07-31] MEDS ORDERED: AMLODIPINE 5 MG TAB PO ONE (08:56)
[2018-07-31 12:21] VITALS: BP 159/89; TEMP 97.6
--- NOTE | 2018-07-31 12:28 | EKG ---
Test Date: 2018-07-30 Test Time: 07:17:42 Boat Designer: IAN MEASUREMENT RESULTS: Intervals: Rate: 74 RI: 218 QRSD: 76 QT: 410 QTc: 455 [place]: P: 52 RI: 218 QRS: 22 T: -7 INTERPRETIVE STATEMENTS: Sinus rhythm with 1st degree AV block Septal infarct, age undetermined Abnormal ECG Compared to ECG 07/10/2018 19:21:25 First degree AV block now present Myocardial infarct finding now present Sinus tachycardia no longer present ST (T wave) deviation no longer present Possible ischemia no longer present Electronically Signed On 07-31-18 12:24:50 CDT by Polo Brizuela
== END 2018-07-31 14:48 | disposition home or self-care (01) ==
LOC: ER 07:11 → ERHOLD 11:12 → 2ND 14:05
PROVIDERS: ADMIT Family Medicine; ATTEND Family Medicine
DX: R41.82 Altered mental status, unspecified (principal); N17.9 Acute kidney failure, unspecified; F43.10 Post-traumatic stress disorder, unspecified; I10 Essential (primary) hypertension; J44.9 Chronic obstructive pulmonary disease, unspecified; I69.391 Dysphagia following cerebral infarction; I69.320 Aphasia following cerebral infarction; Z79.82 Long term (current) use of aspirin
CPT/HCPCS: 93005; 87040 ×2; 85025 ×2; 80048; 36415; 83735; 82550; 85610; 82962; 83605; 85730; 81003 ×2; 84484; 80053; 84145; 87804 ×2; 70450; 71045; 97161; 96360; 99285; J7030 ×3; G0378 ×2

== ENCOUNTER 2019-04-27 14:25 | Inpatient (IN) | payer OTHER ==
--- OUTSIDE RECORDS SUMMARY | 2019-04-27 14:27 | XMS REPORT ---
:1940 [facility] Address [address] [place] [address] Care Team Providers Name Role Phone Unavailable Unavailable Unavailable Problems This patient has no known problems. Allergies, Adverse Reactions, Alerts This patient has no known allergies or adverse reactions. Medications This patient has no known medications. Encounters Start End Encounter Admission Attending Care Care Encounter Date/Time Date/Time Type Type Clinicians Facility Department ID 2018-09-16 2018-09-16 Emergency E [facility] [id number] 09:51:00 09:51:00 2018-09-16 2018-09-16 Outpatient [facility] [id number] 09:51:00 09:51:00
[2019-04-27] MEDS ORDERED: NA CHLORIDE 0.9% 2,000 ML ONE (14:33)
[2019-04-27] MEDS ORDERED: ACETAMINOPHEN 500 MG TAB ONE (14:33)
[2019-04-27 14:48] LABS: Arterial Blood Carboxyhemoglob 1.2 % (0-1.5); Blood Gas Oxyhemoglobin 86.8 % (94-97); Blood O2 Saturation 88.6 % (92-98.5)
[2019-04-27 15:06] LABS: Absolute Lymphocytes (CBC) 0.9 K/uL (0.7-4.9); Basophils % 0.2 % (0-1.3); Hematocrit 41.3 % (39.6-49.0); Lymphocytes % 4.1 % (15.3-44.8); RBC Red Blood Cell Count 4.71 M/uL (4.33-5.43)
[2019-04-27] MEDS ORDERED: CEFEPIME 1 GM/100 ML BAG IV ONE (15:19)
--- NOTE | 2019-04-27 15:46 | RAD REPORT ---
EXAM DESCRIPTION: Nicki Single View04/27/2019 3:23 pm CLINICAL HISTORY: sob COMPARISON: July 2018 FINDINGS: Moderate alveolar opacities throughout the right lung. Left lung appears clear The heart is normal size IMPRESSION: Moderate right pneumonia. This should be followed until it has cleared to help exclude a post obstructive process
--- NOTE | 2019-04-27 15:56 | ER ---
Nurse's Notes [facility] Name: Jefferson Villarreal Age: 78 yrs Sex: Male : 1940 Arrival Date: 04/27/2019 Time: 14:28 Bed 25 Private MD: Diagnosis: Severe sepsis;Aspiration pneumonia;Urinary tract infection, site not specified Presentation: 04/27 14:25 Presenting complaint: EMS states: he is feeling weak, short of breath, dehydrated and mg2 has foul \E\dark colored urine. Transition of care: patient was not received from another setting of care. Onset of symptoms was April 2019. Risk Assessment: Do you want to hurt yourself or someone else? Patient reports no desire to harm self or others. Initial Sepsis Screen: Does the patient meet any 2 criteria? RR > 20 per min. HR > 90 bpm. Does the patient have a suspected source of infection? Yes: Dysuria/Frequency/Urgency/UTI. 14:25 Method Of Arrival: EMS: [facility] mg2 14:25 Acuity: ELROY 2 mg2 14:25 Care prior to arrival: Medication(s) given: Normal saline infusion, 200 ml. mg2 Triage Assessment: 18:54 General: Behavior is calm, cooperative. mg2 Historical: - Allergies: 14:40 No Known Allergies; mg2 - Home Meds: 14:40 amlodipine 5 mg tab [Active]; aspirin 81 mg Oral chew 1 tab once daily [Active]; mg2 atorvastatin 10 mg Oral tab 1 tab once daily [Active]; carvedilol Oral [Active]; Hydralazine Oral [Active]; lisinopril 40 mg Oral tab [Active]; - PMHx: 14:40 CVA; Hypertension; COPD; Hyperlipidemia; mg2 - Immunization history:: Flu vaccine status is unknown. - Social history:: Smoking status: unknown. - Ebola Screening: : No symptoms or risks identified at this time. Screenin:43 Abuse screen: Denies threats or abuse. Denies injuries from another. Nutritional mg2 screening: No deficits noted. Tuberculosis screening: No symptoms or risk factors identified. Fall Risk IV access (20 points). Assessment: 14:27 Reassessment: code sepsis called. mg2 14:27 General: Appears ill, slender, malnourished. Pain: Unable to use pain scale. Patient mg2 appears restless. Neuro: Level of Consciousness is awake, alert. Cardiovascular: Capillary refill < 3 seconds. Respiratory: Airway is patent. Respiratory: Respiratory effort is labored, Respiratory pattern is tachypnea. GI: No signs and/or symptoms were reported involving the gastrointestinal system. : No signs and/or symptoms were reported regarding the genitourinary system. EENT: No signs and/or symptoms were reported regarding the EENT system. Derm: Skin is intact, is healthy with good turgor. Musculoskeletal: Circulation, motion, and sensation intact. Capillary refill < 3 seconds. 15:45 Reassessment: BIPAP started by RT on duty. mg2 16:27 Reassessment: Patient appears in no apparent distress at this time. Patient and/or mg2 family updated on plan of care and expected duration. Pain level reassessed. Patient is alert, oriented x 3, equal unlabored respirations, skin warm/dry/pink. patient on bipap. Patient states symptoms have improved. 18:53 Reassessment: Patient appears in no apparent distress at this time. Patient and/or mg2 family updated on plan of care and expected duration. Pain level reassessed. Patient is alert, oriented x 3, equal unlabored respirations, skin warm/dry/pink. 18:53 Reassessment: patient sleeping. mg2 19:31 Reassessment: Patient appears in no apparent distress at this time. Patient and/or mg2 family updated on plan of care and expected duration. Pain level reassessed. Patient is alert, oriented x 3, equal unlabored respirations, skin warm/dry/pink. Vital Signs: 14:37 BP 124 / 96; Pulse 127; Resp 35; Pulse Ox 86% on R/A; mg2 14:37 Weight 59.87 kg; Height 5 ft. 11 in. (180.34 cm); mg2 15:18 BP 145 / 114; Pulse 115; Temp 98.5(R); Pulse Ox 88% on 6 lpm NC; lt1 15:18 Resp 43; lt1 15:53 BP 151 / 110; Pulse 112; Resp 30; Pulse Ox 94% ; lt1 16:26 BP 154 / 90; Pulse 103; Resp 22; Pulse Ox 94% on 70% BiPAP; mg2 17:35 BP 169 / 95; Pulse 101; Resp 22; Pulse Ox 98% on 70% BiPAP; mg2 18:51 BP 137 / 82; Pulse 100; Resp 22; Pulse Ox 97% on 70% BiPAP; mg2 19:32 BP 139 / 87; Pulse 98; Resp 25; Temp 98.5(A); Pulse Ox 99% on BiPAP; mg2 14:37 Body Mass Index 18.41 (59.87 kg, 180.34 cm) mg2 ED Course: 14:28 Patient arrived in ED. jr8 14:28 Perry Luther PA is PHCP. jr8 14:28 Preet Ambriz MD is Attending Physician. jr8 14:30 Maintain EMS IV. Dressing intact. Site clean \T\ dry. Gauge \T\ site: 22 \T\ LH. mg2 14:32 Pavan Rankin, ANNELIESE is Primary Nurse. mg2 14:35 Inserted saline lock: 22 gauge in right forearm, using aseptic technique. Blood mg2 collected. 14:37 Triage completed. mg2 14:45 Chest Single View XRAY Sent. tr5 14:50 Inserted saline lock: 22 gauge in right forearm, using aseptic technique. Blood mg2 collected. 15:30 Mckoy cath inserted, using sterile technique, 16 Fr., by negotiator, balloon inflated, to mg2 gravity drainage, urine specimen collected. returned cloudy urine. Patient tolerated well. 15:33 Chest Single View XRAY In Process Unspecified. EDMS 15:45 attempted to initiate a transfer to the . A with [facility] / deangelo Arenas they are at eb capacity and are not taking any transfers currently but to please fax over the clinicals to [phone]. 15:46 No provider procedures requiring assistance completed. mg2 15:46 Patient has correct armband on for positive identification. court recording monitor on. Pulse mg2 ox on. NIBP on. Door closed. 15:54 Du Azar MD is Hospitalizing Provider. jr8 16:28 Arm band placed on. mg2 19:32 Patient admitted, IV remains in place. mg2 Administered Medications: 14:50 Drug: NS 0.9% (30 ml/kg) 30 ml/kg Route: IV; Rate: bolus; Site: right forearm; mg2 19:43 Follow up: Response: No adverse reaction; IV Status: Completed infusion; IV Intake: mg2 1800ml 15:20 Drug: Cefepime 1 grams Route: IVPB; Rate: 200 ml/hr; Infused Over: 30 mins; Site: right mg2 forearm; 16:25 Follow up: Response: No adverse reaction; IV Status: Completed infusion; IV Intake: mg2 100ml 16:10 Drug: vancoMYCIN 2 grams Route: IVPB; Rate: calculated rate; Site: right forearm; mg2 18:10 Follow up: Response: No adverse reaction; IV Status: Completed infusion; IV Intake: mg2 500ml 16:22 Drug: Albuterol 2.5 mg Route: Inhalation; mg2 16:45 Drug: Albuterol 2.5 mg Route: Inhalation; mg2 17:37 Drug: Albuterol 2.5 mg Route: Inhalation; mg2 19:42 Follow up: Response: No adverse reaction mg2 Intake: 16:25 IV: 100ml; Total: 100ml. mg2 18:10 IV: 500ml; Total: 600ml. mg2 19:43 IV: 1800ml; Total: 2400ml. mg2 Outcome: 15:55 Decision to Hospitalize by Provider. jr8 19:33 Admitted to ICU accompanied by nurse, accompanied by tech, via stretcher, room 6, with mg2 oxygen, on monitor, with chart, Report called to ANNELIESE Gardner 19:33 Condition: stable 19:33 Instructed on the need for admit, Demonstrated understanding of instructions. 20:09 Patient left the ED. mg2 Signatures: Dispatcher [employer] EDMS Perry Luther PA PA jr8 Chani Wasserman Michele, RN RN mg2 Carmina, Ursula lt1 Rigoberto Chavez RN RN tr5 Corrections: (The following items were deleted from the chart) 16:23 14:25 Presenting complaint: EMS states: he is feeling weak, short of breath, dehydrated mg2 and has foul \E\dark colored urine. mg2
--- NOTE | 2019-04-27 15:56 | EDPHYS ---
Physician Documentation [facility] Name: Jefferson Villarreal Age: 78 yrs Sex: Male : 1940 Arrival Date: 04/27/2019 Time: 14:28 Bed 25 Private MD: ED Physician Preet Ambriz HPI: 04/27 15:40 This 78 yrs old Black Male presents to ER via EMS with complaints of shortness of jr8 breath. 15:40 The patient has shortness of breath at rest. Onset: The symptoms/episode began/occurred jr8 gradually, 2 day(s) ago. Duration: The symptoms are continuous. The patient's shortness of breath has no apparent modifying factors. Associated signs and symptoms: Pertinent positives: general weakness and lack of appetite . Severity of symptoms: At their worst the symptoms were moderate in the emergency department the symptoms are unchanged. The patient has not experienced similar symptoms in the past. The patient has not recently seen a physician. Historical: - Allergies: 14:40 No Known Allergies; mg2 - Home Meds: 14:40 amlodipine 5 mg tab [Active]; aspirin 81 mg Oral chew 1 tab once daily [Active]; mg2 atorvastatin 10 mg Oral tab 1 tab once daily [Active]; carvedilol Oral [Active]; Hydralazine Oral [Active]; lisinopril 40 mg Oral tab [Active]; - PMHx: 14:40 CVA; Hypertension; COPD; Hyperlipidemia; mg2 - Immunization history:: Flu vaccine status is unknown. - Social history:: Smoking status: unknown. - Ebola Screening: : No symptoms or risks identified at this time. ROS: 15:40 Eyes: Negative for injury, pain, redness, and discharge, ENT: Negative for injury, jr8 pain, and discharge, Neck: Negative for injury, pain, and swelling, Cardiovascular: Negative for chest pain, palpitations, and edema, Abdomen/GI: Negative for abdominal pain, nausea, vomiting, diarrhea, and constipation, Back: Negative for injury and pain, MS/Extremity: Negative for injury and deformity, Skin: Negative for injury, rash, and discoloration, Neuro: Negative for headache, weakness, numbness, tingling, and seizure. 15:40 Constitutional: Positive for fatigue, malaise. 15:40 Respiratory: Positive for shortness of breath. Exam: 15:40 Eyes: Pupils equal round and reactive to light, extra-ocular motions intact. Lids and jr8 lashes normal. Conjunctiva and sclera are non-icteric and not injected. Cornea within normal limits. Periorbital areas with no swelling, redness, or edema. ENT: Nares patent. No nasal discharge, no septal abnormalities noted. Tympanic membranes are normal and external auditory canals are clear. Oropharynx with no redness, swelling, or masses, exudates, or evidence of obstruction, uvula midline. Mucous membranes moist. Neck: Trachea midline, no thyromegaly or masses palpated, and no cervical lymphadenopathy. Supple, full range of motion without nuchal rigidity, or vertebral point tenderness. No Meningismus. Abdomen/GI: Soft, non-tender, with normal bowel sounds. No distension or tympany. No guarding or rebound. No evidence of tenderness throughout. Back: No spinal tenderness. No costovertebral tenderness. Full range of motion. Skin: Warm, dry with normal turgor. Normal color with no rashes, no lesions, and no evidence of cellulitis. MS/ Extremity: Pulses equal, no cyanosis. Neurovascular intact. Full, normal range of motion. Neuro: Awake and alert, GCS 15, oriented to person, place, time, and situation. Cranial nerves II-XII grossly intact. Motor strength 5/5 in all extremities. Sensory grossly intact. Cerebellar exam normal. Normal gait. 15:40 Cardiovascular: Rate: tachycardic, Rhythm: regular, Pulses: Pulses are 2+ in bilateral radial, brachial, femoral, popliteal, posterior tibial and and dorsalis pedis arteries.. Heart sounds: normal, normal S1and S2, no S3 or S4, no murmur, no rub, no gallop, Edema: is not appreciated, JVD: is not appreciated. 15:40 Respiratory: mild respiratory distress is noted, Respirations: labored breathing, tachypnea, Breath sounds: rales, that are moderate, are heard in the right upper lobe, right middle lobe, right posterior upper lobe and right posterior middle lobe, wheezing: expiratory that is mild, is heard diffusely. Vital Signs: 14:37 BP 124 / 96; Pulse 127; Resp 35; Pulse Ox 86% on R/A; mg2 14:37 Weight 59.87 kg; Height 5 ft. 11 in. (180.34 cm); mg2 15:18 BP 145 / 114; Pulse 115; Temp 98.5(R); Pulse Ox 88% on 6 lpm NC; lt1 15:18 Resp 43; lt1 15:53 BP 151 / 110; Pulse 112; Resp 30; Pulse Ox 94% ; lt1 16:26 BP 154 / 90; Pulse 103; Resp 22; Pulse Ox 94% on 70% BiPAP; mg2 17:35 BP 169 / 95; Pulse 101; Resp 22; Pulse Ox 98% on 70% BiPAP; mg2 18:51 BP 137 / 82; Pulse 100; Resp 22; Pulse Ox 97% on 70% BiPAP; mg2 19:32 BP 139 / 87; Pulse 98; Resp 25; Temp 98.5(A); Pulse Ox 99% on BiPAP; mg2 14:37 Body Mass Index 18.41 (59.87 kg, 180.34 cm) mg2 MDM: 14:28 Patient medically screened. jr8 15:53 Data reviewed: vital signs, nurses notes, lab test result(s), EKG, radiologic studies, jr8 plain films. Data interpreted: Pulse oximetry: on 4L(s) per nasal canula, is 88 %. Interpretation: hypoxia. Counseling: I had a detailed discussion with the patient and/or guardian regarding: the historical points, exam findings, and any diagnostic results supporting the discharge/admit diagnosis, lab results, radiology results, the need for further work-up and treatment in the hospital. ED course: [facility] will admit to ICU hear. 04/27 14:29 Order name: ABG 04/27 14:29 Order name: Basic Metabolic Panel; Complete Time: 16:41 04/27 14:29 Order name: Blood Culture Adult (2) [facility] 04/27 14:29 Order name: CBC with Diff; Complete Time: 16:22 04/27 14:29 Order name: CPK; Complete Time: 16:41 04/27 14:29 Order name: Lactate; Complete Time: 15:32 04/27 14:29 Order name: LFT's; Complete Time: 16:41 04/27 14:29 Order name: Lipase; Complete Time: 16:41 04/27 14:29 Order name: Procalcitonin; Complete Time: 16:41 [facility] 04/27 14:29 Order name: Protime (+inr); Complete Time: 16:02 [facility] 04/27 14:29 Order name: Ptt, Activated; Complete Time: 16:02 [facility] 04/27 14:29 Order name: Troponin (emerg Dept Use Only); Complete Time: 16:41 8 04/27 14:29 Order name: Urine Microscopic Only [facility] 04/27 14:51 Order name: Glucose, Ancillary Testing; Complete Time: 15:20 EDMS 04/27 15:50 Order name: Urine Dipstick--Ancillary (enter results); Complete Time: 17:53 eb 04/27 16:13 Order name: Manual Differential; Complete Time: 16:22 EDMS 04/27 17:54 Order name: Lactate EDMS 04/27 17:55 Order name: CBC with Automated Diff EDMS 04/27 17:55 Order name: CBC with Automated Diff EDMS 04/27 17:55 Order name: CBC with Automated Diff EDMS 04/27 17:55 Order name: CBC with Automated Diff EDMS 04/27 17:55 Order name: Comprehensive Metabolic Panel EDMS 04/27 17:55 Order name: Comprehensive Metabolic Panel EDMS 04/27 17:55 Order name: Comprehensive Metabolic Panel EDMS 04/27 17:55 Order name: Comprehensive Metabolic Panel EDMS 04/27 17:55 Order name: Comprehensive Metabolic Panel EDMS 04/27 17:55 Order name: Comprehensive Metabolic Panel EDMS 04/27 17:55 Order name: Magnesium EDMS 04/27 17:55 Order name: Magnesium EDMS 04/27 17:55 Order name: Magnesium EDMS 04/27 14:29 Order name: Cath; Complete Time: 15:43 [facility] 04/27 14:29 Order name: Chest Single View XRAY; Complete Time: 16:22 8 04/27 14:29 Order name: Accucheck; Complete Time: 14:45 [facility] 04/27 14:29 Order name: Cardiac monitoring; Complete Time: 14:45 [facility] 04/27 14:29 Order name: EKG - Nurse/Tech; Complete Time: 14:45 8 04/27 14:29 Order name: IV Saline Lock - Large Bore; Complete Time: 14:45 [facility] 04/27 14:29 Order name: Labs collected and sent; Complete Time: 14:45 [facility] 04/27 14:29 Order name: O2 Per Protocol; Complete Time: 14:45 [facility] 04/27 14:29 Order name: O2 Sat Monitoring; Complete Time: 14:45 [facility] 04/27 14:29 Order name: Urine Dipstick-Ancillary (obtain specimen); Complete Time: 15:44 [facility] 04/27 15:21 Order name: Labs - recollect needed: green and blue tubes recollect; Complete Time: eb 15:42 04/27 15:31 Order name: BIPAP [facility] 04/27 15:47 Order name: EKG Electrocardiogram [facility] 04/27 17:54 Order name: CONS Physician Consult [facility] 04/27 17:54 Order name: NPO ED[facility] 04/27 17:55 Order name: Magnesium [facility] 04/27 17:55 Order name: Magnesium [facility] 04/27 17:55 Order name: Magnesium [facility] 04/27 17:55 Order name: Troponin I [facility] 04/27 17:55 Order name: Troponin I [facility] 04/27 17:55 Order name: Troponin I [facility] 04/27 17:55 Order name: Troponin I [facility] 04/27 17:58 Order name: CBC with Automated Diff ED[facility] 04/27 17:58 Order name: CBC with Automated Diff [facility] 04/27 17:59 Order name: CONS Pharmacy Consult [facility] Administered Medications: 14:50 Drug: NS 0.9% (30 ml/kg) 30 ml/kg Route: IV; Rate: bolus; Site: right forearm; mg2 19:43 Follow up: Response: No adverse reaction; IV Status: Completed infusion; IV Intake: mg2 1800ml 15:20 Drug: Cefepime 1 grams Route: IVPB; Rate: 200 ml/hr; Infused Over: 30 mins; Site: right mg2 forearm; 16:25 Follow up: Response: No adverse reaction; IV Status: Completed infusion; IV Intake: mg2 100ml 16:10 Drug: vancoMYCIN 2 grams Route: IVPB; Rate: calculated rate; Site: right forearm; mg2 18:10 Follow up: Response: No adverse reaction; IV Status: Completed infusion; IV Intake: mg2 500ml 16:22 Drug: Albuterol 2.5 mg Route: Inhalation; mg2 16:45 Drug: Albuterol 2.5 mg Route: Inhalation; mg2 17:37 Drug: Albuterol 2.5 mg Route: Inhalation; mg2 19:42 Follow up: Response: No adverse reaction mg2 Disposition: 15:53 Critical Care:. jr8 04/28 06:42 Co-signature as Attending Physician, Preet Ambriz MD I agree with the assessment and kdr plan of care. Disposition: 04/27/19 15:55 Hospitalization ordered by Du Azar for Inpatient Admission. Preliminary diagnosis are Severe sepsis, Aspiration pneumonia, Urinary tract infection, site not specified. - Bed requested for Intensive Care Unit. - Status is Inpatient Admission. mg2 - Condition is Fair. - Problem is new. - Symptoms have improved. UTI on Admission? Yes Critical care time excluding procedures: 04/27 15:53 Critical care time: Bedside Care: 20 minutes, Consultation: 10 minutes, Family jr8 Intervention: 10 minutes. Total time: 40 minutes Signatures: Dispatcher [employer] EDMS Preet Ambriz MD MD [facility] Perry Luther PA PA jr8 Laura Leyva RN RN Chani Wasserman Pavan Rankin RN RN mg2 Corrections: (The following items were deleted from the chart) 16:32 15:55 Hospitalization Ordered by Du Azar MD for Inpatient Admission. Preliminary eb diagnosis is Severe sepsis; Aspiration pneumonia; Urinary tract infection, site not specified. Bed requested for Intensive Care Unit. Status is Inpatient Admission. Condition is Fair. Problem is new. Symptoms have improved. UTI on Admission? Yes. jr8 19:02 16:32 04/27/2019 15:55 Hospitalization Ordered by Du Azar MD for Inpatient cg Admission. Preliminary diagnosis is Severe sepsis; Aspiration pneumonia; Urinary tract infection, site not specified. Bed requested for Intensive Care Unit. Status is Inpatient Admission. Condition is Fair. Problem is new. Symptoms have improved. UTI on Admission? Yes. eb 20:09 19:02 04/27/2019 15:55 Hospitalization Ordered by Du Azar MD for Inpatient mg2 Admission. Preliminary diagnosis is Severe sepsis; Aspiration pneumonia; Urinary tract infection, site not specified. Bed requested for Intensive Care Unit. Status is Inpatient Admission. Condition is Fair. Problem is new. Symptoms have improved. UTI on Admission? Yes.
[2019-04-27 15:57] LABS: Protime INR 1.09
[2019-04-27] MEDS ORDERED: VANCOMYCIN 1.5 GM in NA CHLORIDE 0.9% 500 ML IVPB ONE (16:00)
[2019-04-27 16:13] LABS: Blood Morphology Comment NOT SEEN (NOT SEEN); Platelet Estimate ADEQ
[2019-04-27] MEDS ORDERED: ALBUTEROL 2.5 MG/3 ML NEB SOL ONE (16:16)
[2019-04-27 16:39] LABS: ALT/SGPT 8 U/L (12-78); AST/SGOT 9 U/L (15-37); Albumin 2.5 g/dL (3.4-5.0); Alkaline Phosphatase 55 U/L (45-117); BUN Blood Urea Nitrogen 33 mg/dL (7-18); Bicarbonate 31 mmol/L (21-32); Bilirubin Direct 0.2 mg/dL (0-0.2); Bilirubin Total 0.5 mg/dL (0.2-1.0); Creatine Phosphokinase 21 U/L (39-308); Glucose Level 137 mg/dL (74-106); Lipase 44 U/L (73-393); Potassium 4.4 mmol/L (3.5-5.1); Protein, Total 8.8 g/dL (6.4-8.2); Sodium Level 144 mmol/L (136-145); Troponin (Emerg Dept Use Only) < 0.02 ng/mL (0.0-0.045)
[2019-04-27 17:25] LABS: Urine Blood NEGATIVE (NEG); Urine Glucose NEGATIVE (NEG); Urine Protein 3+ (NEG)
[2019-04-27] MEDS ORDERED: ONDANSETRON 4 MG/2 ML VIAL IV PRN (17:48)
[2019-04-27] MEDS ORDERED: ALBUTEROL 2.5 MG/3 ML NEB SOL NEB PRN (17:48)
[2019-04-27] MEDS ORDERED: ACETAMINOPHEN 650MG/RECT SUPP PR PRN (17:48)
[2019-04-27] MEDS ORDERED: Pharmacy Consult 1 EA XX PRN (17:53)
[2019-04-27] MEDS: INSULIN -REGULAR HUMAN 50 UNIT/0.5 ML ML SQ SCH ×2 (18:00→23:35)
--- NOTE | 2019-04-27 18:07 | P.HP ---
Certification for Inpatient With expected LOS: >2 Midnights Practitioner: I am a practitioner with admitting privileges, knowledge of patient current condition, hospital course, and medical plan of care. Services: Services provided to patient in accordance with Admission requirements found in Title 42 Section 412.3 of the Code of Federal Regulations Patient History Date of Service: 04/27/19 Reason for admission: Respiratory failure History of Present Illness: Mr. Villarreal is 78 year old male with a history of CVAs with residual aphasia. Patient was brought into the ER for shortness of breath. Information obtained from ER physician as patient is currently on BiPAP mask and aphasic. Patient was hypoxic & tachypenic on room air when EMS arrived. Hypoxia did not improve hence, the use of BiPAP. Code sepsis called in the ER due as patient met SIRS criteria and notable source. He appears to be comfortable at this time. Allergies No Known Allergies Allergy (Verified 02/25/18 15:13) Home medications list reviewed: No (Inaccurate list on file) Home Medications: Amlodipine [Norvasc*] 1 tab PO DAILY 02/25/18 Lisinopril [Zestril] 1 tab PO DAILY 02/25/18 Tamsulosin [Flomax*] 0.4 mg PO BEDTIME #30 cap 03/11/18 Docusate/Senna [Senokot-S*] 2 tab PO BEDTIME 07/10/18 Amox/Clavulanate [Augmentin 875-125 Tab*] 875 mg PO BID #28 tab 07/11/18 predniSONE [Prednisone*] 5 mg PO BID #10 tab 07/11/18 - Past Medical/Surgical History Diabetic: No -: htn -: cva x7 -: COPD -: PTSD -: Unknown Psychosocial/ Personal History: Patient lives with sister at her house. - Family History Mother -: Diabetes Notes: schizoprenia Father -: Heart disease - Social History Smoking Status: Smoker current status UNK Alcohol use: No CD- Drugs: No Caffeine use: Yes Review of Systems is unable to be obtained (On BIPAP) Physical Examination - Vital Signs Temperature: 98.5 F Blood Pressure: 151/110 Pulse: 112 Respirations: 30 Pulse Ox (%): 88 (6LNC) - Physical Exam General: Disheveled, Moderate distress, Other (Cachetic) HEENT: Atraumatic, Normocephalic, Other (Dry oral mucosa) Neck: Supple, Other Respiratory: Diminished, Dull, Crackles/rales, Inspiratory wheezes Cardiovascular: No edema, No gallops Capillary refill: <2 Seconds Gastrointestinal: Normal bowel sounds, Soft and benign, No tenderness, No masses Musculoskeletal: No swelling, No contractures Integumentary: No rashes, Tenderness/swelling Neurological: Abnormal speech (aphasic) Urinary: Mckoy catheter - Studies Laboratory Data (last 24 hrs) 04/27/19 15:30: PT 12.8 H, INR 1.09, APTT 20.2 L 04/27/19 15:30: Sodium 144, Potassium 4.4, BUN 33 H, Creatinine 1.49 H, Glucose 137 H, Total Bilirubin 0.5, AST 9 L, ALT 8 L, Alkaline Phosphatase 55, Lipase 44 L 04/27/19 14:47: WBC 22.1 H*, Hgb 13.2 L, Hct 41.3, Plt Count 295 Imagings Data: Reason for Exam: DYSPNEA Report Status: Signed EXAM DESCRIPTION: RADChest Single View04/27/2019 3:23 pm CLINICAL HISTORY: sob COMPARISON: July 2018 FINDINGS: Moderate alveolar opacities throughout the right lung. Left lung appears clear The heart is normal size IMPRESSION: Moderate right pneumonia. This should be followed until it has cleared to help exclude a post obstructive process Assessment and Plan - Plan Mr. Villarreal is a 78-year-old male who was brought in for shortness of breath. # acute respiratory failure-blood gas with hypoxia and hypercapnia. -Patient currently on a BiPAP mask. -saturations have improved to 94% on BiPAP. -Duoneb -admit to ICU for closer monitoring. -consults patient services assistant for assistance. -low threshold for intubation -npo given resp distress. # Sepsis-secondary to UTI and pneumonia. Urinalysis strongly positive. Chest x -ray with moderate infiltrate suggestive of pneumonia. Postobstructive pneumonia could not be excluded. panculture. -IV boluses -Serial CXR. Consider CT chest once patient is more stable. -maintain MAP greater than 65 for adequate perfusion -monitor urine output -Broad spectrum abx -Procal elevated. Normal lactic acid # UTI- UA strongly positive - Await Urine culture - continue IV abx. #RENNY- prerenal azotemia in the setting of sepsis -IV hydration -avoid nephrotoxin. Pharmacy to dose meds -Trend cr. #Dehydration- Clinically hypovolemic - IV hydration #Hypertension- IV hydralazine prn. -on oral antihypertensives at home -resume once he can tolerate po intake. #CVA with residual aphasia- patient is following commands - will continue aspirin and statin once more stable. DVT ppx- lovenox Patient will be full code pending family availability Disposition- ICU admission Plan to discharge in: Greater than 2 days - Advance Directives Does patient have a Living Will: No Does patient have a Durable POA for Healthcare: No
[2019-04-27 18:16] LABS: Urine Bacteria >50 /HPF (NONE SEEN); Urine Culture Reflex Order REFLEXED; Urine Mucus 1+ /HPF (NONE SEEN); Urine RBC <5 /HPF (NONE SEEN)
[2019-04-27] MEDS: ENOXAPARIN 40 MG/0.4 ML SQ SCH (20:45)
[2019-04-27] MEDS: NA CHLORIDE 0.9% 1,000 ML IV SCH (21:07)
[2019-04-28] MEDS: PIPER/TAZO/NS 3.375gm 3.375 GM/100 ML BAG IVPB SCH ×3 (00:56→17:42)
[2019-04-28] MEDS ORDERED: PIPER/TAZO/NS 3.375gm 3.375 GM/100 ML BAG IVPB SCH (01:00)
[2019-04-28] MEDS: INSULIN -REGULAR HUMAN 50 UNIT/0.5 ML ML SQ SCH ×3 (06:00→18:00)
[2019-04-28] MEDS: NA CHLORIDE 0.9% 1,000 ML IV SCH (06:02)
[2019-04-28 06:31] LABS: AST/SGOT 7 U/L (15-37); Albumin 1.7 g/dL (3.4-5.0); Alkaline Phosphatase 45 U/L (45-117); BUN Blood Urea Nitrogen 32 mg/dL (7-18); Bicarbonate 32 mmol/L (21-32); Bilirubin Total 0.3 mg/dL (0.2-1.0); Glucose Level 94 mg/dL (74-106); Magnesium 2.1 mg/dL (1.8-2.4); Potassium 4.6 mmol/L (3.5-5.1); Protein, Total 6.8 g/dL (6.4-8.2); Sodium Level 151 mmol/L (136-145)
[2019-04-28 06:33] LABS: ALT/SGPT < 6 U/L (12-78); Absolute Lymphocytes (CBC) 1.2 K/uL (0.7-4.9); Hematocrit 34.8 % (39.6-49.0); Lymphocytes % 9.7 % (15.3-44.8); MPV 7.9 fL (7.6-11.3)
--- NOTE | 2019-04-28 07:08 | EKG ---
Test Date: 2019-04-27 Test Time: 14:45:59 Accounting/Finance Tutor: GLENIS MEASUREMENT RESULTS: Intervals: Rate: 120 CT: 156 QRSD: 72 QT: 328 QTc: 463 Showell: P: 64 CT: 156 QRS: 17 T: 76 INTERPRETIVE STATEMENTS: Sinus tachycardia Septal infarct, age undetermined Abnormal ECG Compared to ECG 07/30/2018 07:17:42 Sinus rhythm no longer present First degree AV block no longer present Myocardial infarct finding still present Electronically Signed On 04-28-19 07:06:59 INFORMATICS PHYSICIAN by Polo Brizuela
--- NOTE | 2019-04-28 08:18 | RAD REPORT ---
EXAM DESCRIPTION: Nicki Single View04/28/2019 6:46 am CLINICAL HISTORY: Chest pain COMPARISON: April 27, 2019 FINDINGS: Overall no significant change in the moderate right pneumonia Two. Left lung appears clear IMPRESSION: No change in a moderate right pneumonia
--- NOTE | 2019-04-28 08:39 | P.PN ---
Subjective Date of Service: 04/28/19 Primary Care Provider: ARELIS Chief Complaint: Respiratory failure, Sepsis Subjective: Improving <Elie Luther - Last Filed: 04/28/19 08:33> Date of Service: 04/28/19 <Rob Parekh - Last Filed: 04/28/19 18:58> Review of Systems General: Unremarkable Eyes: Unremarkable ENT: Unremarkable Respiratory: Unremarkable Cardiovascular: Unremarkable Gastrointestinal: Unremarkable Musculoskeletal: Atrophy Integumentary: Unremarkable Neurological: Unremarkable Lymphatics: Unremarkable <Elie Luther - Last Filed: 04/28/19 08:33> Physical Examination - Vital Signs Temperature: 97.1 F Blood Pressure: 143/80 Pulse: 89 Respirations: 19 Pulse Ox (%): 98 - Physical Exam General: Alert, Oriented x3 HEENT: PERRLA, Mucous membr. moist/pink, EOMI Neck: Supple, JVD not distended, No Thyromegaly Respiratory: Crackles/rales (to Right upper and lower lobe) Cardiovascular: No edema, Normal pulses, Regular rate/rhythm, Normal S1 S2, No gallops, No rubs, No murmurs Capillary refill: <2 Seconds Gastrointestinal: Normal bowel sounds, Soft and benign, Non-distended, No tenderness Musculoskeletal: No clubbing, No swelling, No contractures, No erythema, No tenderness, No warmth Integumentary: No rashes, No breakdown, No significant lesion, No tenderness/ swelling, No erythema, No warmth, No cyanosis Neurological: Sensation intact, Other (aphasic patient which is baseline from CVA ) Lymphatics: No axilla or inguinal lymphadenopathy - Studies Laboratory Data (last 24 hrs) 04/27/19 15:30: PT 12.8 H, INR 1.09, APTT 20.2 L 04/27/19 15:30: Sodium 144, Potassium 4.4, BUN 33 H, Creatinine 1.49 H, Glucose 137 H, Total Bilirubin 0.5, AST 9 L, ALT 8 L, Alkaline Phosphatase 55, Lipase 44 L 04/27/19 14:47: WBC 22.1 H*, Hgb 13.2 L, Hct 41.3, Plt Count 295 <Elie Luther - Last Filed: 04/28/19 08:33> Assessment And Plan - Current Problems (Diagnosis) (1) Sepsis Current Visit: Yes Status: Acute Qualifiers: Sepsis type: sepsis due to unspecified organism Sepsis acute organ dysfunction status: with acute organ dysfunction Severe sepsis acute organ dysfunction type: acute respiratory failure Acute respiratory failure type: with hypoxia Severe sepsis shock status: without septic shock Qualified Code (s): A41.9 - Sepsis, unspecified organism; R65.20 - Severe sepsis without septic shock; J96.01 - Acute respiratory failure with hypoxia (2) Acute respiratory failure Current Visit: Yes Status: Acute Qualifiers: Respiratory failure complication: hypoxia Qualified Code(s): J96.01 - Acute respiratory failure with hypoxia (3) Acute kidney injury Current Visit: No Status: Acute (4) COPD exacerbation Current Visit: No Status: Chronic (5) Pneumonia Current Visit: No Status: Acute Qualifiers: Pneumonia type: due to unspecified organism Laterality: bilateral Lung location: lower lobe of lung (6) HTN (hypertension) Current Visit: No Status: Chronic Qualifiers: Hypertension type: essential hypertension Qualified Code(s): I10 - Essential (primary) hypertension (7) History of CVA with residual deficit Current Visit: No Status: Chronic - Plan This is a 78-year-old male that was admitted to the hospital yesterday after being found to be in acute respiratory failure, sepsis from possible aspiration pneumonia, with acute kidney injury. After being initially resuscitated in the emergency room patient has done better throughout the night. Currently on nasal cannula. Hemodynamically stable and without increased work of breathing. Kidney function has normalized. White cell count has decreased. If patient does better throughout today will be downgraded to telemetry floor. Will continue to monitor closely and to continue breathing treatments, antibiotics, fluids. Will have a repeat chest x-ray tomorrow. Procalcitonin put in for today. Discharge Plan: Home Plan to discharge in: Greater than 2 days - Code Status/Comfort Care Code Status: Do Not Attempt Resuscitat Critical Care: No <Elie Luther - Last Filed: 04/28/19 08:33> - Plan Patient is stable at this time. Patient had a modified barium swallow for dysphagia. Patient failed exam as per speech. Speech recommends a GI evaluation for possible PEG tube placement. This was discussed in detail with the sister who has medical power of driver/sales workers. She spoke to the patient concerning this. Patient an agreement for PEG tube. This will likely occur on Wednesday since there is no GI availability over the weekend. At this time medical [id number] who agreed with the cough to provide nutrition. This can be transitioned to PEG tube on Wednesday. I was able to speak to a GI doctor Dr. Saenz who is not currently available for possible PEG tube. He said please check to see if other GI is on-call on Wednesday. If so other GI will need to be consulted. But if not he is willing to take the case on the Wednesday for PEG tube later that evening. Time Spent Managing PTS Care (In Minutes): 55 <Rob Parekh - Last Filed: 04/28/19 18:58>
[2019-04-28] MEDS: ENOXAPARIN 40 MG/0.4 ML SQ SCH (08:49)
[2019-04-28] MEDS ORDERED: D5 0.45 NS 1,000 ML IV SCH (09:00)
--- NOTE | 2019-04-28 10:28 | P.CNS ---
Date of Consult: 04/28/19 Primary Care Provider: ARELIS Chief Complaint: Respiratory failure, Sepsis History of Present Illness: Patient is 78 years of age she is a phasic from a left-sided CVA admitted with to the history of worsening dyspnea he is alert responsive cooperative, admitted with respiratory distress was found to have a right lung pneumonia is clinically doing much better hemodynamically stable did not tolerate the BiPAP not coughing up anything Allergies No Known Allergies Allergy (Verified 02/25/18 15:13) Home Medications: Amlodipine [Norvasc*] 1 tab PO DAILY 02/25/18 Lisinopril [Zestril] 1 tab PO DAILY 02/25/18 Tamsulosin [Flomax*] 0.4 mg PO BEDTIME #30 cap 03/11/18 Docusate/Senna [Senokot-S*] 2 tab PO BEDTIME 07/10/18 Amox/Clavulanate [Augmentin 875-125 Tab*] 875 mg PO BID #28 tab 07/11/18 predniSONE [Prednisone*] 5 mg PO BID #10 tab 07/11/18 - Past Medical/Surgical History Diabetic: No -: 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 - Family History Mother Medical History: Hypertension, Diabetes Notes: schizoprenia Father Medical History: Heart disease Brother Medical History: Stroke - Social History Smoking Status: Unknown if ever smoked Alcohol use: No CD- Drugs: No Caffeine use: Yes Place of Residence: Home Review of Systems is unable to be obtained Physical Examination Temp Pulse Resp BP Pulse Ox 97.1 F 89 19 143/80 H 98 04/28/19 08:39 04/28/19 08:39 04/28/19 08:39 04/28/19 08:39 04/28/19 08:39 General: Alert, Cooperative, Mild distress Respiratory: Crackles/rales (Some crackles on the right side) Cardiovascular: No edema, Normal S1 S2 Gastrointestinal: Normal bowel sounds, Soft and benign Neurological: Other (Patient has hemiparesis involving the right side) Laboratory Data (last 24 hrs) 04/27/19 15:30: PT 12.8 H, INR 1.09, APTT 20.2 L 04/27/19 15:30: Sodium 144, Potassium 4.4, BUN 33 H, Creatinine 1.49 H, Glucose 137 H, Total Bilirubin 0.5, AST 9 L, ALT 8 L, Alkaline Phosphatase 55, Lipase 44 L 04/27/19 14:47: WBC 22.1 H*, Hgb 13.2 L, Hct 41.3, Plt Count 295 - Problems (1) Pneumonia Current Visit: No Status: Acute Plan: Patient is 78 years of age admitted with respiratory distress is pneumonia involving the right lung white count elevated pro calcitonin level was also elevated is improving continue with antibiotics until cultures are available stable to be transferred to the floor Dc BiPAP patient is hypernatremic change to D5 water patient was hypoxic hypercapnic on admission Qualifiers: Pneumonia type: due to unspecified organism Laterality: bilateral Lung location: lower lobe of lung
[2019-04-28] MEDS: D5W 1,000 ML IV SCH (12:12)
--- NOTE | 2019-04-28 17:13 | RAD REPORT ---
EXAM DESCRIPTION: RAD - Barium Swallow Modified - 04/28/2019 4:17 pm CLINICAL HISTORY: Aspiration COMPARISON: Modified barium swallow June 2018 TECHNIQUE: The patient was given liquid, semi-solid and solid forms of barium. Lateral view fluorosc opic imaging was performed in conjunction with speech pathology service. FINDINGS: Cineloop acquisitions: 26 Fluoro time: 6 minutes 50 seconds Laryngeal penetration: cleared with thin, nectar, honey Pharyngeal residue: moderate with honey in vallecular, moderate to severe with puree in pyriform Absent swallow with small tsp of thin liquid and puree. Bolus retropulsion from UES back to pharynx. IMPRESSION: Modified barium swallow as summarized above and fully detailed on speech pathology repor tBlaine
[2019-04-28] MEDS ORDERED: VITAL HP 1,000 ML BOT RTH SCH (19:00)
--- NOTE | 2019-04-28 20:42 | RAD REPORT ---
EXAM DESCRIPTION: RAD - Abdomen 1 View (KUB) - 04/28/2019 8:26 pm CLINICAL HISTORY: S/P Dobhoff insertion COMPARISON: No comparisons FINDINGS: Tip of the feeding tube is in the proximal stomach. Stomach is decompressed. No obstructio n, free air or pneumatosis. IMPRESSION: Feeding tube placement shows the tip in the proximal portion of a decompressed stomach.
[2019-04-28] MEDS: HYDRALAZINE HCL 20 MG/ML VIAL IV PRN (21:07)
[2019-04-29] MEDS: D5W 1,000 ML IV SCH ×3 (00:20→20:10)
[2019-04-29] MEDS: PIPER/TAZO/NS 3.375gm 3.375 GM/100 ML BAG IVPB SCH ×3 (00:22→16:31)
[2019-04-29] MEDS ORDERED: VANCOMYCIN/NS 1 gm 1 GM/250 ML BAG IVPB SCH (04:00)
[2019-04-29 05:19] VITALS: BMI 16.9
[2019-04-29 05:26] LABS: Absolute Lymphocytes (CBC) 0.9 K/uL (0.7-4.9); Basophils % 0.1 % (0-1.3); Hematocrit 34.1 % (39.6-49.0); Lymphocytes % 7.1 % (15.3-44.8); MPV 8.2 fL (7.6-11.3); RBC Red Blood Cell Count 3.88 M/uL (4.33-5.43)
[2019-04-29 05:41] LABS: Albumin 1.9 g/dL (3.4-5.0); Bilirubin Total 0.3 mg/dL (0.2-1.0); Magnesium 2.2 mg/dL (1.8-2.4); Potassium 3.4 mmol/L (3.5-5.1); Protein, Total 6.9 g/dL (6.4-8.2)
[2019-04-29] MEDS: INSULIN -REGULAR HUMAN 50 UNIT/0.5 ML ML SQ SCH ×4 (05:49→18:00)
[2019-04-29] MEDS: KCL 20 MEQ/100 mL IVPB 20 MEQ/100 ML BAG IV SCH ×2 (06:29→08:06)
[2019-04-29] MEDS: HYDRALAZINE HCL 20 MG/ML VIAL IV PRN ×2 (07:03→18:03)
[2019-04-29] MEDS: ENOXAPARIN 40 MG/0.4 ML SQ SCH (08:06)
--- NOTE | 2019-04-29 11:21 | P.PN ---
Subjective Date of Service: 04/29/19 Primary Care Provider: ARELIS Chief Complaint: Respiratory failure, Sepsis Subjective: Improving (Patient is doing well failed his swallow alert cooperative) Review of Systems is unable to be obtained Physical Examination - Vital Signs Temperature: 97.4 F Blood Pressure: 164/68 Pulse: 60 Respirations: 18 Pulse Ox (%): 99 - Physical Exam General: Alert, Mild distress Respiratory: Crackles/rales (Crackles on the right side) Cardiovascular: No edema Assessment & Plan - Problems (Diagnosis) (1) Pneumonia Current Visit: No Status: Acute Plan: Patient admitted with pneumonia is clinically improving failed the swallow test will reinsert dobhof start tube feeds. Hypernatremia as improving white count is declined blood cultures negative he is at risk for aspiration chest x-ray shows infiltrate on the right side Consul GI for a PEG tube continue with IV fluids is also on Zosyn vancomycin Qualifiers: Pneumonia type: due to unspecified organism Laterality: bilateral Lung location: lower lobe of lung
--- NOTE | 2019-04-29 12:55 | RAD REPORT ---
EXAM DESCRIPTION: RAD - Abdomen 1 View (KUB) - 04/29/2019 12:48 pm CLINICAL HISTORY: Dobbhoff placement Pain COMPARISON: <Comparisons> FINDINGS: The tip of the enteric tube is in the stomach.
[2019-04-29] MEDS ORDERED: POTASSIUM 25 MEQ EFFERV TAB PO ONE (19:40)
[2019-04-30] MEDS: PIPER/TAZO/NS 3.375gm 3.375 GM/100 ML BAG IVPB SCH ×2 (00:43→09:53)
[2019-04-30] MEDS: HYDRALAZINE HCL 20 MG/ML VIAL IV PRN ×2 (01:33→21:06)
[2019-04-30] MEDS: INSULIN -REGULAR HUMAN 50 UNIT/0.5 ML ML SQ SCH ×4 (05:57→18:00)
[2019-04-30] MEDS ORDERED: AMLODIPINE 5 MG TAB FT SCH (09:00)
[2019-04-30 09:25] LABS: Absolute Lymphocytes (CBC) 0.7 K/uL (0.7-4.9); Basophils % 0.2 % (0-1.3); Hematocrit 34.3 % (39.6-49.0); Lymphocytes % 7.6 % (15.3-44.8); RBC Red Blood Cell Count 4.05 M/uL (4.33-5.43)
[2019-04-30 09:38] LABS: ALT/SGPT 8 U/L (12-78); AST/SGOT 8 U/L (15-37); Alkaline Phosphatase 42 U/L (45-117); BUN Blood Urea Nitrogen 15 mg/dL (7-18); Bicarbonate 31 mmol/L (21-32); Bilirubin Total 0.4 mg/dL (0.2-1.0); Glucose Level 128 mg/dL (74-106); Magnesium 1.8 mg/dL (1.8-2.4); Potassium 3.3 mmol/L (3.5-5.1); Protein, Total 6.9 g/dL (6.4-8.2); Sodium Level 141 mmol/L (136-145)
[2019-04-30 09:50] LABS: Bilirubin Direct 0.2 mg/dL (0-0.2); Bilirubin Total 0.7 mg/dL (0.2-1.0); Protein, Total 7.1 g/dL (6.4-8.2)
[2019-04-30] MEDS: ENOXAPARIN 40 MG/0.4 ML SQ SCH (09:53)
--- NOTE | 2019-04-30 10:31 | P.PN ---
Subjective Date of Service: 04/30/19 Primary Care Provider: ARELIS Chief Complaint: Respiratory failure, Sepsis Subjective: Improving (Patient's condition is improving tolerating nasogastric tube feeds evidence of active sepsis) Review of Systems is unable to be obtained Physical Examination - Vital Signs Temperature: 98.5 F Blood Pressure: 154/97 Pulse: 70 Respirations: 22 Pulse Ox (%): 93 - Physical Exam General: Alert, Cooperative Respiratory: Crackles/rales, Rhonchi/gurgles (Worse on the right side) Cardiovascular: No edema Assessment & Plan - Problems (Diagnosis) (1) Pneumonia Current Visit: No Status: Acute Plan: Patient admitted for pneumonia clinically improving change to IV levofloxacin awaiting GI evaluation for a PEG tube feels swallow test tolerating tube feeds white count is normal cultures are all negative E coli in the urine blood pressure elevated increase Norvasc labs reviewed Qualifiers: Pneumonia type: due to unspecified organism Laterality: bilateral Lung location: lower lobe of lung Discharge Plan: Home
[2019-04-30] MEDS: Levofloxacin500mg IV 500 MG/100 ML BAG IV SCH (11:00)
[2019-04-30 11:54] LABS: Blood Morphology Comment NOT SEEN (NOT SEEN); Platelet Estimate ADEQ; Urine White Blood Cell Casts OK
[2019-04-30] MEDS ORDERED: POTASSIUM 25 MEQ EFFERV TAB PO ONE (13:00)
[2019-04-30] MEDS ORDERED: VANCOMYCIN 1.25 GM in NA CHLORIDE 0.9% 250 ML IV SCH (16:00)
[2019-05-01] MEDS ORDERED: NA CHLORIDE 0.9% 500 ML ONE ×2 (02:03→11:11)
[2019-05-01] MEDS: KCL 20 MEQ/100 mL IVPB 20 MEQ/100 ML BAG IV SCH ×4 (02:04→17:14)
[2019-05-01 05:52] LABS: Absolute Lymphocytes (CBC) 1.2 K/uL (0.7-4.9); Basophils % 0.3 % (0-1.3); Hematocrit 36.1 % (39.6-49.0); Lymphocytes % 17.7 % (15.3-44.8); MPV 7.9 fL (7.6-11.3); RBC Red Blood Cell Count 4.23 M/uL (4.33-5.43)
[2019-05-01] MEDS: INSULIN -REGULAR HUMAN 50 UNIT/0.5 ML ML SQ SCH ×4 (06:00→18:00)
[2019-05-01 06:10] LABS: ALT/SGPT 8 U/L (12-78); AST/SGOT 10 U/L (15-37); Alkaline Phosphatase 44 U/L (45-117); BUN Blood Urea Nitrogen 14 mg/dL (7-18); Bicarbonate 31 mmol/L (21-32); Bilirubin Total 0.3 mg/dL (0.2-1.0); Glucose Level 107 mg/dL (74-106); Magnesium 1.8 mg/dL (1.8-2.4); Potassium 3.7 mmol/L (3.5-5.1); Protein, Total 7.2 g/dL (6.4-8.2); Sodium Level 138 mmol/L (136-145)
[2019-05-01] MEDS: AMLODIPINE 5 MG TAB FT SCH (08:02)
[2019-05-01] MEDS: ENOXAPARIN 40 MG/0.4 ML SQ SCH (08:02)
[2019-05-01] MEDS: HYDRALAZINE HCL 20 MG/ML VIAL IV PRN (08:02)
--- NOTE | 2019-05-01 08:08 | RAD REPORT ---
EXAM DESCRIPTION: RAD - Abdomen 1 View (KUB) - 05/01/2019 3:52 am CLINICAL HISTORY: dubbhoff placement Pain COMPARISON: Abdomen 1 View (KUB) dated 04/29/2019; Abdomen 1 View (KUB) dated 04/28/2019 FINDINGS: Tip of the enteric tube is in the stomach.
[2019-05-01] MEDS ORDERED: KCL 20 MEQ/100 mL IVPB 20 MEQ/100 ML BAG IV SCH (09:00)
[2019-05-01] MEDS ORDERED: JEVITY 1.5 CAL LIQUID 1,000 ML BOT RTH SCH (10:00)
[2019-05-01] MEDS: Levofloxacin500mg IV 500 MG/100 ML BAG IV SCH (11:13)
--- NOTE | 2019-05-01 13:52 | P.PN ---
Subjective Date of Service: 05/01/19 Primary Care Provider: PA Chief Complaint: Respiratory failure, Sepsis Patient is aphasic and cannot provide subjective complaining. He stated he wants to go home. He has no other complain. He is tolerating NG-tube feeding. Physical Examination - Vital Signs Temperature: 97.6 F Blood Pressure: 158/96 Pulse: 100 Respirations: 20 Pulse Ox (%): 92 - Physical Exam General: Alert, In no apparent distress HEENT: Mucous membr. moist/pink Neck: Supple Respiratory: Other (Bilateral airway transmitted sounds) Cardiovascular: No edema Gastrointestinal: Normal bowel sounds, Soft and benign, No tenderness Musculoskeletal: No swelling Integumentary: No rashes Neurological: Other (Aphasic, nonfocal.) Assessment And Plan - Current Problems (Diagnosis) (1) Pneumonia Current Visit: No Status: Acute Qualifiers: Pneumonia type: due to unspecified organism Laterality: bilateral Lung location: lower lobe of lung (2) History of CVA with residual deficit Current Visit: No Status: Chronic (3) HTN (hypertension) Current Visit: No Status: Chronic Qualifiers: Hypertension type: essential hypertension Qualified Code(s): I10 - Essential (primary) hypertension - Plan The patient noticed to have severe dysphagia per MBS result. Alternates form of feeding recommended by speech therapy. I had a discussion with the patient and her sister. They want to proceed with PEG tube placement. Here has been consulted for PEG placement. Patient stated he wants to go home by tomorrow. Dr. Saenz evaluation is pending. Continue current antibiotics for pneumonia.
[2019-05-02] MEDS: HYDRALAZINE HCL 20 MG/ML VIAL IV PRN ×2 (01:09→12:10)
[2019-05-02] MEDS: INSULIN -REGULAR HUMAN 50 UNIT/0.5 ML ML SQ SCH ×4 (06:00→18:00)
[2019-05-02] MEDS: AMLODIPINE 5 MG TAB FT SCH (09:00)
[2019-05-02] MEDS: ENOXAPARIN 40 MG/0.4 ML SQ SCH (09:00)
[2019-05-02 11:49] LABS: Absolute Lymphocytes (CBC) 0.9 K/uL (0.7-4.9); Basophils % 0.4 % (0-1.3); Lymphocytes % 8.3 % (15.3-44.8); RBC Red Blood Cell Count 4.45 M/uL (4.33-5.43)
[2019-05-02 12:07] LABS: ALT/SGPT 15 U/L (12-78); AST/SGOT 19 U/L (15-37); Alkaline Phosphatase 47 U/L (45-117); BUN Blood Urea Nitrogen 13 mg/dL (7-18); Bicarbonate 30 mmol/L (21-32); Bilirubin Total 0.3 mg/dL (0.2-1.0); Glucose Level 108 mg/dL (74-106); Magnesium 1.9 mg/dL (1.8-2.4); Potassium 4.2 mmol/L (3.5-5.1); Protein, Total 7.3 g/dL (6.4-8.2); Sodium Level 139 mmol/L (136-145)
[2019-05-02] MEDS: Levofloxacin500mg IV 500 MG/100 ML BAG IV SCH (12:10)
--- NOTE | 2019-05-02 12:17 | RAD REPORT ---
EXAM DESCRIPTION: RAD - Abdomen 1 View (KUB) - 05/02/2019 5:09 am CLINICAL HISTORY: The patient is 78 years old and is Male; dobhoff placement TECHNIQUE: Frontal supine view of the abdomen/pelvis. COMPARISON: No relevant prior studies available. FINDINGS: GASTROINTESTINAL TRACT: A duotube is present with the tip in the region of the gastric f undus. The visualized bowel gas pattern is unremarkable. BONES/JOINTS: Unremarkable. OTHER FINDINGS: Near complete opacification of the right hemithorax is noted IMPRESSION: A duotube is present with the tip in the region of the gastric fundus. Electronically signed by: Lorene Tierney MD 05/02/2019 6:05 AM [facility] Due to temporary technical issues with the PACS/Fluency reporting system, reports are being signed by the in house radiologist as a courtesy to ensure prompt reporting. The interpreting radiologist is f ully responsible for the content of the report.
[2019-05-02 12:47] LABS: Blood Morphology Comment NOT SEEN (NOT SEEN); Platelet Estimate ADEQ
--- NOTE | 2019-05-02 13:15 | P.PN ---
Subjective Date of Service: 05/02/19 Primary Care Provider: [place] Chief Complaint: Respiratory failure, Sepsis Subjective: No new changes He is NPO for PEG tube placement today. He refused blood work today. Physical Examination - Vital Signs Temperature: 98.9 F Blood Pressure: 182/106 Pulse: 122 Respirations: 24 Pulse Ox (%): 91 - Physical Exam General: Alert, In no apparent distress HEENT: Mucous membr. moist/pink Respiratory: Other (Bilateral upper airway transmitted sounds) Cardiovascular: No edema Gastrointestinal: Soft and benign, Non-distended, No tenderness Neurological: Other (Aphasic) Assessment And Plan - Current Problems (Diagnosis) (1) Pneumonia Current Visit: No Status: Acute Qualifiers: Pneumonia type: due to unspecified organism Laterality: bilateral Lung location: lower lobe of lung (2) History of CVA with residual deficit Current Visit: No Status: Chronic (3) HTN (hypertension) Current Visit: No Status: Chronic Qualifiers: Hypertension type: essential hypertension Qualified Code(s): I10 - Essential (primary) hypertension - Plan Patient is scheduled for PEG tube placement by Dr. Saenz today. Of note, his urine culture grew E. coli which is sensitive to Levaquin Continue IV Levaquin May need to watch overnight for a trial of tube feeding the next day before discharge. Consult to dietitian requested.
[2019-05-02] MEDS ORDERED: METOPROLOL TARTRATE 5 MG/5 ML INJ IV STA (17:09)
[2019-05-02] MEDS ORDERED: propofoL 200 MG/20 ML VIAL IV ONE ×2 (17:30→17:31)
[2019-05-02] MEDS ORDERED: LIDOCAINE 1% MPF 5 ML VIAL ONE (17:31)
[2019-05-02] MEDS ORDERED: Phenylephrine HCl 10 MG/ML 1 ML VIAL ONE (17:31)
[2019-05-02] MEDS ORDERED: Ringers Lactate 1,000 ML IV ONE (17:34)
[2019-05-02] MEDS ORDERED: JEVITY 1.5 CAL LIQUID 1,000 ML BOT FT SCH ×2 (18:00→22:30)
--- NOTE | 2019-05-02 18:59 | ENDO RPT ---
[address], [address] EGD WITH PEG PROCEDURE REPORT EXAM DATE: 05/02/2019 PATIENT NAME: Jefferson Villarreal MR #: [id number] BIRTHDATE: 1940 ATTENDING: Abelardo Saenz Dr STATUS: outpatient MACHINE WASHER: Joyce Khalil and Cleopatra Moreno RN INDICATIONS: The patient is a 78 yr old Male here for an EGD with PEG due to dysphagia with aspirationi pneumonia, and increased risk of malnutrition PROCEDURE PERFORMED: EGD with PEG placement MEDICATIONS: Per Anesthesia. TOPICAL ANESTHETIC: none CONSENT: The patient understands the risks and benefits of the procedure and understands that these risks include, but are not limited to: sedation, allergic reaction, infection, perforation and/or bleeding. Alternative means of evaluation and treatment include, among others: physical exam, x-rays, and/or surgical intervention. The patient elects to proceed with this endoscopic procedure. DESCRIPTION OF PROCEDURE: During intra-op preparation period all mechanical medical equipment was checked for proper function. Hand hygiene and appropriate measures for infection prevention was taken. After the risks, benefits and alternatives of the procedure were thoroughly explained, Informed consent was verified, confirmed and timeout was successfully executed by the treatment team. The patient was anesthetized with topical anesthesia and the Pentax EG-[id number] ([id number]) endoscope was introduced through the mouth and advanced to the second portion of the duodenum. The instrument was slowly withdrawn as the mucosa was fully examined. A small hiatal hernia was found Mild Atrophic gastritis was found in the body and the antrum of the stomach. The stomach was then inflated with air, and by a combination of transillumination and manual palpation, the site for the gastrostomy tube placement was selected and marked on the anterior abdominal wall. The skin of the anterior abdomen was surgically prepped and draped with sterile towels. Utilizing strict sterile technique, the selected site was then anesthetized with 1% xylocaine by injection into the skin and subcutaneous tissue. A 1 cm incision was made through the skin and subcutaneous tissue, and the needle/cannula assembly was then passed through the abdominal wall and through the anterior wall of the stomach, maintaining visualization with the endoscope. A snare device previously placed through the instrument channel was then opened and placed around the cannula, the needle was removed, and the insertion wire was passed through the cannula and into the stomach lumen. The snare was then loosened from the cannula, and repositioned to snare the insertion wire. The snare was then pulled up to the endoscope distal tip, and the scope was then withdrawn bringing with it the snare and insertion wire. The insertion wire was then released from the snare, and the PEG PUSH gastrostomy tube placed over the guidewire. Using the push technique, the tube was then pushed into place over the insertion wire at the abdominal wall end. The tube insertion site was then cleansed once again, and the external bolster was placed over the tube to secure it to the abdominal wall. A sterile dressing was then applied, and the procedure terminated. Retroflexed views revealed a small hiatal hernia. The gastroscope was then slowly withdrawn and removed. ADVERSE EVENT: There were no complications. IMPRESSIONS: 1. Status post 20 Fr percutaneous endoscopic gastrostomy 2. Small hiatal hernia 3. Mild atrophic gastritis in the body and the antrum of the stomach RECOMMENDATIONS: 1. begin PEG use in 3 hours 2. acid suppression therapy 3. check helicobacter pylori status, treat if indicated REPEAT EXAM: Abelardo Saenz Dr eSigned: Abelardo Saenz Dr 05/02/2019 6:58 PM cc: CPT CODES: ICD9 CODES: PATIENT NAME: Jefferson Villarreal MR#: [id number]
[2019-05-02 23:59] VITALS: O2SAT 93
--- NOTE | 2019-05-03 00:19 | CON ---
Date of Consultation: 05/02/2019 Reason For Consultation: Dysphagia, aspiration pneumonia. History Of Present Illness: The patient is a 78-year-old male with history of hyper tension, hyperlipidemia, stroke x5, and STDs in the past. The patient presented to the hospital due to respiratory failure, found to have probable aspiration pneumonia. Sister states he has been havin g increasing problems swallowing over the past 6 months, was becoming progressively worse. Now it ap pears the patient has aspiration pneumonia on antibiotic therapy. The patient also had abnormal sudhir fied barium swallow on this admission. Past Medical History: As stated above. This is consistent with hypertension, hyperlipidemia, stroke x5, COPD, posttraumatic stress disorder. Served in the [place] [employer]. STDs in the past according to the sister. Social History: He is , lives with sister. He has 4 children. No tobacco. No alcohol. Family History: Father of myocardial infarction. Mother of end-stage renal disease, was o n hemodialysis and also had a congestive heart failure according to the daughter and 2 sisters. Also appears that mother may have had diabetes and schizophrenia as well by chart review. Review of Systems: The patient has dysphagia, aspiration pneumonia. There is no report by the sister or nurses of any m tami, hematochezia, hematemesis, coffee-ground emesis, hematuria, dysuria, polyuria, polydipsia, eugenia st pain, lower extremity muscle aches, joint aches, backaches, depression, and anxiety. Patient does have shortness of breath for which he was admitted to the hospital. He had been improved on IV anti biotic therapy and pulmonary care. Physical Examination: Vital Signs: The patient is 5 feet 11 inches, 121 pounds, BMI 17 kg/meter squared. General: He is an elderly male, lying in bed, in no acute distress. [facility]ble to communicate well[facility] HEENT: Normocephalic, atraumatic. Anicteric. Pupils equal, round, and reactive to light. Anicteri c. Oropharynx clear. Neck: Supple, no masses. Respirations: Diminished bilaterally. Cardiac: Regular rate and rhythm. No gallops or rubs. Gastrointestinal: Abdomen positive bowel sounds. Soft, nontender, and nondistended. No hepatosplen omegaly. No peritoneal or Tena sign. No rebound. Extremities: No clubbing, cyanosis, or edema. 2+ pulses. Neuro: Limited. The patient responds to painful and verbal stimuli. Laboratory Data: The patient has a white count of 11.2, up from 6.8, but down from admission of 22.1 , hemoglobin of 12.4, hematocrit 38, MCV of 85, platelet count of 282, polys of 86%, lymphocytes 8%, monocytes 5%, PT of 12.8, INR of 1.1, PTT of 20.2. Sodium 139, potassium 4.2, chloride 104, bicarb 3 0, BUN of 13, creatinine of 0.8, glucose 108, calcium 8.9, magnesium 1.9, total bilirubin 0.3, AST 19 , ALT 15, alkaline phosphatase 47, total protein 7.3, albumin 2.0. On April 27, patient had a UA that showed 3+ leukocyte esterase, toy-jnutpnvq-si-count white blood cells, 5-10 squamous epithelials , greater than 50 bacteria, positive nitrite, 3+ leukocyte esterase, 3+ protein. Chest x-ray on the revealed moderate right pneumonia, modified barium swallow, revealed a laryng eal penetration cleared with thin, nectar, honey thick liquid, pharyngeal residue, moderate with shane y swallow with a small tablespoon of thin liquid and pureed bolus retropulsion from upper esophageal sphincter back to pharynx. Impression, modified barium swallow, slightly abnormal. the stomach area. Impression: 1.Dysphagia with aspiration pneumonia with right lower lobe pneumonia noted on chest x-ray with hosp ital admission. Patient received IV antibiotics at this time with white count of 22,000, now down to on antibiotics. Sister reports increasing dysphagia over the past 6 months. The patient has a history of 5 strokes in the past, may have been dysphagia due to the recurrent stroke or other . 2.History of hypertension, hyperlipidemia, strokes, STDs, chronic obstructive pulmonary disease and others as per above. 3.Urinary tract infection. 4.Protein-calorie malnutrition with albumin of 2.0. Recommendation: 1.EGD with PEG tube placement. 2.Keep patient n.p.o. 3.Hold aspirin, the patient has been off over the past week. 4.Check pre-albumin level. WS/MODL Voice ID: [id number] Report ID: [id number]
[2019-05-03] MEDS: INSULIN -REGULAR HUMAN 50 UNIT/0.5 ML ML SQ SCH ×3 (06:00→12:00)
[2019-05-03] MEDS: AMLODIPINE 5 MG TAB FT SCH (09:12)
[2019-05-03] MEDS: ENOXAPARIN 40 MG/0.4 ML SQ SCH (09:13)
[2019-05-03] MEDS: Levofloxacin500mg IV 500 MG/100 ML BAG IV SCH (11:08)
--- NOTE | 2019-05-03 12:55 | P.DS ---
Admission Date: 04/27/19 Discharge Date: 05/03/19 Primary Care Provider: ARELIS Disposition: DC HOME/HOME HEALTH CARE Discharge Condition: FAIR Reason for Admission: Respiratory failure, Sepsis Consultations: Gastroenterology-Dr. Saenz. - Problems (1) Pneumonia Current Visit: No Status: Acute Qualifiers: Pneumonia type: due to unspecified organism Laterality: bilateral Lung location: lower lobe of lung Qualified Code(s): J18.9 - Pneumonia, unspecified organism (2) History of CVA with residual deficit Current Visit: No Status: Chronic (3) HTN (hypertension) Current Visit: No Status: Chronic Qualifiers: Hypertension type: essential hypertension Qualified Code(s): I10 - Essential (primary) hypertension Brief History of Present Illness: 78-year-old gentleman with a history CVA with residual aphasia presented to the emergency department with a complaint of shortness of breath and cough. He was dyspneic and hypoxic on arrival to the ED. Chest x-ray demonstrated opacities throughout the right lung suggestive of pneumonia. He was requiring BiPAP. CBC also demonstrated severe leukocytosis. Patient was diagnosis sepsis secondary to aspiration pneumonia and admitted for further management. Hospital Course: He was treated aggressively with IV vancomycin and Zosyn and BiPAP therapy. This respiratory condition improved, he was weaned off BiPAP to oxygen by nasal cannula. Leukocytosis got resolved abnormalities was scaled down to IV Levaquin. She was seen and evaluated by speech therapy and noted to have severe oral pharyngeal dysphagia. Alternate form of feeding was recommended. He was initially fed via NGT, GI was consulted, patient was seen and evaluated by Dr. Saenz and PEG tube inserted. Patient tolerated PEG tube feeding. Family preferred bolus feeding. Dietitian recommended Jevity 1.5, 240 ml can 5 times a day. Patient has tolerated PEG tube feed. He is considered clinically stable. He is discharged with a prescription for Augmentin to continue treatment for the aspiration pneumonia. Vital Signs/Physical Exam: Temp Pulse Resp BP Pulse Ox 97.3 F 83 20 164/82 H 95 05/03/19 08:00 05/03/19 09:12 05/03/19 08:00 05/03/19 09:12 05/03/19 08:00 General: Alert, In no apparent distress HEENT: Mucous membr. moist/pink Neck: Supple, JVD not distended Respiratory: Other (Bilateral upper airway transmitted sounds.) Cardiovascular: No edema, Regular rate/rhythm, Normal S1 S2 Gastrointestinal: Normal bowel sounds, Soft and benign, No tenderness, Other ( PEG tube.) Musculoskeletal: No swelling Laboratory Data at Discharge: WBC 11.2 K/uL (4.3-10.9) H D 05/02/19 11:30 Hgb 12.4 g/dL (13.6-17.9) L 05/02/19 11:30 Hct 38.0 % (39.6-49.0) L 05/02/19 11:30 Plt Count 282 K/uL (152-406) 05/02/19 11:30 PT 12.8 SECONDS (9.5-12.5) H 04/27/19 15:30 INR 1.09 04/27/19 15:30 APTT 20.2 SECONDS (24.3-36.9) L 04/27/19 15:30 Sodium 139 mmol/L (136-145) 05/02/19 11:30 Potassium 4.2 mmol/L (3.5-5.1) 05/02/19 11:30 BUN 13 mg/dL (7-18) 05/02/19 11:30 Creatinine 0.76 mg/dL (0.55-1.3) 05/02/19 11:30 Glucose 108 mg/dL (74-106) H 05/02/19 11:30 Magnesium 1.9 mg/dL (1.8-2.4) 05/02/19 11:30 Total Bilirubin 0.3 mg/dL (0.2-1.0) 05/02/19 11:30 AST 19 U/L (15-37) 05/02/19 11:30 ALT 15 U/L (12-78) 05/02/19 11:30 Alkaline Phosphatase 47 U/L (45-117) 05/02/19 11:30 Troponin I < 0.02 ng/mL (0.0-0.045) 04/28/19 06:00 Lipase 44 U/L (73-393) L 04/27/19 15:30 Home Medications: Amlodipine [Norvasc*] 1 tab OSTOMY BID #30 tab 05/03/19 Amox Tr/Potassium Clavulanate [Augmentin 400-57 mg/5 ml] 800 mg OSTOMY BID 7 Days ml 05/03/19 Aspirin 81 mg OSTOMY DAILY #30 tab.chew 05/03/19 Atorvastatin Calcium [Lipitor] 80 mg OSTOMY DAILY #30 tablet 05/03/19 Hydralazine [Apresoline*] 25 mg OSTOMY TID #90 tab 05/03/19 Jevity 1.5 Lucian [Jevity 1.5 Lucian*] 240 ml FT 5XD #50 can 05/03/19 Lisinopril [Zestril] 1 tab OSTOMY DAILY #30 tablet 05/03/19 Multivitamin [Multivitamins] 1 each OSTOMY DAILY #30 capsule 05/03/19 Prazosin HCl 1 mg OSTOMY BEDTIME #30 capsule 05/03/19 Tamsulosin [Flomax*] 0.4 mg OSTOMY BEDTIME #30 cap 05/03/19 carvediloL [Coreg*] 37.5 mg OSTOMY BID #60 tab 05/03/19 New Medications: Amlodipine [Norvasc*] 1 tab OSTOMY BID #30 tab Amox Tr/Potassium Clavulanate [Augmentin 400-57 mg/5 ml] 800 mg OSTOMY BID 7 Days ml Aspirin 81 mg OSTOMY DAILY #30 tab.chew Atorvastatin Calcium [Lipitor] 80 mg OSTOMY DAILY #30 tablet carvediloL [Coreg*] 37.5 mg OSTOMY BID #60 tab Hydralazine [Apresoline*] 25 mg OSTOMY TID #90 tab Jevity 1.5 Lucian [Jevity 1.5 Lucian*] 240 ml FT 5XD #50 can Lisinopril [Zestril] 1 tab OSTOMY DAILY #30 tablet Multivitamin [Multivitamins] 1 each OSTOMY DAILY #30 capsule Prazosin HCl 1 mg OSTOMY BEDTIME #30 capsule Tamsulosin [Flomax*] 0.4 mg OSTOMY BEDTIME #30 cap Diet: Tube feeding: Jevity 1.5, One 240 ml can 5 times a day, free water 90 ml with every tube feed 5 times a day. Check gastric residual before feeds. Do not feed for residual greater than 150 ml. Activity: Fall precautions Time spent managing pt's care (in minutes): 42
[2019-05-03 14:08] VITALS: TEMP 97.7
[2019-05-03 17:50] VITALS: BP 150/90
== END 2019-05-03 20:05 | disposition home or self-care (01) | DRG 871 ==
LOC: ER 14:25 → ERHOLD 17:49 → 3RD-ICU 19:41 → 2ND 04-29 13:30
PROVIDERS: ADMIT Hospitalist; ATTEND Internal Medicine
PROC: 5A09457 Assistance with Respiratory Ventilation, 24-96 Consecutive Hours, Continuous Positive Airway Pressure (ICD-10-PCS; 2019-04-27)
PROC: 0DH63UZ Insertion of Feeding Device into Stomach, Percutaneous Approach (ICD-10-PCS; principal; 2019-05-02 18:00)
DX: A41.9 Sepsis, unspecified organism (principal); J15.9 Unspecified bacterial pneumonia; J96.01 Acute respiratory failure with hypoxia; E43 Unspecified severe protein-calorie malnutrition; N39.0 Urinary tract infection, site not specified; N17.9 Acute kidney failure, unspecified; Z68.1 Body mass index [BMI] 19.9 or less, adult; J44.1 Chronic obstructive pulmonary disease with (acute) exacerbation; R65.20 Severe sepsis without septic shock; B96.20 Unspecified Escherichia coli [E. coli] as the cause of diseases classified elsewhere; I10 Essential (primary) hypertension; K44.9 Diaphragmatic hernia without obstruction or gangrene; K29.70 Gastritis, unspecified, without bleeding; F43.10 Post-traumatic stress disorder, unspecified; I69.320 Aphasia following cerebral infarction
CPT/HCPCS: 36415; 51702; 71045; 74018; 74230; 80048; 80053; 80076; 80202; 81003; 81015; 82550; 82805; 82947; 83605; 83690; 83735; 84132; 84134; 84145; 84443; 84484; 85025; 85610; 85730; 87040; 87070; 87077; 87086; 87088; 87186; 87205; 92610; 92611; 93005; 94660; 96365; 96366; 96367; 99285; J0360; J0692; J1650; J2370; J2543; J2704; J3370; J7030; J7040; J7120; J7799

== ENCOUNTER 2019-05-19 09:46 | Inpatient (IN) | payer OTHER ==
--- OUTSIDE RECORDS SUMMARY | 2019-05-19 09:47 | XMS REPORT ---
:1940 [facility] [address] [place] [address] Care Team Providers Name Role Phone Unavailable Unavailable Unavailable Problems This patient has no known problems. Allergies, Adverse Reactions, Alerts This patient has no known allergies or adverse reactions. Medications This patient has no known medications. Encounters Start End Encounter Admission Attending Care Care Encounter Date/Time Date/Time Type Type Clinicians Facility Department ID 2018-09-16 2018-09-16 Emergency E [facility] [id number] 09:51:00 09:51:00 2018-09-16 2018-09-16 Outpatient [facility] [id number] 09:51:00 09:51:00
[2019-05-19] MEDS ORDERED: CEFTRIAXONE/SWI 1gm 1 GM/10 ML SYR ONE (10:35)
--- NOTE | 2019-05-19 10:54 | RAD REPORT ---
EXAM DESCRIPTION: Nicki Single View05/19/2019 10:27 am CLINICAL HISTORY: Hypotension COMPARISON: April 27, 2019 FINDINGS: Moderate right lung opacities. The left lung appears clear of acute infiltrate The heart is normal size IMPRESSION: Moderate right lung opacities consistent with pneumonia. There is a component of atelec tasis as well. This should be followed until it is clear to help exclude a postobstructive process
[2019-05-19] MEDS ORDERED: NA CHLORIDE 0.9% 1,000 ML ONE ×2 (11:22→12:29)
[2019-05-19 12:02] LABS: Absolute Lymphocytes (CBC) 0.5 K/uL (0.7-4.9); Basophils % 0.2 % (0-1.3); Hematocrit 34.9 % (39.6-49.0); MPV 8.6 fL (7.6-11.3); RBC Red Blood Cell Count 4.11 M/uL (4.33-5.43)
[2019-05-19] MEDS ORDERED: CEFEPIME 1 GM/100 ML BAG IV ONE (12:29)
[2019-05-19] MEDS ORDERED: VANCOMYCIN/NS 1 gm 1 GM/250 ML BAG IV ONE (12:30)
[2019-05-19 12:32] LABS: Protime INR 1.07
[2019-05-19 12:44] LABS: ALT/SGPT 14 U/L (12-78); AST/SGOT 11 U/L (15-37); Alkaline Phosphatase 59 U/L (45-117); BUN Blood Urea Nitrogen 17 mg/dL (7-18); Bicarbonate 32 mmol/L (21-32); Bilirubin Direct 0.2 mg/dL (0-0.2); Bilirubin Total 0.4 mg/dL (0.2-1.0); CKMB Creatine Kinase MB < 1.0 ng/mL (0.3-3.6); Creatine Phosphokinase 26 U/L (39-308); Glucose Level 78 mg/dL (74-106); Lipase 30 U/L (73-393); Potassium 4.7 mmol/L (3.5-5.1); Protein, Total 6.9 g/dL (6.4-8.2); Sodium Level 128 mmol/L (136-145); Troponin (Emerg Dept Use Only) < 0.02 ng/mL (0.0-0.045)
[2019-05-19 13:51] LABS: Blood Morphology Comment NOT SEEN (NOT SEEN); Platelet Estimate ADEQ; Urine White Blood Cell Casts OK
--- NOTE | 2019-05-19 14:16 | ER ---
Nurse's Notes [facility] Name: Jefferson Villarreal Age: 78 yrs Sex: Male : 1940 Arrival Date: 05/19/2019 Time: 09:47 Bed 4 Private MD: Diagnosis: Pneumonia, unspecified organism;Sepsis, unspecified organism Presentation: 05/19 09:48 Presenting complaint: EMS states: SISTER MEASURED BP LOW AT HOME. Transition of care: bp patient was not received from another setting of care. Onset of symptoms is unknown. Risk Assessment: Do you want to hurt yourself or someone else? Patient reports no desire to harm self or others. Initial Sepsis Screen: Does the patient meet any 2 criteria? No. Patient's initial sepsis screen is negative. Does the patient have a suspected source of infection? No. Patient's initial sepsis screen is negative. Care prior to arrival: IV initiated. 22 GA, in the left antecubital area, Glucose check: 101 Oxygen administered. via a non-rebreather mask. 09:48 Method Of Arrival: EMS: [facility] bp 09:48 Acuity: ELROY 2 bp Triage Assessment: 09:50 General: Appears in no apparent distress. Behavior is ALTERED AT BASELINE. Pain: Unable bp to use pain scale. Does not appear to understand pain scale. EENT: No deficits noted. Neuro: Level of Consciousness is awake, Oriented to none AT BASELINE. Cardiovascular: Rhythm is sinus rhythm. Respiratory: Breath sounds are coarse bilaterally. GI: PEG tube in place, clamped. : No signs and/or symptoms were reported regarding the genitourinary system. Derm: No deficits noted. Musculoskeletal: No deficits noted. Historical: - Allergies: 09:50 No Known Allergies; bp - PMHx: 09:50 COPD; CVA; Hyperlipidemia; Hypertension; bp - Immunization history:: Adult Immunizations up to date. - Social history:: Smoking status: Patient/guardian denies using tobacco. - Ebola Screening: : No symptoms or risks identified at this time. Screenin:52 Abuse screen: Denies threats or abuse. Denies injuries from another. Nutritional bp screening: No deficits noted. Tuberculosis screening: No symptoms or risk factors identified. Fall Risk None identified. Assessment: 09:52 General: SEE TRIAGE NOTE. bp 10:54 Reassessment: UNABLE TO OBTAIN LAB SPECIMEN WITH MX ATTEMPTS BY MX STAFF, NOTIFIED. bp PHLEBOTOMY EN ROUTE. 12:20 Reassessment: LAB SPECIMENS OBTAINED BY PHLEBOTOMY. NOTIFIED. bp 14:00 Reassessment: ABX INFUSING, NO CHANGE IN PT NEURO STATUS. bp 15:03 Reassessment: ADMIT IN PROCESS. FAMILY AFFIRMS DNR/DNI STATUS. bp 17:19 Reassessment: REPORT TO JJ COY FOR ER HOLD. bp Vital Signs: 10:07 BP 90 / 56; Pulse 85; Resp 27; Pulse Ox 95% on 15% Non-rebreather mask; Weight 58.97 kg;bp 10:53 BP 76 / 52; Pulse 91; Resp 29; Pulse Ox 98% ; bp 12:20 BP 87 / 55; Pulse 87; Resp 33; Pulse Ox 100% ; bp 13:00 BP 89 / 52; Pulse 88; Resp 21; Pulse Ox 100% ; bp 14:00 BP 87 / 55; Pulse 84; Resp 16; Pulse Ox 100% ; bp 15:00 BP 75 / 51; Pulse 81; Resp 23; Pulse Ox 100% ; bp 16:00 BP 86 / 54; Pulse 78; Resp 29; Pulse Ox 99% ; bp ED Course: 09:47 Patient arrived in ED. bp 09:49 Triage completed. bp 09:50 Preet Ambriz MD is Attending Physician. kdr 09:50 Arm band placed on. bp 09:52 Patient has correct armband on for positive identification. Bed in low position. Call bp light in reach. Side rails up X2. brick setter on. Pulse ox on. NIBP on. 09:52 Maintain EMS IV. Dressing intact. Good blood return noted. Site clean \T\ dry. Gauge \T\ bp site: 22 GAUGE LEFT AC. 09:59 Rik Mar, RN is Primary Nurse. bp 10:28 Chest Single View XRAY In Process Unspecified. EDMS 10:51 Missed attempt(s): 22 gauge in left hand. Bleeding controlled, band aid applied, ph catheter tip intact. 14:13 Rob Parekh DO is Hospitalizing Provider. kdr Administered Medications: 12:22 Drug: Rocephin - (cefTRIAXone) 1 grams Route: IVPB; Infused Over: 30 mins; Site: left bp forearm; 12:30 Drug: Cefepime 1 grams Route: IVPB; Rate: 200 ml/hr; Infused Over: 30 mins; Site: left bp forearm; 12:31 Drug: NS 0.9% (30 ml/kg) 30 ml/kg Route: IV; Rate: bolus; Site: left forearm; bp 13:13 Drug: vancoMYCIN 1 grams Route: IVPB; Infused Over: 2 hrs; Site: left forearm; bp Outcome: 14:16 Decision to Hospitalize by Provider. kdr 17:52 Patient left the ED. iw Signatures: Dispatcher [employer] EDMS Preet Ambriz MD MD kdr Bre Ballesteros, ANNELIESE RN iw Michelle Granados RN RN Rik Mar RN RN bp Corrections: (The following items were deleted from the chart) 10:56 10:53 Pulse 91bpm; Resp 29bpm; Pulse Ox 98%; bp bp 12:23 10:07 BP 90 / 56; Pulse 85bpm; Resp 27bpm; Pulse Ox 95% 02 15% Non-rebreather mask; bp bp
--- NOTE | 2019-05-19 14:17 | EDPHYS ---
Physician Documentation [facility] Name: Jefferson Villarreal Age: 78 yrs Sex: Male : 1940 Arrival Date: 05/19/2019 Time: 09:47 Bed 4 Private MD: ED Physician Preet Ambriz HPI: 05/19 14:16 This 78 yrs old Black Male presents to ER via EMS with complaints of Blood Pressure kdr Problem. 14:16 The sister states that she took the patient's BP at home and noted that is was low. She kdr denies any other new issues . Onset: The symptoms/episode began/occurred just prior to arrival, this morning. Severity of symptoms: At their worst the symptoms were mild moderate just prior to arrival, in the emergency department the symptoms. It is unknown whether or not the patient has had similar symptoms in the past. The patient has not recently seen a physician. Historical: - Allergies: 09:50 No Known Allergies; bp - PMHx: 09:50 COPD; CVA; Hyperlipidemia; Hypertension; bp - Immunization history:: Adult Immunizations up to date. - Social history:: Smoking status: Patient/guardian denies using tobacco. - Ebola Screening: : No symptoms or risks identified at this time. ROS: 14:16 Constitutional: Unable to asses as the patient is non-communicative and does not follow kdr commands 14:16 Unable to obtain ROS due to altered mental status. Exam: 10:09 ECG was reviewed by the Attending Physician. kdr 14:16 Constitutional: This is a well developed, mildly cachectic patient who is kdr obtundedalert, and in mild distress. Head/Face: Normocephalic, atraumatic. Eyes: Pupils equal round and reactive to light, extra-ocular motions intact. Lids and lashes normal. Conjunctiva and sclera are non-icteric and not injected. Cornea within normal limits. Periorbital areas with no swelling, redness, or edema. Neck: Trachea midline, no thyromegaly or masses palpated, and no cervical lymphadenopathy. Supple, full range of motion without nuchal rigidity, or vertebral point tenderness. No Meningismus. 14:16 Chest/axilla: Normal chest wall appearance and motion. Nontender with no deformity. No lesions are appreciated. Cardiovascular: Regular rate and rhythm with a normal S1 and S2. No gallops, murmurs, or rubs. Normal PMI, no JVD. No pulse deficits. 14:16 ENT: The patient has copious oral secretions/phlegm. 14:16 Respiratory: the patient does not display signs of respiratory distress, Respirations: labored breathing, that is mild, shallow respirations, that is mild, Breath sounds: largely clear with a few crackles in the bases bilaterally. Vital Signs: 10:07 BP 90 / 56; Pulse 85; Resp 27; Pulse Ox 95% on 15% Non-rebreather mask; Weight 58.97 kg;bp 10:53 BP 76 / 52; Pulse 91; Resp 29; Pulse Ox 98% ; bp 12:20 BP 87 / 55; Pulse 87; Resp 33; Pulse Ox 100% ; bp 13:00 BP 89 / 52; Pulse 88; Resp 21; Pulse Ox 100% ; bp 14:00 BP 87 / 55; Pulse 84; Resp 16; Pulse Ox 100% ; bp 15:00 BP 75 / 51; Pulse 81; Resp 23; Pulse Ox 100% ; bp 16:00 BP 86 / 54; Pulse 78; Resp 29; Pulse Ox 99% ; bp MDM: 14:16 Patient medically screened. kdr 14:16 Data reviewed: vital signs, nurses notes, lab test result(s), radiologic studies. kdr Counseling: I had a detailed discussion with the patient and/or guardian regarding: the historical points, exam findings, and any diagnostic results supporting the discharge/admit diagnosis, lab results, radiology results, the need for further work-up and treatment in the hospital. 05/19 10:08 Order name: Basic Metabolic Panel; Complete Time: 13:18 kdr 05/19 10:08 Order name: Blood Culture Adult (2) kdr 05/19 10:08 Order name: CBC with Diff; Complete Time: 13:57 kdr 05/19 10:08 Order name: Ckmb; Complete Time: 13:18 kdr 05/19 10:08 Order name: CPK; Complete Time: 13:18 kdr 05/19 10:08 Order name: Lactate; Complete Time: 13:18 kdr 05/19 10:08 Order name: LFT's; Complete Time: 13:18 kdr 05/19 10:08 Order name: Lipase; Complete Time: 13:18 kdr 05/19 10:08 Order name: Procalcitonin; Complete Time: 13:57 kdr 05/19 10:08 Order name: Protime (+inr); Complete Time: 13:18 kdr 05/19 10:08 Order name: Ptt, Activated; Complete Time: 13:18 kdr 05/19 10:08 Order name: Troponin (emerg Dept Use Only); Complete Time: 13:18 kdr 05/19 10:08 Order name: Urine Microscopic Only kdr 05/19 13:52 Order name: CBC Smear Scan; Complete Time: 13:57 EDMS 05/19 10:08 Order name: Chest Single View XRAY; Complete Time: 12:20 kdr 05/19 10:08 Order name: Accucheck; Complete Time: 12:24 kdr 05/19 10:08 Order name: Cardiac monitoring; Complete Time: 10:20 kdr 05/19 10:08 Order name: EKG - Nurse/Tech; Complete Time: 10:20 kdr 05/19 10:08 Order name: IV Saline Lock - Large Bore; Complete Time: 12:23 kdr 05/19 10:08 Order name: Labs collected and sent; Complete Time: 12:23 kdr 05/19 10:08 Order name: O2 Per Protocol; Complete Time: 10:20 kdr 05/19 10:08 Order name: O2 Sat Monitoring; Complete Time: 10:20 kdr EC:09 Rate is 105 beats/min. Rhythm is regular. QRS [place] is Normal. CO interval is normal. kdr QRS interval is normal. Clinical impression: Sinus tachycardia. Administered Medications: 12:22 Drug: Rocephin - (cefTRIAXone) 1 grams Route: IVPB; Infused Over: 30 mins; Site: left bp forearm; 12:30 Drug: Cefepime 1 grams Route: IVPB; Rate: 200 ml/hr; Infused Over: 30 mins; Site: left bp forearm; 12:31 Drug: NS 0.9% (30 ml/kg) 30 ml/kg Route: IV; Rate: bolus; Site: left forearm; bp 13:13 Drug: vancoMYCIN 1 grams Route: IVPB; Infused Over: 2 hrs; Site: left forearm; bp Disposition: 05/19/19 14:16 Hospitalization ordered by Rob Parekh for Inpatient Admission. Preliminary diagnosis are Pneumonia, unspecified organism, Sepsis, unspecified organism. - Bed requested for Intensive Care Unit. - Status is Inpatient Admission. iw - Condition is Serious. - Problem is new. - Symptoms are unchanged. UTI on Admission? No Signatures: Dispatcher [employer] EDAyla Powell RN RN Preet Ambriz MD MD [facility] Bre Ballesteros RN RN iw Peltier, Brian RN RN bp Corrections: (The following items were deleted from the chart) 14:29 10:13 Constitutional: This is a well developed, well nourished patient who is awake, kdr alert, and in no acute distress. [facility] 17:22 14:16 Hospitalization Ordered by Rob Parekh DO for Inpatient Admission. Preliminary diagnosis is Pneumonia, unspecified organism; Sepsis, unspecified organism. Bed requested for Telemetry/MedSurg (Inpatient). Status is Inpatient Admission. Condition is Serious. Problem is new. Symptoms are unchanged. UTI on Admission? No. kdr 17:52 17:22 05/19/2019 14:16 Hospitalization Ordered by Rob Izabella MARCOS for Inpatient iw Admission. Preliminary diagnosis is Pneumonia, unspecified organism; Sepsis, unspecified organism. Bed requested for Intensive Care Unit. Status is Inpatient Admission. Condition is Serious. Problem is new. Symptoms are unchanged. UTI on Admission? No. dw
--- NOTE | 2019-05-19 14:54 | P.HP ---
Certification for Inpatient Patient admitted to: Inpatient With expected LOS: >2 Midnights Patient will require the following post-hospital care: Care Home Practitioner: I am a practitioner with admitting privileges, knowledge of patient current condition, hospital course, and medical plan of care. Services: Services provided to patient in accordance with Admission requirements found in Title 42 Section 412.3 of the Code of Federal Regulations Patient History Date of Service: 05/19/19 Primary Care Provider: Dr. Olguin Reason for admission: Altered mental status, low blood pressure History of Present Illness: 78-year-old male with history of CVA with residual right-sided weakness, dysphagia with PEG tube, COPD and hypertension. Patient recently hospitalized and discharged home in April for likely aspiration pneumonia. Patient was found to have dysphagia at that time and PEG tube was placed. Since that time patient has been at home with his caregiver and medical power of tax attorney-sister. She reports that she has been primarily giving Ensure as [facility]-Jevity for PEG tube feeds. Since yesterday patient is had some altered mental status changes. She has been diligent in giving his medications. Today she happened to check his blood pressure. Blood pressure was low. Patient has had some chills. Due to the status changes the patient was brought in to the hospital for further evaluation. In the ER patient was evaluated. Patient was initially hypotensive in the emergency room with a systolic in the 80s. He did appear short of breath. On lab white count 8.4, hemoglobin 11.2. Platelet count of 205. Neutrophils elevated at 89. Sodium 128, potassium 4.7. Bicarb 32. BUN 17, creatinine 1.02 with a GFR of 86. Glucose 78. Lactic acid within normal range but pro calcitonin elevated at 4.3. Chest x-ray showed right lower lobe pneumonia likely aspiration. Sepsis protocol initiated. Patient admitted for further evaluation and treatment. Patient currently on non-rebreather. When I saw the patient in the ER, he appeared septic. Family at bedside. Blood pressure is still low. Patient on non-rebreather. Patient appears chronically ill. Allergies No Known Allergies Allergy (Verified 02/25/18 15:13) Home medications list reviewed: Yes Home Medications: Amlodipine [Norvasc*] 1 tab OSTOMY BID #30 tab 05/03/19 Amox Tr/Potassium Clavulanate [Augmentin 400-57 mg/5 ml] 800 mg OSTOMY BID 7 Days ml 05/03/19 Aspirin 81 mg OSTOMY DAILY #30 tab.chew 05/03/19 Atorvastatin Calcium [Lipitor] 80 mg OSTOMY DAILY #30 tablet 05/03/19 Hydralazine [Apresoline*] 25 mg OSTOMY TID #90 tab 05/03/19 Jevity 1.5 Lucian [Jevity 1.5 Lucian*] 240 ml FT 5XD #50 can 05/03/19 Lisinopril [Zestril] 1 tab OSTOMY DAILY #30 tablet 05/03/19 Multivitamin [Multivitamins] 1 each OSTOMY DAILY #30 capsule 05/03/19 Prazosin HCl 1 mg OSTOMY BEDTIME #30 capsule 05/03/19 Tamsulosin [Flomax*] 0.4 mg OSTOMY BEDTIME #30 cap 05/03/19 carvediloL [Coreg*] 37.5 mg OSTOMY BID #60 tab 05/03/19 - Past Medical/Surgical History Diabetic: No -: 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 Sister has medical power of tax attorney. - Family History Mother -: Hypertension, Diabetes Notes: schizoprenia Father -: Heart disease Brother -: Stroke - Social History Smoking Status: Former smoker Alcohol use: No CD- Drugs: No Caffeine use: Yes Place of Residence: Home Review of Systems General: Chills, Weakness, As per HPI Eyes: Unremarkable ENT: As per HPI Respiratory: As per HPI Cardiovascular: Unremarkable Gastrointestinal: Unremarkable Genitourinary: Unremarkable Musculoskeletal: Unremarkable Integumentary: Unremarkable Neurological: Weakness, As per HPI Lymphatics: Unremarkable Physical Examination - Physical Exam General: Alert, Mild distress, Other (Patient on non-rebreather) HEENT: Atraumatic, Normocephalic, Other (Dry mucous membranes) Neck: Supple Respiratory: Crackles/rales (Bilateral), Expiratory wheezes (Bilateral) Cardiovascular: Normal pulses, Regular rate/rhythm Gastrointestinal: Normal bowel sounds, Soft and benign, Non-distended, No tenderness, No masses, No rebound, No guarding Musculoskeletal: Other (Dry skin) Neurological: Other (Patient with altered mental status changes. Patient with residual right-sided weakness) - Studies Laboratory Data (last 24 hrs) 05/19/19 12:10: PT 12.6 H, INR 1.07, APTT 26.5 05/19/19 12:10: Sodium 128 L, Potassium 4.7, BUN 17, Creatinine 1.02, Glucose 78 , Total Bilirubin 0.4, AST 11 L, ALT 14, Alkaline Phosphatase 59, Lipase 30 L 05/19/19 11:42: WBC 8.4, Hgb 11.7 L, Hct 34.9 L, Plt Count 205 Assessment and Plan - Plan Impression: Sepsis with toxic encephalopathy secondary to right lower lobe pneumonia likely recurrent aspiration Acute on chronic respiratory failure likely related to pneumonia with history of COPD Hyponatremia secondary to dehydration History of multiple CVAs with right-sided residual weakness Dysphagia with recent PEG tube placement History of hypertension now with hypotension related to sepsis Plan: Sepsis with toxic encephalopathy secondary to right lower lobe pneumonia likely recurrent aspiration: Patient will be admitted to ICU for further treatment. Sepsis protocol in place. Patient will receive sepsis protocol bolus. Will continue with maintenance medication. If blood pressure remains low patient will require vasopressor therapy-Lopressor to maintain map of 65. IV Zosyn has been initiated. Obtain blood, urine and sputum culture. Mckoy catheter in place for strict input and output. Daily weight to be monitored. Will order echocardiogram to further evaluate. Will monitor chest x-ray. Pulmonology consulted for further recommendation. Respiratory consulted to maintain sats above 93%. Patient may require BiPAP. Case discussed at length with sister who has medical power of tax attorney. Advanced directives address in detail. Sister reports patient is do not resuscitate. Will continue monitor closely. Acute on chronic respiratory failure likely related to pneumonia with history of COPD: Continue with treatment. Respiratory consulted to maintain sats above 93%. Patient may require BiPAP. Pulmonology consulted to further evaluate. Will continue COPD medication. Hyponatremia secondary to dehydration: Patient will continue with IV fluids. Will monitor closely. Replacement protocol in place. History of multiple CVAs with right-sided residual weakness: Will provide DVT prophylaxis. Will continue with aspirin and Plavix through PEG tube. Dysphagia with recent PEG tube placement: Will provide medication through PEG tube. Obtain information on what the patient was getting for PEG tube feeds. Will need to restart. May need to consult dietary to help with this. Patient NPO at this time History of hypertension now with hypotension related to sepsis: Hold blood pressure medication at this time due to sepsis. Discharge Plan: Other (Home versus skilled placement verses prison) Plan to discharge in: Greater than 2 days - Advance Directives Does patient have a Living Will: No Does patient have a Durable POA for Healthcare: Yes - Code Status/Comfort Care Code Status Assessed: Yes (Discussed with medical power of tax attorney. Patient DNR) Time Spent Managing Pts Care (In Minutes): 55
[2019-05-19] MEDS ORDERED: NOREPINEPHRINE 4 MG in D5W 250 ML IV PRN (18:00)
[2019-05-19] MEDS ORDERED: ALBUTEROL 2.5 MG/3 ML NEB SOL NEB PRN (18:37)
[2019-05-19] MEDS ORDERED: IPRATROPIUM BROM 0.5MG/2.5ML NEB PRN (18:37)
[2019-05-19] MEDS ORDERED: ONDANSETRON 4 MG/2 ML VIAL IV PRN (18:37)
[2019-05-19] MEDS ORDERED: ACETAMINOPHEN 500 MG TAB FT PRN (18:37)
[2019-05-19 18:42] LABS: Blood Gas Oxyhemoglobin 88.3 % (94-97); Blood O2 Saturation 89.7 % (92-98.5)
[2019-05-19] MEDS: PIPER/TAZO/NS 3.375gm 3.375 GM/100 ML BAG IVPB SCH (19:09)
[2019-05-19] MEDS: D5 0.9 NS 1,000 ML IV SCH (19:10)
[2019-05-19 19:26] LABS: CKMB Creatine Kinase MB 1.3 ng/mL (0.3-3.6); Creatine Phosphokinase 29 U/L (39-308); Troponin I < 0.02 ng/mL (0.0-0.045)
[2019-05-19] MEDS: ARFORMOTEROL TARTRATE 15 MCG/2 ML VIAL.NEB NEB SCH (20:05)
[2019-05-19] MEDS: NOREPINEPHRINE 8 MG in D5W 500 ML IV PRN (20:25)
[2019-05-19] MEDS ORDERED: ATORVASTATIN 10 MG TAB FT SCH (21:00)
[2019-05-19] MEDS: NA CHLORIDE 0.9% 250 ML IV PRN (21:33)
[2019-05-19] MEDS: ENOXAPARIN 40 MG/0.4 ML SQ SCH (22:04)
[2019-05-19] MEDS ORDERED: HYDROCORTISONE SUC 100 MG INJ IV ONE (23:02)
[2019-05-19] MEDS ORDERED: NA CHLORIDE 0.9% 500 ML IV ONE (23:02)
[2019-05-19 23:08] LABS: Urine Appearance CLOUDY; Urine Blood NEGATIVE (NEG); Urine Color DK YELLOW; Urine Glucose NEGATIVE (NEG); Urine Protein TRACE (NEG); Urine Urobilinogen 0.2 mg/dL (0.2-1.0)
[2019-05-19 23:29] LABS: Urine Bacteria 20-50 /HPF (NONE SEEN); Urine Bilirubin NEGATIVE (NEG); Urine Microscopic Reflex ORDER UMIC; Urine RBC <5 /HPF (NONE SEEN)
[2019-05-19 23:30] LABS: Urine Amorphous Sediment 2+ /HPF (NONE SEEN); Urine Culture Reflex Order REFLEXED; Urine Mucus 2+ /HPF (NONE SEEN)
[2019-05-19] MEDS ORDERED: WATER FOR INJ,STERILE 10 ML ONE (23:41)
[2019-05-20] MEDS: NOREPINEPHRINE 8 MG in D5W 500 ML IV PRN ×4 (01:04→16:59)
[2019-05-20] MEDS: NA CHLORIDE 0.9% 250 ML IV PRN ×2 (01:05→05:50)
[2019-05-20] MEDS: PIPER/TAZO/NS 3.375gm 3.375 GM/100 ML BAG IVPB SCH ×3 (01:23→17:03)
[2019-05-20] MEDS: D5 0.9 NS 1,000 ML IV SCH (04:37)
[2019-05-20 05:20] LABS: Absolute Lymphocytes (CBC) 0.3 K/uL (0.7-4.9); Basophils % 0.2 % (0-1.3); Hematocrit 31.4 % (39.6-49.0); Lymphocytes % 3.6 % (15.3-44.8); MPV 8.5 fL (7.6-11.3); RBC Red Blood Cell Count 3.57 M/uL (4.33-5.43)
[2019-05-20 05:33] LABS: CKMB Creatine Kinase MB 1.2 ng/mL (0.3-3.6); Creatine Phosphokinase 35 U/L (39-308); Troponin I < 0.02 ng/mL (0.0-0.045)
[2019-05-20 05:38] LABS: Magnesium 1.6 mg/dL (1.8-2.4); Potassium 4.8 mmol/L (3.5-5.1); Thyroid Stimulating Hormone 0.511 uIU/mL (0.360-3.740)
[2019-05-20 06:22] VITALS: BMI 18.0
[2019-05-20] MEDS ORDERED: MAGNESIUM SULFATE 1 gm IVPB 1 GM/100 ML BAG IV ONE (06:29)
--- NOTE | 2019-05-20 08:10 | RAD REPORT ---
EXAM DESCRIPTION: RAD - Chest Single View - 05/20/2019 7:03 am CLINICAL HISTORY: Pneumonia COMPARISON: May 19 TECHNIQUE: AP portable chest image was obtained 0700 hours . FINDINGS: Right lung interstitial and alveolar opacities are not substantially different from the co mparison. There may be a very slight improvement at the base. No progressive right lung field finding . Fullness of the right hilum is likely reactive adenopathy. No new or progressive left lung field finding seen. Left hilum is normal. Heart and vasculature are normal. No measurable pleural effusion and no pneumothorax. No acute bony abnormality seen. No acute aortic findings suspected. IMPRESSION: Right lung field pneumonia findings are not substantially different. There may be a very fractional improvement at the right base. No new or progressive finding.
[2019-05-20] MEDS ORDERED: CLOPIDOGREL 75 MG TABLET FT SCH (09:00)
[2019-05-20] MEDS: ENOXAPARIN 40 MG/0.4 ML SQ SCH (09:00)
[2019-05-20] MEDS: ARFORMOTEROL TARTRATE 15 MCG/2 ML VIAL.NEB NEB SCH (09:10)
--- NOTE | 2019-05-20 09:26 | P.CNS ---
Date of Consult: 05/20/19 Primary Care Provider: Dr. Olguin Chief Complaint: Respiratory failure shock History of Present Illness: Patient is 78 years of age was recently discharged with a diagnosis of pneumonia admitted again with altered mental status respiratory failure shock unresponsiveness is currently unresponsive on a BiPAP Levophed drip chest x-ray no change has some fluid boluses recent PEG tube Allergies No Known Allergies Allergy (Verified 05/19/19 23:35) Home Medications: Amlodipine [Norvasc*] 1 tab OSTOMY BID #30 tab 05/03/19 Aspirin 81 mg OSTOMY DAILY #30 tab.chew 05/03/19 Atorvastatin Calcium [Lipitor] 80 mg OSTOMY DAILY #30 tablet 05/03/19 Hydralazine [Apresoline*] 25 mg OSTOMY TID #90 tab 05/03/19 Jevity 1.5 Lucian [Jevity 1.5 Lucian*] 240 ml FT 5XD #50 can 05/03/19 Lisinopril [Zestril] 1 tab OSTOMY DAILY #30 tablet 05/03/19 Multivitamin [Multivitamins] 1 each OSTOMY DAILY #30 capsule 05/03/19 Prazosin HCl 1 mg OSTOMY BEDTIME #30 capsule 05/03/19 Tamsulosin [Flomax*] 0.4 mg OSTOMY BEDTIME #30 cap 05/03/19 carvediloL [Coreg*] 37.5 mg OSTOMY BID #60 tab 05/03/19 - Past Medical/Surgical History Diabetic: No -: 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 Sister has medical power of staff attorney. - Family History Mother Medical History: Hypertension, Diabetes Notes: schizoprenia Father Medical History: Heart disease Brother Medical History: Stroke - Social History Smoking Status: Unknown if ever smoked Alcohol use: No CD- Drugs: No Caffeine use: No Place of Residence: Home Review of Systems is unable to be obtained Physical Examination Temp Pulse Resp BP Pulse Ox 97 F 74 20 86/54 L 100 05/20/19 00:00 05/20/19 08:45 05/20/19 08:45 05/20/19 08:45 05/20/19 08:45 General: Unresponsive HEENT: Atraumatic Neck: Supple Respiratory: Clear to auscultation bilaterally, Diminished Cardiovascular: No edema, Regular rate/rhythm Laboratory Data (last 24 hrs) 05/19/19 12:10: PT 12.6 H, INR 1.07, APTT 26.5 05/19/19 12:10: Sodium 128 L, Potassium 4.7, BUN 17, Creatinine 1.02, Glucose 78 , Total Bilirubin 0.4, AST 11 L, ALT 14, Alkaline Phosphatase 59, Lipase 30 L 05/19/19 11:42: WBC 8.4, Hgb 11.7 L, Hct 34.9 L, Plt Count 205 - Problems (1) Shock Current Visit: Yes Status: Acute Plan: Patient is 78 years of age with a history of stroke admitted yet again with altered mental status chest x-ray no significant changes white count is normal patient is in respiratory failure shock currently on BiPAP was hypoxic hypercapnic continue with BiPAP titrate sat to 90% do ABGs high risk for thromboembolism anti coagulated with Lovenox Dc bronchodilators stress dose of hydrocortisone as mildly anemic normal white count continue with broad-spectrum antibiotics prognosis poor
[2019-05-20] MEDS ORDERED: ENOXAPARIN 30 MG/0.3 ML SQ ONE (10:00)
[2019-05-20] MEDS: HYDROCORTISONE SUC 100 MG INJ IV SCH ×2 (10:38→22:42)
[2019-05-20] MEDS: NA CHLORIDE 0.9% 1,000 ML IV SCH ×2 (10:38→17:03)
[2019-05-20] MEDS: ASPIRIN 81 MG CHEWABLE TABLET FT SCH (10:40)
[2019-05-20 11:03] LABS: Arterial Blood Carboxyhemoglob 1.1 % (0-1.5); Blood Gas Oxyhemoglobin 86.5 % (94-97)
[2019-05-20] MEDS: ENOXAPARIN 60 MG/0.6 ML SQ SCH ×2 (11:53→22:40)
[2019-05-20] MEDS: DOPAMINE/D5W 400 MG/250 ML BAG IV PRN (12:27)
--- NOTE | 2019-05-20 13:59 | P.PN ---
Subjective Date of Service: 05/20/19 Primary Care Provider: Dr. Olguin Chief Complaint: Respiratory failure shock Subjective: Other (Patient remains on Levophed. Patient on BiPAP.) Physical Examination - Vital Signs Temperature: 98.3 F Blood Pressure: 80/50 Pulse: 60 Respirations: 19 Pulse Ox (%): 94 - Physical Exam General: Alert HEENT: Atraumatic Neck: Supple Respiratory: Diminished Cardiovascular: Normal pulses, Regular rate/rhythm Gastrointestinal: Normal bowel sounds, Soft and benign, Non-distended Neurological: Other (History of CVA, right-sided residual weakness), Dementia - Studies Microbiology Data (last 24 hrs): 05/19/19 12:17 Blood - Blood Anaerobic Blood Culture - Final 05/19/19 12:10 Blood - Blood Anaerobic Blood Culture - Final Medications List Reviewed: Yes Assessment & Plan Discharge Plan: Home (With hospice) Plan to discharge in: 48 Hours Physician Review Additional Text: Impression: Septic shock with toxic encephalopathy secondary to right lower lobe pneumonia likely recurrent aspiration Acute on chronic respiratory failure likely related to pneumonia with history of COPD Hyponatremia secondary to dehydration History of multiple CVAs with right-sided residual weakness Dysphagia with recent PEG tube placement History of hypertension now with hypotension related to septic shock Plan: Septic shock with toxic encephalopathy secondary to right lower lobe pneumonia likely recurrent aspiration: Patient remains in ICU. Continue IV antibiotic therapy. Continue IV fluids. Pulmonology consulted for further recommendation. Patient remains on IV Levophed. Additional vasopressor may be required. Continue with BiPAP to maintain oxygen level. Case discussed at length again with son and sister. Patient remains DNR and DNI. If his condition continues to decline. They will consider withdrawal of care and hospice. Will continue to reassess. Consider withdrawal of care and hospice likely tomorrow if no improvement. Acute on chronic respiratory failure likely related to pneumonia with history of COPD: Continue with treatment. Respiratory consulted to maintain sats above 93%. Patient may require BiPAP. Continue as above Hyponatremia secondary to dehydration: IV fluids addressed. Will monitor closely. Replacement protocol in place. History of multiple CVAs with right-sided residual weakness: Will provide DVT prophylaxis. Will continue with aspirin and Plavix through PEG tube. Dysphagia with recent PEG tube placement: Will provide medication through PEG tube. Obtain information on what the patient was getting for PEG tube feeds. Will need to restart. May need to consult dietary to help with this. Patient NPO at this time History of hypertension now with hypotension related to sepsis: Hold blood pressure medication at this time due to sepsis. Time Spent Managing Pts Care (In Minutes): 55
--- NOTE | 2019-05-20 14:52 | EKG ---
Test Date: 2019-05-19 Test Time: 10:52:25 Chemical Plant Operator Supervisor: GLENIS MEASUREMENT RESULTS: Intervals: Rate: 105 NH: 182 QRSD: 66 QT: 338 QTc: 446 [place]: P: 77 NH: 182 QRS: 30 T: 92 INTERPRETIVE STATEMENTS: Sinus tachycardia with fusion complexes Septal infarct, age undetermined Abnormal ECG Compared to ECG 04/27/2019 14:45:59 Fusion complex(es) now present Myocardial infarct finding still present Electronically Signed On 05-20-19 14:50:29 REFRIGERATION SUPERVISOR by Polo Brizuela
[2019-05-20] MEDS ORDERED: NOREPINEPHRINE 4mg/D5W 250mL 4 MG/250 ML BAG IV ONE (21:46)
[2019-05-20] MEDS ORDERED: WATER FOR INJ,STERILE 10 ML ONE (22:27)
[2019-05-21] MEDS: NOREPINEPHRINE 8 MG in D5W 500 ML IV PRN ×3 (00:30→23:25)
[2019-05-21] MEDS: PIPER/TAZO/NS 3.375gm 3.375 GM/100 ML BAG IVPB SCH ×3 (01:54→17:40)
[2019-05-21] MEDS ORDERED: NOREPINEPHRINE 4mg/D5W 250mL 4 MG/250 ML BAG IV ONE (03:37)
[2019-05-21 05:30] LABS: Absolute Lymphocytes (CBC) 0.4 K/uL (0.7-4.9); Basophils % 0.3 % (0-1.3); Hematocrit 30.5 % (39.6-49.0); MPV 8.9 fL (7.6-11.3); RBC Red Blood Cell Count 3.49 M/uL (4.33-5.43)
[2019-05-21 06:04] LABS: Magnesium 1.5 mg/dL (1.8-2.4); Potassium 4.9 mmol/L (3.5-5.1)
[2019-05-21] MEDS: NA CHLORIDE 0.9% 1,000 ML IV SCH ×2 (06:20→17:40)
[2019-05-21 06:21] LABS: Blood Morphology Comment NOT SEEN (NOT SEEN); Platelet Estimate ADEQ
[2019-05-21] MEDS: ENOXAPARIN 60 MG/0.6 ML SQ SCH ×2 (09:00→09:42)
[2019-05-21] MEDS: DOPAMINE/D5W 400 MG/250 ML BAG IV PRN (09:24)
[2019-05-21] MEDS: HYDROCORTISONE SUC 100 MG INJ IV SCH ×2 (09:42→23:30)
[2019-05-21] MEDS: ASPIRIN 81 MG CHEWABLE TABLET FT SCH (09:42)
--- NOTE | 2019-05-21 11:34 | P.PN ---
Subjective Date of Service: 05/21/19 Primary Care Provider: Dr. Olguin Chief Complaint: Respiratory failure shock Subjective: Other (Patient remains on double vasopressors. Patient on BiPAP.) Physical Examination - Vital Signs Temperature: 96.9 F Blood Pressure: 117/58 Pulse: 70 Respirations: 14 Pulse Ox (%): 100 - Physical Exam General: Alert (Patient more alert today.) Neck: Supple Respiratory: Other (Patient on BiPAP) Cardiovascular: Normal pulses, Regular rate/rhythm Gastrointestinal: Soft and benign, Non-distended Neurological: Other (Right-sided weakness due to prior CVA) - Studies Microbiology Data (last 24 hrs): 05/19/19 12:17 Blood - Blood Anaerobic Blood Culture - Final 05/19/19 12:10 Blood - Blood Anaerobic Blood Culture - Final Medications List Reviewed: Yes Assessment & Plan Discharge Plan: Home (Home with hospice versus inpatient hospice) Plan to discharge in: 24 Hours Physician Review Additional Text: Impression: Septic shock with toxic encephalopathy secondary to right lower lobe pneumonia likely recurrent aspiration Acute on chronic respiratory failure likely related to pneumonia with history of COPD Hyponatremia secondary to dehydration History of multiple CVAs with right-sided residual weakness Dysphagia with recent PEG tube placement History of hypertension now with hypotension related to septic shock Acute renal failure likely from septic shock with hyponatremia Plan: Septic shock with toxic encephalopathy secondary to right lower lobe pneumonia likely recurrent aspiration: Patient remains in ICU. Continue IV antibiotic therapy. Continue IV fluids. Patient on double vasopressors to to maintain blood pressure. Case discussed with pulmonology. Poor prognosis noted. Spoke with sister who has medical power of state attorney this morning. Family is considering withdrawal of care and hospice either at home or inpatient. Will discuss with family further to consider withdrawal and hospice. Will continue to monitor and reassess. I will turn the service over to the hospitalist team tomorrow. I will go plan of care with him. Acute on chronic respiratory failure likely related to pneumonia with history of COPD: Continue with treatment. Respiratory consulted to maintain sats above 93%. Patient on BiPAP. Continue as above Hyponatremia secondary to dehydration: IV fluids addressed. Will monitor closely. Replacement protocol in place. History of multiple CVAs with right-sided residual weakness: Will provide DVT prophylaxis. Will continue with aspirin and Plavix through PEG tube. Dysphagia with recent PEG tube placement: Will provide medication through PEG tube. Obtain information on what the patient was getting for PEG tube feeds. Will need to restart. May need to consult dietary to help with this. Patient NPO at this time History of hypertension now with hypotension related to sepsis: Hold blood pressure medication at this time due to sepsis. Acute renal failure likely from septic shock with hyponatremia: Continue IV fluids. Time Spent Managing Pts Care (In Minutes): 55
[2019-05-22] MEDS ORDERED: WATER FOR INJ,STERILE 10 ML ONE ×2 (00:25→09:12)
[2019-05-22] MEDS: PIPER/TAZO/NS 3.375gm 3.375 GM/100 ML BAG IVPB SCH ×2 (00:57→09:12)
[2019-05-22] MEDS ORDERED: Magnesium Sulfate 2gm IVPB 2 G/50 ML BAG IV ONE (02:33)
[2019-05-22 05:12] LABS: Absolute Lymphocytes (CBC) 0.4 K/uL (0.7-4.9); Basophils % 0.6 % (0-1.3); Hematocrit 30.7 % (39.6-49.0); Lymphocytes % 3.7 % (15.3-44.8); MPV 8.6 fL (7.6-11.3); RBC Red Blood Cell Count 3.56 M/uL (4.33-5.43)
[2019-05-22 05:21] LABS: Magnesium 2.6 mg/dL (1.8-2.4); Potassium 4.6 mmol/L (3.5-5.1)
[2019-05-22 05:23] VITALS: TEMP 96.8
[2019-05-22] MEDS: DOPAMINE/D5W 400 MG/250 ML BAG IV PRN (07:17)
[2019-05-22] MEDS: HYDROCORTISONE SUC 100 MG INJ IV SCH (09:12)
[2019-05-22] MEDS: ASPIRIN 81 MG CHEWABLE TABLET FT SCH (09:12)
[2019-05-22] MEDS: NOREPINEPHRINE 8 MG in D5W 500 ML IV PRN (10:03)
--- NOTE | 2019-05-22 10:30 | ECHO ---
HEIGHT: 6 ft 1 in WEIGHT: 136 lb 7 oz DATE OF STUDY: REFER DR: Rob Parekh DO 2-DIMENSIONAL: YES M.MODE: YES DOPPLER: YES COLOR FLOW: YES TDS: NO PORTABLE: YES DEFINITY: NO BUBBLE STUDY: NO DIAGNOSIS: SEPSIS/HYPERTENSION CARDIAC HISTORY: CATHERIZATION: NO SURGERY: NO PROSTHETIC VALVE: NO PACEMAKER: NO MEASUREMENTS (cm) DIASTOLIC (NORMALS) SYSTOLIC (NORMALS) IVSd 1.0 (0.6-1.2) LA Diam 3.3 (1.9-4.0) LVEF 58% LVIDd 4.2 (3.5-5.7) LVIDs 2.9 (2.0-3.5) %FS 30% LVPWd 0.8 (0.6-1.2) Ao Diam 3.4 (2.0-3.7) 2 DIMENSIONAL ASSESSMENT: RIGHT ATRIUM: NORMAL LEFT ATRIUM: NORMAL RIGHT VENTRICLE: NORMAL LEFT VENTRICLE: NORMAL TRICUSPID VALVE: NORMAL MITRAL VALVE: NORMAL PULMONIC VALVE: NORMAL AORTIC VALVE: NORMAL PERICARDIAL EFFUSION: NONE AORTIC ROOT: NORMAL LEFT VENTRICULAR WALL MOTION: NORMAL. DOPPLER/COLOR FLOW: MILD TRICUSPID REGURGITATION. ESTIMATED RIGHT VENTRICULAR SYSTOLIC PRESSURE 47mmHg (MILD PULMONARY HYPERTENSION). IMPAIRED LEFT VENTRICULAR RELAXATION. COMMENTS: NORMAL 2D ECHO. MILD TRICUSPID REGURGITATION. MILD PULMONARY HYPERTENSION. IMPAIRED LEFT VENTRICULAR RELAXATION. TECHNOLOGIST: JOHNATHAN BERRIOS
--- NOTE | 2019-05-22 11:11 | P.DS ---
Admission Date: 05/19/19 Discharge Date: 05/22/19 Primary Care Provider: Dr. Olguin Disposition: HOSPICE-MEDICAL FACILITY Discharge Condition: SERIOUS Reason for Admission: Respiratory failure shock Consultations: Pulmonary-Dr. Mccloud Procedures: CXR: COMPARISON: April 27, 2019 FINDINGS: Moderate right lung opacities. The left lung appears clear of acute infiltrate The heart is normal size IMPRESSION: Moderate right lung opacities consistent with pneumonia. There is a component of atelectasis as well. This should be followed until it is clear to help exclude a postobstructive process Follow up CXR: COMPARISON: May 19 TECHNIQUE: AP portable chest image was obtained 0700 hours . FINDINGS: Right lung interstitial and alveolar opacities are not substantially different from the comparison. There may be a very slight improvement at the base. No progressive right lung field finding. Fullness of the right hilum is likely reactive adenopathy. No new or progressive left lung field finding seen. Left hilum is normal. Heart and vasculature are normal. No measurable pleural effusion and no pneumothorax. No acute bony abnormality seen. No acute aortic findings suspected. IMPRESSION: Right lung field pneumonia findings are not substantially different. There may be a very fractional improvement at the right base. No new or progressive finding. ECHO: EF 58% LEFT VENTRICULAR WALL MOTION: NORMAL. DOPPLER/COLOR FLOW: MILD TRICUSPID REGURGITATION. ESTIMATED RIGHT VENTRICULAR SYSTOLIC PRESSURE 47mmHg (MILD PULMONARY HYPERTENSION). IMPAIRED LEFT VENTRICULAR RELAXATION. COMMENTS: NORMAL 2D ECHO. MILD TRICUSPID REGURGITATION. MILD PULMONARY HYPERTENSION. IMPAIRED LEFT VENTRICULAR RELAXATION. Medical Problem List: Septic shock with toxic encephalopathy secondary to right lower lobe pneumonia likely recurrent aspiration Acute on chronic respiratory failure likely related to pneumonia with history of COPD Hyponatremia secondary to dehydration History of multiple CVAs with right-sided residual weakness Dysphagia with recent PEG tube placement History of hypertension now with hypotension related to septic shock Acute renal failure likely from septic shock with hyponatremia Brief History of Present Illness: 78-year-old male with history of CVA with residual right-sided weakness, dysphagia with PEG tube, COPD and hypertension. Patient recently hospitalized and discharged home in April for likely aspiration pneumonia. Patient was found to have dysphagia at that time and PEG tube was placed. Since that time patient has been at home with his caregiver and medical power of family law attorney-sister. She reports that she has been primarily giving Ensure as [facility] nutrition-Jevity for PEG tube feeds. Since yesterday patient is had some altered mental status changes. She has been diligent in giving his medications. Today she happened to check his blood pressure. Blood pressure was low. Patient has had some chills. Due to the status changes the patient was brought in to the hospital for further evaluation. In the ER patient was evaluated. Patient was initially hypotensive in the emergency room with a systolic in the 80s. He did appear short of breath. On lab white count 8.4, hemoglobin 11.2. Platelet count of 205. Neutrophils elevated at 89. Sodium 128, potassium 4.7. Bicarb 32. BUN 17, creatinine 1.02 with a GFR of 86. Glucose 78. Lactic acid within normal range but pro calcitonin elevated at 4.3. Chest x-ray showed right lower lobe pneumonia likely aspiration. Sepsis protocol initiated. Patient admitted for further evaluation and treatment. Patient currently on non-rebreather. When I saw the patient in the ER, he appeared septic. Family at bedside. Blood pressure is still low. Patient on non-rebreather. Patient appears chronically ill. Hospital Course: 78-year-old male with multiple medical problems including COPD , multiple CVAs in the past with right-sided residual weakness, dysphagia with recent PEG tube placement, hypertension, chronic renal disease. Patient presented with septic shock with toxic encephalopathy secondary to right lower low pneumonia suspect aspiration. During the course of his stay patient was placed in ICU for close monitoring. Patient received IV fluids. Patient required dual vasopressor therapy to maintain blood pressure. Patient also required BiPAP. Patient received medication for COPD. His condition did not improve. Patient also developed acute renal failure likely related to septic shock and pneumonia. Prognosis was poor. Advanced directives addressed in detail with medical power of family law attorney and family. Patient was do not resuscitate and [id number]. After no success in improvement discussion of inpatient hospice and withdrawal of care was discussed in detail. Medical power of family law attorney and family recognized his poor prognosis and poor progress in the hospital. They have decided on inpatient hospice. They have also decided to continue with comfort measures only. Patient will be transitioned to inpatient hospice. Antibiotic therapy, vasopressor therapy, and IV fluids will be discontinued. Patient will continue with comfort measures. Inpatient hospice will provide medication. Further instruction will come from inpatient hospice. Vital Signs/Physical Exam: Temp Pulse Resp BP Pulse Ox 96.8 F 68 20 88/54 L 97 05/22/19 04:00 05/22/19 10:15 05/22/19 10:15 05/22/19 10:15 05/22/19 10:15 General: Alert, Demented, Other (patient has aphasia) Neck: Supple Respiratory: Crackles/rales (Bilateral), Expiratory wheezes (Bilateral), Other ( Patient on BiPAP) Cardiovascular: Regular rate/rhythm Gastrointestinal: Normal bowel sounds, Soft and benign, Non-distended Musculoskeletal: Contractures Integumentary: Other (Muscle wasting to the upper lower extremities) Laboratory Data at Discharge: WBC 12.0 K/uL (4.3-10.9) H D 05/22/19 05:00 Hgb 10.2 g/dL (13.6-17.9) L 05/22/19 05:00 Hct 30.7 % (39.6-49.0) L 05/22/19 05:00 Plt Count 186 K/uL (152-406) 05/22/19 05:00 PT 12.6 SECONDS (9.5-12.5) H 05/19/19 12:10 INR 1.07 05/19/19 12:10 APTT 26.5 SECONDS (24.3-36.9) 05/19/19 12:10 Sodium 123 mmol/L (136-145) L 05/22/19 05:00 Potassium 4.6 mmol/L (3.5-5.1) 05/22/19 05:00 BUN 25 mg/dL (7-18) H 05/22/19 05:00 Creatinine 2.28 mg/dL (0.55-1.3) H 05/22/19 05:00 Glucose 132 mg/dL (74-106) H 05/22/19 05:00 Magnesium 2.6 mg/dL (1.8-2.4) H D 05/22/19 05:00 Total Bilirubin 0.4 mg/dL (0.2-1.0) 05/19/19 12:10 AST 11 U/L (15-37) L 05/19/19 12:10 ALT 14 U/L (12-78) 05/19/19 12:10 Alkaline Phosphatase 59 U/L (45-117) 05/19/19 12:10 Troponin I < 0.02 ng/mL (0.0-0.045) 05/20/19 05:03 Triglycerides 42 mg/dL (<150) 05/20/19 05:03 Cholesterol 97 mg/dL (<200) 05/20/19 05:03 HDL Cholesterol 49 mg/dL (40-60) 05/20/19 05:03 Cholesterol/HDL Ratio 1.98 05/20/19 05:03 Lipase 30 U/L (73-393) L 05/19/19 12:10 Home Medications: Amlodipine [Norvasc*] 1 tab OSTOMY BID #30 tab 05/03/19 Aspirin 81 mg OSTOMY DAILY #30 tab.chew 05/03/19 Atorvastatin Calcium [Lipitor] 80 mg OSTOMY DAILY #30 tablet 05/03/19 Hydralazine [Apresoline*] 25 mg OSTOMY TID #90 tab 05/03/19 Jevity 1.5 Lucian [Jevity 1.5 Lucian*] 240 ml FT 5XD #50 can 05/03/19 Lisinopril [Zestril] 1 tab OSTOMY DAILY #30 tablet 05/03/19 Multivitamin [Multivitamins] 1 each OSTOMY DAILY #30 capsule 05/03/19 Prazosin HCl 1 mg OSTOMY BEDTIME #30 capsule 05/03/19 Tamsulosin [Flomax*] 0.4 mg OSTOMY BEDTIME #30 cap 05/03/19 carvediloL [Coreg*] 37.5 mg OSTOMY BID #60 tab 05/03/19 Patient Discharge Instructions: 1. Patient will be discharged to inpatient hospice. 2. Patient is do not resuscitate and [id number]. 3. Patient will continue with comfort measures. Inpatient hospice to provide medication for pain, agitation. Diet: NPO Activity: Bedrest Time spent managing pt's care (in minutes): 55
[2019-05-22 12:34] VITALS: O2SAT 99
[2019-05-22 13:18] VITALS: BP 82/47
== END 2019-05-22 13:10 | disposition hospice, inpatient (51) | DRG 871 ==
LOC: ER 09:46 → ERHOLD 14:36 → 3RD-ICU 17:27
PROVIDERS: ADMIT Family Medicine; ATTEND Internal Medicine
PROC: 5A09457 Assistance with Respiratory Ventilation, 24-96 Consecutive Hours, Continuous Positive Airway Pressure (ICD-10-PCS; principal; 2019-05-19)
DX: A41.9 Sepsis, unspecified organism (principal); J96.20 Acute and chronic respiratory failure, unspecified whether with hypoxia or hypercapnia; J69.0 Pneumonitis due to inhalation of food and vomit; G92 Toxic encephalopathy; R65.21 Severe sepsis with septic shock; E87.1 Hypo-osmolality and hyponatremia; N17.9 Acute kidney failure, unspecified; I69.351 Hemiplegia and hemiparesis following cerebral infarction affecting right dominant side; Z43.1 Encounter for attention to gastrostomy; J44.9 Chronic obstructive pulmonary disease, unspecified
CPT/HCPCS: 36415; 71045; 80048; 80061; 80076; 81003; 81015; 82550; 82553; 82805; 82947; 83605; 83690; 83735; 84145; 84443; 84484; 85025; 85610; 85730; 87040; 87086; 87088; 93005; 93306; 94660; 94760; 96374; 96375; 99284; J0692; J0696; J1265; J1650; J1720; J2543; J3370; J3475; J7030; J7040; J7042; J7060; J7605

== ENCOUNTER 2019-05-22 11:31 | Inpatient (IN) | payer OTHER ==
--- OUTSIDE RECORDS SUMMARY | 2019-05-22 13:18 | XMS REPORT ---
:1940 [facility] Address [address] [place] [address] Care Team Providers Name Role Phone Unavailable Unavailable Unavailable Problems This patient has no known problems. Allergies, Adverse Reactions, Alerts This patient has no known allergies or adverse reactions. Medications This patient has no known medications. Encounters Start End Encounter Admission Attending Care Care Encounter Date/Time Date/Time Type Type Clinicians Facility Department ID 2018-09-16 2018-09-16 Emergency [facility] [id number] 09:51:00 09:51:00 2018-09-16 2018-09-16 Outpatient [facility] [id number] 09:51:00 09:51:00
[2019-05-22] MEDS ORDERED: MORPHINE 4 MG/ML SYR IV PRN (13:28)
[2019-05-22] MEDS ORDERED: SCOPOLAMINE HYDROBROMIDE PATCH TD PRN (13:29)
[2019-05-22] MEDS ORDERED: LORazepam 2 MG/ML VIAL IV PRN (13:29)
[2019-05-22] MEDS ORDERED: BISACODYL 10 MG RECTAL SUPP PR PRN (13:30)
[2019-05-22] MEDS ORDERED: ACETAMINOPHEN 650MG/RECT SUPP PR PRN (13:30)
[2019-05-22] MEDS ORDERED: PROMETHAZINE 25 MG/SUPP PR PRN (13:31)
[2019-05-22] MEDS ORDERED: PROMETHAZINE 25 MG TABLET PO PRN (13:31)
[2019-05-22] MEDS ORDERED: HYOSCYAMINE SULF 0.125 MG TAB SL PRN ×2 (13:32)
[2019-05-22 13:44] VITALS: BMI 20.5
[2019-05-22 14:53] VITALS: BP 93/51
[2019-05-22 15:10] VITALS: O2SAT 96
== END 2019-05-22 17:07 | disposition expired | DRG 951 ==
LOC: 3RD-ICU 11:31
PROVIDERS: ADMIT Internal Medicine Hematology & Oncology; ATTEND Internal Medicine Hematology & Oncology
DX: Z51.5 Encounter for palliative care (principal); A41.9 Sepsis, unspecified organism; J96.20 Acute and chronic respiratory failure, unspecified whether with hypoxia or hypercapnia; R65.21 Severe sepsis with septic shock; G92 Toxic encephalopathy; J69.0 Pneumonitis due to inhalation of food and vomit; E87.1 Hypo-osmolality and hyponatremia; N17.9 Acute kidney failure, unspecified; I69.351 Hemiplegia and hemiparesis following cerebral infarction affecting right dominant side; Z43.1 Encounter for attention to gastrostomy; J44.9 Chronic obstructive pulmonary disease, unspecified